=== PATIENT | female | born 1945 | race Caucasian/White ===

== ENCOUNTER 2018-10-05 15:00 | Inpatient (IN) | payer OTHER ==
--- OUTSIDE RECORDS SUMMARY | 2018-10-05 15:12 | XMS REPORT ---
:1945 Author Organization eClinicalWorks Care Team Providers Name Role Phone Tiffanie Avila Provider Role Unavailable Allergies, Adverse Reactions, Alerts Substance Reaction Event Type penicillin throat swells Drug Allergy Problems Problem Type Condition Code Onset Dates Condition Status Assessment Right hip pain M25.551 Active Problem Elevated BP without diagnosis of R03.0 Active hypertension Assessment Elevated BP without diagnosis of R03.0 Active hypertension Assessment Osteoporosis screening Z13.820 Active Assessment Abnormal x-ray R93.89 Active Assessment Low back pain M54.5 Active Problem Low back pain M54.5 Active Problem Right hip pain M25.551 Active Problem Abnormal x-ray R93.89 Active Problem History of right hip replacement Z96.641 Active Problem Status post fall Z91.81 Active Problem Seasonal allergies J30.2 Active Problem Other chronic pain G89.29 Active Medications Medication Code System Code Instructions Start End Date Status Dosage Date Aleve NDC [id number] 220 MG Orally as Active 1 tablet needed with food or milk as needed aspirin NDC 0 Active not defined Results No Known Results Summary Purpose eClinicalWorks Submission
--- OUTSIDE RECORDS SUMMARY | 2018-10-05 15:12 | XMS REPORT ---
:1945 Author Organization e[employer]Works Care Team Providers Name Role Phone Tiffanie Avila Provider Role Unavailable Allergies No Known Allergies Problems Problem Type Condition Code Onset Dates Condition Status Problem Elevated BP without diagnosis of R03.0 Active hypertension Problem Low back pain M54.5 Active Problem Right hip pain M25.551 Active Problem Abnormal x-ray R93.89 Active Problem History of right hip replacement Z96.641 Active Problem Status post fall Z91.81 Active Problem Seasonal allergies J30.2 Active Problem Other chronic pain G89.29 Active Medications No Known Medications Results No Known Results Summary Purpose eClinicalWorks Submission
[2018-10-05 15:47] LABS: Absolute Lymphocytes (CBC) 1.5 K/uL (0.7-4.9); Basophils % 1.2 % (0-1.3); Eosinophils % 1.6 % (0-4.4); Hematocrit 38.8 % (36.0-45.0); Lymphocytes % 20.4 % (15.3-44.8); MPV 10.2 fL (7.6-11.3); Monocytes % 8.3 % (3.3-12.3); RBC Red Blood Cell Count 4.09 M/uL (3.86-4.86)
[2018-10-05 15:48] LABS: Protime INR 0.99
--- NOTE | 2018-10-05 15:48 | RAD REPORT ---
EXAM DESCRIPTION: CT - Ct Stroke Brain Wo Cont - 10/05/2018 3:41 pm CLINICAL HISTORY: DIZZINESS Headache, drowsiness, CVA symptomology COMPARISON: <Comparisons> TECHNIQUE: All CT scans are performed using dose optimization technique as appropriate and may inclu de automated exposure control or mA/KV adjustment according to patient size. FINDINGS: No intracranial hemorrhage, hydrocephalus or extra-axial fluid collection.No areas of brai n edema or evidence of midline shift. The paranasal sinuses and mastoids are clear. The calvarium is intact. IMPRESSION: No acute intracranial abnormality. The findings were discussed with LORENZO Loya on 10/05/2018 at 3:45 p.m. by telephone.
[2018-10-05] MEDS ORDERED: MECLIZINE HCL 12.5 MG TAB PO ONE (16:00)
[2018-10-05 16:04] LABS: Albumin 3.9 g/dL (3.4-5.0); Bilirubin Direct 0.2 mg/dL (0-0.2); Bilirubin Total 0.6 mg/dL (0.2-1.0); Magnesium 2.3 mg/dL (1.8-2.4); Potassium 4.6 mmol/L (3.5-5.1); Protein, Total 7.2 g/dL (6.4-8.2); Troponin (Emerg Dept Use Only) 0.23 ng/mL (0.0-0.045)
[2018-10-05] MEDS ORDERED: ASPIRIN EC 81 MG TAB PO ONE (16:18)
[2018-10-05] MEDS ORDERED: NA CHLORIDE 0.9% 100 ML IV ONE (16:18)
[2018-10-05] MEDS ORDERED: FOLIC ACID 5 MG/ML VIAL ONE (16:19)
--- NOTE | 2018-10-05 16:38 | RAD REPORT ---
EXAM DESCRIPTION: RAD - Chest Single View - 10/05/2018 4:20 pm CLINICAL HISTORY: DIZZY Chest pain. COMPARISON: CHEST SINGLE VIEW dated 11/15/2014; CHEST SINGLE VIEW dated 11/15/2012; CHEST SINGLE VIEW dated 03/04/2002 FINDINGS: Portable technique limits examination quality. The lungs are grossly clear. Mild cardiomegaly noted. No displaced fractures. IMPRESSION: Mild cardiomegaly.
--- NOTE | 2018-10-05 16:45 | EDPHYS ---
Physician Documentation [facility] Name: Esteal Hawley Age: 73 yrs Sex: Female : 1945 Arrival Date: 10/05/2018 Time: 15:02 Bed 19 Private MD: Tiffanie Avila ED Physician Angelo Conner HPI: 10/05 15:36 This 73 yrs old Female presents to ER via Wheelchair with complaints of snw Dizziness. 15:36 The patient presents with a sense of confusion. Onset: The symptoms/episode snw began/occurred suddenly, at 11:00. Context: occurred while the patient was speaking with Sisters. Modifying factors: The symptoms are alleviated by nothing. Associated signs and symptoms: Pertinent positives: pt verbal and making sense but is frustrated as she does not feel she is able to get what she is thinking relayed. Patient's baseline: Neuro: alert and fully oriented, Motor: no deficits, Ambulation: walks without assistance, The patient has a previous history of vertigo. The patient has not experienced similar symptoms in the past. The patient has not recently seen a physician, the patient's primary care provider is Dr. Whittaker. occasionally takes full strength ASA x 2 for aches/pains. Historical: - Allergies: 15:10 penicillamine; ch 15:10 PENICILLINS; ch - Home Meds: 15:10 aspirin 81 mg Oral chew 1 tab once daily [Active]; ch - PMHx: 15:10 vertigo; ch - PSHx: 15:10 R hip replacement; staph removed from left hand; ch - Immunization history:: Adult Immunizations up to date. - Social history:: Smoking status: Patient uses tobacco products, smokes one-half pack cigarettes per day, Patient/guardian denies using alcohol, street drugs. - Ebola Screening: : Patient negative for fever greater than or equal to 101.5 degrees Fahrenheit, and additional compatible Ebola Virus Disease symptoms Patient denies exposure to infectious person Patient denies travel to an Ebola-affected area in the 21 days before illness onset No symptoms or risks identified at this time. ROS: 15:31 Constitutional: Negative for fever, chills, and weight loss, Eyes: Negative for injury, snw pain, redness, and discharge, ENT: Negative for injury, pain, and discharge, Neck: Negative for injury, pain, and swelling, Cardiovascular: Negative for chest pain, palpitations, and edema, Respiratory: Negative for shortness of breath, cough, wheezing, and pleuritic chest pain, Abdomen/GI: Negative for abdominal pain, nausea, vomiting, diarrhea, and constipation, Back: Negative for injury and pain, : Negative for injury, bleeding, discharge, and swelling, MS/Extremity: Negative for injury and deformity, Skin: Negative for injury, rash, and discoloration, Psych: Negative for depression, anxiety, suicide ideation, homicidal ideation, and hallucinations, Son does relate that pt is very stressed about finances and family dynamics Allergy/Immunology: Negative for hives, rash, and allergies. 15:31 Neuro: Positive for difficulty translating thoughts to words. Exam: 15:31 Constitutional: This is a well developed, well nourished patient who is awake, alert, snw and in no acute distress. Head/Face: Normocephalic, atraumatic. Eyes: Pupils equal round and reactive to light, extra-ocular motions intact. Lids and lashes normal. Conjunctiva and sclera are non-icteric and not injected. Cornea within normal limits. Periorbital areas with no swelling, redness, or edema. ENT: Nares patent. No nasal discharge, no septal abnormalities noted. Tympanic membranes are normal and external auditory canals are clear. Oropharynx with no redness, swelling, or masses, exudates, or evidence of obstruction, uvula midline. Mucous membranes moist. Neck: Trachea midline, no thyromegaly or masses palpated, and no cervical lymphadenopathy. Supple, full range of motion without nuchal rigidity, or vertebral point tenderness. No Meningismus. Chest/axilla: Normal chest wall appearance and motion. Nontender with no deformity. No lesions are appreciated. Cardiovascular: Regular rate and rhythm with a normal S1 and S2. No gallops, murmurs, or rubs. Normal PMI, no JVD. No pulse deficits. Respiratory: Lungs have equal breath sounds bilaterally, clear to auscultation and percussion. No rales, rhonchi or wheezes noted. No increased work of breathing, no retractions or nasal flaring. Abdomen/GI: Soft, non-tender, with normal bowel sounds. No distension or tympany. No guarding or rebound. No evidence of tenderness throughout. Back: No spinal tenderness. No costovertebral tenderness. Full range of motion. Skin: Warm, dry with normal turgor. Normal color with no rashes, no lesions, and no evidence of cellulitis. MS/ Extremity: Pulses equal, no cyanosis. Neurovascular intact. Full, normal range of motion. Psych: Awake, alert, with orientation to person, place and time. Behavior, mood, and affect are within normal limits. 15:31 Neuro: Orientation: is normal, Mentation: able to follow commands, pt having trouble connecting what she is thinking to what she is able to say, Memory: is normal, Cranial nerves: grossly normal, Sensation: is normal, Babinski testing is normal, seizure activity, is not displayed by the patient. Vital Signs: 15:10 BP 158 / 82; Pulse 66; Resp 16; Temp 98.4; Pulse Ox 99% on R/A; Weight 72.57 kg; Height ch 5 ft. 0 in. (152.40 cm); Pain 0/10; 15:33 BP 156 / 66; Pulse 60; Resp 14; Pulse Ox 100% ; bp 16:17 BP 134 / 66; Pulse 55; Resp 16; Pulse Ox 100% ; bp 17:05 BP 161 / 66; Pulse 51; Resp 16; Pulse Ox 100% on R/A; bp 19:50 BP 143 / 57; Pulse 56; Resp 18; Temp 98.5; Pulse Ox 99% ; Pain 0/10; rr5 15:10 Body Mass Index 31.25 (72.57 kg, 152.40 cm) ch MDM: 15:25 Patient medically screened. snw 16:42 Data reviewed: vital signs, nurses notes. Data interpreted: Pulse oximetry: on room air snw is 100 %. Interpretation: normal. Counseling: I had a detailed discussion with the patient and/or guardian regarding: the historical points, exam findings, and any diagnostic results supporting the discharge/admit diagnosis, the presence of at least one elevated blood pressure reading (>120/80) during this emergency department visit, lab results, radiology results, the need for further work-up and treatment in the hospital. Physician consultation: Andrea Joseph DO was called at 16:30, was contacted at 16:30, regarding admission, and will see patient in ED, shortly. 10/05 15:24 Order name: Basic Metabolic Panel; Complete Time: 16:08 snw 10/05 15:24 Order name: CBC with Diff; Complete Time: 16:08 snw 10/05 15:24 Order name: LFT's; Complete Time: 16:08 snw 10/05 15:24 Order name: Magnesium; Complete Time: 16:08 snw 10/05 15:24 Order name: NT PRO-BNP; Complete Time: 16:08 snw 10/05 15:24 Order name: PT-INR; Complete Time: 16:08 snw 10/05 15:24 Order name: CT Stroke Brain w/o Contrast; Complete Time: 15:50 snw 10/05 15:24 Order name: Troponin (emerg Dept Use Only); Complete Time: 16:08 w 10/05 15:49 Order name: Chest Single View; Complete Time: 16:41 EDRI 10/05 16:15 Order name: MRI Stroke Protocol [facility] 10/05 20:11 Order name: MRI; Complete Time: 20:12 EDMS 10/05 20:14 Order name: MRI; Complete Time: 20:15 EDRI 10/05 20:17 Order name: MRI; Complete Time: 22:35 EDRI 10/05 15:24 Order name: EKG; Complete Time: 15:25 snw 10/05 15:24 Order name: Cardiac monitoring; Complete Time: 15:31 w 10/05 15:24 Order name: EKG - Nurse/Tech; Complete Time: 15:31 w 10/05 15:24 Order name: IV Saline Lock; Complete Time: 16:17 w 10/05 15:24 Order name: Labs collected and sent; Complete Time: 16:17 snw 10/05 15:24 Order name: O2 Per Protocol; Complete Time: 15:31 snw 10/05 15:24 Order name: O2 Sat Monitoring; Complete Time: 15:31 snw Administered Medications: 16:12 Drug: Meclizine 50 mg {Note: RECD REPORT FROM PHARMACY AT 1615.} Route: PO; bp 16:12 Drug: Aspirin 81 mg Route: PO; bp 16:12 Drug: foLIC Acid 1 mg Route: IVPB; Site: right antecubital; bp Disposition: 10/05/18 16:44 Hospitalization ordered by Andrea Joseph for Inpatient Admission. Preliminary diagnosis are Dysarthria, Abnormal electrocardiogram [ECG] [EKG], Cardiomegaly, Elevated troponin. - Bed requested for Telemetry/MedSurg (Inpatient). - Status is Inpatient Admission. rr5 - Condition is Stable. - Problem is new. - Symptoms are unchanged. UTI on Admission? No Addendum: 10/09/2018 09:53 Co-signature as Attending Physician, Angelo Conner MD I agree with the assessment and c patterson plan of care. Signatures: Dispatcher [employer] EDRI Joslyn Hand, RN Angelo Schwartz ch, MD MD cha Therrien, Shelly, RECREATIONAL DIRECTOR-C RECREATIONAL DIRECTOR-Csnw Tamara Fernandez, RN RN cg Lamonte Rachel, Chino Reyes RN RN RN rr5 Corrections: (The following items were deleted from the chart) 10/05 15:46 15:25 Chest Single View+RAD.RAD.BRZ ordered. [facility] 19:37 16:44 Hospitalization Ordered by Andrea Joseph DO for Inpatient Admission. Preliminary cg diagnosis is Dysarthria; Abnormal electrocardiogram [ECG] [EKG]; Cardiomegaly; Elevated troponin. Bed requested for Telemetry/MedSurg (Inpatient). Status is Inpatient Admission. Condition is Stable. Problem is new. Symptoms are unchanged. UTI on Admission? No. snw 20:17 19:37 10/05/2018 16:44 Hospitalization Ordered by Andrea Joseph DO for Inpatient rr5 Admission. Preliminary diagnosis is Dysarthria; Abnormal electrocardiogram [ECG] [EKG]; Cardiomegaly; Elevated troponin. Bed requested for Telemetry/MedSurg (Inpatient). Status is Inpatient Admission. Condition is Stable. Problem is new. Symptoms are unchanged. UTI on Admission? No. cg 20:21 20:17 10/05/2018 16:44 Hospitalization Ordered by Andrea Joseph DO for Inpatient rr5 Admission. Preliminary diagnosis is Dysarthria; Abnormal electrocardiogram [ECG] [EKG]; Cardiomegaly; Elevated troponin. Bed requested for Telemetry/MedSurg (Inpatient). Status is Inpatient Admission. Condition is Stable. Problem is new. Symptoms are unchanged. UTI on Admission? No. rr5
--- NOTE | 2018-10-05 16:45 | ER ---
Nurse's Notes [facility] Name: Estela Hawley Age: 73 yrs Sex: Female : 1945 Arrival Date: 10/05/2018 Time: 15:02 Bed 19 Private MD: Tiffanie Avila Diagnosis: Dysarthria;Abnormal electrocardiogram [ECG] [EKG];Cardiomegaly;Elevated troponin Presentation: 10/05 15:06 Presenting complaint: Patient states: dizzy and cant make right words, started at 1000 ch today. I cant walk right. 15:09 Transition of care: patient was not received from another setting of care. Onset of symptoms was October 05, 2018 at 10:00. Risk Assessment: Do you want to hurt yourself or someone else? Patient reports no desire to harm self or others. Initial Sepsis Screen: Does the patient meet any 2 criteria? No. Patient's initial sepsis screen is negative. Does the patient have a suspected source of infection? No. Patient's initial sepsis screen is negative. Care prior to arrival: None. 15:09 Method Of Arrival: Wheelchair 15:09 Acuity: KERRIE 3 ch Triage Assessment: 15:10 General: Appears in no apparent distress. uncomfortable. Historical: - Allergies: 15:10 penicillamine; 15:10 PENICILLINS; - Home Meds: 15:10 aspirin 81 mg Oral chew 1 tab once daily [Active]; - PMHx: 15:10 vertigo; - PSHx: 15:10 R hip replacement; staph removed from left hand; - Immunization history:: Adult Immunizations up to date. - Social history:: Smoking status: Patient uses tobacco products, smokes one-half pack cigarettes per day, Patient/guardian denies using alcohol, street drugs. - Ebola Screening: : Patient negative for fever greater than or equal to 101.5 degrees Fahrenheit, and additional compatible Ebola Virus Disease symptoms Patient denies exposure to infectious person Patient denies travel to an Ebola-affected area in the 21 days before illness onset No symptoms or risks identified at this time. Screenin:10 Abuse screen: Denies threats or abuse. Denies injuries from another. Nutritional bp screening: No deficits noted. Tuberculosis screening: No symptoms or risk factors identified. Fall Risk None identified. Assessment: 15:10 General: Appears in no apparent distress. comfortable, Behavior is cooperative, bp appropriate for age, anxious. Pain: Denies pain. Neuro: Reports dizziness. Cardiovascular: No deficits noted. Respiratory: Airway is patent Respiratory effort is even, unlabored, Respiratory pattern is regular, symmetrical. GI: No signs and/or symptoms were reported involving the gastrointestinal system. : No signs and/or symptoms were reported regarding the genitourinary system. EENT: No deficits noted. Derm: No deficits noted. Musculoskeletal: Circulation, motion, and sensation intact. Range of motion: intact in all extremities. 16:19 Reassessment: ALL CURRENT ORDERS COMPLETED, RESULTS PENDING. bp 17:04 Reassessment: PT SEEN BY ADMIT MD, ADMIT IN PROCESS. bp 19:30 General: Appears in no apparent distress. comfortable, Behavior is calm, cooperative, rr5 appropriate for age. Pain: Denies pain. Neuro: Level of Consciousness is awake, alert, obeys commands, Oriented to person, place, time, situation, Appropriate for age Scrap Breaker are equal bilaterally Speech is normal, Facial symmetry appears normal. Cardiovascular: Capillary refill < 3 seconds Patient's skin is warm and dry. Respiratory: Airway is patent Respiratory effort is even, unlabored, Respiratory pattern is regular, symmetrical. GI: No signs and/or symptoms were reported involving the gastrointestinal system. : No signs and/or symptoms were reported regarding the genitourinary system. EENT: No deficits noted. Derm: Skin is intact, Skin temperature is warm. Musculoskeletal: Capillary refill < 3 seconds, Range of motion: intact in all extremities. 19:30 Reassessment: came back from [facility]. for transfer to room 422. rr5 Vital Signs: 15:10 BP 158 / 82; Pulse 66; Resp 16; Temp 98.4; Pulse Ox 99% on R/A; Weight 72.57 kg; Height ch 5 ft. 0 in. (152.40 cm); Pain 0/10; 15:33 BP 156 / 66; Pulse 60; Resp 14; Pulse Ox 100% ; bp 16:17 BP 134 / 66; Pulse 55; Resp 16; Pulse Ox 100% ; bp 17:05 BP 161 / 66; Pulse 51; Resp 16; Pulse Ox 100% on R/A; bp 19:50 BP 143 / 57; Pulse 56; Resp 18; Temp 98.5; Pulse Ox 99% ; Pain 0/10; rr5 15:10 Body Mass Index 31.25 (72.57 kg, 152.40 cm) ED Course: 15:02 Patient arrived in ED. mr 15:02 Tiffanie Avila MD is Private Physician. mr 15:09 Triage completed. ch 15:10 Arm band placed on left wrist. Patient placed in an exam room, on a stretcher. 15:10 Patient has correct armband on for positive identification. Bed in low position. Call bp light in reach. Side rails up X2. Adult w/ patient. 15:10 Inserted saline lock: 22 gauge in right antecubital area, using aseptic technique. bp Blood collected. 15:19 Lamonte Rachel, LAZARUS is Primary Nurse. bp 15:22 Thais Anderson FNP-C is PHCP. snw 15:23 Angelo Conner MD is Attending Physician. snw 15:44 CT Stroke Brain w/o Contrast In Process Unspecified. EDMS 16:03 EKG done, by cardiac catheterization technician. reviewed by Thais JOYA. at1 16:20 Chest Single View In Process Unspecified. EDMS 16:21 X-ray completed. Portable x-ray completed in exam room. Patient tolerated procedure sw well. 16:43 Andrea Joseph DO is Hospitalizing Provider. snw 18:31 Patient moved to MRI via wheelchair. vm2 19:59 No provider procedures requiring assistance completed. Patient admitted, IV remains in rr5 place. intact. Administered Medications: 16:12 Drug: Meclizine 50 mg {Note: RECD REPORT FROM PHARMACY AT 1615.} Route: PO; bp 16:12 Drug: Aspirin 81 mg Route: PO; bp 16:12 Drug: foLIC Acid 1 mg Route: IVPB; Site: right antecubital; bp Outcome: 16:44 Decision to Hospitalize by Provider. snw 19:59 Admitted to Tele accompanied by tech, via wheelchair, room 422, with chart, Report rr5 called to jessica 19:59 Condition: stable 19:59 Instructed on the need for admit. 20:21 Patient left the ED. rr5 Signatures: Dispatcher [employer] EDMS Joslyn Hand RN RN Thais Anderson FNP-C FNP-Csnw Светлана Edwards mr Tono, Brittany, lithographic press feeder EKG Tat1 Suma Gibson [place] 2 Lamonte Rachel, RN RN bp Chino Juan RN RN rr5
--- NOTE | 2018-10-05 17:19 | P.HP ---
Certification for Inpatient Patient admitted to: Inpatient With expected LOS: >2 Midnights Patient will require the following post-hospital care: None Practitioner: I am a practitioner with admitting privileges, knowledge of patient current condition, hospital course, and medical plan of care. Services: Services provided to patient in accordance with Admission requirements found in Title 42 Section 412.3 of the Code of Federal Regulations Patient History Date of Service: 10/05/18 Primary Care Provider: Dr. Whittaker Reason for admission: Expressive aphasia History of Present Illness: 73-year-old female presented to the emergency room after an episode of expressive aphasia. Patient reports only history of arthritis and tobacco use. Patient around 10: 00 a.m. noted some difficulty expressing words. This lasted for several out worse. She was not able to express the words that she was thinking. She denied any chest pain, shortness of breath, palpitation. She also denied any significant weakness, slurred speech, blurry vision, or headache. Mild reports of dizziness noted. Patient had been reporting some indigestion with increase belching lately. Some constipation noted. Decided to come to the ER for further evaluation. Patient came to the ER around 3:00 p.m.. Symptoms had resolved. On evaluation patient was slightly bradycardic with rate in the 50s. Blood pressure stable. CT head unremarkable. Chest showed mild cardiomegaly. Troponin was elevated at 0.23 with an elevated BNP of 7759. White count 7.3, hemoglobin 13. Sodium 140, potassium 4.6 with a BUN of 23, creatinine 1.3 with a GFR 43. Glucose 105. Patient was admitted for further evaluation and treatment. When I saw the patient ER, she appeared comfortable. Son at bedside. Patient reports only history of arthritis and tobacco use. She has used aspirin on occasion. She admits smoking a half a pack per day. Otherwise patient reports no history of heart disease, lung disease, stroke. Allergies acetaminophen [From Vicodin] Allergy (Verified 11/16/14 14:41) Hives/Rash hydrocodone bitartrate [From Vicodin] Allergy (Verified 11/16/14 14:41) Hives/Rash Penicillins Allergy (Verified 11/15/14 19:38) Hives/Rash Home medications list reviewed: Yes Home Medications: Codeine/APAP [Tylenol W/Codeine #3 tab] 1 tab PO Q6HP PRN #30 tab 11/18/14 Doxycycline Monohydrate 100 mg PO BID #20 capsule 11/18/14 levoFLOXacin [Levaquin] 500 mg PO DAILY #10 tab 11/18/14 - Past Medical/Surgical History Diabetic: No -: Arthritis -: Tobacco abuse -: Right hip replacement Psychosocial/ Personal History: Patient is a . She lives near her children - Family History Family History: Reviewed- Non-Contributory - Family History Father Notes: GOUT Mother Notes: TB - Social History Smoking Status: Light Tobacco smoker (1-9 cigarettes/day) Counseled patient to stop smoking for: less than 10 minutes Smoking therapy provided: Yes Patient receptive to therapy: Yes Alcohol use: No CD- Drugs: No Caffeine use: Yes Place of Residence: Home Review of Systems General: As per HPI Eyes: Unremarkable ENT: Unremarkable Respiratory: Unremarkable Cardiovascular: Light Headedness, As per HPI Gastrointestinal: Constipation, As per HPI Genitourinary: Unremarkable Musculoskeletal: Unremarkable Integumentary: Unremarkable Neurological: As per HPI Lymphatics: Unremarkable Physical Examination - Physical Exam General: Alert, In no apparent distress, Oriented x3, Cooperative HEENT: Atraumatic, Normocephalic, PERRLA, Mucous membr. moist/pink, EOMI Neck: Supple, No Thyromegaly Respiratory: Clear to auscultation bilaterally, Normal air movement Cardiovascular: Abnormal pulses (Mild sinus bradycardia) Gastrointestinal: Normal bowel sounds, Soft and benign, Non-distended, No ascites, No tenderness, No masses, No rebound, No guarding Musculoskeletal: No contractures, No erythema, No tenderness, No warmth Integumentary: No tenderness/swelling, No erythema, No warmth, No cyanosis Neurological: Normal speech, Normal strength at 5/5 x4 extr, Normal tone, Sensation intact, Cranial nerves 3-12 intact, Normal affect - Studies Laboratory Data (last 24 hrs) 10/05/18 15:37: PT 11.7, INR 0.99 10/05/18 15:37: WBC 7.3, Hgb 13.1, Hct 38.8, Plt Count 221 10/05/18 15:37: Sodium 140, Potassium 4.6, BUN 23 H, Creatinine 1.23, Glucose 105, Magnesium 2.3, Total Bilirubin 0.6, AST 19, ALT 23, Alkaline Phosphatase 64 Assessment and Plan - Plan Impression: Expressive aphasia resolved likely TIA complicated with elevated troponin related to non ST wave NE with noted cardiomegaly Mild renal insufficiency likely dehydration Tobacco abuse Mild bradycardia Plan: Expressive aphasia, resolved upon arrival likely TIA complicated with elevated troponin related to non ST wave NE with noted cardiomegaly: Patient will be admitted for further evaluation and treatment. Stroke protocol in place. Will monitor neuro checks. Physical therapy and occupational therapy to assess. Will evaluate swallowing. Will start aspirin, Lipitor, folic acid. Due to elevated troponin/non ST wave NE, will start Lovenox at 1 milligram/kilogram subcu twice daily. Blood pressure stable at this time. Patient with mild bradycardia. No medication to be given at this time. Will maintain blood pressures above 140-160. Will monitor and adjust appropriately. Neurology and Cardiology has been consulted. Will obtain echocardiogram, carotid Doppler, and stroke protocol MRI. Will start low-dose IV fluids. Will continue to reassess and monitor closely. Will keep the patient NPO in anticipation for cardiac evaluation tomorrow. Anticipate discharge within the next 24-48 hr. Pending clinical stability. Mild renal insufficiency likely dehydration: Will start IV fluids. Will reassess tomorrow. Will monitor and replace electrolytes appropriately. Tobacco abuse: Will provide nicotine patch. Cessation education provided Mild bradycardia: Patient with mild bradycardia. Will monitor closely. Discharge Plan: Home Plan to discharge in: 48 Hours (to 72 hr) - Advance Directives Does patient have a Living Will: No Does patient have a Durable POA for Healthcare: No - Code Status/Comfort Care Code Status Assessed: Yes (Patient full code.) Time Spent Managing Pts Care (In Minutes): 55
--- NOTE | 2018-10-05 20:09 | RAD REPORT ---
EXAM DESCRIPTION: MRI - Brain W/Wo Cont - 10/05/2018 7:32 pm CLINICAL HISTORY: aphasia CVA symptomology COMPARISON: MRA Head Wo Cont dated 10/05/2018; Ct Stroke Brain Wo Cont dated 10/05/2018 TECHNIQUE: Multi-sequence, multiplanar MR imaging of the brain was performed with contrast. FINDINGS: No intracranial hemorrhage, hydrocephalus, or extra-axial fluid collection. No shift of mi dline structures. No intracranial mass. 7 mm area of restricted diffusion is seen along the left post erior insular cortex adjacent to the external capsule. This is an acute CVA based on DWI/ADC signal.. Mild generalized brain atrophy with mild periventricular and deep white matter chronic microvascular ischemic changes present. The midline structures are normally formed. Mastoid air cells and paranasal sinuses are clear. Post-contrast images show no abnormal enhancement to suggest tumor or infection. IMPRESSION: 7 mm nonhemorrhagic acute CVA left posterior insular cortex/ external capsule region. Findings were discussed Dr. Joseph at 8:06 p.m. 10/05/2018 by telephone.
--- NOTE | 2018-10-05 20:11 | RAD REPORT ---
EXAM DESCRIPTION: MRI - MRA Head Wo Cont - 10/05/2018 7:32 pm CLINICAL HISTORY: APHASIA CVA COMPARISON: Ct Stroke Brain Wo Cont dated 10/05/2018 FINDINGS: 3D noncontrast [id number] MR angiography of the [place] of [place] was performed. No aneurysm, flow-limiting stenosis or vascular malformation is seen. origin of both posterior communicating artery is noted, normal variant. Right vertebral artery is dominant. Left vertebral art gina is diminutive and may terminate in the left PICA. The visualized dural venous sinuses appear patent. IMPRESSION: No significant flow abnormality of the [place] of [place] is identified.
--- NOTE | 2018-10-05 20:14 | RAD REPORT ---
EXAM DESCRIPTION: MRI - MRA Neck W/Wo Cont - 10/05/2018 7:32 pm CLINICAL HISTORY: aphasia CVA symptomology, headache COMPARISON: No comparisons FINDINGS: Contrast enhance 2D [id number] MR angiography of the neck vessels was performed. A left aortic arch is present. Bovine configuration of the great vessel origins noted. No significant common carotid or subclavian artery stenosis. No significant internal carotid artery stenosis identified. Right-sided dominant vertebral artery see n. The left vertebral artery probably terminates in PICA, normal variant. IMPRESSION: No significant flow abnormality of the neck vessels.
[2018-10-05] MEDS ORDERED: ONDANSETRON 4 MG/2 ML VIAL IV PRN (20:26)
[2018-10-05 21:26] LABS: CKMB Creatine Kinase MB 4.4 ng/mL (0.3-3.6); Troponin I 0.32 ng/mL (0.0-0.045)
[2018-10-05] MEDS: ATORVASTATIN 80 MG TAB PO SCH (22:08)
[2018-10-05] MEDS: NA CHLORIDE 0.9% 1,000 ML IV SCH (22:08)
[2018-10-05] MEDS: ENOXAPARIN 80 MG/0.8 ML SQ SCH (23:30)
[2018-10-06 00:03] LABS: Urine Appearance CLOUDY; Urine Bilirubin NEGATIVE (NEG); Urine Blood NEGATIVE (NEG); Urine Color YELLOW; Urine Glucose NEGATIVE (NEG); Urine Protein NEGATIVE (NEG); Urine Urobilinogen 0.2 mg/dL (0.2-1.0); Urine pH 5.5 (5.0-7.0)
[2018-10-06 00:41] LABS: Urine Microscopic Reflex ORDER UMIC
[2018-10-06 00:55] LABS: Urine Bacteria <20 /HPF (<20); Urine Culture Reflex Order NOT NEEDED; Urine RBC <5 /HPF (NONE SEEN)
[2018-10-06 05:20] LABS: Absolute Lymphocytes (CBC) 2.6 K/uL (0.7-4.9); Basophils % 1.2 % (0-1.3); Eosinophils % 4.4 % (0-4.4); Hematocrit 36.3 % (36.0-45.0); Lymphocytes % 41.6 % (15.3-44.8); MPV 10.7 fL (7.6-11.3); Monocytes % 10.7 % (3.3-12.3)
[2018-10-06 05:46] LABS: CKMB Creatine Kinase MB 3.8 ng/mL (0.3-3.6); Troponin I 0.28 ng/mL (0.0-0.045)
[2018-10-06 05:51] LABS: Magnesium 2.3 mg/dL (1.8-2.4); Potassium 4.6 mmol/L (3.5-5.1); Thyroid Stimulating Hormone 2.21 uIU/mL (0.360-3.740)
--- NOTE | 2018-10-06 08:04 | EKG ---
Test Date: 2018-10-05 Test Time: 15:58:17 Mystery Shopper: DARIO MEASUREMENT RESULTS: Intervals: Rate: 57 OK: 146 QRSD: 84 QT: 488 QTc: 474 [place]: P: 48 OK: 146 QRS: -17 T: 202 INTERPRETIVE STATEMENTS: Sinus bradycardia Septal infarct, age undetermined ST & T wave abnormality, consider inferior ischemia ST & T wave abnormality, consider anterolateral ischemia Abnormal ECG Compared to ECG 11/15/2014 19:40:16 Myocardial infarct finding now present ST (T wave) deviation now present Possible ischemia now present Sinus rhythm no longer present Electronically Signed On 10-06-18 08:03:27 CDT by Sudheer Cleary
--- NOTE | 2018-10-06 08:56 | P.PN ---
Subjective Date of Service: 10/06/18 Primary Care Provider: Dr. Whittaker Chief Complaint: Expressive aphasia Subjective: Doing well, Other (No expressive aphasia noted. No chest pain or shortness of breath noted.) Physical Examination - Vital Signs Temperature: 97.7 F Blood Pressure: 146/63 Pulse: 60 Respirations: 18 Pulse Ox (%): 97 - Physical Exam General: Alert, In no apparent distress, Oriented x3, Cooperative HEENT: Atraumatic Neck: Supple Respiratory: Clear to auscultation bilaterally, Normal air movement Cardiovascular: Normal pulses, Regular rate/rhythm Gastrointestinal: Normal bowel sounds, Soft and benign, Non-distended, No tenderness, No masses, No rebound, No guarding Musculoskeletal: No erythema, No tenderness, No warmth Integumentary: No tenderness/swelling, No erythema, No warmth, No cyanosis Neurological: Normal speech, Normal strength at 5/5 x4 extr, Normal tone, Normal affect - Studies Laboratory Data (last 24 hrs) 10/05/18 15:37: PT 11.7, INR 0.99 10/05/18 15:37: WBC 7.3, Hgb 13.1, Hct 38.8, Plt Count 221 10/05/18 15:37: Sodium 140, Potassium 4.6, BUN 23 H, Creatinine 1.23, Glucose 105, Magnesium 2.3, Total Bilirubin 0.6, AST 19, ALT 23, Alkaline Phosphatase 64 Medications List Reviewed: Yes Assessment & Plan Discharge Plan: Home Plan to discharge in: Greater than 2 days Physician Review Additional Text: Impression: Expressive aphasia, resolved upon arrival secondary to 7 mm nonhemorrhagic acute CVA to the left posterior insular cortex/external capsule region complicated with elevated troponin related to non ST wave PA with noted cardiomegaly likely underlying CAD Mild renal insufficiency likely dehydration Hyperlipidemia Tobacco abuse Mild bradycardia Plan: Expressive aphasia, resolved upon arrival secondary to 7 mm nonhemorrhagic acute CVA to the left posterior insular cortex/external capsule region complicated with elevated troponin related to non ST wave PA with noted cardiomegaly likely underlying CAD: Patient doing well at this time. Patient without expressive aphasia. No chest pain or shortness of breath. MRA neck and brain unremarkable. MRI of reviewed with patient. Echocardiogram and carotid Doppler pending. Case discussed with cardiology. Patient will have heart catheterization on Tuesday to further evaluate her PA. Patient likely with underlying CAD. Will continue with aspirin, Lovenox, Lipitor, and folic acid. Will discuss case further with Neurology for further recommendation. Will need to determine if to change to Plavix or add Plavix to her regimen. Blood pressures remain stable at this time. Will maintain blood pressure systolic around 140/60. No need for blood pressure medication at this time. Physical therapy and occupational therapy to evaluate. Likely no need for rehabilitation as patient has no expressive aphasia. Anticipate heart catheterization on Tuesday with likely intervention. Likely discharge on Tuesday or Tuesday pending findings. I will turn the service over to Dr. Nava tomorrow. I will go over the plan of care with her. Mild renal insufficiency likely dehydration: Will continue with IV fluids. Hyperlipidemia: LDL elevated. Continue with statin medication. Tobacco abuse: Will provide nicotine patch as needed. Cessation education addressed. Mild bradycardia: Patient with mild bradycardia. Overall stable this time. If blood pressure medication is required full recommend not using beta-felisha therapy. Will monitor closely. Time Spent Managing Pts Care (In Minutes): 55
[2018-10-06] MEDS: NICOTINE 21 MG/PAT TD SCH (09:00)
[2018-10-06] MEDS: ENOXAPARIN 80 MG/0.8 ML SQ SCH ×2 (10:00→21:16)
[2018-10-06] MEDS: FOLIC ACID 1 MG TABLET PO SCH (10:00)
[2018-10-06] MEDS: ASPIRIN EC 81 MG TAB PO SCH (10:00)
--- NOTE | 2018-10-06 12:16 | RAD REPORT ---
EXAM DESCRIPTION: - CP - 10/06/2018 12:07 pm CLINICAL HISTORY: Express aphasia, TIA COMPARISON: None. TECHNIQUE: Real-time sonographic evaluation of both carotid systems was performed. John scale and Do ppler interrogation were performed with waveform tracing bilaterally. FINDINGS: Normal high resistance waveforms are noted in both external carotid arteries. The common c arotid arteries and internal carotid arteries show normal low resistance waveforms. Bilateral common carotid artery intimal thickening present. Small calcified plaquing changes are pres ent in the right common carotid artery and right carotid bulb. Visually this does not cause significa nt luminal narrowing. Peak systolic and end diastolic velocity values and the ICA/CCA ratios are in t he non-hemodynamically significant range. Antegrade flow seen in both vertebral arteries. Velocity values and ratios were recorded and are retained in the patient's imaging records. IMPRESSION: Mild atherosclerotic changes are present without evidence for a significant stenosis. No dissection or other flow restricting lesion. No evidence of a hemodynamically significant stenosis.
--- NOTE | 2018-10-06 13:31 | CON ---
Chief Complaint: Aphasia. History Of Present Illness: Mrs. Hawley notes sometimes she gets indigestion and was having some of that yesterday, then she developed inability to speak. There is apparently no focal weakness in arm or face or legs, but she could not capture words. She came to the ER and I do not think she receive d tPA, but her symptoms resolved since then. An MRI and MRA of the head and neck reveals no stroke, no vascular stenosis of the cervical, carotids or intracranial blood vessels. The patient has no pre vious history of myocardial infarction or stroke. She is a regular tobacco user and seems reluctant to give up tobacco. She takes no home medicines. No previous history of stroke, myocardial infarcti on, diabetes, hypertension, dyslipidemia. Physical Examination: General: She is 5 feet tall, 154 pounds. She is obese, alert, oriented, pleasant, not in distress. Lungs: Clear. No carotid bruit. Heart: Exam within normal limits. Extremities: Palpable but diminished distal pulses. Her electrocardiogram does not reveal infarction, injury or ischemia. Actually does reveal an old se ptal infarct, age undetermined, but it is new compared to an EKG from October of 2014. Laboratory Data: Reveals a troponin of 0.3-0.28. Impression: I think the patient should be treated with dual anti-platelet therapy, high doses of sta tin drugs, either Crestor 40 or Lipitor 80 and undergo a cardiac catheterization, at this point, that would be planned on October 09. The patient seems to have no understanding right now what a cardiac cath is, so we are going to teach her about the procedure and I will talk to her again tomorrow about it and see if we can arrange it for the future. Right now, she would not be able to give informed consent because she just does not seem to grasp what we are saying . NATALEE/TANIKA Voice ID: [id number] Report ID: [id number]
--- NOTE | 2018-10-06 13:40 | ECHO ---
HEIGHT: 5 ft 0 in WEIGHT: 154 lb 0 oz DATE OF STUDY: 10/06/[address]: Andrea Joseph DO 2-DIMENSIONAL: YES M.MODE: YES DOPPLER: YES COLOR FLOW: YES TDS: NO PORTABLE: NO DEFINITY: NO BUBBLE STUDY: NO DIAGNOSIS: NON ST ELEVATION MYOCARDIAL INFARCTION CARDIAC HISTORY: CATHERIZATION: NO SURGERY: NO PROSTHETIC VALVE: NO PACEMAKER: NO MEASUREMENTS (cm) DIASTOLIC (NORMALS) SYSTOLIC (NORMALS) IVSd 1.1 (0.6-1.2) LA Diam 3.8 (1.9-4.0) LVEF 59% LVIDd 5.3 (3.5-5.7) LVIDs 3.6 (2.0-3.5) %FS 32% LVPWd 1.2 (0.6-1.2) Ao Diam 2.7 (2.0-3.7) 2 DIMENSIONAL ASSESSMENT: RIGHT ATRIUM: NORMAL LEFT ATRIUM: NORMAL RIGHT VENTRICLE: NORMAL LEFT VENTRICLE: NORMAL TRICUSPID VALVE: NORMAL MITRAL VALVE: NORMAL PULMONIC VALVE: NORMAL AORTIC VALVE: 3 LEAFLETS, SCLEROSIS PERICARDIAL EFFUSION: NONE AORTIC ROOT: NORMAL LEFT VENTRICULAR WALL MOTION: APICAL HYPOKINESIS. NO THROMBUS SEEN. DOPPLER/COLOR FLOW: MILD AORTIC REGURGITATION, MITRAL REGURGITATION, AND TRICUSPID REGURGITATION. NORMAL RIGHT VENTRICULAR SYSTOLIC PRESSURE. COMMENTS: NORMAL LEFT VENTRICULAR EJECTION FRACTION WITH APICAL HYPOKINESIS. AORTIC VALVE SCLEROSIS WITH NO AORTIC STENOSIS. MILD AORTIC REGURGITATION, MITRAL REGURGITATION, AND TRICUSPID REGURGITATION. TECHNOLOGIST: [facility]
[2018-10-06] MEDS: NA CHLORIDE 0.9% 1,000 ML IV SCH (16:26)
--- NOTE | 2018-10-06 20:22 | CON ---
Reason For Consultation: Consultation called because of stroke. History Of Present Illness: Ms. Hawley is a 73-year-old patient who has a 26-pack year history of c igarette smoking and arthritis and comes in with stroke causing expressive aphasia. Yesterday, she w as on the phone with her sister around 10 a.m. when she suddenly could not get her thoughts and words , was confused about what she wanted to say and the words seemed to come out wrong. She also tried t o dial some other numbers and could not remember those numbers and had to try hard to focus to recall the phone numbers and how to actually punched numbers to call on the phone. The symptoms lasted a f ew hours. She did not have chest pain, shortness of breath, pounding, palpitations. No weakness in the arm or leg, and she denied any weakness in her face. No loss of balance or coordination. No abd ominal pain. No genitourinary complaints. At [facility] her head CT scan was unremarkable for any acute ischemic or hemorrhagic change. However, her brain MRI identified a 7 mm left posterio r insular cortex stroke. Today, she had a carotid Doppler study which showed no hemodynamically sign ificant stenosis and magnetic resonance angiogram of her brain showed no flow abnormalities in the ci rcle of [place]. Her echocardiogram showed ejection fraction of 69% with apical hypokinesis, aortic v alve sclerosis but no stenosis and mild aortic regurgitation, mitral regurgitation and tricuspid regu rgitation. Her electrocardiogram showed sinus bradycardia. She said that she was taking up to 2 asp irin daily. Past Medical History: As indicated with arthritis, tobacco dependency. Surgical History: Right hip replacement. Allergies: ACETAMINOPHEN, HYDROCODONE, PENICILLIN. Medications: At home Tylenol No. 3 every 6 hours, doxycycline 100 mg twice daily, Levaquin 500 mg da jessica. It is unclear how long she has been on antibiotics. Family History: Father with gout. Mother with tuberculosis. No stroke. Social History: As indicated, she has smoked half pack cigarettes per day for 55 years. Denies alco hol use. Denies using illegal drugs. Does use caffeinated beverages. Review of Systems: Aside from mentioned above, she denies any recent fevers, chills, nausea, vomiting, myalgias, arthral gias, headache, weight change, rash, psychiatric complaints, gastrointestinal complaints, genitourina ry issues. Physical Examination: Vital Signs: Blood pressure 138/63, pulse 61, respiratory rate 16, temperature 97.7, oxygen saturati on 99% room air. Weight 134 pounds. Height 5 feet, BMI 30.1. General: Ms. Hawley is resting comfortably in a chair sitting actually in chair with family in the room. She is in no acute distress. HEENT: She is normocephalic, atraumatic. Sclerae anicteric. Oropharynx is pink and moist. Neck: Supple. Chest: Clear. Heart: Regular. Extremities: Show no edema, cyanosis, or clubbing. Neurological: She is alert and oriented to person, place, time, and situation. She has at this poin t, no expressive or receptive aphasias. Cranial nerves reveal no focal deficits on 2 through 12. Mo tor examination intact in upper and lower extremity 5/5 proximally and distally. Sensory examination intact in upper and lower extremities proximally and distally. Coordination intact in upper and low er extremities. Reflexes 1+ in the upper and lower extremities and symmetric. Gait, she has good st ance, stride, and arm swing. Assessment: Ms. Hawley is a 73-year-old patient with a stroke in the left posterior insular cortex measuring 7 mm in the setting of a long history of tobacco use. She does not report a history of mamadou betes mellitus and actually her complete blood count with differential is completely normal. Coagula tion panel was normal. Her blood sugars ranged from 99-105 and liver function studies were normal. LDL cholesterol was 129, HDL cholesterol 33. Her cholesterol HDL ratio, however, was 5.7, given the l ow HDL cholesterol. Thyroid function study was normal and urinalysis was unremarkable. Plan: 1.The patient was strongly encouraged to stop smoking cigarettes. 2.Aspirin 160 mg daily. 3.Lipitor 80 mg at bedtime. 4.Folate 1 mg daily. 5.May use Nicoderm patch and use vaping as appropriate. 6.The patient should engage in physical exercise for at least 30 minutes daily. 7.She may follow up in Dr. Hall's office in 1 month after discharge. STACY/TANIKA Voice ID: [id number] Report ID: [id number]
[2018-10-06] MEDS: ATORVASTATIN 80 MG TAB PO SCH (21:15)
[2018-10-07 05:18] LABS: Absolute Lymphocytes (CBC) 2.4 K/uL (0.7-4.9); Basophils % 0.9 % (0-1.3); Eosinophils % 4.5 % (0-4.4); Hematocrit 37.3 % (36.0-45.0); Lymphocytes % 41.5 % (15.3-44.8); MPV 10.4 fL (7.6-11.3); Monocytes % 9.8 % (3.3-12.3); RBC Red Blood Cell Count 3.88 M/uL (3.86-4.86)
[2018-10-07 05:24] LABS: Magnesium 2.2 mg/dL (1.8-2.4); Potassium 4.2 mmol/L (3.5-5.1)
[2018-10-07] MEDS: ASPIRIN EC 81 MG TAB PO SCH (08:07)
[2018-10-07] MEDS: ENOXAPARIN 80 MG/0.8 ML SQ SCH ×2 (08:07→21:56)
[2018-10-07] MEDS: FOLIC ACID 1 MG TABLET PO SCH (08:07)
[2018-10-07] MEDS: NICOTINE 21 MG/PAT TD SCH (08:08)
[2018-10-07] MEDS ORDERED: DOCUSATE NA 100 MG CAP PO PRN (10:32)
--- NOTE | 2018-10-07 12:59 | PN ---
Ms. Hawley has no chest pain. No indigestion feelings like she was having the month before she came in. Her aphasia has completely resolved. Her MRI shows a 7 mm stroke. Her echo shows apical hypok inesis, no definite thrombus, but the likelihood is that there is a small amount of thrombus around t he injured myocardium at the apex and 1 possibility is that she had a cardioembolic stroke. I will r ecommend that we keep her on her full dose of Lovenox. I would recommend we do a cardiac cath Tuesday . The patient seems reluctant at this point to take on any risks, but I think it would be to her josé miguel efit to do a cardiac cath and revascularization if it is appropriate. The patient seems to understan d the procedure, potential benefits, indications, risks. If she agrees to proceed, we will do it Tue morning. CHETNA Voice ID: [id number] Report ID: [id number]
--- NOTE | 2018-10-07 15:09 | P.PN ---
Subjective Date of Service: 10/07/18 Primary Care Provider: Dr. Whittaker Chief Complaint: Expressive aphasia Subjective: No new changes pt seen and examined deniedany CP .SOb or any other complains colace added for constipation plan for cath on Tuesday Review of Systems 10-point ROS is otherwise unremarkable Physical Examination - Vital Signs Temperature: 97.7 F Blood Pressure: 172/77 Pulse: 73 Respirations: 19 Pulse Ox (%): 95 - Physical Exam General: Alert, In no apparent distress, Oriented x3 HEENT: Atraumatic, Normocephalic, PERRLA Neck: Supple, JVD not distended Respiratory: Clear to auscultation bilaterally, Normal air movement Cardiovascular: No edema, Normal pulses, Regular rate/rhythm, Normal S1 S2 Gastrointestinal: Normal bowel sounds, Soft and benign, Non-distended Musculoskeletal: No clubbing, No swelling, No erythema Integumentary: No rashes Neurological: Normal speech, Normal strength at 5/5 x4 extr - Studies Medications List Reviewed: Yes Assessment And Plan - Current Problems (Diagnosis) (1) Acute CVA (cerebrovascular accident) Current Visit: Yes Status: Acute (2) Hyperlipemia Current Visit: Yes Status: Acute - Plan aphasia due to acute CVA NSTEMI HLD tobacco abuse plan: ASA ,statin frequent neurochecks pt/ot cardiology consulted and plan for cath on Tuesday echo aoical hypokinesia ,normal LVEF Continue with statin. nicotine patch as needed. Cessation education addressed.
[2018-10-07] MEDS: ATORVASTATIN 80 MG TAB PO SCH (21:56)
[2018-10-08 05:34] LABS: Absolute Lymphocytes (CBC) 1.9 K/uL (0.7-4.9); Basophils % 1.1 % (0-1.3); Eosinophils % 4.7 % (0-4.4); Hematocrit 35.9 % (36.0-45.0); MPV 10.5 fL (7.6-11.3); Monocytes % 11.8 % (3.3-12.3); RBC Red Blood Cell Count 3.76 M/uL (3.86-4.86)
[2018-10-08 05:52] LABS: Magnesium 2.2 mg/dL (1.8-2.4); Potassium 4.3 mmol/L (3.5-5.1)
[2018-10-08] MEDS: ENOXAPARIN 80 MG/0.8 ML SQ SCH ×2 (08:13→20:24)
[2018-10-08] MEDS: FOLIC ACID 1 MG TABLET PO SCH (08:13)
[2018-10-08] MEDS: ASPIRIN EC 81 MG TAB PO SCH (08:13)
[2018-10-08] MEDS: NICOTINE 21 MG/PAT TD SCH (08:55)
--- NOTE | 2018-10-08 12:15 | PN ---
I have recommended to Ms. Hawley since I first saw her, doing a cardiac cath, trying to schedule it for tomorrow, but at this point, she is still having a hard time believing she has even had a heart a ttack or stroke and she has had opportunities to look at the video regarding cardiac cath and refused it, but although she agreed to look at this afternoon. We will see if she will consent for a cardia c cath. If not, we will give her dual anti-platelet therapy. I encouraged her to have followup visi ts and if she changes her mind get in touch and we will do a cardiac cath. NATALEE/TANIKA Voice ID: [id number] Report ID: [id number]
--- NOTE | 2018-10-08 12:50 | P.PN ---
Subjective Date of Service: 10/08/18 Primary Care Provider: Dr. Whittaker Chief Complaint: Expressive aphasia pt seen and examined deniedany CP .SOb or any other complains plan for cath on Tuesday Review of Systems 10-point ROS is otherwise unremarkable Physical Examination - Vital Signs Temperature: 97.5 F Blood Pressure: 146/63 Pulse: 62 Respirations: 17 Pulse Ox (%): 95 - Physical Exam General: Alert, In no apparent distress, Oriented x3 HEENT: Atraumatic, Normocephalic, PERRLA Neck: Supple, JVD not distended Respiratory: Clear to auscultation bilaterally, Normal air movement Cardiovascular: No edema, Normal pulses, Regular rate/rhythm, Normal S1 S2 Gastrointestinal: Normal bowel sounds, Hypoactive, Soft and benign, Non- distended Musculoskeletal: No clubbing, No swelling Integumentary: No rashes Neurological: Normal speech, Normal strength at 5/5 x4 extr - Studies Medications List Reviewed: Yes Assessment And Plan - Current Problems (Diagnosis) (1) Acute CVA (cerebrovascular accident) Current Visit: Yes Status: Acute (2) Hyperlipemia Current Visit: Yes Status: Acute - Plan aphasia due to acute CVA NSTEMI HLD tobacco abuse plan: ASA ,statin frequent neurochecks pt/ot cardiology consulted and plan for cath on Tuesday echo aoical hypokinesia ,normal LVEF Continue with statin. nicotine patch as needed. Cessation education addressed. Discharge Plan: Home Plan to discharge in: 24 Hours
[2018-10-08] MEDS: ATORVASTATIN 80 MG TAB PO SCH (20:23)
[2018-10-09] MEDS ORDERED: NA CHLORIDE 0.9% 500 ML ONE ×2 (04:09→10:06)
[2018-10-09 05:59] LABS: Magnesium 2.3 mg/dL (1.8-2.4); Potassium 4.4 mmol/L (3.5-5.1)
[2018-10-09] MEDS: ASPIRIN EC 81 MG TAB PO SCH (06:11)
[2018-10-09] MEDS: NICOTINE 21 MG/PAT TD SCH (09:00)
[2018-10-09] MEDS: ENOXAPARIN 80 MG/0.8 ML SQ SCH (09:00)
[2018-10-09] MEDS ORDERED: HEPA 1000U/500MLS 2,000 UNIT/1,000 ML BAG IV ONE (09:39)
[2018-10-09] MEDS ORDERED: HEPARIN 5000 UNIT/ML 1 ML VIAL ONE (10:04)
[2018-10-09] MEDS ORDERED: NA CHLORIDE 0.9% 50 ML ONE (10:05)
[2018-10-09] MEDS ORDERED: NITROGLYCERIN 100 MCG/ML SYR (for cath lab use only) IV ONE (10:05)
[2018-10-09] MEDS ORDERED: NITROGLYCERIN/D5W 25 MG/250 ML BTL IV ONE (10:05)
[2018-10-09] MEDS ORDERED: ATROPINE SULF 1 MG/10 ML SYR IV ONE (10:05)
[2018-10-09] MEDS ORDERED: NICARDIPINE HCL 25 MG/10 ML IV ONE (10:05)
[2018-10-09] MEDS ORDERED: MIDAZOLAM HCL 2 MG/2 ML INJ ONE ×2 (10:05→10:22)
[2018-10-09] MEDS ORDERED: FENTANYL CITR 100 MCG/2 ML ONE (10:05)
[2018-10-09] MEDS ORDERED: NITROGLYCERIN 0.4 MG/TAB SL ONE (10:52)
[2018-10-09] MEDS ORDERED: PRASUGREL (EFFIENT) 10 MG TAB ONE (10:55)
--- NOTE | 2018-10-09 12:44 | OP ---
Surgeon: Sudheer Cleary MD Procedure: Left heart catheterization, coronary left ventricular angiography, percutaneous coronary intervention of a proximal LAD lesion, 90% predilation, 0% stenosis post-dilation with a 3.0 x 16 Syn ergy stent. Procedure Findings: The patient's right coronary had mild disease. The left main was free of diseas e. The circumflex was free of disease. The proximal LAD had an eccentric irregular 90% stenosis. T here is LORAINE grade flow through it and normal perfusion. The left ventricular ejection fraction was within the normal range at 55%, but there was apical hypokinesis. After the stent there was no resid ual stenosis in the proximal LAD lesion. Procedure In Detail: The patient had evidence of a non-ST elevation ND and a stroke. It is the lobito ef that the stroke probably arose from a thrombus within the left ventricular apex. The thrombus erick t we do not visualize now as she has been on anticoagulants for 4 days. She was brought to the [facility] lab instructor in a fasting state, sedated with Versed and fentanyl. Prepared and draped in usual steri le fashion. Right radial approach was used. Right radial artery was identified through palpation. She had a normal Barbeau an Georgi's test. Tissues the around artery were anesthetized with 1% lidoca ine. The artery was entered using a 21-gauge needle, cannulated with a 0.021 inch diameter guidewire and then we guided a 6-Hungarian Terumo sheath into the artery, flushed the sheath and gave the radial cocktail consisting of nicardipine, heparin, nitroglycerin. Following this, we guided a TIG catheter by Terumo into the ascending aorta using a Terumo Glidewire and fluoroscopy. We were able to angiog rae left ventricle, right coronary, left coronary all with the same TIG catheter. After the decision was made to do a stent, we used an exchange length guidewire to remove the TIG catheter. We placed an XBLAD 3.5 with side holes, which engage the left main ostium nicely and gave good support. We gav e Angiomax, demonstrated activated clotting time in the therapeutic range. We guided a [place] wire i nto the distal LAD across the lesion with an Emerge 3.0 x 15 balloon, pre-dilated, removed the balloo n and placed monorail type Synergy 3.0 x 16 stent catheter. It crossed the lesion nicely covered it adequately without any major side branches. We inflated it to 14 atmospheres, had an excellent angio graphic result. After this the wire and balloons were removed. Orthogonal pictures were taken demon strating a good angiographic result. We then removed the guide catheter because there was some pain in the arm with catheter manipulation. We gave another dose of nicardipine 100 mcg right into the br achial artery. We were then able to remove the sheath with a minimum of discomfort. We flushed the sheath, removed it and closed the arteriotomy using a TR band. Estimated Blood Loss: 20 cc. Complications: None. Public Health Outreach Worker: Leah Stevenson. NATALEE/TANIKA Voice ID: [id number] Report ID: [id number]
[2018-10-09] MEDS: FOLIC ACID 1 MG TABLET PO SCH (14:00)
--- NOTE | 2018-10-09 15:16 | P.PN ---
Subjective Date of Service: 10/09/18 Primary Care Provider: Dr. Whittaker Chief Complaint: Expressive aphasia Subjective: No C/O voiced, Tolerating diet, Ambulating, Improving, NPO Review of Systems 10-point ROS is otherwise unremarkable Physical Examination - Vital Signs Temperature: 97.4 F Blood Pressure: 155/55 Pulse: 64 Respirations: 15 Pulse Ox (%): 98 - Physical Exam General: Alert, In no apparent distress HEENT: Atraumatic, PERRLA, EOMI Neck: Supple, JVD not distended Respiratory: Clear to auscultation bilaterally, Normal air movement Cardiovascular: Regular rate/rhythm, Normal S1 S2 Gastrointestinal: Normal bowel sounds, No tenderness Musculoskeletal: No tenderness Integumentary: No rashes Neurological: Normal speech, Normal tone, Normal affect Lymphatics: No axilla or inguinal lymphadenopathy - Studies Medications List Reviewed: Yes Assessment And Plan - Current Problems (Diagnosis) (1) Acute CVA (cerebrovascular accident) Current Visit: Yes Status: Acute Plan: Patient seen on MRI -neurological symptoms resolved at this time -MRA neck and brain unremarkable. MRI of reviewed with patient. -Echocardiogram and carotid Doppler negative for any acute abnormality. -neurology consulted. Appreciated recommendations at this time -aspirin, Plavix, statin on board at this time (2) NSTEMI (non-ST elevated myocardial infarction) Current Visit: Yes Status: Acute Plan: Patient with chest pain on presentation. Elevated troponins -chest pain resolved at this time. -Heart Cath Scheduled at this time. -Will F.u with pt post procedure Discharge Plan: Home Plan to discharge in: Greater than 2 days - Code Status/Comfort Care Code Status Assessed: Yes Critical Care: No
[2018-10-09] MEDS: ATORVASTATIN 80 MG TAB PO SCH (21:59)
[2018-10-10 05:55] LABS: Hematocrit 37.6 % (36.0-45.0); MPV 10.3 fL (7.6-11.3); RBC Red Blood Cell Count 3.92 M/uL (3.86-4.86)
[2018-10-10 06:18] LABS: Magnesium 2.3 mg/dL (1.8-2.4); Potassium 4.4 mmol/L (3.5-5.1)
[2018-10-10 08:53] VITALS: BP 141/65; TEMP 98.7
[2018-10-10] MEDS: NICOTINE 21 MG/PAT TD SCH (09:00)
[2018-10-10] MEDS ORDERED: CLOPIDOGREL 75 MG TABLET PO SCH (09:00)
[2018-10-10] MEDS ORDERED: LOSARTAN POTASSIUM 50 MG TABLET PO SCH (09:00)
[2018-10-10] MEDS: FOLIC ACID 1 MG TABLET PO SCH (10:19)
[2018-10-10] MEDS: ASPIRIN EC 81 MG TAB PO SCH (10:19)
--- NOTE | 2018-10-10 10:53 | P.DS ---
Admission Date: 10/05/18 Discharge Date: 10/10/18 Primary Care Provider: Dr. Whittaker Disposition: ROUTINE DISCHARGE Discharge Condition: GOOD Reason for Admission: Expressive aphasia Consultations: Neurology Cardiology - Problems (1) Acute CVA (cerebrovascular accident) Current Visit: Yes Status: Acute (2) NSTEMI (non-ST elevated myocardial infarction) Current Visit: Yes Status: Acute (3) Has been smoking tobacco for 10 years Current Visit: Yes Status: Chronic (4) Hypertension Current Visit: Yes Status: Chronic Qualifiers: Hypertension type: essential hypertension Qualified Code(s): I10 - Essential (primary) hypertension Brief History of Present Illness: 73-year-old female presented to the emergency room after an episode of expressive aphasia. Patient reports only history of arthritis and tobacco use. Patient around 10: 00 a.m. noted some difficulty expressing words. This lasted for several out worse. She was not able to express the words that she was thinking. She denied any chest pain, shortness of breath, palpitation. She also denied any significant weakness, slurred speech, blurry vision, or headache. Mild reports of dizziness noted. Patient had been reporting some indigestion with increase belching lately. Some constipation noted. Decided to come to the ER for further evaluation. Patient came to the ER around 3:00 p.m.. Symptoms had resolved. On evaluation patient was slightly bradycardic with rate in the 50s. Blood pressure stable. CT head unremarkable. Chest showed mild cardiomegaly. Troponin was elevated at 0.23 with an elevated BNP of 7759. White count 7.3, hemoglobin 13. Sodium 140, potassium 4.6 with a BUN of 23, creatinine 1.3 with a GFR 43. Glucose 105. Patient was admitted for further evaluation and treatment. When I saw the patient ER, she appeared comfortable. Son at bedside. Patient reports only history of arthritis and tobacco use. She has used aspirin on occasion. She admits smoking a half a pack per day. Otherwise patient reports no history of heart disease, lung disease, stroke. Hospital Course: Overall during the hospital stay patient remained stable Patient was initially admitted to the hospital for expressive aphasia to rule out stroke. Patient had a head CT done which was negative for any acute abnormality. Patient's brain MRI however was consistent with acute CVA. Neurology was consulted at that time. Patient was also initially started on aspirin, Lovenox due to elevated troponins along with statin. Due to the findings of brain MRI occupational speech therapy along with physical therapy were consulted on the case. Patient also had carotid artery Dopplers along with the MRA of the neck which were all negative for any acute abnormality. Neurology recommended the patient be continued on aspirin, Plavix, statin. Plavix was not initially started due to the fact that patient had elevated troponins and made required surgical procedure. Cardiology was also consulted for elevated troponins. Patient was taken for a heart catheterization. Heart catheterization was negative at that time patient was switched over to Plavix of or stroke prevention. Patient was able to ambulate okay was able to tolerate her diet okay and had complete resolution of his symptoms on admission. Patient at that time was discharged home under stable condition was asked to follow up with urology in about 1-2 days post discharge. Patient was continued on aspirin, Plavix, high-intensity statin along with folate acid Vital Signs/Physical Exam: Temp Pulse Resp BP Pulse Ox 98.7 F 86 18 141/65 H 96 10/10/18 08:00 10/10/18 08:00 10/10/18 08:00 10/10/18 08:00 10/10/18 08:00 General: Alert, In no apparent distress HEENT: Atraumatic, PERRLA, EOMI Neck: Supple, JVD not distended Respiratory: Clear to auscultation bilaterally, Normal air movement Cardiovascular: Regular rate/rhythm, Normal S1 S2 Gastrointestinal: Normal bowel sounds, No tenderness Musculoskeletal: No tenderness Integumentary: No rashes Neurological: Normal speech, Normal tone, Normal affect Lymphatics: No axilla or inguinal lymphadenopathy Laboratory Data at Discharge: WBC 9.1 K/uL (4.3-10.9) D 10/10/18 05:36 Hgb 12.6 g/dL (12.0-15.0) 10/10/18 05:36 Hct 37.6 % (36.0-45.0) 10/10/18 05:36 Plt Count 195 K/uL (152-406) 10/10/18 05:36 PT 11.7 SECONDS (9.5-12.5) 10/05/18 15:37 INR 0.99 10/05/18 15:37 Sodium 142 mmol/L (136-145) 10/10/18 05:36 Potassium 4.4 mmol/L (3.5-5.1) 10/10/18 05:36 BUN 21 mg/dL (7-18) H 10/10/18 05:36 Creatinine 1.01 mg/dL (0.55-1.3) 10/10/18 05:36 Glucose 104 mg/dL (74-106) 10/10/18 05:36 Magnesium 2.3 mg/dL (1.8-2.4) 10/10/18 05:36 Total Bilirubin 0.6 mg/dL (0.2-1.0) 10/05/18 15:37 AST 19 U/L (15-37) 10/05/18 15:37 ALT 23 U/L (12-78) 10/05/18 15:37 Alkaline Phosphatase 64 U/L (45-117) 10/05/18 15:37 Troponin I 0.28 ng/mL (0.0-0.045) H 10/06/18 04:32 Triglycerides 132 mg/dL (<150) 10/06/18 04:41 Cholesterol 188 mg/dL (<200) 10/06/18 04:41 HDL Cholesterol 33 mg/dL (40-60) L 10/06/18 04:41 Cholesterol/HDL Ratio 5.70 10/06/18 04:41 Home Medications: Atorvastatin Calcium [Lipitor] 80 mg PO BEDTIME #30 tab 10/10/18 Clopidogrel Bisulfate [Plavix*] 75 mg PO DAILY #30 tablet 10/10/18 Losartan Potassium [Cozaar*] 50 mg PO DAILY #30 tablet 10/10/18 New Medications: Atorvastatin Calcium [Lipitor] 80 mg PO BEDTIME #30 tab Clopidogrel Bisulfate [Plavix*] 75 mg PO DAILY #30 tablet Losartan Potassium [Cozaar*] 50 mg PO DAILY #30 tablet Diet: Regular Activity: Ad nadege Followup: Josh Hall MD [ASSOCIATE-ACTIVE - CAN ADMIT] - Sudheer Cleary MD [ACTIVE - CAN ADMIT] -
[2018-10-10 11:02] VITALS: O2SAT 96
--- NOTE | 2018-10-10 12:00 | PN ---
Mrs. Hawley had a stent placed in her proximal LAD. She is doing very well. Radial approach to the radial site looks good. Her laboratory exam this morning does not reveal any acute problems. Hemog lobin, hematocrit, white blood count, platelet count steady. Creatinine 1.01, so I believe she is re monika to be discharged home. She will take aspirin, Plavix, Lipitor 80, losartan 50. She will call my office and make a followup appointment in about 2 weeks. She will avoid all tobacco use and begin a n exercise program after she is seen in 2 weeks. NATALEE/TANIKA Voice ID: [id number] Report ID: [id number]
== END 2018-10-10 11:21 | disposition home or self-care (01) | DRG 246 ==
LOC: ER 15:00 → ERHOLD 16:58 → 4TH 20:01 → 2ND 10-06 17:29
PROVIDERS: ADMIT Family Medicine; ATTEND Family Medicine
PROC: 027034Z Dilation of Coronary Artery, One Artery with Drug-eluting Intraluminal Device, Percutaneous Approach (ICD-10-PCS; principal; 2018-10-09)
PROC: 4A023N7 Measurement of Cardiac Sampling and Pressure, Left Heart, Percutaneous Approach (ICD-10-PCS; 2018-10-09)
PROC: B2111ZZ Fluoroscopy of Multiple Coronary Arteries using Low Osmolar Contrast (ICD-10-PCS; 2018-10-09)
PROC: B2151ZZ Fluoroscopy of Left Heart using Low Osmolar Contrast (ICD-10-PCS; 2018-10-09)
DX: I21.4 Non-ST elevation (NSTEMI) myocardial infarction (principal); I63.9 Cerebral infarction, unspecified; R47.01 Aphasia; F17.210 Nicotine dependence, cigarettes, uncomplicated; I25.10 Atherosclerotic heart disease of native coronary artery without angina pectoris; E86.0 Dehydration; R00.1 Bradycardia, unspecified; E78.5 Hyperlipidemia, unspecified; E66.9 Obesity, unspecified; Z68.30 Body mass index [BMI] 30.0-30.9, adult; Z88.5 Allergy status to narcotic agent; Z88.0 Allergy status to penicillin
CPT/HCPCS: 36415; 70450; 70544; 70549; 70553; 71045; 80048; 80061; 80076; 81003; 81015; 82550; 82553; 83735; 83880; 84439; 84443; 84484; 85025; 85027; 85347; 85610; 93005; 93306; 93458; 93880; 96374; 97161; 99285; A9577; C1725; C1877; C1893; C9600; J0583; J1644; J1650; J2250; J3010; J7030

== ENCOUNTER 2018-11-19 19:33 | Observation (INO) | payer OTHER ==
--- OUTSIDE RECORDS SUMMARY | 2018-11-19 19:36 | XMS REPORT ---
[...] End Date Status Dosage Date Aleve NDC 98675286820 220 MG Orally as Active 1 tablet needed with food or milk as needed aspirin NDC 0 Active not defined Results No Known Results Summary Purpose [employer] Submission
--- OUTSIDE RECORDS SUMMARY | 2018-11-19 19:36 | XMS REPORT ---
:1945 Author Organization [employer] Care Team Providers Name Role Phone Tiffanie Avila Provider Role Unavailable Allergies, Adverse Reactions, Alerts Substance Reaction Event Type penicillin throat swells Drug Allergy PCN anaphylaxis Drug Allergy Problems Problem Type Condition Code Onset Dates Condition Status Problem Seasonal allergies J30.2 Active Problem History of right hip replacement Z96.641 Active Problem Right hip pain M25.551 Active Problem Acute CVA (cerebrovascular I63.9 Active accident) Problem NSTEMI (non-ST elevated myocardial I21.4 Active infarction) Problem Chronic pain syndrome G89.4 Active Problem Status post fall Z91.81 Active Problem Elevated BP without diagnosis of R03.0 Active hypertension Problem Abnormal x-ray R93.89 Active Problem Low back pain M54.5 Active Assessment Polyarthralgia M25.50 Active Assessment Follow-up exam Z09 Active Assessment Chronic pain syndrome G89.4 Active Problem Osteoarthritis of hip, unspecified M16.9 Active laterality, unspecified osteoarthritis type Assessment Acute CVA (cerebrovascular I63.9 Active accident) Problem Seasonal allergic rhinitis due to J30.1 Active pollen Assessment NSTEMI (non-ST elevated myocardial I21.4 Active infarction) Problem Other chronic pain G89.29 Active Medications Medication Code Code Instructions Start End Status Dosage System Date Date Tramadol HCl ND 54255618831 50 MG Orally October 24Nov 23, Active 1 tablet Twice a day 2018 2018 as needed for pain Cyclobenzaprine NDC 57906581933 10 MG Orally October 24Nov 23, Active 1 tablet HCl Two times a day 2018 2018 as needed for musle cramps/pa in aspirin NDC 0 Active not defined Aleve NDC 91061465889 220 MG Orally Active 1 tablet as needed with food or milk as needed Results No Known Results Summary Purpose eClinicalWorks Submission
[2018-11-19 20:11] LABS: Absolute Lymphocytes (CBC) 1.3 K/uL (0.7-4.9); Basophils % 0.7 % (0-1.3); Hematocrit 32.9 % (36.0-45.0); Lymphocytes % 19.6 % (15.3-44.8); MPV 9.5 fL (7.6-11.3); RBC Red Blood Cell Count 3.45 M/uL (3.86-4.86)
[2018-11-19 20:12] LABS: Protime INR 0.94
[2018-11-19 20:26] LABS: Albumin 3.5 g/dL (3.4-5.0); Bilirubin Direct 0.2 mg/dL (0-0.2); Bilirubin Total 0.6 mg/dL (0.2-1.0); Magnesium 2.3 mg/dL (1.8-2.4); Potassium 4.2 mmol/L (3.5-5.1); Protein, Total 7.1 g/dL (6.4-8.2); Troponin (Emerg Dept Use Only) 0.12 ng/mL (0.0-0.045)
--- NOTE | 2018-11-19 21:02 | EDPHYS ---
Physician Documentation [facility] Name: Estela Hawley Age: 73 yrs Sex: Female : 1945 Arrival Date: 11/19/2018 Time: 19:36 Bed 19 Private MD: Tiffanie Avila ED Physician Cholo Stratton HPI: 11/20 01:13 This 73 yrs old Female presents to ER via Wheelchair with complaints of tw4 Numbness Of Arm. 01:13 The patient or guardian complains of pain. The complaints affect the left hand. tw4 Context: The problem was sustained at home. Onset: The symptoms/episode began/occurred today. Treatment prior to arrival includes: no previous treatment. Modifying factors: The symptoms are alleviated by nothing. the symptoms are aggravated by nothing. Severity of symptoms: At their worst the symptoms were moderate, in the emergency department the symptoms are unchanged. The patient has not experienced similar symptoms in the past. Historical: - Allergies: 11/19 19:49 PENICILLINS; ak1 - Home Meds: 19:49 Plavix 75 mg Oral tab 1 tab once daily [Active]; Potassium Chloride Oral [Active]; ak1 unknown hypertension med [Active]; - PMHx: 19:49 Vertigo; Hypertension; ak1 - PSHx: 19:49 Heart stents; hip replacement; ak1 - Immunization history:: Adult Immunizations unknown. - Social history:: Smoking status: Patient/guardian denies using tobacco. - Ebola Screening: : No symptoms or risks identified at this time. ROS: 11/20 01:13 Constitutional: Negative for fever, chills, and weight loss, Cardiovascular: Negative tw4 for chest pain, palpitations, and edema, Respiratory: Negative for shortness of breath, cough, wheezing, and pleuritic chest pain, Abdomen/GI: Negative for abdominal pain, nausea, vomiting, diarrhea, and constipation, Back: Negative for injury and pain, MS/Extremity: Negative for injury and deformity. Neuro: Positive for numbness, Negative for altered mental status, dizziness, gait disturbance, headache, hearing loss, loss of consciousness, tinnitus, tremor, visual changes. Exam: 01:13 Constitutional: This is a well developed, well nourished patient who is awake, alert, tw4 and in no acute distress. Head/Face: Normocephalic, atraumatic. Chest/axilla: Normal chest wall appearance and motion. Nontender with no deformity. No lesions are appreciated. Cardiovascular: Regular rate and rhythm with a normal S1 and S2. No gallops, murmurs, or rubs. Normal PMI, no JVD. No pulse deficits. Respiratory: Lungs have equal breath sounds bilaterally, clear to auscultation and percussion. No rales, rhonchi or wheezes noted. No increased work of breathing, no retractions or nasal flaring. Abdomen/GI: Soft, non-tender, with normal bowel sounds. No distension or tympany. No guarding or rebound. No evidence of tenderness throughout. Back: No spinal tenderness. No costovertebral tenderness. Full range of motion. MS/ Extremity: Pulses equal, no cyanosis. Neurovascular intact. Full, normal range of motion. Neuro: Awake and alert, GCS 15, oriented to person, place, time, and situation. Cranial nerves II-XII grossly intact. Motor strength 5/5 in all extremities. Sensory grossly intact. Cerebellar exam normal. Normal gait. Vital Signs: 11/19 19:49 BP 158 / 67; Pulse 62; Resp 16; Temp 98.7(O); Pulse Ox 100% on R/A; Weight 72.57 kg ak1 (R); Height 4 ft. 10 in. (147.32 cm); Pain 0/10; 21:10 BP 155 / 74; Pulse 67; Resp 16; Pulse Ox 98% on R/A; la1 11/20 00:47 BP 130 / 54; Pulse 58; Resp 18; Temp 97.8(TE); Pulse Ox 98% on R/A; lc1 01:30 BP 144 / 53; Pulse 54; Resp 16; Pulse Ox 98% on R/A; lc1 02:30 BP 153 / 58; Pulse 53; Resp 18; Pulse Ox 98% on R/A; lc1 11/19 19:49 Body Mass Index 33.44 (72.57 kg, 147.32 cm) ak1 MDM: 11/19 19:44 Patient medically screened. tw4 11/20 01:13 Differential diagnosis: dislocation, closed fracture, contusion. Data reviewed: vital tw4 signs, nurses notes. Counseling: I had a detailed discussion with the patient and/or guardian regarding: the historical points, exam findings, and any diagnostic results supporting the discharge/admit diagnosis. Special discussion:. 11/19 19:50 Order name: Basic Metabolic Panel; Complete Time: 00:27 11/20 00:27 Interpretation: CL 109; GLUC 124; CRE 1.40; BUN 23; GFR 37. 11/19 19:50 Order name: CBC with Diff; Complete Time: 00:27 11/20 00:27 Interpretation: Normal except: RBC 3.45; HGB 11.2; HCT 32.9. 11/19 19:50 Order name: LFT's; Complete Time: 00:27 11/20 00:27 Interpretation: Normal except: AST 63; ALT 82; ALK 149; GLOB 3.6; A/G 1.0. 11/19 19:50 Order name: Magnesium; Complete Time: 00:27 11/20 00:28 Interpretation: Normal except: MG 2.3. 11/19 19:50 Order name: NT PRO-BNP; Complete Time: 00:27 11/20 00:28 Interpretation: Normal except: NT PRO-BNP 1134. 11/19 19:50 Order name: PT-INR; Complete Time: 00:27 11/20 00:28 Interpretation: Within normal limits: PT 11.1. 11/19 19:50 Order name: Troponin (emerg Dept Use Only); Complete Time: 00:27 11/20 00:28 Interpretation: Normal except: TROPED 0.12. 11/19 19:50 Order name: EKG; Complete Time: 19:54 11/19 19:50 Order name: Cardiac monitoring; Complete Time: 20:02 11/19 19:50 Order name: EKG - Nurse/Tech; Complete Time: 20:02 11/19 19:50 Order name: IV Saline Lock; Complete Time: 20:02 11/19 19:50 Order name: Labs collected and sent; Complete Time: 20:02 11/20 00:28 Order name: Troponin (emerg Dept Use Only); Complete Time: 01:25 11/20 00:28 Order name: EKG; Complete Time: 00:32 11/19 19:50 Order name: O2 Per Protocol; Complete Time: 20: tw4 11/19 19:50 Order name: O2 Sat Monitoring; Complete Time: 20: EC:13 Rate is 6 beats/min. Rhythm is regular. QRS [place] is Normal. DE interval is normal. QRS tw4 interval is normal. QT interval is normal. No Q waves. T waves are Inverted in leads II, III, V4, V5, V6. No ST changes noted. Clinical impression: Abnormal EKG without significant change and Cardiac ischemia. Interpreted by me. Reviewed by me. Administered Medications: No medications were administered Disposition: 11/20/18 01:31 Hospitalization ordered by Andrea Joseph for Observation. Preliminary diagnosis is acute coronary syndrome. - Bed requested for Telemetry/MedSurg (observation). - Status is Observation. lc1 - Condition is Stable. - Problem is new. - Symptoms have improved. UTI on Admission? No Signatures: Dispatcher [employer] EDMS Dianelys Jalloh 1 Jim Guerrero RN RN laNohemy Ortega RN RN ak1 Garcia, Cindy, RN RN cg Wadley, Terrence, MD MD tw4 Corrections: (The following items were deleted from the chart) 11/19 21:11 21:00 11/19/2018 21:00 Discharged to Home. Impression: Other idiopathic peripheral la1 autonomic neuropathy. Condition is Stable. Forms are Medication Reconciliation Form, Thank You Letter, Antibiotic Education, Prescription Opioid Use. Follow up: Private Physician; When: Upon discharge from the Emergency Department; Reason: If symptoms return, Recheck today's complaints, Continuance of care. Problem is new. Symptoms have improved. tw4 11/20 00:26 11/19 21:11 11/19/2018 21:00 Discharged to Home. Impression: Other idiopathic tw4 peripheral autonomic neuropathy. Condition is Stable. Discharge Instructions: Peripheral Neuropathy. Forms are Medication Reconciliation Form, Thank You Letter, Antibiotic Education, Prescription Opioid Use. Follow up: Private Physician; When: Upon discharge from the Emergency Department; Reason: If symptoms return, Recheck today's complaints, Continuance of care. Problem is new. Symptoms have improved. la1 11/20 02:16 01:31 Hospitalization Ordered by Andrea Joseph DO for Observation. Preliminary cg diagnosis is acute coronary syndrome. Bed requested for Telemetry/MedSurg (observation). Status is Observation. Condition is Stable. Problem is new. Symptoms have improved. UTI on Admission? No. tw4 03:38 02:16 11/20/2018 01:31 Hospitalization Ordered by Andrea Joseph DO for Observation. lc1 Preliminary diagnosis is acute coronary syndrome. Bed requested for Telemetry/MedSurg (observation). Status is Observation. Condition is Stable. Problem is new. Symptoms have improved. UTI on Admission? No. cg
--- NOTE | 2018-11-19 21:02 | ER ---
[facility] Name: Estela Hawley Age: 73 yrs Sex: Female : 1945 Arrival Date: 11/19/2018 Time: 19:36 Bed 19 Private MD: Tiffanie Avila Diagnosis: acute coronary syndrome Presentation: 11/19 19:47 Presenting complaint: Patient states: numbness to left pinky up to left elbow since ak1 noon today. pt with full ROM to left hand, left fingers and left elbow. Transition of care: patient was not received from another setting of care. Onset of symptoms was November 19, 2018. Risk Assessment: Do you want to hurt yourself or someone else? Patient reports no desire to harm self or others. Initial Sepsis Screen: Does the patient meet any 2 criteria? No. Patient's initial sepsis screen is negative. Does the patient have a suspected source of infection? No. Patient's initial sepsis screen is negative. Care prior to arrival: None. 19:47 Method Of Arrival: Wheelchair ak1 19:47 Acuity: KERRIE 3 ak1 Triage Assessment: 19:49 General: Appears in no apparent distress. Behavior is calm, cooperative. Pain: Denies ak1 pain. Historical: - Allergies: 19:49 PENICILLINS; ak1 - Home Meds: 19:49 Plavix 75 mg Oral tab 1 tab once daily [Active]; Potassium Chloride Oral [Active]; ak1 unknown hypertension med [Active]; - PMHx: 19:49 Vertigo; Hypertension; ak1 - PSHx: 19:49 Heart stents; hip replacement; ak1 - Immunization history:: Adult Immunizations unknown. - Social history:: Smoking status: Patient/guardian denies using tobacco. - Ebola Screening: : No symptoms or risks identified at this time. Screenin:01 Abuse screen: Denies threats or abuse. Nutritional screening: No deficits noted. la1 Tuberculosis screening: No symptoms or risk factors identified. Fall Risk None identified. Assessment: 20:00 General: Appears in no apparent distress. Behavior is calm, cooperative. Pain: Denies la1 pain. Neuro: Level of Consciousness is awake, alert, obeys commands, Oriented to person, place, time, situation. Cardiovascular: Heart tones S1 S2 present Capillary refill < 3 seconds Patient's skin is warm and dry. Respiratory: Airway is patent Respiratory effort is even, unlabored, Respiratory pattern is regular, symmetrical, Breath sounds are clear bilaterally. GI: No signs and/or symptoms were reported involving the gastrointestinal system. : No signs and/or symptoms were reported regarding the genitourinary system. Musculoskeletal: Reports numbness in left elbow to left pinky. 20:50 Reassessment: Patient appears in no apparent distress at this time. No changes from la1 previously documented assessment. Patient and/or family updated on plan of care and expected duration. Pain level reassessed. Patient is alert, oriented x 3, equal unlabored respirations, skin warm/dry/pink. 11/20 00:47 Reassessment: Patient is alert, oriented x 3, equal unlabored respirations, skin lc1 warm/dry/pink. denies any chest pain, numbness or tingling . 01:30 Reassessment: No changes from previously documented assessment. Patient and/or family lc1 updated on plan of care and expected duration. Pain level reassessed. rr even and unlabored, son at bedside. 02:30 Reassessment: No changes from previously documented assessment. Patient and/or family lc1 updated on plan of care and expected duration. Pain level reassessed. Patient is alert, oriented x 3, equal unlabored respirations, skin warm/dry/pink. Vital Signs: 11/19 19:49 BP 158 / 67; Pulse 62; Resp 16; Temp 98.7(O); Pulse Ox 100% on R/A; Weight 72.57 kg ak1 (R); Height 4 ft. 10 in. (147.32 cm); Pain 0/10; 21:10 BP 155 / 74; Pulse 67; Resp 16; Pulse Ox 98% on R/A; la1 11/20 00:47 BP 130 / 54; Pulse 58; Resp 18; Temp 97.8(TE); Pulse Ox 98% on R/A; lc1 01:30 BP 144 / 53; Pulse 54; Resp 16; Pulse Ox 98% on R/A; lc1 02:30 BP 153 / 58; Pulse 53; Resp 18; Pulse Ox 98% on R/A; lc1 11/19 19:49 Body Mass Index 33.44 (72.57 kg, 147.32 cm) [facility] ED Course: 11/19 19:36 Patient arrived in ED. es 19:37 Tiffanie Avila MD is Private Physician. es 19:43 Cholo Stratton MD is Attending Physician. tw4 19:47 Jim Guerrero RN is Primary Nurse. la1 19:47 Triage completed. ak1 19:49 Arm band placed on Patient placed in an exam room, on a stretcher, Patient notified of ak1 wait time. 20:01 Call light in reach. la1 20:01 Bed in low position. Side rails up X 1. Warm blanket given. Verbal reassurance given. jp3 Pulse ox on. NIBP on. 20:01 EKG done, by ED staff, reviewed by Cholo Stratton MD. Patient maintains SpO2 jp3 saturation greater than 95% on room air. 20:01 Inserted saline lock: 22 gauge in right forearm, using aseptic technique. Blood la1 collected. 21:10 No provider procedures requiring assistance completed. IV discontinued, intact, la1 bleeding controlled, No redness/swelling at site. Pressure dressing applied. 11/20 00:25 Primary Nurse role handed off by Jim Guerrero, LAZARUS la1 00:45 Inserted saline lock: 20 gauge in right forearm, using aseptic technique. Blood mt collected. 00:47 Dianelys Jalloh is Primary Nurse. lc1 00:47 Bed in low position. Call light in reach. alarm security or surveillance monitor on. Pulse ox on. NIBP on. lc1 Warm blanket given. Pillow given. 01:29 Andrea Joseph DO is Hospitalizing Provider. tw4 02:30 Awaiting bed assignment. lc1 02:30 Warm blanket given. Verbal reassurance given. lc1 02:50 No apparent distress. lc1 Administered Medications: No medications were administered Outcome: 11/19 21:00 Discharge ordered by . tw4 21:11 Discharged to home ambulatory. la1 21:11 Condition: stable 21:11 Discharge instructions given to patient, Instructed on discharge instructions, follow up and referral plans. Demonstrated understanding of instructions, follow-up care. 21:11 Patient left the ED. la1 11/20 01:31 Decision to Hospitalize by Provider. tw4 02:50 Admitted to Tele accompanied by nurse, room 406, Report called to [facility] 02:50 Admitted to Tele via wheelchair. 02:50 Condition: stable 03:38 Patient left the ED. lc1 Signatures: Adilene Arce Lisa lc1 Jim Guerrero RN RN la1 Nohemy Sevilla RN RN rao1 Roma Calle mt, Terrence, MD MD tw4 Brandan Hyman jp3 Corrections: (The following items were deleted from the chart) 02:28 00:47 Reassessment: No changes from previously documented assessment. Patient is alert, lc1 oriented x 3, equal unlabored respirations, skin warm/dry/pink. lc1
--- NOTE | 2018-11-20 02:04 | P.HP ---
Certification for Inpatient Patient admitted to: Observation With expected LOS: <2 Midnights Patient will require the following post-hospital care: None Practitioner: I am a practitioner with admitting privileges, knowledge of patient current condition, hospital course, and medical plan of care. Services: Services provided to patient in accordance with Admission requirements found in Title 42 Section 412.3 of the Code of Federal Regulations Patient History Date of Service: 11/20/18 Primary Care Provider: Dr. Whittaker; Cardiology-Dr. Cleary Reason for admission: Left arm/hand numbness History of Present Illness: 73-year-old female presented to the emergency room with left arm/hand numbness. Patient with history of hypertension, tobacco abuse, hyperlipidemia and recent hospitalization in September for acute CVA and non ST wave [place]. At that time patient found to have 90% stenosis to the proximal LAD. She had a stent placed at that time. Today she start to have left arm/hand numbness. She denied any fever, chills, slurred speech. She denied any chest pain. Numbness lasted throughout the day. She decided to come to the ER for further evaluation. In the ER patient evaluated. EKG showed ST inversions to leads 2, 3, V4, V5 and V6. This was different from the past EKG. On lab hemoglobin 11.2, sodium 142, potassium 4.2. BUN of 23, creatinine 1.4 with a GFR 39. Glucose 124. AST 63. ALT 82. Troponin was at 0.12. Repeat 0.14. BNP 1134. Patient was admitted for observation and further evaluation. When I saw the patient ER, she appeared stable. She denied any chest pain. No further left arm/hand numbness noted. Allergies Penicillins Allergy (Intermediate, Verified 10/05/18 21:36) Hives/Rash acetaminophen [From Vicodin] Allergy (Verified 11/16/14 14:41) Hives/Rash hydrocodone bitartrate [From Vicodin] Allergy (Verified 11/16/14 14:41) Hives/Rash Home medications list reviewed: Yes Home Medications: Atorvastatin Calcium [Lipitor] 80 mg PO BEDTIME #30 tab 10/10/18 Clopidogrel Bisulfate [Plavix*] 75 mg PO DAILY #30 tablet 10/10/18 Losartan Potassium [Cozaar*] 50 mg PO DAILY #30 tablet 10/10/18 - Past Medical/Surgical History Diabetic: No -: Arthritis -: Tobacco abuse -: Hypertension -: CAD with prior LAD stent -: History CVA -: Hyperlipidemia -: Right hip replacement -: Left Hand Surgery -: Heart catheterization with stent to the LAD Psychosocial/ Personal History: Patient is a . She lives near her children - Family History Father Notes: GOUT. Mother Notes: TB - Social History Smoking Status: Former smoker Alcohol use: No CD- Drugs: No Caffeine use: No Place of Residence: Home Review of Systems General: As per HPI Eyes: Unremarkable ENT: Unremarkable Respiratory: Unremarkable Cardiovascular: As per HPI Gastrointestinal: Unremarkable Genitourinary: Unremarkable Musculoskeletal: Unremarkable Integumentary: Unremarkable Neurological: Numbness, As per HPI Lymphatics: Unremarkable Physical Examination - Vital Signs Temperature: 98.7 F Blood Pressure: 155/74 Pulse: 67 Respirations: 16 - Physical Exam General: Alert, In no apparent distress, Oriented x3, Cooperative HEENT: Atraumatic, Normocephalic, PERRLA, Mucous membr. moist/pink Neck: Supple, No Thyromegaly Respiratory: Clear to auscultation bilaterally, Normal air movement Cardiovascular: Normal pulses, Regular rate/rhythm Gastrointestinal: Normal bowel sounds, Soft and benign, Non-distended, No tenderness, No masses, No rebound, No guarding Musculoskeletal: No erythema, No tenderness, No warmth Integumentary: No tenderness/swelling, No erythema, No warmth, No cyanosis Neurological: Normal speech, Normal strength at 5/5 x4 extr, Normal tone, Normal affect - Studies Laboratory Data (last 24 hrs) 11/19/18 19:50: PT 11.1, INR 0.94 11/19/18 19:50: WBC 6.7, Hgb 11.2 L, Hct 32.9 L, Plt Count 233 11/19/18 19:50: Sodium 142, Potassium 4.2, BUN 23 H, Creatinine 1.40 H, Glucose 124 H, Magnesium 2.3, Total Bilirubin 0.6, AST 63 H, ALT 82 H, Alkaline Phosphatase 149 H Assessment and Plan - Plan Impression: Left arm/hand numbness with noted elevated troponin and abnormal EKG with recent history of heart catheterization showing proximal LAD stenosis status post stent Acute renal injury likely mild dehydration Hypertension Hyperlipidemia Elevated liver function likely related to medication History of CVA Former tobacco use Plan: Left arm/hand numbness with noted elevated troponin and abnormal EKG with recent history of heart catheterization showing proximal LAD stenosis status post stent: Patient will be admitted for further evaluation and treatment. Will monitor the patient closely. Will keep the patient NPO until evaluated by Cardiology. Will monitor cardiac enzymes. Will consult cardiology to further evaluate. Patient with recent heart catheterization with stent to the LAD in September. Continue Plavix, Lipitor and losartan. Will provide DVT prophylaxis- Lovenox. Await further recommendations from cardiology. Anticipate discharge within the next 24 hr if cleared by cardiology. Acute renal injury likely mild dehydration: Patient with mild renal insufficiency. Patient on losartan. Will provide IV fluids at this time. Will monitor and adjust appropriately. Electrolyte protocol in place. Hypertension: Continue with losartan 50 mg daily. Will monitor and adjust appropriately. Hyperlipidemia: Continue with Lipitor 80 mg daily. Will check fasting lipid panel. Will consider decreasing dose of Lipitor due to slight elevation in liver function at discharge. Elevated liver function likely related to medication: This may be related to medication-Lipitor. Will recheck fasting lipid panel. Will consider decreasing dose of Lipitor at discharge. History of CVA: Will continue with Plavix. Will provide DVT prophylaxis- Lovenox. Will monitor closely. Former tobacco use: Patient no longer smoking. Discharge Plan: Home Plan to discharge in: 24 Hours - Advance Directives Does patient have a Living Will: No Does patient have a Durable POA for Healthcare: No - Code Status/Comfort Care Code Status Assessed: Yes (Patient full code) Time Spent Managing Pts Care (In Minutes): 55
[2018-11-20 03:29] VITALS: BMI 32.1
[2018-11-20] MEDS ORDERED: NA CHLORIDE 0.9% 1,000 ML IV SCH (03:32)
[2018-11-20] MEDS ORDERED: NITROGLYCERIN 0.4 MG/TAB SL PRN (03:32)
[2018-11-20] MEDS ORDERED: ONDANSETRON 4 MG/2 ML VIAL IV PRN (03:32)
[2018-11-20 06:02] LABS: CKMB Creatine Kinase MB 3.7 ng/mL (0.3-3.6); Troponin I 0.14 ng/mL (0.0-0.045)
--- NOTE | 2018-11-20 07:38 | EKG ---
Test Date: 2018-11-20 Test Time: 00:40:35 Asset Protection Lead: JEANA MEASUREMENT RESULTS: Intervals: Rate: 61 MD: 152 QRSD: 76 QT: 460 QTc: 463 [place]: P: 48 MD: 152 QRS: -3 T: 235 INTERPRETIVE STATEMENTS: Normal sinus rhythm ST & T wave abnormality, consider inferior ischemia ST & T wave abnormality, consider anterolateral ischemia Abnormal ECG Compared to ECG 10/05/2018 15:58:17 Sinus bradycardia no longer present Myocardial infarct finding no longer present ST (T wave) deviation still present Possible ischemia still present Electronically Signed On 11-20-18 07:37:29 CDT by Sudheer Cleary
--- NOTE | 2018-11-20 07:39 | EKG ---
Test Date: 2018-11-19 Test Time: 19:59:52 Healthcare Risk Control Consultant: CLARE MEASUREMENT RESULTS: Intervals: Rate: 60 RI: 154 QRSD: 80 QT: 476 QTc: 476 [place]: P: 31 RI: 154 QRS: -15 T: 195 INTERPRETIVE STATEMENTS: Normal sinus rhythm ST & Marked T wave abnormality, consider anterolateral ischemia Prolonged QT Abnormal ECG Compared to ECG 10/05/2018 15:58:17 T-wave abnormality now more pronounced Prolonged QT interval now present Sinus bradycardia no longer present Myocardial infarct finding no longer present Electronically Signed On 11-20-18 07:39:14 CDT by Sudheer Cleary
[2018-11-20] MEDS ORDERED: PNEUMOCOCCAL VACCINE 0.5 ML IMVAC ONE (08:00)
[2018-11-20 08:34] VITALS: O2SAT 97
[2018-11-20] MEDS ORDERED: CLOPIDOGREL 75 MG TABLET PO SCH (09:00)
[2018-11-20] MEDS ORDERED: LOSARTAN POTASSIUM 50 MG TABLET PO SCH (09:00)
[2018-11-20] MEDS ORDERED: ASPIRIN EC 81 MG TAB PO SCH (09:00)
[2018-11-20] MEDS ORDERED: ENOXAPARIN 30 MG/0.3 ML SQ SCH (09:00)
[2018-11-20 09:13] VITALS: TEMP 97.8
--- NOTE | 2018-11-20 12:37 | CON ---
History Of Present Illness: Ms. Hawley came to the hospital because there was numbness in the 4th and 5th digits on her left hand. she was eating supper. She said she sits in a chair a lot, leans on her left elbow a lot, uses a laptop and a tablet for hours often leaning on her left arm. She has had this symptom before, but it was more pronounced, and now she is about 1 month after having a myocardial infarction with a stent. So, she was much more nervous about it being possibly a heart symptom. Her children were very nervous about it being a heart symptom. Since being in the hospital, her EKG shows evidence of the old infarction. Her troponins are mildly elevated, but they are all exactly the same 0.12, 0.14, and 0.14, not a rise and fall pattern over some 18 to 20 hours. She has a very low cholesterol because of her medications. Medications: Her outpatient medications are atorvastatin 80, Plavix 75, losartan 50, and aspirin 81. Physical Examination: General: She is alert, oriented, pleasant, not had any pain or discomfort at all. Vital Signs: 4 feet 10 inches, 153 pounds. Blood pressure 169/72, heart rate 54. Lungs: Clear. Cardiac: Normal. Carotids, no bruit. Abdomen: Soft. Extremities: Normal. IV Site: The cardiac cath site looks normal. Impression: This is not an acute coronary syndrome. The troponins are enough to make anyone concern, but troponins are not 100% accurate, and I think in this case, the mild tropoonin elevation is not significant. We will make sure she stays on aspirin, and and other meds , and I believe, she could be discharged home. CHETNA Voice ID: [id number] Report ID: [id number] JESUS
[2018-11-20 12:56] VITALS: BP 131/63
[2018-11-20] MEDS ORDERED: ATORVASTATIN 80 MG TAB PO SCH (21:00)
== END 2018-11-20 12:04 | disposition home or self-care (01) ==
LOC: ER 19:33 → ERHOLD 11-20 01:46 → 4TH 11-20 02:51
PROVIDERS: ADMIT Family Medicine; ATTEND Family Medicine
DX: R77.8 Other specified abnormalities of plasma proteins (principal); R20.0 Anesthesia of skin; R94.31 Abnormal electrocardiogram [ECG] [EKG]; I25.10 Atherosclerotic heart disease of native coronary artery without angina pectoris; N17.9 Acute kidney failure, unspecified; I10 Essential (primary) hypertension; E78.5 Hyperlipidemia, unspecified; R79.89 Other specified abnormal findings of blood chemistry; I45.81 Long QT syndrome; I25.2 Old myocardial infarction; M19.90 Unspecified osteoarthritis, unspecified site; Z79.02 Long term (current) use of antithrombotics/antiplatelets; Z79.82 Long term (current) use of aspirin; Z79.899 Other long term (current) drug therapy; Z95.5 Presence of coronary angioplasty implant and graft; Z86.73 Personal history of transient ischemic attack (TIA), and cerebral infarction without residual deficits; Z87.891 Personal history of nicotine dependence
CPT/HCPCS: 93005 ×2; 85025; 80048; 36415; 83735; 82550; 85610; 80061; 80076; 84484 ×3; 82553; 83880; 99285; J7030; G0378 ×2

== ENCOUNTER 2019-01-07 11:20 | Emergency (ER) | payer OTHER ==
--- OUTSIDE RECORDS SUMMARY | 2019-01-07 11:22 | XMS REPORT ---
[...] End Date Status Dosage Date Aleve NDC 51289140814 220 MG Orally as Active 1 tablet needed with food or milk as needed aspirin NDC 0 Active not defined Results No Known Results Summary Purpose eClinicalWorks Submission
--- OUTSIDE RECORDS SUMMARY | 2019-01-07 11:22 | XMS REPORT ---
[...] Dosage System Date Date Tramadol HCl ND [id number] 50 MG Orally October 24Nov 23, Active 1 tablet Twice a day 2018 2018 as needed for pain Cyclobenzaprine NDC [id number] 10 MG Orally October 24Nov 23, Active 1 tablet HCl Two times a day 2018 2018 as needed for musle cramps/pa in aspirin NDC 0 Active not defined Aleve NDC [id number] 220 MG Orally Active 1 tablet as needed with food or milk as needed Results No Known Results Summary Purpose eClinicalWorks Submission
[2019-01-07] MEDS ORDERED: ONDANSETRON 4 MG/2 ML VIAL ONE (11:29)
[2019-01-07] MEDS ORDERED: MORPHINE 4 MG/ML SYR ONE ×2 (11:29→15:40)
[2019-01-07 12:03] LABS: Absolute Lymphocytes (CBC) 0.9 K/uL (0.7-4.9); Basophils % 0.3 % (0-1.3); Lymphocytes % 9.2 % (15.3-44.8); MPV 9.1 fL (7.6-11.3); Protime INR 1.06; RBC Red Blood Cell Count 3.34 M/uL (3.86-4.86)
[2019-01-07 12:12] LABS: Albumin 3.8 g/dL (3.4-5.0); Bilirubin Direct 0.3 mg/dL (0-0.2); Bilirubin Total 1.3 mg/dL (0.2-1.0); Magnesium 2.1 mg/dL (1.8-2.4); Potassium 4.4 mmol/L (3.5-5.1); Troponin (Emerg Dept Use Only) 0.07 ng/mL (0.0-0.045)
--- NOTE | 2019-01-07 13:09 | RAD REPORT ---
EXAM DESCRIPTION: RAD - Hip Left 2 View - 01/07/2019 12:57 pm CLINICAL HISTORY: fall Fall from standing, pain COMPARISON: None FINDINGS: Left hip, left femur and left knee- multiple projections are submitted Intratrochanteric fracture proximal left femur is seen. No dislocation evident.
--- NOTE | 2019-01-07 13:10 | RAD REPORT ---
EXAM DESCRIPTION: RAD - Chest Single View - 01/07/2019 12:57 pm CLINICAL HISTORY: fall Chest pain. COMPARISON: Chest Single View dated 10/05/2018; CHEST SINGLE VIEW dated 11/15/2014; CHEST SINGLE VIEW dated 11/15/2012; CHEST SINGLE VIEW dated 03/04/2002 FINDINGS: Portable technique limits examination quality. The lungs are grossly clear. The heart is upper limit of normal in size. No displaced fractures. IMPRESSION: No acute intrathoracic process suspected.
--- NOTE | 2019-01-07 15:30 | RAD REPORT ---
EXAM DESCRIPTION: CT - Hip Left Wo Con - 01/07/2019 3:21 pm CLINICAL HISTORY: fall Fall, left hip pain COMPARISON: No comparisons FINDINGS: Severe osteoarthritis is present left hip. Lucency is seen traversing the base of the femo ral neck/IT region of the proximal left femur compatible with nondisplaced fracture. No dislocation. Right total hip arthroplasty is noted. No intrapelvic mass, hematoma collection. Prominent lumbar deg enerative changes. IMPRESSION: Lucency is present along the base of the left femoral neck/IT region compatible with a n ondisplaced fracture. No dislocation. All CT scans are performed using dose optimization technique as appropriate and may include automated exposure control or mA/KV adjustment according to patient size.
[2019-01-07] MEDS ORDERED: ASPIRIN 81 MG CHEWABLE TABLET ONE (16:00)
[2019-01-07] MEDS ORDERED: NA CHLORIDE 0.9% 1,000 ML ONE (17:08)
--- NOTE | 2019-01-07 17:08 | ER ---
Nurse's Notes [facility] Name: Estela Hawley Age: 73 yrs Sex: Female : 1945 Arrival Date: 01/07/2019 Time: 11:23 Bed 30 Private MD: Diagnosis: Left Intertrochanteric Hip Fracture;Elevated troponin Presentation: 01/07 11:23 Presenting complaint: EMS states: Left hip pain after mechanical fall from standing hb yesterday. External rotation and shortening of left leg noted. Care prior to arrival: None. Mechanism of Injury: Fall from standing position. Trauma event details: Injury occurred in the [facility], Injury occurred: at home. Injury occurred: January 07, 2019. 11:23 Acuity: KERRIE 3 11:23 Method Of Arrival: EMS: [facility] 12:06 Transition of care: patient was not received from another setting of care. Onset of ca1 symptoms was January 06, 2019. Risk Assessment: Do you want to hurt yourself or someone else? Patient reports no desire to harm self or others. Initial Sepsis Screen: Does the patient meet any 2 criteria? No. Patient's initial sepsis screen is negative. Does the patient have a suspected source of infection? No. Patient's initial sepsis screen is negative. Trauma Activation: Not Applicable Physician: ED Physician; Name: ; Notified At: ; Arrived At: Physician: General Surgeon; Name: ; Notified At: ; Arrived At: Physician: Radiology; Name: ; Notified At: ; Arrived At: Physician: Respiratory; Name: ; Notified At: ; Arrived At: Physician: Lab; Name: ; Notified At: ; Arrived At: Historical: - Allergies: 11:26 PENICILLINS; hb - Home Meds: 12:12 Plavix 75 mg Oral tab 1 tab once daily [Active]; Losartan Potassium 50mg 1 tab daily ca1 [Active]; atorvastatin 80 mg oral tab 1 tab once daily [Active]; tramadol 50 mg Oral tab 1 tab twice a day [Active]; cyclobenzaprine 10 mg Oral tab 1 tab 2 times per day [Active]; ibuprofen 200 mg Oral tab [Active]; - PMHx: 12:12 Hypertension; Vertigo; Hyperlipidemia; CVA; Myocardial infarction; ca1 - PSHx: 12:12 Heart stents; hip replacement R; ca1 - Immunization history:: Adult Immunizations up to date. - Immunization history: Last tetanus immunization: unknown. - Social history:: Smoking status: Patient/guardian denies using tobacco. - Ebola Screening: : Patient negative for fever greater than or equal to 101.5 degrees Fahrenheit, and additional compatible Ebola Virus Disease symptoms Patient denies exposure to infectious person Patient denies travel to an Ebola-affected area in the 21 days before illness onset No symptoms or risks identified at this time. Screenin:53 Abuse screen: Denies threats or abuse. Denies injuries from another. Tuberculosis hb screening: No symptoms or risk factors identified. 11:59 Nutritional screening: No deficits noted. Fall Risk Fall in past 12 months (25 points). ca1 IV access (20 points). Ambulatory Aid- Crutches/Cane/Walker (15 pts). Gait- Impaired (20 pts.). Total Littlejohn Fall Scale indicates High Risk Score (45 or more points). Fall prevention measures have been instituted. Side Rails Up X 2 Frequent Obs/Assessments Occuring Family Present and informed to notify staff if the need to leave the bedside As available patient and family educated on Fall Prevention Program and Strategies. Primary Survey: 11:30 NO uncontrolled hemorrhage observed. A: The patient is alert. Airway: patent, hb Breathing/Chest: Respiratory pattern: regular, Respiratory effort: spontaneous, unlabored, Breath sounds: clear, bilaterally. Chest inspection: symmetrical rise and fall of the chest. Circulation: Pulses: palpable left dorsalis pedis artery. Skin color: pink, Skin temperature: warm, dry. Disability Alert. Exposure/Environment: There is no evidence of uncontrolled external bleeding. A warming method has been applied:. 12:05 Reassessment Airway Airway Patent Breathing/Chest Respiratory pattern Regular ca1 Respiratory effort Spontaneous Unlabored Breath sounds Clear Chest inspection Symmetrical Circulation Heart tones Present Pulses Palpable Color [place] Temperature Warm Disability Alert. Assessment: 11:59 General: Appears in no apparent distress. comfortable, Behavior is calm, cooperative, ca1 appropriate for age. Pain: Complains of pain in left hip, left knee Pain currently is 10 out of 10 on a pain scale. Neuro: Level of Consciousness is awake, alert, obeys commands, Oriented to person, place, time, situation, Appropriate for age. Cardiovascular: Heart tones S1 S2 present Capillary refill < 3 seconds Patient's skin is warm and dry. Respiratory: Airway is patent Respiratory effort is even, unlabored, Respiratory pattern is regular, symmetrical, Breath sounds are clear bilaterally. GI: Abdomen is flat, non-distended, Bowel sounds present X 4 quads. Abd is soft and non tender X 4 quads. : Dorsey in place to gravity drainage Urine is clear. EENT: No deficits noted. No signs and/or symptoms were reported regarding the EENT system. Derm: Skin is intact, is healthy with good turgor, Skin is pink, warm \T\ dry. Musculoskeletal: Circulation, motion, and sensation intact. Capillary refill < 3 seconds, Range of motion: limited in left hip and left knee L leg is shortened but pt reports it has always been that way after a a R hip replacement. 13:35 Reassessment: Patient appears in no apparent distress at this time. Patient and/or ca1 family updated on plan of care and expected duration. Pain level reassessed. Patient is alert, oriented x 3, equal unlabored respirations, skin warm/dry/pink. Pt back from Xray. Requested food and water. Instructed NPO at this time per provider's order. Pt and son also asked if she can take her morning meds (losartan and Plavix). Provider notified, said to hold meds until he calls PCP. 14:35 Reassessment: Patient is alert, oriented x 3, equal unlabored respirations, skin aa5 warm/dry/pink. General: Appears comfortable. Pain: Complains of pain in left hip Pain currently is 4 out of 10 on a pain scale. Musculoskeletal: Circulation, motion, and sensation intact. Capillary refill < 3 seconds, is brisk, in bilateral toes. Left leg is shortened and externally rotated. 14:55 Reassessment: Dr. Dumont (Orthopedic) at bedside . aa5 15:30 Reassessment: Patient is alert, oriented x 3, equal unlabored respirations, skin aa5 warm/dry/pink. Pt back from CT via stretcher, pt c/o increased pain to left hip, pt rates pain 8/10 on a pain scale. PA was notified of increased pain. . 16:00 Reassessment: Patient is alert, oriented x 3, equal unlabored respirations, skin aa5 warm/dry/pink. 16:00 Pain: Pain currently is 5 out of 10 on a pain scale. aa5 17:09 Reassessment: Patient is alert, oriented x 3, equal unlabored respirations, skin aa5 warm/dry/pink. Patient states feeling better. Pain: Pain currently is 2 out of 10 on a pain scale. 17:46 Reassessment: Patient appears in no apparent distress at this time. Patient and/or ca1 family updated on plan of care and expected duration. Pain level reassessed. Patient is alert, oriented x 3, equal unlabored respirations, skin warm/dry/pink. 18:26 Reassessment: Patient appears in no apparent distress at this time. Patient and/or ca1 family updated on plan of care and expected duration. Pain level reassessed. Patient is alert, oriented x 3, equal unlabored respirations, skin warm/dry/pink. 18:44 Reassessment: Called report to Sosa Castillo RN. ca1 19:25 Reassessment: Patient appears in no apparent distress at this time. Patient is alert, ca1 oriented x 3, equal unlabored respirations, skin warm/dry/pink. Vital Signs: 11:25 BP 119 / 74; Pulse 88; Resp 16; Temp 99.4; Pulse Ox 100% on R/A; Weight 58.51 kg; hb Height 5 ft. 1 in. (154.94 cm); Pain 10/10; 13:35 BP 149 / 52; Pulse 55; Resp 17 S; Pulse Ox 98% on R/A; ca1 14:30 BP 142 / 50; Pulse 58; Resp 16 S; Pulse Ox 96% on R/A; aa5 15:30 BP 122 / 46; Pulse 57; Resp 16 S; Pulse Ox 97% on R/A; aa5 16:39 BP 122 / 46; Pulse 60; Resp 17 S; Pulse Ox 97% on R/A; ca1 17:46 BP 108 / 54; Pulse 54; Resp 18 S; Pulse Ox 95% on R/A; ca1 18:26 BP 104 / 78; Pulse 58; Resp 17 S; Pulse Ox 94% on R/A; ca1 11:25 Body Mass Index 24.37 (58.51 kg, 154.94 cm) hb Brandamore Coma Score: 11:25 Eye Response: spontaneous(4). Verbal Response: oriented(5). Motor Response: obeys hb commands(6). Total: 15. 13:35 Eye Response: spontaneous(4). Verbal Response: oriented(5). Motor Response: obeys ca1 commands(6). Total: 15. Trauma Score (Adult): 11:25 Eye Response: spontaneous(1); Verbal Response: oriented(1); Motor Response: obeys hb commands(2); Systolic BP: > 89 mm Hg(4); Respiratory Rate: 10 to 29 per min(4); Slim Score: 15; Trauma Score: 12 14:30 Eye Response: spontaneous(1); Verbal Response: oriented(1); Motor Response: obeys aa5 commands(2); Systolic BP: > 89 mm Hg(4); Respiratory Rate: 10 to 29 per min(4); Brandamore Score: 15; Trauma Score: 12 15:30 Eye Response: spontaneous(1); Verbal Response: oriented(1); Motor Response: obeys aa5 commands(2); Systolic BP: > 89 mm Hg(4); Respiratory Rate: 10 to 29 per min(4); Slim Score: 15; Trauma Score: 12 ED Course: 11:23 Patient arrived in ED. hb 11:23 Brendon Nassar PA is PHCP. [facility] 11:23 Joshua Brand MD is Attending Physician. [facility] 11:25 Triage completed. hb 11:38 Diana Sheikh RN is Primary Nurse. hb 11:42 Inserted saline lock: 20 gauge in right antecubital area, using aseptic technique. hb Blood collected. 11:54 Patient has correct armband on for positive identification. Bed in low position. Call hb light in reach. Side rails up X 1. 11:59 Side rails up X2. Pulse ox on. NIBP on. Warm blanket given. ca1 11:59 No provider procedures requiring assistance completed. ca1 12:05 Patient maintains SpO2 saturation greater than 95% on room air. ca1 12:07 Arm band placed on. EKG completed in triage. Results shown to MD. ca1 12:08 Thermoregulation: warm blanket given to patient. ca1 14:30 Report received from LAZARUS River. aa5 15:08 Repeat lab(s) drawn. by ma, sent to lab. jp3 15:08 Troponin (emerg Dept Use Only) Sent. jp3 15:19 CT completed. Patient tolerated procedure well. Patient moved back from CT. bq 16:16 initiated a transfer with Vannesa from the [facility] transfer center. eb 16:30 connected the orthopedic assistant professor of economics for [facility] with Brendon VENTURA for patient transfer eb consultation. 16:58 connected the hospitalist assistant professor of economics for [facility] Dr. Scott with Brendon VENTURA for patient eb transfer consultation. 17:12 Zora Chavez, RN is Primary Nurse. aa5 17:30 Report given to LAZARUS River. aa5 17:59 called to check on status of the transfer/ they are still working on a bed and will eb call us back shortly. 18:13 administrative approval given by Vannesa Dwyer/ patient has been accepted to [facility] Bed 2443/ Dr. Proctor has accepted the patient in transfer/ Report to be called to [phone]. 19:27 Patient transferred, IV remains in place. ca1 23:35 Femur Left XRAY In Process Unspecified. EDMS Administered Medications: 11:51 Drug: morphine 4 mg {Note: RASS 0.} Route: IVP; Site: right antecubital; hb 11:51 Drug: Zofran 4 mg Route: IVP; Site: right antecubital; hb 15:42 Drug: morphine 4 mg Route: IVP; Site: right antecubital; aa5 16:00 Follow up: Response: No adverse reaction; Pain is decreased aa5 17:00 Follow up: Response: No adverse reaction; Pain is decreased; RASS: Alert and Calm (0) ca1 16:00 Drug: Aspirin Chewable Tablet 324 mg Route: PO; aa5 16:38 Follow up: Response: No adverse reaction aa5 17:00 Follow up: Response: No adverse reaction ca1 17:09 Drug: NS 0.9% 1000 ml Route: IV; Rate: 1 bolus; Site: right antecubital; aa5 18:30 Follow up: Response: No adverse reaction; IV Status: Completed infusion; IV Intake: ca1 1000ml Intake: 18:30 IV: 1000ml; Total: 1000ml. ca1 Output: 12:05 Urine: 200ml (Dorsey); Total: 200ml. ca1 15:30 Urine: 1000ml (Dorsey); Total: 1200ml. aa5 Outcome: 17:05 ER care complete, transfer ordered by MD. neumann 19:25 Transferred by ground EMS to [facility], Transfer form completed. ca1 X-rays sent w/ patient. 19:25 Condition: stable 19:25 Patient's length of stay in the Emergency Department was greater than 2 hours. Seen by Orthopedic Surgeon and transferred to another facillityPatient's length of stay extended due to 19:28 Patient left the ED. ca1 Signatures: Dispatcher [employer] EDMS Brendon Nassar PA PA jmm Quilty, Betty bq Calderon, Audri, RN RN aa5 Diana Sheikh, LAZARUS RN Jenniffer Newell Jacob jp3 Aleta Goodman, RN RN ca1
--- NOTE | 2019-01-07 17:09 | EDPHYS ---
Physician Documentation [facility] Name: Estela Hawley Age: 73 yrs Sex: Female : 1945 Arrival Date: 01/07/2019 Time: 11:23 Bed 30 Private MD: ED Physician Joshua Brand HPI: 01/07 11:24 This 73 yrs old Female presents to ER via EMS with complaints of Fall Injury. [facility] 11:24 Details of fall: The patient fell from an upright position, while walking. Onset: The jmm symptoms/episode began/occurred acutely, last night. Associated injuries: The patient sustained left leg. This is a 73 year old female with a history of CAD, HTN, HLP that presents to the ED with complaints of left hip pain, left knee pain after a fall which occurred last night at approx 10 pm. Patient states she slipped in her sandals and twisted her leg. Denies other injury. . Historical: - Allergies: 11:26 PENICILLINS; hb - Home Meds: 12:12 Plavix 75 mg Oral tab 1 tab once daily [Active]; Losartan Potassium 50mg 1 tab daily ca1 [Active]; atorvastatin 80 mg oral tab 1 tab once daily [Active]; tramadol 50 mg Oral tab 1 tab twice a day [Active]; cyclobenzaprine 10 mg Oral tab 1 tab 2 times per day [Active]; ibuprofen 200 mg Oral tab [Active]; - PMHx: 12:12 Hypertension; Vertigo; Hyperlipidemia; CVA; Myocardial infarction; ca1 - PSHx: 12:12 Heart stents; hip replacement R; ca1 - Immunization history:: Adult Immunizations up to date. - Immunization history: Last tetanus immunization: unknown. - Social history:: Smoking status: Patient/guardian denies using tobacco. - Ebola Screening: : Patient negative for fever greater than or equal to 101.5 degrees Fahrenheit, and additional compatible Ebola Virus Disease symptoms Patient denies exposure to infectious person Patient denies travel to an Ebola-affected area in the 21 days before illness onset No symptoms or risks identified at this time. ROS: 11:26 Constitutional: Negative for fever, chills, and weight loss, Cardiovascular: Negative [facility] for chest pain, palpitations, and edema, Respiratory: Negative for shortness of breath, cough, wheezing, and pleuritic chest pain. 11:26 MS/extremity: Positive for injury or acute deformity. 11:26 All other systems are negative. Exam: 11:26 Constitutional: This is a well developed, well nourished patient who is awake, alert, jmm and in no acute distress. Head/Face: atraumatic. Eyes: EOMI, no conjunctival erythema appreciated ENT: Moist Mucus Membranes Neck: Trachea midline, Supple Chest/axilla: Normal chest wall appearance and motion. Cardiovascular: Regular rate and rhythm. No edema appreciated Respiratory: Normal respirations, no respiratory distress appreciated Abdomen/GI: Non distended, soft Back: Normal ROM 11:26 Musculoskeletal/extremity: ROM: painful rom noted to the left hip, left leg is shortened, compartments are soft, full dorsalis pulse, NVI. 11:26 Skin: Appearance: Color: normal in color. 11:26 Neuro: Orientation: is normal, Mentation: is normal, Memory: is normal. 11:26 Psych: Behavior/mood is pleasant, cooperative. Vital Signs: 11:25 BP 119 / 74; Pulse 88; Resp 16; Temp 99.4; Pulse Ox 100% on R/A; Weight 58.51 kg; hb Height 5 ft. 1 in. (154.94 cm); Pain 10/10; 13:35 BP 149 / 52; Pulse 55; Resp 17 S; Pulse Ox 98% on R/A; ca1 14:30 BP 142 / 50; Pulse 58; Resp 16 S; Pulse Ox 96% on R/A; aa5 15:30 BP 122 / 46; Pulse 57; Resp 16 S; Pulse Ox 97% on R/A; aa5 16:39 BP 122 / 46; Pulse 60; Resp 17 S; Pulse Ox 97% on R/A; ca1 17:46 BP 108 / 54; Pulse 54; Resp 18 S; Pulse Ox 95% on R/A; ca1 18:26 BP 104 / 78; Pulse 58; Resp 17 S; Pulse Ox 94% on R/A; ca1 11:25 Body Mass Index 24.37 (58.51 kg, 154.94 cm) hb Slim Coma Score: 11:25 Eye Response: spontaneous(4). Verbal Response: oriented(5). Motor Response: obeys hb commands(6). Total: 15. 13:35 Eye Response: spontaneous(4). Verbal Response: oriented(5). Motor Response: obeys ca1 commands(6). Total: 15. Trauma Score (Adult): 11:25 Eye Response: spontaneous(1); Verbal Response: oriented(1); Motor Response: obeys hb commands(2); Systolic BP: > 89 mm Hg(4); Respiratory Rate: 10 to 29 per min(4); [place] Score: 15; Trauma Score: 12 14:30 Eye Response: spontaneous(1); Verbal Response: oriented(1); Motor Response: obeys aa5 commands(2); Systolic BP: > 89 mm Hg(4); Respiratory Rate: 10 to 29 per min(4); [place] Score: 15; Trauma Score: 12 15:30 Eye Response: spontaneous(1); Verbal Response: oriented(1); Motor Response: obeys aa5 commands(2); Systolic BP: > 89 mm Hg(4); Respiratory Rate: 10 to 29 per min(4); [place]lim Score: 15; Trauma Score: 12 MDM: 11:30 Patient medically screened. [facility] 13:38 Data reviewed: vital signs, nurses notes. Counseling: I had a detailed discussion with nel the patient and/or guardian regarding: the historical points, exam findings, and any diagnostic results supporting the discharge/admit diagnosis, radiology results, the need for further work-up and treatment in the hospital. ED course: I discussed the patient with Thais VERDUZCO, whom accepted admission for Dr. Joseph service. . 13:47 Data reviewed: lab test result(s), EKG, radiologic studies, plain films. ED course: I [facility] discussed the patient with Dr. Dumotn whom will consult on the admission. . 16:41 ED course: I discussed the patient with Dr. Guzmán whom will evaluate the patient on [facility] transfer. . 01/07 11:23 Order name: Basic Metabolic Panel [facility] 01/07 11:23 Order name: CBC with Diff [facility] 01/07 11:23 Order name: LFT's [facility] 01/07 11:23 Order name: Magnesium [facility] 01/07 11:23 Order name: NT PRO-BNP [facility] 01/07 11:23 Order name: PT-INR [facility] 01/07 11:23 Order name: Troponin (emerg Dept Use Only) [facility] 01/07 12:05 Order name: CBC with Automated Diff; Complete Time: 12:53 [facility] 01/07 12:05 Order name: Protime (+INR); Complete Time: 12:53 [facility] 01/07 12:13 Order name: Basic Metabolic Panel; Complete Time: 12:53 [facility] 01/07 12:13 Order name: Liver (Hepatic) Function; Complete Time: 12:53 [facility] 01/07 12:13 Order name: Troponin (Emerg Dept Use Only); Complete Time: 12:53 [facility] 01/07 12:13 Order name: NT PRO-BNP; Complete Time: 12:53 [facility] 01/07 12:13 Order name: Magnesium; Complete Time: 12:53 [facility] 01/07 11:23 Order name: XRAY Chest (1 view) [facility] 01/07 11:23 Order name: EKG; Complete Time: 11:25 [facility] 01/07 11:23 Order name: Cardiac monitoring; Complete Time: 11:38 [facility] 01/07 11:24 Order name: Hip Left 2 View XRAY [facility] 01/07 11:24 Order name: Femur Left XRAY [facility] 01/07 11:24 Order name: Knee Left 3 View XRAY [facility] 01/07 13:10 Order name: RAD; Complete Time: 13:33 [facility] 01/07 13:14 Order name: RAD; Complete Time: 13:33 [facility] 01/07 14:49 Order name: Troponin (emerg Dept Use Only) [facility] 01/07 15:33 Order name: CT; Complete Time: 15:33 [facility] 01/07 15:38 Order name: Troponin (Emerg Dept Use Only); Complete Time: 15:43 [facility] 01/07 11:23 Order name: EKG - Nurse/Tech; Complete Time: 11:50 [facility] 01/07 11:23 Order name: IV Saline Lock; Complete Time: 11:39 [facility] 01/07 11:23 Order name: Labs collected and sent; Complete Time: 11:50 [facility] 01/07 11:23 Order name: O2 Per Protocol; Complete Time: 11:39 [facility] 01/07 11:24 Order name: O2 Sat Monitoring; Complete Time: 11:39 [facility] 01/07 11:24 Order name: Dorsey; Complete Time: 11:37 jm Administered Medications: 11:51 Drug: morphine 4 mg {Note: RASS 0.} Route: IVP; Site: right antecubital; hb 11:51 Drug: Zofran 4 mg Route: IVP; Site: right antecubital; hb 15:42 Drug: morphine 4 mg Route: IVP; Site: right antecubital; aa5 16:00 Follow up: Response: No adverse reaction; Pain is decreased aa5 17:00 Follow up: Response: No adverse reaction; Pain is decreased; RASS: Alert and Calm (0) ca1 16:00 Drug: Aspirin Chewable Tablet 324 mg Route: PO; aa5 16:38 Follow up: Response: No adverse reaction aa5 17:00 Follow up: Response: No adverse reaction ca1 17:09 Drug: NS 0.9% 1000 ml Route: IV; Rate: 1 bolus; Site: right antecubital; aa5 18:30 Follow up: Response: No adverse reaction; IV Status: Completed infusion; IV Intake: ca1 1000ml Disposition: 01/08 08:47 Co-signature as Attending Physician, Joshua Brand MD I agree with the assessment and kdr plan of care. Disposition: 01/07/19 17:[address] [facility]. Diagnosis are Left Intertrochanteric Hip Fracture, Elevated troponin. - Reason for transfer: Higher level of care. - Accepting physician is Sonia. - Condition is Stable. - Problem is new. - Symptoms are unchanged. Signatures: Dispatcher [employer] EDMS Joshua Brand MD MD [facility] Brendon Nassar PA PA jmm Calderon, Audri, RN RN aa5 Diana Sheikh RN RN Aleta Goodman RN RN ca1 Corrections: (The following items were deleted from the chart) 01/07 19:28 17:05 01/07/2019 17:[address] [facility]. Diagnosis is ca1 Left Intertrochanteric Hip Fracture; Elevated troponin. Reason for transfer: Higher level of care. Accepting physician is Sonia. Condition is Stable. Problem is new. Symptoms are unchanged. nel
[2019-01-07 20:22] VITALS: TEMP 99.4
[2019-01-07 20:33] VITALS: BP 104/78; O2SAT 94
--- NOTE | 2019-01-07 22:18 | CON ---
Date of Consultation: 01/07/2019 History Of Present Illness: This is my first time I am seeing this patient to my knowledge. She is a 73-year-old female who reportedly fell injuring her left lower extremity. She is complaining of pa in in both of her knees as well as pain in the left hip. She says she has had pain in her left hip f or quite sometime. Physical Examination: All of long bones and joints are palpated without pain or crepitation with the exception of her left hip which is painful with any movement or manipulation. X-rays are reviewed, which revealed a severely degenerated hip with some degree of dysplasia. Also, she has what appears to be a relatively nondisplaced intertrochanteric fracture on the left. Assessment: A 73-year-old female with quite significant arthritis of the left hip involving both the femoral head as well as acetabular component as well as apparently an intertrochanteric fracture. Plan: At this time I think it would be reasonable to get a CT scan to assess for bone stock as well as fracture pattern as it is a little difficult to interpret her x-rays. I do believe, however, that she does have such severe arthritis that fixation of the intertrochanteric fracture by normal means, probably may not be possible or at least should have a backup if attempted. The backup would probab ly include a calcar replacing total hip arthroplasty. This also appears that the acetabular componen t probably would not be able to be reconstructed via normal means, therefore recommendation is for he r to be transferred to higher level of care where arthroplasty subspecialist would be able to pursue this or any other management would be indicated. This has been explained to the patient as well as the emergency room staff. HECTOR Voice ID: [id number] Report ID: [id number]
--- NOTE | 2019-01-08 10:01 | RAD REPORT ---
EXAM DESCRIPTION: RAD - Knee Left 2 View - 01/07/2019 12:59 pm CLINICAL HISTORY: Fall Fall from standing, pain COMPARISON: None FINDINGS: Left hip, left femur and left knee- multiple projections are submitted Intratrochanteric fracture proximal left femur is seen. No dislocation evident.
--- NOTE | 2019-01-08 10:01 | RAD REPORT ---
EXAM DESCRIPTION: RAD - Femur Left - 01/07/2019 1:04 pm CLINICAL HISTORY: Fall Fall from standing, pain COMPARISON: None FINDINGS: Left hip, left femur and left knee- multiple projections are submitted Intratrochanteric fracture proximal left femur is seen. No dislocation evident.
--- NOTE | 2019-01-08 11:36 | EKG ---
Test Date: 2019-01-07 Test Time: 11:47:32 [employer]: HB MEASUREMENT RESULTS: Intervals: Rate: 58 OR: 154 QRSD: 78 QT: 462 QTc: 453 [facility]: P: 45 OR: 154 QRS: -8 T: -66 INTERPRETIVE STATEMENTS: Sinus bradycardia ST & Marked T wave abnormality, consider anterolateral ischemia Abnormal ECG Compared to ECG 11/20/2018 00:40:35 T-wave abnormality now present Sinus rhythm no longer present ST (T wave) deviation no longer present Possible ischemia still present Electronically Signed On 01-08-19 11:31:28 CDT by Marcio Barksdale
== END 2019-01-07 19:28 | disposition short-term general hospital (02) ==
LOC: ER 11:20
DX: S72.142A Displaced intertrochanteric fracture of left femur, initial encounter for closed fracture (principal); R79.89 Other specified abnormal findings of blood chemistry; W18.30XA Fall on same level, unspecified, initial encounter; Y93.9 Activity, unspecified; Y92.9 Unspecified place or not applicable
CPT/HCPCS: 96361; 93005; 85025; 80048; 36415; 83735; 85610; 80076; 84484 ×2; 83880; 73700; 71045; 73502; 73560; 73552; 96375; 96374; 99285; J7030; J2405

== ENCOUNTER 2019-11-11 19:08 | Emergency (ER) | payer OTHER ==
--- OUTSIDE RECORDS SUMMARY | 2019-11-11 19:11 | XMS REPORT | Clinical Summary ---
:1945 Author Organization [facility] Address [address] [place] [address] Care Team Providers Name Role Phone Tricia Avila MD Primary Care Provider Allergies Active Allergy Reactions Severity Noted Date Comments Penicillins Other (See Comments) High 01/07/2019 "Throat closes, I felt like choking" Medications Medication Sig Dispensed Refills Start Date End Date Status losartan (COZAAR) 50 Take 50 mg by 6 12/05/2018 Active MG tablet mouth daily. clopidogrel (PLAVIX) Take 75 mg by 12/05/2018 Active 75 mg tablet mouth daily. atorvastatin (LIPITOR) Take 40 mg by 12/05/2018 Active 80 MG tablet mouth . aspirin 81 MG EC Take 81 mg by 0 Active tablet mouth daily. ferrous sulfate 325 Take 1 tablet 60 tablet 0 01/12/201902/11 (65 FE) MG tablet (325 mg total) by mouth 2 (two) times daily for 30 days. Active Problems Problem Noted Date Closed fracture of left hip 01/07/2019 Coronary artery disease involving hopland coronary danilo ry of hopland heart 01/07/2019 without angina pectoris Essential hypertension 01/07/2019 History of stroke 01/07/2019 Encounters Date Type Specialty Care Team Description 01/10/2019 Surgery General Surgery Salcedo, ARTHROPLASTY ,HIP Izaiah Ha Jr., MD 01/10/2019 Anesthesia Event General Surgery Wilder Plummer MD 01/08/2019 Orders Only General Internal Medicine 01/07/2019 - Hospital Encounter General Internal Nesha Roberto fracture of left hip, initial encounter ([facility]) (Primary Dx); 01/13/2019 Medicine Mariam Morales MD Coronary artery disease involving hopland coronary artery of hopland heart without angina pectoris; Dimitri Alvarez h ypertension; MD Kymberly History of stroke; Tiburcio Salcedo cardiovas cular exam Izaiah Ha Jr., MD 01/07/2019 Travel 01/07/2019 Documentation Internal Medicine Esthela Croft, Mariam Morales MD after 11/10/2018 Social History Tobacco Use Types Packs/Day Years Used Date Former Smoker Smokeless Tobacco: Never Used Alcohol Use Drinks/Week oz/Week Comments No Alcohol Habits Answer Date Recorded How often do you have a drink containing alcohol? Never 01/07/2019 How many drinks containing alcohol do you have on a typical Not asked day when you are drinking? How often do you have six or more drinks on one occasion? No t asked Sex Assigned at Date Recorded Not on file Job Start Date Occupation Industry Not on file Not on file Not on file Travel History Travel Start Travel End No recent travel history available. Last Filed Vital Signs Vital Sign Reading Time Taken Blood Pressure 153/61 01/13/2019 1:43 PM CDT Pulse 67 01/13/2019 1:43 PM CDT Temperature 36.8 C (98.2 F) 01/13/2019 1:43 PM CDT Respiratory Rate 16 01/13/2019 1:43 PM CDT Oxygen Saturation 100% 01/13/2019 1:43 PM CDT Inhaled Oxygen Concentration - - Weight 74.5 kg (164 lb 4.8 oz) 01/07/2019 9:13 PM CDT Height 152.4 cm (5') 01/07/2019 9:13 PM CDT Body Mass Index 32.09 01/07/2019 9:13 PM CDT Plan of Treatment Not on file Implants Implanted Type Area Physical Education Professor Device Shelf Model / Identifier Expiration Serial / Date Lot Shell Acet Osseoti Sz G 58 Mm [id number] - [id number] TOTAL JOINT Left : BIOMET 06/12/2028 [id number] / Implanted: Qty: 1 on 01/10/2019 by Izaiah Salcedo Jr., MD CONSTRUCT Hip / [id number] Scr Acet St Tril 6.5x25mm [id number] - [id number] TOTAL JOINT Left: SHONA:SHONA 10/22/[id number] / Implanted: Qty: 1 on 01/10/2019 by Izaiah Salcedo Jr., MD CONSTRUCT Hip US / [id number] Scr Acet St Tril 6.5x30mm [id number] - [id number] TOTAL JOINT Left: SHONA:SHONA 08/22/[id number] / Implanted: Qty: 1 on 01/10/2019 by Izaiah Salcedo Jr., MD CONSTRUCT Hip US / [id number] Head Articulation Active [id number] - [id number] TOTAL JOINT L eft: BIOMET:ARTHROTE 09/14/2023 [id number] / Implanted: Qty: 1 on 01/10/2019 by Izaiah Salcedo Jr., MD CONSTRUCT Hip K / [id number] Liner G7 Dual Mobility 46mm G [id number] - [id number] TOTAL JOINT Left: BIOMET ORTHO 10/30/2028 [id number] / Implanted: Qty: 1 on 01/10/2019 by Izaiah Salcedo Jr., MD CONSTRUCT Hip / [id number] Hd Fem Ceramic 04/07 28mmx3.5 [id number] - [id number] TOTAL JOINT Left: SHONA:SHONA 12/24/[id number] / Implanted: Qty: 1 on 01/10/2019 by Izaiah Salcedo Jr., MD CONSTRUCT Hip US / [id number] Tuttle Revision Hip Stem, Uncemented 17/190, Taper 12/14 Left: Shona 04/24/2023 [id number] / Implanted: Qty: 1 on 01/10/2019 by Izaiah Salcedo Jr., MD Hip / [id number] Procedures Procedure Name Priority Date/Time Associated Comments Diagnosis RHYTHM STRIP - SCAN 01/17/2019 3:10 PM CDT RHYTHM STRIP - SCAN 01/16/2019 2:53 PM CDT CBC W/PLT COUNT & Routine 01/13/2019 4:54 Result s for this AUTO DIFFERENTIAL AM CDT procedure are in the results section. PHOSPHORUS Routine 01/13/2019 4:54 Results for this AM CDT procedure are i n the results section. MAGNESIUM Routine 01/13/2019 4:54 Results for this AM CDT procedure are i n the results section. BASIC METABOLIC PANEL Routine 01/13/2019 4:54 Re sults for this (7) AM CDT procedure are i n the results section. CBC W/PLT COUNT & Routine 01/13/2019 4:54 Result s for this AUTO DIFFERENTIAL AM CDT procedure are in the results section. HEMOGLOBIN AND Routine 01/12/2019 2:41 Results f or this HEMATOCRIT PM CDT procedure are i n the results section. CBC W/PLT COUNT & Routine 01/12/2019 5:36 Result s for this AUTO DIFFERENTIAL AM CDT procedure are in the results section. PHOSPHORUS Routine 01/12/2019 5:36 Results for this AM CDT procedure are i n the results section. MAGNESIUM Routine 01/12/2019 5:36 Results for this AM CDT procedure are i n the results section. BASIC METABOLIC PANEL Routine 01/12/2019 5:36 Re sults for this (7) AM CDT procedure are i n the results section. CBC W/PLT COUNT & Routine 01/12/2019 5:36 Result s for this AUTO DIFFERENTIAL AM CDT procedure are in the results section. CBC W/PLT COUNT & Routine 01/11/2019 4:20 Result s for this AUTO DIFFERENTIAL AM CDT procedure are in the results section. PHOSPHORUS Routine 01/11/2019 4:20 Results for this AM CDT procedure are i n the results section. MAGNESIUM Routine 01/11/2019 4:20 Results for this AM CDT procedure are i n the results section. BASIC METABOLIC PANEL Routine 01/11/2019 4:20 Re sults for this (7) AM CDT procedure are i n the results section. CBC W/PLT COUNT & Routine 01/11/2019 4:20 Result s for this AUTO DIFFERENTIAL AM CDT procedure are in the results section. TRANSFUSION SERVICE 01/10/2019 6:03 REPORT - SCAN PM CDT XR PELVIS 1 OR 2 Routine 01/10/2019 4:33 Results for this VIEWS PM CDT procedure are i n the results section. XR PELVIS 1 OR 2 Routine 01/10/2019 3:34 Results for this VIEWS PM CDT procedure are i n the results section. ARTHROPLASTY,HIP 01/10/2019 3:00 Closed fracture of PM CDT left hip, initial encounter ([facility]) Case Notes 2 HRS Special Needs (TIVA LONG ACTING SPINAL, ZI MMER) TISSUE EXAM AP Routine 01/10/2019 2:28 PM CDT Resu lts for this procedure are i n the results section . CBC W/PLT COUNT & AUTO Routine 01/10/2019 4:55 AM CDT Results for this DIFFERENTIAL procedure are i n the results section . PHOSPHORUS Routine 01/10/2019 4:55 AM CDT Resu lts for this procedure are i n the results section . MAGNESIUM Routine 01/10/2019 4:55 AM CDT Resu lts for this procedure are i n the results section . BASIC METABOLIC PANEL (7) Routine 01/10/2019 4:55 AM CDT Results for this procedure are i n the results section . CBC W/PLT COUNT & AUTO Routine 01/10/2019 4:55 AM CDT Results for this DIFFERENTIAL procedure are i n the results section . ECHOCARDIOGRAM REPORT - 01/09/2019 9:20 PM CDT SCAN TYPE AND SCREEN, AUTOMATED Routine 01/09/2019 7:31 PM CDT Results for this procedure are i n the results section . TRANSFUSION SERVICE REPORT 01/09/2019 6:01 PM CDT - SCAN CBC W/PLT COUNT & AUTO Routine 01/09/2019 6:00 AM CDT Results for this DIFFERENTIAL procedure are i n the results section . PHOSPHORUS Routine 01/09/2019 6:00 AM CDT Resu lts for this procedure are i n the results section . MAGNESIUM Routine 01/09/2019 6:00 AM CDT Resu lts for this procedure are i n the results section . BASIC METABOLIC PANEL (7) Routine 01/09/2019 6:00 AM CDT Results for this procedure are i n the results section . CBC W/PLT COUNT & AUTO Routine 01/09/2019 6:00 AM CDT Results for this DIFFERENTIAL procedure are i n the results section . TRANSFUSION SERVICE REPORT 01/08/2019 6:00 PM CDT - SCAN 2D ECHO W/ DOPPLER Routine 01/08/2019 4:17 PM CDT Results for this (CW/PW/COLOR) procedure are in the results section . CT PELVIS WITHOUT IV Routine 01/08/2019 1:33 PM CDT Results for this CONTRAST procedure are i n the results section . ECG 12-LEAD Routine 01/08/2019 10:26 AM CDT Procedure Note - Interface, External Ris In - 01/08/2019 10:33 AM CDT Ventricular Rate 61 BPM Atrial Rate 61 BPM P-R Interval 146 ms QRS Duration 84 ms Q-T Interval 436 ms QTC Calculation(Bazett) 438 ms P [place] 36 degrees R [place] -5 degrees T [place] -89 degrees Normal sinus rhythm ST & Marked T wave abnormali ty, consider anterolateral ischemia Abnormal ECG When compared with ECG of 05:33, No significant change was fo und ECG 12-LEAD Routine 01/08/2019 10:26 AM CDT Resu lts for this procedure are in the results section . TROPONIN I Routine 01/08/2019 9:13 AM CDT Resu lts for this procedure are in the results section . ECG 12-LEAD Routine 01/08/2019 5:34 AM CDT Procedure Note - Interface, External Ris In - 01/08/2019 5:39 AM CDT Ventricular Rate 60 BPM Atrial Rate 60 BPM P-R Interval 144 ms QRS Duration 74 ms Q-T Interval 438 ms QTC Calculation(Bazett) 438 ms P [place] 62 degrees R [place] -5 degrees T [place] 97 degrees Normal sinus rhythm ST & T wave abnormality, con public safety dispatcher inferior ischemia ST & T wave abnormality, con public safety dispatcher anterolateral ischemia Abnormal ECG When compared with ECG of 05:33, No significant change was fo und ECG 12-LEAD Routine 01/08/2019 5:33 AM CDT Procedure Note - Interface, External Ris In - 01/08/2019 5:39 AM CDT Ventricular Rate 66 BPM Atrial Rate 66 BPM P-R Interval 138 ms QRS Duration 72 ms Q-T Interval 434 ms QTC Calculation(Bazett) 454 ms P [place] 41 degrees R [place] -6 degrees T [place] 209 degrees Normal sinus rhythm ST & Marked T wave abnormali ty, consider anterolateral ischemia Abnormal ECG When compared with ECG of 23:24, No significant change was fo und ECG 12-LEAD Routine 01/08/2019 5:33 AM CDT Resu lts for this procedure are i n the results section . TROPONIN I Routine 01/08/2019 5:00 AM CDT Resu lts for this procedure are i n the results section . ABORH, MANUAL STAT 01/08/2019 12:00 AM CDT Res ults for this procedure are i n the results section . XR CHEST 1 VIEW Routine 01/07/2019 11:55 PM CDT R esults for this PORTABLE/BEDSIDE procedure a re in the results section . XR HIP 2 VIEWS LEFT Routine 01/07/2019 11:55 PM CDT Results for this procedure are i n the results section . XR PELVIS 1 OR 2 VIEWS Routine 01/07/2019 11:55 PM CDT Results for this procedure are i n the results section . ECG 12-LEAD Routine 01/07/2019 11:24 PM CDT Resu lts for this procedure are i n the results section . CBC W/PLT COUNT & AUTO Routine 01/07/2019 10:42 PM CDT Results for this DIFFERENTIAL procedure are i n the results section . TYPE AND SCREEN, AUTOMATED Routine 01/07/2019 10:42 PM CDT Results for this procedure are i n the results section . CBC W/PLT COUNT & AUTO Routine 01/07/2019 10:42 PM CDT Results for this DIFFERENTIAL procedure are i n the results section . BASIC METABOLIC PANEL (7) Routine 01/07/2019 10:42 PM CDT Results for this procedure are i n the results section . TROPONIN I Routine 01/07/2019 10:42 PM CDT Resu lts for this procedure are i n the results section . after 11/10/2018 Results RHYTHM STRIP - SCAN (01/17/2019 3:10 PM CDT)Only the most recent of2 results within the time period is included. Narrative Performed At This result has an attachment that is no t available. CBC with platelet count + automated diff (01/13/2019 4:54 AM CDT)Only the most recent of6 resultswithin the time period is included. WBC 11.1 (H) 3.5 - 10.5 K/L [facility] [place] RBC 2.41 (L) 3.93 - 5.22 M/L [facility] [place] Hemoglobin 7.6 (L) 11.2 - 15.7 GM/DL [facility] [place] Hematocrit 23.0 (L) 34.1 - 44.9 % [facility] [place] MCV 95.4 (H) 79.4 - 94.8 fL [facility] [place] MCH 31.5 25.6 - 32.2 pg [facility] [place] MCHC 33.0 32.2 - 35.5 GM/DL [facility] [place] RDW 12.2 11.7 - 14.4 % [facility] [place] Platelets 260 150 - 450 K/CU MM [facility] [place] MPV 10.8 9.0 - 12.3 fL [facility] [place] % Neutros 70 % [facility] [place] % Lymphs 14 % [facility] [place] % Monos 9 % [facility] [place] % Eos 6 % [facility] [place] % Baso 0 % [facility] [place] # Neutros 7.76 (H) 1.56 - 6.13 K/L [facility] [place] # Lymphs 1.51 1.18 - 3.74 K/L [facility] [place] # Monos 1.02 (H) 0.24 - 0.36 K/L [facility] [place] # Eos 0.70 (H) 0.04 - 0.36 K/L [facility] [place] # Baso 0.02 0.01 - 0.08 K/L [facility] [place] Immature Granulocytes-Relative 1 0 - 1 % C [facility] Specimen Blood Performing Organization Address City/[facility]/Zipcode Phone Number [facility] [address] [place] [address] Phosphorus (01/13/2019 4:54 AM CDT)Only the most recent of5 resultswithin the time period is included. Phosphorus 3.3 2.3 - 4.7 mg/dL [facility] Specimen Blood Performing Organization Address City/[facility]/Zipcode Phone Number [facility] [address] [place] [address] Magnesium (01/13/2019 4:54 AM CDT)Only the most recent of5 resultswithin the time period is included. Magnesium 1.9 1.6 - 2.6 mg/dL [facility] Specimen Blood Performing Organization Address City/[facility] Phone Number [facility] [address] [place] [address] Basic Metabolic Panel (01/13/2019 4:54 AM CDT)Only the most recent of6 results within the time period is included. Sodium 139 136 - 145 meq/L [facility] Potassium 4.0 3.5 - 5.1 meq/L [facility] Chloride 110 (H) 98 - 107 meq/L [facility] CO2 24 22 - 29 meq/L [facility] BUN 15 7 - 21 mg/dL [facility] Creatinine 0.97 0.57 - 1.25 mg/dL [facility] Glucose 102 70 - 105 mg/dL [facility] Calcium 8.0 (L) 8.4 - 10.2 mg/dL [facility] EGFR 56Comment: ESTIMATED GFR IS mL/min/1.73 sq m [facility] - NOT ACCURATE CREATININE MC OLSON CLEARANCE IN PREDICTING GLOMERULAR FILTRATION RATE. ESTIMATED GFR IS NOT APPLICABLE FOR DIALYSIS PATIENTS. Specimen Blood Performing Organization Address [facility] Phone Number [facility] [address] [place] [address] Hemoglobin and hematocrit (01/12/2019 2:41 PM CDT) Hemoglobin 7.7 (L) 11.2 - 15.7 GM/DL [facility] Hematocrit 22.8 (L) 34.1 - 44.9 % [facility] Specimen Blood Performing Organization Address City/[facility] Phone Number [facility] [address] [place] [address] TRANSFUSION SERVICE REPORT - SCAN (01/10/2019 6:03 PM CDT)Only the most recent of3 resultswithin the time period is included. Narrative Performed At This result has an attachment that is no t available. XR pelvis 1 or 2 views (01/10/2019 4:33 PM CDT)Only the most recent of3 results within the time period is included. Specimen Narrative Performed At FINAL REPORT [facility] PELVIS X-RAY - ONE VIEW POSTOPERATIVE HISTORY: postop COMPARISON: Pelvis x-ray 01/10/2019 1520 4:00 PM intraoperative FINDINGS: Bones: No acute displaced fracture.Interval completion of the left hip replacement. There appears to be mild in ternal rotation of the prosthesis which may be related to techn ique. Unchanged right hip replacement. Joints: Degenerative changes of the lower lumbar spine and bilateral sacroiliac joints. Soft tissues: Soft tissue swelling and few foci of pos toperative air along the proximal left thigh. IMPRESSION: Completion of the left hip replacement w ith mild internal rotation of the prosthesis. This may be due to techn ique. Consider repeat. Signed: Nadine Villafuerte MD Report Verified Date/Time:01/11/2019 08:49:25 Reading Location: [employer] - B01.625 Procedure Note Interface, External Ris In - 01/11/2019 8:51 AM CDT FINAL REPORT PELVIS X-RAY - ONE VIEW POSTOPERATIVE HISTORY: postop COMPARISON: Pelvis x-ray 01/10/2019 1520 4:00 PM intraoperative FINDINGS: Bones: No acute displaced fracture. Interval c ompletion of the left hip replacement. There appears to be mild in ternal rotation of the prosthesis which may be related to techn ique. Unchanged right hip replacement. Joints: Degenerative changes of the lower lumbar spine and bilateral sacroiliac joints. Soft tissues: Soft tissue swelling and few foci of pos toperative air along the proximal left thigh. IMPRESSION: Completion of the left hip replacement w ith mild internal rotation of the prosthesis. This may be due to techn ique. Consider repeat. Signed: Nadine Villafuerte MD Report Verified Date/Time: 01/11/2019 0 8:49:25 Reading Location: [facility] - B01.625 Performing Organization Address City/State/Zipcode Phone Number GE RIS Tissue Exam (01/10/2019 2:28 PM CDT) Case Report Surgical Pathology Report Case: [id number] [facility] Authorizing Provider:Izaiah Li Collected: 01/10/2019 1428 [facility] Leland Corbett MD [facility]ing [facility] ORReceived:01/11/2019 0810 Perioperative Services Pathologist: Kris Guaman MD Specimen:Femoral Hea d,Left Hip DIAGNOSIS BONE, LEFT FEMORAL HEAD FOR PRIOR FRACTURE, ARTH ROPLASTY: [facility] OSTEOARTHRITIC CHANGES IN BONE AND CARTILAGE. [facility] REGENERATIVE FEATURES COMPATIBLE WITH REPORTED H ISTORY OF FRACTURE. REACTIVE SYNOVIAL TISSUE. Signing Pathologist Direct Phone Line: CPT Code(s) 34991, [address]23 [facility] ER CLINICAL HISTORY Procedure: Arthroplasty, hip, left total hip ar throplasty [facility] Pre and postop diagnosis: closed fractur e of left hip, initial encounter ([facility]) [facility] SPECIMEN SOURCE Femoral head, left hip [facility] GROSS DESCRIPTION Received in formalin labeled with the patient's name, accession number and "femoral head, left hip" is a 7.1 x 6.9 x 6.0 cm piece of loo-white to cho-pink, round bone consistent with a femoral head, wi [facility] th a jagged, hemorrhagic mookie gical margin. Attached to the specimen is a 3.1 x 2.2 x 0.4 cm piece of soft tissue. [facility] There is an 1.9 x 1.8 cm are a of smooth, glistening eburnation. Osteophytes and osteocartilaginous slippage are both identified. The articular surface cartilage is up to 5.0 x 2.2 cm, and up to 0.2 cm t hick. Varnish Melter Helper section s are submitted: A1, margin, following decalcification; A2, eburnation, following decalcification; A3, osteophyte and osteocartilaginous slippage, following decalcification; A4, soft tissue. SS/pl MICROSCOPIC DESCRIPTION Performed. [facility] ER Gross assessment was [facility] C [facility] performed at [place], Department of [facility] Pathology, [address] [place] [id number], Technical component was Formerly named [facility] performed at [place], Department of [facility] Pathology, [address] [place] [id number], Professional component Formerly named [facility] was performed at [place], Department of [facility] Pathology, [address] [place] [id number], Specimen Tissue - Femoral Head,Left Hip Performing Organization Address City/[facility]/Zipcode Phone Number [address] [phone] [place] ECHOCARDIOGRAM REPORT - SCAN (01/09/2019 9:20 PM CDT) Narrative Performed At This result has an attachment that is no t available. Type and screen, automated (01/09/2019 7:31 PM CDT)Only the most recent of2 resultswithin the time period is included. ABO/RH AUTOMATED (BEAKER) A POSITIVE [facility] Ab Scrn NEGATIVE [facility] Specimen Blood Performing Organization Address City/State/Zipcode Phone Number [address] [phone] Echo W/Doppler(CW/PW/Color) (01/08/2019 4:17 PM CDT) Ejection Fraction [facility] ECHO [facility]AR [facility] Specimen Narrative Performed At Transthoracic Echocardiography Report (T TE) [facility] ECHO HEARTLAB MKCKESSON CPA Demographics Patient NameBURKE, JANESSADate of Study 01/08/2019 BRISEYDA Female Visit [id number] Unknown Room Number 2443 Number Date of 1945Referring Dimitri Alvarez Physician Age 73 year(s)[place] Floor Desk Clerk Serg Hewitt, WINNIE, RDCS,RVT,RDMS Interior Design Faculty Member Alisa Song, InterpretingBareji Sabillon MD RDCSPhysician Procedure Type of Study TTE procedure:2DECHO W DOPPLER(CW/PW/COLOR) (Routine) Indications:Acute Chest Pain/ Suspected CAD. Clinical History HTN, Stroke, CAD HGB 9.8 HCT 29.3 % Height: 60 inches Weight: 74.39 kg (164 lbs) BSA: 1.72 m^2 BMI: 32.03 kg/m^2 HR: 64 bpm BP: 178/72 mmHg Summary 1. The left ventricle is chamber size (by vol index) is normal (female - LVED vol - 29-61ml/m2). No evidence of LV hypertrophy. All of the LV segments are hyperkinetic . Global LV systolic function hyperdynamic . LVEF by Alfonso's method of disk assessment is increased (>70%) . 2. The right ventricular chamber size and systolic function are within normal limits. S' 11 cm/sec. 3. LA size is mildly enlarged (35-41 ml/m2) . RA size is normal. 4. A trace of tricuspid regurgitation. Unable to estimate peak systolic PA pressure; inadequate TR velocity signal. The estimated RA pressure by IVC dynamics 0-5mmHg . 5. No pericardial effusion is visualize d. Previous Study No prior studies available for comparis on. Signature Findings Technical Quality: Technically adequate exam. Left Ventricle The left ventricle is chamber size (by vol index) is normal (female - LVED vol - 29-61ml/m2). No ev idence of LV hypertrophy. All of the LV segments ar e hyperkinetic . Global LV systolic func tion hy perdynamic . LVEF by Alfonso's method of disk as sessment is increased (>70%) . LV diastolic function is indeterminate. Left AtriumLA size is mildly enlarged (35-41 ml/m2) . Right VentricleThe right ventricular chamber size and systolic fu nction are within normal limits. S' 11 c m/sec. Right Atrium RA size is normal. Aortic Valve Mild AoV cusp thickening. Mi ld aortic regurgitation. No rmal tri-leaflet Aortic Valve. No evidence of aortic stenosis. No evidence of aortic regurgitation. Mitral Valve Mild MV leaflet thickening. Tr mayra mitral regurgitation. Tricuspid ValveTV structure is normal. A trace of tricuspid regurgitation. Un able to estimate peak systolic PA pressu re; in adequate TR velocity signal. Pulmonic Valve Normal PV structure and function by limited views an d Doppler. AortaAortic root size (SInus of Valsalva diameter) i s no rmal . PericardiumNo pericardial effusion is visualized. IVC/SVC/PA/PV/PleuralThe estimated RA pressure by IVC dynamics 0-5mmHg . Chambers/Structures Left Atrium LA Volume: 67 ml LA Area: 15.73 cm^2 LA Vol. Index: 39 ml/m^2 Left Ventricle LVIDd: 4.86 cm LV Septum Diastolic: 1.06 cm LV PW Diastolic: 0.7 cm LVEDV Alfonso's:99.44 ml LVESV Alfonso's:25.91 ml LVEF Alfonso's: 73.9 %LVEDV I: 58 ml/m^2 LVESVI: 15 ml/m^2 LVOT Diameter: 2 cm Right Atrium RA Area: 14 cm^2 RA Vol. (Sngl Plane): 3 5 ml Right Ventricle RV Diast Dim.: 3.2 cm TAPSE: 1.5 cm Aorta Ao Root S of Marla.: 3.06 cm Doppler/Quantitative Measurements Mitral Valve MV Peak E-Wave: 0.8 m/s MV Peak A-Wave: 1 m/s E/A Ratio: 0. 8 Peak Gradient: 2.59 mmHg Deceleration Time: 228.6 msec MV Khai. Peak: Tissue Doppler E' Septal Velocity: 0.07 m/sE/E': 11 E' Lateral Velocity: 0.07 m/s Aortic Valve Peak Velocity: 1.48 m/s Mean Velocity: 1.03 m/s Peak Gradient: 8.75 mmHgMean Gradient: 4.67 mmHg AV Area (continuity): 2.76 cm^2 AV VTI: 29.99 cm AR P1/2t: 686.7 msecDecelerati on Time: 1868.9 msec AV DVI: 0.88 LVOT Peak Velocity: 1.27 m/s Peak Gradient: 6.49 mmHg Mean Velocity: 0.73 m/s Mean Gradient: 2.61 mmHg LVOT Diameter: 2 cm LVOT VTI: 26.33 cm LVOT Area: 3.14 cm^2LVOT SV:82.68 ml LVOT CO: 5.29 l/min LVOT CI: 3.08 l/min/m^2 Procedure Note Interface, External Ris In - 01/09/2019 11:09 AM CDT Transthoracic Echocardiography Report (TTE) Demographics Patient Name JANESSA TURK Date of S tudy 01/08/2019 BRISEYDA Gender Female Visit Number [id number] Race Unknown Room Numb er 2443 Number Date of 1945 Referring Dimitri Peñajorgeloc Physician Age 73 year(s) Sonograph er WINNIE Berger, RDCS,RVT,RDMS Interior Design Faculty Member Alisa Song, Interpret tye Sabillon MD RDCS Physician Procedure Type of Study TTE procedure:2DECHO W DOPPLE R(CW/PW/COLOR) (Routine) Indications:Acute Chest Pain/ Suspected CAD. Clinical History HTN, Stroke, CAD HGB 9.8 HCT 29.3 % Height: 60 inches Weight: 74.39 kg (164 lbs) BSA: 1.72 m^2 BMI: 32.03 kg/m^2 HR: 64 bpm BP: 178/72 mmHg Summary 1. The left ventricle is chamber size ( by vol index) is normal (female - LVED vol - 29-61ml/m2). No evidence of LV hypertrophy. All of the LV segments are hyperkinetic . Global LV s ystolic function hyperdynamic . LVEF by Alfonso's method of disk assess ment is increased (>70%) . 2. The right ventricular chamber size a nd systolic function are within normal limits. S' 11 cm/sec. 3. LA size is mildly enlarged (35-41 ml /m2) . RA size is normal. 4. A trace of tricuspid regurgitation. Unable to estimate peak systolic PA pressure; inadequate TR velocity signal . The estimated RA pressure by IVC dynamics 0-5mmHg . 5. No pericardial effusion is visualize d. Previous Study No prior studies available for comparis on. Signature Findings Technical Quality: Technically adequate exam. Left Ventricle The left ventric le is chamber size (by vol index) is normal (femal e - LVED vol - 29-61ml/m2). No evidence of LV h ypertrophy. All of the LV segments are hyperkinetic . Global LV systolic function hyperdynamic . L VEF by Alfonso's method of disk assessment is in creased (>70%) . LV diastolic fun ction is indeterminate. Left Atrium LA size is mildl y enlarged (35-41 ml/m2) . Right Ventricle The right ventri cular chamber size and systolic function are wit hin normal limits. S' 11 cm/sec. Right Atrium RA size is natalie l. Aortic Valve Mild AoV cusp th ickening. Mild aortic regu rgitation. Normal tri-leafl et Aortic Valve. No evidence of a ortic stenosis. No evidence of a ortic regurgitation. Mitral Valve Mild MV leaflet thickening. Trace mitral reg urgitation. Tricuspid Valve TV structure is normal. A trace of tricu spid regurgitation. Unable to estima te peak systolic PA pressure; inadequate TR ve locity signal. Pulmonic Valve Normal PV struct ure and function by limited views and Doppler. Aorta Aortic root size (SInus of Valsalva diameter) is normal . Pericardium No pericardial e ffusion is visualized. IVC/SVC/PA/PV/Pleural The estimated RA pressure by IVC dynamics 0-5mmHg . Chambers/Structures Left Atrium LA Volume: 67 ml LA Area: 15.73 cm^2 LA Vol. Index: 39 ml/m^2 Left Ventricle LVIDd: 4.86 cm LV Septum Diastolic: 1.06 cm LV PW Diastolic: 0.7 cm LVEDV Alfonso's:99.44 ml LVESV Alfonso's:25.91 ml LVEF Alfonso's: 73.9 % LVEDVI: 58 ml/m^2 LVESVI: 15 ml/m^2 LVOT Diameter: 2 cm Right Atrium RA Area: 14 cm^2 RA Vol. (Sngl Plane): 35 ml Right Ventricle RV Diast Dim.: 3.2 cm TAPSE: 1.5 cm Aorta Ao Root S of Marla.: 3.06 cm Doppler/Quantitative Measurements Mitral Valve MV Peak E-Wave: 0.8 m/s M V Peak A-Wave: 1 m/s E /A Ratio: 0.8 P eak Gradient: 2.59 mmHg D eceleration Time: 228.6 msec MV Khai. Peak: Tissue Doppler E' Septal Velocity: 0.07 m/s E /E': 11 E' Lateral Velocity: 0.07 m/s Aortic Valve Peak Velocity: 1.48 m/s M rebeca Velocity: 1.03 m/s Peak Gradient: 8.75 mmHg M rebeca Gradient: 4.67 mmHg AV Area (continuity): 2.76 cm^2 AV VTI: 29.99 cm AR P1/2t: 686.7 msec D eceleration Time: 1868.9 msec AV DVI: 0.88 LVOT Peak Velocity: 1.27 m/s Pea k Gradient: 6.49 mmHg Mean Velocity: 0.73 m/s Jacey n Gradient: 2.61 mmHg LVOT Diameter: 2 cm LVO T VTI: 26.33 cm LVOT Area: 3.14 cm^2 LVO T SV:82.68 ml LVOT CO: 5.29 l/min LVO T CI: 3.08 l/min/m^2 Performing Organization Address City/State/Zipcode Phone Number [facility] QUINTANILLA MKCKESSALEJANDRA [facility] CT pelvis without IV contrast (01/08/2019 1:33 PM CDT) Specimen Narrative Performed At FINAL REPORT [facility] RIS CT OF THE PELVIS HISTORY: Pelvic fracture, left hip fract ure COMPARISONS: Radiographs of the pelvis a nd left hip from 01/07/2019 TECHNIQUE: CT of the pelvis was performe d without contrast. Axial images were generated as were multiplana r reformatted images in the coronal and sagittal planes. The examina tion was performed to conform to our departmental dose optimization pr ogram which includes automated exposure control, adjustment o f the mA and/or kV according to patient size and/or use of iterative reconstruction techniques. FINDINGS: There is a mildly comminuted fracture in the proximal left femur. This extends from the intertrochanteric region posteriorly to the basicervical region anteriorly. There is mild fracture displacement. No significant fracture angulation. There are severe changes of osteoarthrit is in the left hip with degenerative remodeling of the acetabulu m and femoral head. No pelvic fracture is identified. 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 A right hip arthroplasty is present. No periprosthetic fracture is visualized in the right hip arthroplasty . There are partially imaged degenerative changes in the lumbar spine. No intrapelvic fluid collection is visua lized. IMPRESSION: 1. Proximal left femur fracture involvin g the intertrochanteric/basicervical region. 2. No pelvic fracture is visualized. Signed: Daniel Ambrocio MD Report Verified Date/Time:01/08/2019 14:06:17 Reading Location: [facility] Radiology Reading Room Procedure Note Interface, External Ris In - 01/08/2019 2:08 PM CDT FINAL REPORT CT OF THE PELVIS HISTORY: Pelvic fracture, left hip fract ure COMPARISONS: Radiographs of the pelvis a nd left hip from 01/07/2019 TECHNIQUE: CT of the pelvis was performe d without contrast. Axial images were generated as were multiplana r reformatted images in the coronal and sagittal planes. The examina tion was performed to conform to our departmental dose optimization pr ogram which includes automated exposure control, adjustment o f the mA and/or kV according to patient size and/or use of iterative reconstruction techniques. FINDINGS: There is a mildly comminuted fracture in the proximal left femur. This extends from the intertrochanteric region posteriorly to the basicervical region anteriorly. There is mild fracture displacement. No significant fracture angulation. There are severe changes of osteoarthrit is in the left hip with degenerative remodeling of the acetabulu m and femoral head. No pelvic fracture is identified. 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 A right hip arthroplasty is present. No periprosthetic fracture is visualized in the right hip arthroplasty . There are partially imaged degenerative changes in the lumbar spine. No intrapelvic fluid collection is visua lized. IMPRESSION: 1. Proximal left femur fracture involvin g the intertrochanteric/basicervical region. 2. No pelvic fracture is visualized. Signed: Daniel Ambrocio MD Report Verified Date/Time: 01/08/2019 1 4:06:17 Reading Location: [facility] Radiology Reading Room Performing Organization Address City/State/Zipcode Phone Number [employer] ECG 12 lead (01/08/2019 10:26 AM CDT)Only the most recent of3 resultswithin the time period is included. Specimen Narrative Performed At Ventricular Rate 61 BPM GE MUSE Atrial Rate 61 BPM P-R Interval 146 ms QRS Duration 84 ms Q-T Interval 436 ms QTC Calculation(Bazett) 438 ms P [place] 36 degrees R [place] -5 degrees T [place] -89 degrees Normal sinus rhythm ST & Marked T wave abnormality, consider anterolateral ischemiaor cardiomyopathy Abnormal ECG When compared with ECG of 08-JAN-2019 05 :33, No significant change was found Confirmed by MD SEBASTIEN, ABDIRIZAK ([id number]) on 01/08/2019 3:37:31 PM Procedure Note Interface, External Ris In - 01/08/2019 3:37 PM CDT Ventricular Rate 61 BPM Atrial Rate 61 BPM P-R Interval 146 ms QRS Duration 84 ms Q-T Interval 436 ms QTC Calculation(Bazett) 438 ms P [place] 36 degrees R [place] -5 degrees T [place] -89 degrees Normal sinus rhythm ST & Marked T wave abnormality, consider anterolateral ischemia or cardiomyopathy Abnormal ECG When compared with ECG of 08-JAN-2019 05 :33, No significant change was found Confirmed by MD SEBASTIEN, [facility] ([id number]) on 01/08/2019 3:37:31 PM Performing Organization Address City/State/Zipcode Phone Number [facility] Troponin I (01/08/2019 9:13 AM CDT)Only the most recent of3 resultswithin the time period is included. Troponin I 0.09 (H) 0.00 - 0.03 ng/mL [facility] Specimen Blood Narrative Performed At Troponin I (TnI) levels must be interpreted [facility] in the context of the presenting symptoms and the clinical findings. Elevated TnI levels indicate myocardial damage, but are not specific for ischemic heart disease. Elevated TnI levels are seen in patients with other cardiac conditions (including myocarditis and congestive heart failure), and slight TnI elevations occur in patients with other conditions, including sepsis, renal failure, acidosis, acute neurological disease, and persistent tachyarrhythmia. Performing Organization Address City/[facility]/Zipcode Phone Number [facility] [address] [place] [address] [phone] [facility], manual (01/08/2019 12:00 AM CDT) ABO Grouping A [facility] Rh Factor POS [facility] Specimen Blood Performing Organization Address City/[facility]/Zipcode Phone Number [address] [address] XR chest 1 view portable / bedside (01/07/2019 11:55 PM CDT) Specimen Narrative Performed At FINAL REPORT GE RIS Chest, 1 view. History: Preoperative evaluation. Left h ip fixation. Comparison: None available. IMPRESSION: Low lung volumes. Prominent pulmonary vasculature likely related to hypoventilatory technique. No pleural effusion or pneumothorax. No lobar consolidation. Ca rdiac mediastinal silhouette is exaggerated by technique. Osseous str uctures are grossly unremarkable. Signed: Griselda Solis MD Report Verified Date/Time:01/08/2019 00:37:57 Procedure Note Interface, External Ris In - 01/08/2019 12:40 AM CDT FINAL REPORT Chest, 1 view. History: Preoperative evaluation. Left h ip fixation. Comparison: None available. IMPRESSION: Low lung volumes. Prominent pulmonary vasculature likely related to hypoventilatory technique. No pleural effusion or pneumothorax. No lobar consolidation. Ca rdiac mediastinal silhouette is exaggerated by technique. Osseous str uctures are grossly unremarkable. Signed: Griselda Solis MD Report Verified Date/Time: 01/08/2019 0 0:37:57 Performing Organization Address City/State/Zipcode Phone Number [facility]R hip 2 views left (01/07/2019 11:55 PM CDT) Specimen Narrative Performed At FINAL REPORT [facility] CLINICAL HISTORY: L hip intertrochanteri c fracture, want AP and lateral views TECHNIQUE: 2 views of the left hip, sing le AP view of the pelvis. COMPARISON: None IMPRESSION: Severe degenerative changes of the left hip joint. There is a minimally displaced left intertrochanter ic fracture. The left femoral head is well seated in the acetabulum. P ostsurgical changes of a right hip arthroplasty. Vascular calcifi cations. Degenerative changes of the bilateral SI joints and lumbar sp ine. Osteopenia. Signed: Griselda Solis MD Report Verified Date/Time:01/08/2019 00:30:32 Procedure Note Interface, External Ris In - 01/08/2019 12:36 AM CDT FINAL REPORT CLINICAL HISTORY: L hip intertrochanteri c fracture, want AP and lateral views TECHNIQUE: 2 views of the left hip, sing le AP view of the pelvis. COMPARISON: None IMPRESSION: Severe degenerative changes of the left hip joint. There is a minimally displaced left intertrochanter ic fracture. The left femoral head is well seated in the acetabulum. P ostsurgical changes of a right hip arthroplasty. Vascular calcifi cations. Degenerative changes of the bilateral SI joints and lumbar sp ine. Osteopenia. Signed: Griselda Solis MD Report Verified Date/Time: 01/08/2019 0 0:30:32 Performing Organization Address City/State/Zipcode Phone Number GE RIS after 11/10/2018 Insurance Payer Benefit Plan / Subscriber ID Type Phone Address Group MEDICARE MEDICARE A B xxxxxxxxxxx Medicare MEDICAID - MEDICAID [facility] [employer] xxxxxxxxx Medicaid Contracted [facility]GD CARE PLAN Advance Directives For more information, please contact:[address] [phone] Code Status Date Activated Date Inactivated Comments Full Code 01/09/2019 7:21 PM 01/13/2019 5:45 PM This code status was determined by: Patient Full Code 01/07/2019 9:13 PM 01/09/2019 7:21 PM This code status was determined by: Patient
--- OUTSIDE RECORDS SUMMARY | 2019-11-11 19:13 | XMS REPORT | Continuity of Care Document ---
:1945 Author Organization [facility] t Address [address] [place] [address] Care Team Providers Name Role Phone Tricia Avila MD Primary Care Physician Denisse MIJARES Attending Clinician CARMEN ROBERTO Attending Clinician Unavailable Carmen Roberto MD Attending Clinician [phone] Kymberly Alvarez MD Attending Clinician Leland Salcedo MD Attending Clinician Elian Plummer MD Attending Clinician CARMEN ROBERTO Admitting Clinician Unavailable Payers Payer Name Policy Policy Number Effective Expiration Source Type Date Date MEDICAREMEDICARE A xxxxxxxxxxx [facility] - [facility] MGD x[facility] - PLANxxxxxxxxxMedicaid Med ical Contracted Center Problems Condition Condition Condition Status Onset Resolution Last Treating Co mments Source Name Details Category Date Date Treatment Clinician Date Closed Closed Disease Active [facility] fracture fracture [facility]15 [facility] - of left of left 00:00: Medical hip hip 00 Center Coronary Coronary Disease Active [facility] - disease disease 00:00: Medical involving involving 00 Cent [place] coronary coronary artery of artery of [place] heart heart without without angina angina pectoris pectoris Essential Essential Disease Active [facility] hypertensi hypertensi 01-07 Danay kes - on on 00:00: Medical 00 Center History of History of Disease Active [facility] stroke stroke 01-07 [facility] - 00:[facility]: Medical 00 Center Elevated Elevated Problem Active [facility] BP without BP without Danay kes - diagnosis diagnosis Law eduar of of l hypertensi hypertensi Ou tpati on on ent Clinics Low back Low back Problem Active [facility] Right hip Right hip Problem Active [facility] pain pain [facility] - [facility] l [facility] Abnormal Abnormal Problem Active [facility] x-ray x-ray [facility] - [facility] History of History of Problem Active [facility] right hip right hip Luke s - replacemen replacemen Me moria t t l [facility] ent Clinics Status Status Problem Active [facility] post fall post fall Luke s - Memoria l [facility]ics Seasonal Seasonal Problem Active [facility] allergies allergies [facility] - Memoria l [facility] Other Other Problem Active [facility] chronic chronic [facility] - pain pain Memoria l [facility] Acute CVA Acute CVA Problem Active [facility] (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) l [facility] ent Clinics NSTEMI NSTEMI Problem Active [facility] (non-ST (non-ST [facility] - elevated elevated Memori a myocardial myocardial l infarction infarction Ou tpati ) ) ent Clinics Chronic Chronic Problem Active [facility] pain pain [facility] - syndrome syndrome Memori a l [facility]ics Osteoarthr Osteoarthr Problem Active [facility] itis of itis of [facility] - hip, hip, Memoria unspecifie unspecifie l d d [facility] laterality laterality en t , , Clinics unspecifie unspecifie d d osteoarthr osteoarthr itis type itis type Seasonal Seasonal Problem Active [facility] allergic allergic [facility] - rhinitis rhinitis Memori a due to due to l pollen pollen [facility]ics Status Status Problem Active [facility] post left post left Luke s - hip hip Memoria replacemen replacemen l t t [facility] Clinics History of History of Problem Active [facility] MD MD [facility] - (myocardia (myocardia Me moria l l l infarction infarction Ou tpati ) ) ent Clinics Left hip Left hip Problem Active [facility] pain pain [facility] - [facility]ics Allergies, Adverse Reactions, Alerts Allergy Allergy Status Severity Reaction(s) Onset Inactive Treating Comm ents Source Name Type Date Date Clinician Winifred Galicia Active Other (See "Throat [facility] ins ty to Comments) 01-07 closes, I Luke s - adverse 00:00: felt like Medica l reaction 00 choking" Center s penicill Adverse Active throat [facility] in Reaction swells [facility] PCN Adverse Active anaphylaxis [facility] Reaction [facility] - Memoria [facility] ent [facility] Social History Social Habit Start Date Stop Date Quantity Comments Source History SDHI Alcohol [facility] Std Drinks [facility] History CTOH Alcohol [facility] Binge [facility] Sex Assigned At [facility] History SDOH Alcohol 2019-01-07 2019-01-[address] [facility] - Frequency 00:00:00 00:00:00 [facility] Smoking Status Start Date Stop Date Source Former smoker 2019-01-11 00:00:00 2019-01-11 00:00:00 [facility] Medications Ordered Filled Start Stop Current Ordering Indication Dosage Frequency Signature Comments Components Source Medication Medication Date Date Medication? Clinician (SIG) Name Name Gabapentin Gabapentin Yes Tiffanie [address] 1-08 Millender as needed [facility] - 00:00: for pain Memoria 00 [facility] ent [facility] ferrous 2019- No 325mg Q.5D Take [address] sulfate 325 9-20 10-20 tablet [facility] - (65 FE) MG 00:00: 23:59 (325 mg Med ical tablet 00 :00 total) by Center mouth 2 (two) times daily for 30 days. aspirin 81 Yes 81mg QD Take [address] MG EC 9-15 by mouth [facility] - tablet 22:23: daily. Medical [address] [place] [address] losartan Yes 50mg QD Take [address] (COZAAR) 50 8-13 by mouth Luke s - MG tablet 00:00: daily. Medica l [address] clopidogrel Yes 75mg QD Take [address] (PLAVIX) 75 8-13 by mouth Luke s - mg tablet 00:00: daily. Medica l [address] atorvastati 2019 Yes 40mg Take [address] n (LIPITOR) 8-13 by mouth . Danay kes - 80 MG 00:00: Medical tablet [address] Sebastien Crowe Yes Tiffanie [address] Millender with food [facility]ukes - or milk as Memoria needed l [facility] aspirin aspirin Yes Tiffanie not [facility] Millender defined [facility] - Memoria l [facility] Losartan Losartan Yes Tiffanie TAKE [address] [facility] Potassium Potassium Millender TABLET BY [facility]ukes - MOUTH Memoria EVERY DAY l [facility]ics Clopidogrel Clopidogrel Yes Tiffanie TAKE [address] [facility] Bisulfate Bisulfate Millender TABLET BY [facility]ukes - MOUTH Memoria EVERY DAY l [facility]ics Atorvastati Atorvastati Yes Tiffanie TAKE [address] [facility] [facility] n Calcium n Calcium Millender TABLET BY [facility] - MOUTH AT Memoria BEDTIME l [facility]ics Vital Signs Vital Name Observation Time Observation Value Comments Source Systolic blood 2019-01-13 13:43:00 153 mm[Hg] [facility] Diastolic blood 2019-01-13 13:43:00 61 mm[Hg] [facility] S t [facility] Heart rate 2019-01-13 13:43:00 67 /min [facility] Body temperature 2019-01-13 13:43:00 36.78 Isabel [facility] Respiratory rate 2019-01-13 13:43:00 16 /min [facility] Oxygen saturation in 2019-01-13 13:43:00 100 /min [facility] Arterial blood by Medical Ce nter Pulse oximetry Body height 2019-01-07 21:13:00 152.4 cm [facility] Body weight Measured 2019-01-07 21:13:00 74.526 kg [facility] BMI 2019-01-07 21:13:00 32.09 kg/m2 [facility] Procedures Procedure Date / Time Performing Clinician Source Performed RHYTHM STRIP - SCAN 2019-01-17 15:10:57 Provider, Default [facility] [place] [place] RHYTHM STRIP - SCAN 2019-01-16 14:53:44 Provider, Default [facility] [place] [place] BASIC METABOLIC PANEL (7) 2019-01-13 04:54:[address] [facility] MAGNESIUM 2019-01-13 04:54:00 Fady [facility] PHOSPHORUS 2019-01-13 04:54:00 [facility] W/PLT COUNT & AUTO 2019-01-13 04:54:00 [facility] HEMOGLOBIN AND HEMATOCRIT 2019-01-12 14:41:00 Lilly Rodriguez Ma [facility] BASIC METABOLIC PANEL (7) 2019-01-12 05:36:[address] [facility] MAGNESIUM 2019-01-12 05:36:00 [facility] 2019-01-12 05:36:00 [facility] CBC W/PLT COUNT & AUTO 2019-01-12 05:36:00 [facility] BASIC METABOLIC PANEL (7) 2019-01-11 04:20:[address] [facility] MAGNESIUM 2019-01-11 04:20:00 [facility] 2019-01-11 04:20:00 [facility] W/PLT COUNT & AUTO 2019-01-11 04:20:00 [facility] TRANSFUSION SERVICE 2019-01-10 18:03:45 Provider, Default [facility] REPORT - SCAN Scanning [facility] XR PELVIS 1 OR 2 VIEWS 2019-01-10 16:33:00 Keanu Scherer [facility] XR PELVIS 1 OR 2 VIEWS 2019-01-10 15:34:00 Izaiah Salcedo [facility] ARTHROPLASTY,HIP 2019-01-10 15:00:00 Izaiah Salcedo [facility] TISSUE EXAM 2019-01-10 14:28:00 SalcedoIzaiah [facility] BASIC METABOLIC PANEL (7) 2019-01-10 04:55:[address] [facility] MAGNESIUM 2019-01-10 04:55:00 [facility]OS[facility]US 2019-01-10 04:55:00 [facility] W/PLT COUNT & AUTO 2019-01-10 04:55:00 [facility] DIFFERENTIAL [facility] ECHOCARDIOGRAM REPORT - 2019-01-09 21:20:26 Provider, Default [facility] TYPE AND SCREEN, 2019-01-09 19:31:00 Keanu Scherer [facility] - AUTOMATED [facility] TRANSFUSION SERVICE 2019-01-09 18:01:11 Provider, Default [facility] BASIC METABOLIC PANEL (7) 2019-01-09 06:00:[address] [facility] MAGNESIUM 2019-01-09 06:00:00 [facility] 2019-01-09 06:00:00 [facility] CBC W/PLT COUNT & AUTO 2019-01-09 06:00:00 [facility] DIFFERENTIAL [facility] TRANSFUSION SERVICE 2019-01-08 18:00:44 Provider, Default [facility] 2D ECHO W/ DOPPLER 2019-01-08 16:17:10 Dimitri Alvarez [facility] (CW/PW/COLOR) [facility] CT PELVIS WITHOUT IV 2019-01-08 13:33:00 Keanu Scherer [facility] - CONTRAST [facility] ECG 12-LEAD 2019-01-08 10:26:42 Unknown, Hl7 Doctor [facility] TROPONIN I 2019-01-08 09:13:00 Sherine [facility] ECG 12-LEAD 2019-01-08 05:34:18 Unknown, Hl7 Doctor [facility] ECG 12-LEAD 2019-01-08 05:33:45 Unknown, Hl7 Doctor [facility] TROPONIN I 2019-01-08 05:00:00 [facility] ABORH, MANUAL 2019-01-08 00:00:00 Susana Sales [facility] XR PELVIS 1 OR 2 VIEWS 2019-01-07 23:55:00 [facility] XR HIP 2 VIEWS LEFT 2019-01-07 23:55:00 [facility] XR CHEST 1 VIEW 2019-01-07 23:55:00 Keanu Scherer [facility] PORTABLE/BEDSIDE [facility] ECG 12-LEAD 2019-01-07 23:24:49 Keanu Scherer [facility] TROPONIN I 2019-01-07 22:42:00 Sherine [facility] BASIC METABOLIC PANEL (7) 2019-01-07 22:42:00 CYNDI Basurto I [facility] TYPE AND SCREEN, 2019-01-07 22:42:00 Sherine [facility] CBC W/PLT COUNT & AUTO 2019-01-07 22:42:00 Sherine [facility] Encounters Start End Encounter Admission Attending Care Care Encounter Source Date/Time Date/Time Type Type Clinicians Facility Department ID 2019-05-03 2019-05-03 [facility] [id number] 00:27:00 00:27:00 [facility] Medicine [facility] 2019-05-02 2019-05-02 [facility] [id number] 11:15:00 11:15:00 [facility] Medicine Medicine [facility] 2019-02-26 2019-02-26 Office NISAH Salcedo [id number] 14:01:39 14:45:11 Visit Izaiah AMBULATOR [id number] Y [id number] 2019-01-25 2019-01-25 [facility] [id number] 11:40:00 11:40:00 [facility] 2019-01-22 2019-01-22 Office NISHA Salcedo [id number] 12:53:51 13:42:28 Visit Izaiah AMBULATOR [id number] Y [id number] 2018-10-24 2018-10-24 [facility] [id number] 13:20:00 13:20:00 [facility] 2018-05-18 2018-05-18 [facility] [id number] 13:40:00 13:40:00 [facility] 2018-05-18 2018-05-18 [facility] [id number] 11:45:00 11:45:00 t [facility] Results Test Description Test Time Test Comments Results Result Comments Source Tissue Exam 2019-01-20 11:29:00 Test Item Value Reference Range Interpretation Comme nts Case Report (test code = 104) Surgical Pathology Report Case: [id number] Authorizing Provider: Izaiah Salcedo Collected: 01/10/2019 1428 Leland Corbett MD Ordering Location: [facility] OR Received: 01/11/2019 08 Perioperative Services Pathologist: Kris Guaman MD Specimen: Femoral Head,Left Hip DIAGNOSIS (test code = 3220) y3bpgQYoHREft1pnVNMraOAaUdCeNfIiTsZdMy pc sUCkTMkdlvUbCXihe5VxB4NoXmShCQivsiZuHLMa CuedfgeyZKOfUAT7wrIjJRQxEXaoSCJdDMuhJl9v iHTxdHrbFeFrGKDhl3mliaGWoawsmGx3s9gjCJTa CxA1aWRoXIraI0ynocKorKBuYEOpAYj2bO90XBWh zC7qsZMfZGsmtgFnBuZ8FZfaCEMdRdU3MMTxwLMx JOEfE4viTBDgMUztIJIzTNusfYNqBTP5fPjtb8L5 wKDpvOTcpMusDaNqJpWgXZHCo4BbOVl8fVmtC0Kj WHHhXjR2oVOtSUUcSQkhBFJaAYAcuhB7rT43AQwq xzT8lPCjy3Sid68fn929vE4dtJDnEWY7HEGaSNDd zLNhIEGoWBJ1FHCmqPNwQ6t6MtAoeSQzN7Q3ApHr lMHyG3O0JwEahFYpQ5I2SaXbqKGeRMEeeEBqFo9x eMQtnSBzfz6qmz92OBQ3s5GryLtlNOL9YFU9OoIq Zo6kwLGjYFJwVE8kAbKvxZJnGHKrnl40zLuoFFds ipCvaB8gRfPvAJAcoPIdDFFuXG9xyHMzSXJghK5u fcekTNIbLrCkfwcfFZQbtZvihkKsEb7yaDbvGYX1 PJbiT0wyjK1zBxB0IHriM7mzcY4uVLm6LZuhpNU6 KGWnsV1pYW9zxqxke8mdQmFuLE5qfttiz2xdDiNo CB6rwno1q2zoKyEhKE5pwrmjy0eiDnVbWSsuRJPi mbkiSCBzs1IextbzGRPnw5LtC1IgaEzyR20euOfq C02cMQBpqQtlnE5aaEwwnB4oBfRrHeAkRCpctOqp eSIgaofuMLkoulUnLFtdwgfkHXAgKGxaP7aaMmNt PHZueTflTEtel4KmNWEzQTSsXxPyJl5RSJjcDFOJ ZOVQTA7VHoTVNKgBHRBaHq6KXDENSS9YTUXTTEBL GELXDCRLXwGABd1TQOWMMHj7SEJdbgSTY3YWP5RP TKfWNIBSXhKTOFKNX9RHRXnBNFENRpEiQF3UQLOX NtTFNSYFRP6phURnGXSML3HGLUNUZKmCAUIIYPEZ SGIRYmVKY86IOAASOneHUEyOUCquKyMSU0QUMQLj MHvJLO6NXSHARbZKXuMYEGNJDL8deOSiQYJWKCWL FAWYYVWEHp0PEQUWEQIVW2MMKS3teHLkkWpikyAq OFoqo9EgCKawONHvAS6wuItlBOHrBC5aPJUcB2pi rI9wfpi8XlDgCHPsZoX4VNDcerU6Jwf8OCKgMLgj f3rez4FmPOLjHKh2tRngAgIjJCJga8bshpSnFeOm RNRaFOSwIRQaaNNrA029w8bxy3kbvaXmfYG6LXAm FBR2TMoepoHlxiW0IDjmeVRaRgZ5SXfadbJeUKvs dyZgvqRaBwx2RJVfY878OAT4xEkrj9jcZGP0GEXk HTSaIpMgMb4sdLQuX021ZUDaHADQAPUumGr9ZJQo zdLveuLbpBQZu780U198a3zsRRNsjxGfzPjYhprq n2imP380WWJjjNGlgbMaLuBpPZXgiIDuzYE1YAWk NK6kamjfKUlfLYjsKQMounY2TVWxhFLiG6MbIBAe KR0ngnswMIJ0CPmsMLTzESU1DsGuWSYuh6Gwhlo2 GzZxok7iuf04GBR8w5MnjXbyTZG6MBT1ZfRjKc6s iBLbLAMxJS3uWgSxxPHwAAVxah51zNjoHBjrCRE0 GLIknwAau1Sxx3erKqIktzJpW1zgJ4OqINRnHKKx KLCoGqOnpuXmg3Rom9XgvYEkrHi1j7etFAXhANDz dChnq4jdJKU7WTXjqJYrQ3twaW9lZRMdIO7yhyii h1siLIpoTGdiZLRgjRQ4meO6FQJmxKYqO1OmmL3v JZXzYZtvSBLihim0NaGxRk8osPOtxJmpFFgcZpom YWdlXHBnbmNvbnRccGduZGVjXHBsYWluXHBsYWlu XGYwXGZzMjRccWxcbGFuZzEwMzNcaGljaFxmMVxk XtKyNEDqOFvcM0osJqWgLnTaRee5OJSjcUVzCNZs Sgn3GICxxQFnXEEAbGzwzG5lCHAkxIqoaX2wvFN3 RDYfhsBvbRQMpH2cLZBFnP2lAhO2SiFsXwW1EKVp NDlccGFyfX0= CPT Code(s) (test code = 3357) j8eheVMaZWGyfSCyErVxGFShULKjg3kpVUKf bGFu EtAgCdAbMuWdMkcnoCPeZATzIyQjd3ltl512mHIl d4ajDTWiItF7eUPaGPZctDYbL608SHSdBPkdo5pq w5TdKVUdpXMvm7W1DTORdzfwlMg9fEydF60uz0Q6 EzryR2nvYVOeXEAbL4OaSA5tPRAtBjl8YKK5BAH1 HCUuZKHlN4EwBX9fFRVuoCMjFOt8k8vsgYpcXOBv DUP3k6fxRKtfulNaRX4vek6reYx5u7dfpqMeITNt KWQiaVNZEVBsR9YkeEjjMt1hfVv5fLduCnziUZD6 Tqr4YB6nuy15gok0eJavGDOnhdnzLvD9QCwxMBKo wgieSKd1AVicTSJmjNulYGbvPOLukuesIKnvQQLr xWqlFYdoLNZvNokjZHwyXWYmTGZ8SImmk936RFV7 WWshc9yqq4ryeCVoVfq4BDZmNrAxHaqnIKjtb1Dz f3asBYUjlv8gYMA6mLGtwUdvp7Y0dHObIDNckYPf csOrDWYkHwS3PPzjPY7qaz69CPOaRBA1nf1loKNr eUbzxoCulRRfEMagU1GaHPXia410LFCnV1FmVAWg z0Z4hgCdCaDhXJVjsGM0xyH7GKQeOJn6dJGgmmQ4 wqVdeGLdZ4vpaI46SnDyvUVhR9YnaC10HoWdwZUq T4XqzT53QyZnhJCeF7OmjT67PvImgKXmCXRwqMOn Ux5lfCVnhDXce7UjzKDjSGrbZ51at717RUBjvsYg C8qdzLViamvphOIgzuchAOnojmU5RDVnBEUqDGxm XGYxXGZzMjBcbGFuZzEwMzNcaGljaFxmMVxkYmNo VXAiRGfzM6ceIhBaFmZoTPI9GWBbVPdfESyuIVWu cGFyfQ== CLINICAL HISTORY (test code = 3356) f7vagUHtCHTmvWOlBjItUVKrZVFvt7x cZGVmbGFu IlMdChVzZsXlPjepoMAtGTRxFpTpy0zki680wTPo a1icNGArJtK5fCGkXWSgrPTyO483JSFwKLqpg8rj v0WsBMZsrCUsd0Q2RCPUgajncGk5oGoeT87ub4F0 NsixM5vmRJUsQTjnUBQpRUttgRSwYWD9KTOgFKF2 DYtktaQgroK4UYkeeRYtChV0NDo7r6gmcHyoHUBh ZCU2v9vfYFyjzhXcXM4cqk4duKa8u9rbzhAnUZSr DSAosBTBHAHlL3BtbQirOs6irYg0rVuhCyvrRJB9 Tnb9RM4vuk93ikh7yRssNMSupgboQpO9GQalRHVu jlpwFOj5WBawDKZaaMtjECdfNXUwkdzhYMegQKSh tNcgNBgvTWAxPduoQXsmABYxFIP0ZYljg943HBM6 CCdai4glm5dhbLTsDkf2GGZbPqWdIoatXBezw7Ug q6deDECnqt3eAVL3pFWcgKtqk9M4uKVmXJRlbHNf ffPgPTExNkB4YIotRJ0oks59XYQrRCS1kf5oaQLm tAmlzjWiuNMtBMghI1KmOYVjx753BOJdS1NqEBIo l6Q0dpMzCaBjNSGdrEC1dlJ0RLNeSKj0mDSfsbR3 drSrdANvF5gltA21BaCdkCBbX4RjgP85CqBfeZJf Z0IazJ00OaPtfSEuF9EdaH11HfOneXPqCZDgpCVo Yi6hiYSynYKly4RxtJTwEHmpK50wd597FSXufrLb H6pfeVForugltNDwestuJZmttuZbHCMrCOSnGCch ASHwANEsZfMibKqbdN4pKgSnNwItOJCWkb0hLXR0 fqL0YJWzhIgnl7DnVDH7hZccsWjfMDPjNNX4RZUx xHArZYuivDDegcXcgj1hwRJglLookBYhAGWeJTDp axLzdQ9fbC6rMVMpJGlso8IehvggJ1kjo1NwKEWh ERR5tCXdOH3mOXdwQfQicOzzXRAqrlz0wVNcCTSa K442tnGwsfUrEHXVMPiuXWS6 SPECIMEN SOURCE (test code = 3377) m8fsaYCtLKZgnDFxYuNnKXMrOMKwq7ad ZGVmbGFu QhDxLkGeEqQcVaqefOIzMJIwPvQmu7afe754zOFr j8lyLHZxMoO4qZRjTJEumNRbB139u8are1fhvzVd aDS5QSZoFWL2QDtkddVxtmF6SYlylQAtArZ2SUba ptCzBBnxyxOxaxIiMje9JEGgE115VDE3vFkpm2zy RVJ5IIDzQHBsRaSuTn4ppTMiU054PKIkXILOQYJu tCo8NMPwvxOrwtJwfVTJt156P831u4ryHIKnktEq hXwSwyiww5pbP696KGDtbLYjzmXdFdCmZNEhsQHy nTT7TMXiPC1mieuvWeKkRT2sslfvFtNgEB9hosm8 CuEzOL6sjqxzQiPsZEduJUQwioefPJGvi4Bpyygw OC9pQ0Jre8W3tO2laOUoBDTcfSHaLiCaEJDiqf8w iHRnGKlju0UhCFY3lsC5dENuvUWeRFVoDT30Xvrp x3HnXnnrHPD8NVUxwuWse4Mne5sjYlJycsGfU1su G6AlKZCsUAYoAOYgEsLzxtNwn4Hyx0MoaWGbjIy1 y8tvNFQhWPFcsDefk7qhWOT9MUVmB7P1hKLei7il YNnpCMJyfAX3juncZFboNCBgyyI3cnvmXXqdGDLo zOC8pvdbUKntELBuMbG1njwlJRbcGHTcLYL9WLls x827YUL9NKjeIwkqSDyvBDWakkSvnfDzuRouJKCg MACwNWvvCULoCLmhUSOhEEXpEkVquYqbvCqzdE3q YjBrHoZiPEllLF6tUZXaN5swdOVzJFPeYQYqV0bd KtDetL9ipTjaEOblrxNeFBIsiE0nLCvtuFDcNBdo bGVmdCBoaXBccGFyfQ== GROSS DESCRIPTION (test code = 3366) i7syaFLkOEBzcSGoMkCrVBTaMZTxq5 lcZGVmbGFu WiZjOvDoHgKmFdohrHQyQLPcMkAgd1aru556tEAp v8ndCFZpWiK4qJJaJVObkKHiX873ADHyOZgbd7cd c3MrMAKxcBYsy4H9NFYHrpsgzSs3uAruV30fo3L0 AyhsC1nzYPEfFBJjT1DmOY2nNJIqTes7UDL1NFJ7 NNSvAGEhP5SuII3pDJDzhYZrUWd5z3ykbMwsXWPj GTD4z3amVGjmymQaIL7qqn1gnUo5w4cfteUvRCZm ARIfyWLPGRPyL2McqAsxQl0uwGd8iResFydoVWE6 Jna0TV7esw57sbp0gRwpUKDlibwiGsD4WSgjMPAg pezsNNf6IYocQYAgdOdpWZyzBYVpuvnoGCwuOFTw bBwvRHwdBMZtErngAVuiLEQkXCZ8MZifc078QBY4 PHghf6dzt2glkBYxPjd0POZaVfPnLjtfHYdfx0Zp b3xiOQHcfm6zKHN5bGObyXtry8D7zBKoBYDxoAYr zkQzUVGqJmS7WVptFV4bsu20AINcOQN9fl9dwBTj jIvyntDsjWKeEKodE3DgBYKuh907CRDgW7VxZHCl h9Y4zpSxYqYiDCItiZI2vpO9UFZdNTo8cTQjkhH8 qaUzzHWqX6nnzL06StNrvFKcO4ShgD05BhVfnAOo G2XkxD36PpJyfZWvR4KtnE56FyLdcJBfNTBrvYLj Nn1jqDGplITqp3BnkAIxJWgkE41zp676JLZfjtYe U0qksUAyohapqADsgunwNTuzsqR6BZUaQMQxIYym XGYxXGZzMjBcbGFuZzEwMzNcaGljaFxmMVxkYmNo SJRiWCgkD7sqRhEbDnHkSOBFSEIruSGzNBNemdCj a2AdRGldxiXwRFXmiYUeFIzveWgnjRdcJYCcvMnl qsYcvqUrPA0kEAYuQ2Upt3Tbp48wsyNzHfAyRUPt LRNpLeJnd0DvsDHqSOUnFBEcBLW0OXvkbRCssWQs ZQF7ZmQyjFI9UymveYH6NxVuU38cjZsnO2Eum0Oi Z6UflY51jBo3WPB0paM7EM7ggKepdlsjvj55jsUb Ix9uVNQap24laIC4QJ99KTeczBxlPPHzXV8dyfNr MVlqYXJcRPzzaCvwCZRlUTocXLCdWKrkvE8pqbef T9wzHCH9zuqjF8DzUX8vdiejaj9fGAC5MOEyCVXc gI9teYvmDCGcROOcjNAqCHleTWPvYv0aDVouBx3z JVxzFH89BKOlDDRhEQFwDO6wPEXeXrUssTujm5Gk LiBccGFyXHBhciBUaGVyZSBpcyBhbiAxLjkgeCAx JmxkC42pOHOgXXQdUiTpwO2etGvzSAqrfJZ9IE6n kauwEPK6mo2hwOdpob6jC8J5AP0lrZs0XIAcBM1c YQ5vzCEfQ4ZrjXurXKxhzl85puMgaEituBAeWYUj qxWfWd53nEGtXTJsaKkosZEoBnHQfUIeVPI1aAE8 kYGbWJC9ioLmH9CtX7ArhQnbWVxiVPclFSAwWHOw XSTnUYJ3IYUgBaNojOrtBF0zTXMiNKFxRHYfAkEn jEW9xAkald0kKlYcdgTsBH10JUStdsNxi2GtwPjk xxBrSPFfDGV5Gt5viZNaKBgzOJRaEW8wsmvvswqf Bp6pcU41wX5pPMFaC9TwT3ckpOAylNeazploKLQf MTJvcYJdWVKss61jJNCpnUmfn1nsZwJsUDVxrCVg BgsjWWUdm795YXAsCWIov8Ghu6ZxqQJcXZEmINJd e5Jay6YjytZvyPOinE3mxTRhf4xcaHDzC7NlFRZv cTgiu4nwTpKtFVPjhCItBscaJEDps557IIX3HVBx b1K6HMDtg9V1AL2nZZOYO4ZzLJSoza3= MICROSCOPIC DESCRIPTION (test code = e8mpnVXeUNQupDKaAsIxIJFxLKDoj7 [place] [id number]) HxBnUnHnHvRyUqduuWKxJOXjAsUgu6ghx275bLCu g9iwZFKvOnA4aGKiLGJaaFBuV438v4eff8rbmeBx yME3BENgASG3YFkgdePnhzE1YUingHHoNcI4YOan vqMhWEhlgrXhndWgRwu9LWPcT666KIL3pWbmt6fz HMU0BYRwSQMpVhOeZo0nwUDuL605PDOjJRWBWEAs pKr6KMQqlaIeaaKhaXKQw350U846p6vgMXGnrpMa wBzGrbcui5xzG138JIQpxILdqrQwNfSpURDpoCWc qVC8JDKcPD0wmuyqGiLdFX8rksdnOmAtLM0oqrl0 OdWpUB4xlhelSfWkYLazRSNwjkoyLSRse3Lydhlz KF1fI1Wih4N5iH2opGEdLURflJDzSqQaJTVlyz7f cDJvYAydo3WxCIJ2cbP8fAGseKCcBVSnCC19Mijv q6BhYyxjLXA1RCQabzPit9Eke4mvRoOhabJtZ0se X1SqWSQxJUJpHPRiSnOiflVra3Mvi4BmdTPpiSd7 x2ryRLHbRQJoyDzch8iwRAO2TXIqI0W9cEXvd9hf SWhbMQSdlHK1pspsACujZEVnxiI1tkxdPMicWYKe nNK8lqafSCivUGUrHlX4uitcBIdzPWAfADD9GGsq y667ARX8XKcoTerfEEjxSMMnmtFmzwYrsOkjOVEu GAAdIGhcKLZzYIftIJZhQBVrFzEvaUrpwDdqvD1d TcZmIwMaCUmuAR5tTZKuL9vuhWKyJJMgFSXkP4aw KqAmyF2nnYkgIYawxdFsFANuwhVeuf8bMA8eqDLb fQ== Gross assessment was performed at ([facility], code = 2777) Department of Pathology, [address] [place] [address], [place] [address], Technical component was performed at [facility] er, (test code = 2778) Department of Pathology, [address] [place] [id number], Professional component was performed at [facility] C enter, (test code = 2779) Department of Pathology, [address] [place] [id number], [facility] [id number] 11:29:00Surgical Pathology Report Case: [id number] Authorizing Provider: Izaiah Salcedo Collected: 01/10/2019 1428 Leland Corbett MD OrderingLocation: [facility] OR Received: 01/11/2019 0810 Perioperative Services Pathologist: Kris Guaman MD Specimen: Femoral Head,Left Hip BONE, LEFT FEMORAL HEAD FOR PRIOR FRACTURE, ARTHROPLASTY:OSTEOARTHRITIC CHANGES IN BONE AND CARTILAGE.REGENERATIVE FEATURES COMPATIBLE WITH REPORTED HISTORY OF FRACTURE.REACTIVE SYNOVIAL TISSUE. Signing Pathologist Direct Phone Line: [phone] signed by Kris Guaman MD on 01/20/2019 at 11:29 [id number], [id number]: Arthroplasty, hip, left total hip arthroplastyPre and postop diagnosis: closed fracture of left hip, initial encounter (HCC)Femoral head, left hipReceived in formalin labeled with the patient's name, accession number and "femoral head, left hip" is a 7.1 x 6.9 x 6.0 cm piece of loo-white to cho-pink, round bone consistent with a femoral head, with a jagged, hemorrhagic surgical margin. Attached to the specimen is a 3.1 x 2.2 x 0.4 cm piece of soft tissue. There is an 1.9 x1.8 cm area of smooth, glistening eburnation. Osteophytes and osteocartilaginous slippage are both identified. The articular surface cartilage is up to 5.0 x 2.2 cm, and up to 0.2 cm thick. Overnight Cashier sections are submitted: A1, margin, following decalcification; A2, eburnation, following decalcification; A3, osteophyte and osteocartilaginous slippage, following decalcification; A4, soft tissue.SS/plPerformed.[facility], Department of Pathology, [address] [place] [address], [facility], [facility] of [facility], [address] [place] [address], [facility]oaoPal[facility], Department of Pathology, [address] [place] [address], Hauov Metabolic [id number] 06:20:00 Test Item Value Reference Range Interpretation Comments Sodium (test code = 139 meq/L 626-015 4134-2) Potassium (test code = 4.0 meq/L 3.5-5.1 2823-3) Chloride (test code = 110 meq/L 98-107 H 2075-0) CO2 (test code = 24 meq/L 22-29 2028-9) BUN (test code = 15 mg/dL 7- 3094-0) Creatinine (test code = 0.97 mg/dL 0.57-1.25 2160-0) Glucose (test code = 102 mg/dL 70-105 2345-7) Calcium (test code = 8.0 mg/dL 8.4-10.2 L 68728-2) EGFR (test code = 56 mL/min/1.73 [place] [address]-3) NOT ACCURATE CREATININE CLEARANCE IN PREDICTING GLOMERULAR FILTRATION RATE . ESTIMATED GFR I S NOT APPLICABLE FOR DIALYSIS PATIEN TS. Lab Interpretation Abnormal (test code = 65457-2) [facility] Test Item Value Reference Range Interpretation Comments Magnesium (test code = 09769-2) 1.9 mg/dL 1.6-2.6 Lab Interpretation (test code = Normal 73553-1) [facility] 06:20:00 Test Item Value Reference Range Interpretation Comments Phosphorus (test code = 2777-1) 3.3 mg/dL 2.3-4.7 Lab Interpretation (test code = Normal 88413-3) [facility] 06:20:00 Test Item Value Reference Range Interpretation Comments PHOSPHORUS (BEAKER) (test code = 3.3 mg/dL 2.3-4.7 604) [id number] 06:20:00 Test Item Value Reference Range Interpretation Comments MAGNESIUM (BEAKER) (test code = 1.9 mg/dL 1.6-2.6 627) BASIC METABOLIC [id number] 06:20:00 Test Item Value Reference Range Interpretation Comments SODIUM (BEAKER) 139 meq/L 136-145 (test code = 381) POTASSIUM (BEAKER) 4.0 meq/L 3.5-5.1 (test code = 379) CHLORIDE (BEAKER) 110 meq/L 98-107 H (test code = 382) CO2 (BEAKER) (test 24 meq/L 22-29 code = 355) BLOOD UREA NITROGEN 15 mg/dL 7-21 (BEAKER) (test code = 354) CREATININE (BEAKER) 0.97 mg/dL 0.57-1.25 (test code = 358) GLUCOSE RANDOM 102 mg/dL 70-105 (BEAKER) (test code = 652) CALCIUM (BEAKER) 8.0 mg/dL 8.4-10.2 L (test code = 697) EGFR (BEAKER) (test 56 mL/min/1.73 ESTIMA GUERO GFR IS code = 1092) sq m NOT ACCURATE CREATININE CLEARANCE IN PREDICTING GLOMERULAR FILTRATION RATE . ESTIMATED GFR I S NOT APPLICABLE FOR DIALYSIS PATIEN TS. CBC with platelet count + automated [id number] 05:39:00 Test Item Value Reference Range Interpretation Comments WBC (test code = 6690-2) 11.1 3.5- 10.5 K/L H RBC (test code = 789-8) 2.41 3.93- 5.22 M/L L MCHC (test code = 786-4) 33.0 32.2- 35.5 GM/DL L Hematocrit (test code = 4544-3) 23.0 % 34.1-44.9 L MCV (test code = 787-2) 95.4 fL 79.4-94.8 H MCH (test code = 785-6) 31.5 pg 25.6-32.2 RDW (test code = 788-0) 12.2 % 11.7-14.4 Platelets (test code = 777-3) 260 150- 450 K/CU MM MPV (test code = 76594-5) 10.8 fL 9-12.3 % Neutros (test code = 429) 70 % % Lymphs (test code = 430) 14 % % Monos (test code = 431) 9 % % Eos (test code = 432) 6 % % Baso (test code = 437) 0 % # Neutros (test code = 670) 7.76 1.56- 6.13 K/L H # Lymphs (test code = 414) 1.51 1.18- 3.74 K/L # Monos (test code = 415) 1.02 0.24- 0.36 K/L H # Eos (test code = 416) 0.70 0.04- 0.36 K/L H # Baso (test code = 417) 0.02 0.01- 0.08 K/L Immature Granulocytes-Relative 1 % 0-1 (test code = 2801) Lab Interpretation (test code = Abnormal 70974-2) [facility] W/PLT COUNT & AUTO [id number] 05:39:00 Test Item Value Reference Range Interpretation Comments WHITE BLOOD CELL COUNT (BEAKER) 11.1 K/ L 3.5-10.5 H (test code = 775) RED BLOOD CELL COUNT (BEAKER) 2.41 M/ L 3.93-5.22 L (test code = 761) HEMOGLOBIN (BEAKER) (test code = 7.6 GM/DL 11.2-15.7 L 410) HEMATOCRIT (BEAKER) (test code = 23.0 % 34.1-44.9 L 411) MEAN CORPUSCULAR VOLUME (BEAKER) 95.4 fL 79.4-94.8 H (test code = 753) MEAN CORPUSCULAR HEMOGLOBIN 31.5 pg 25.6-32.2 (BEAKER) (test code = 751) MEAN CORPUSCULAR HEMOGLOBIN CONC 33.0 GM/DL 32.2-35.5 (BEAKER) (test code = 752) RED CELL DISTRIBUTION WIDTH 12.2 % 11.7-14.4 (BEAKER) (test code = 412) PLATELET COUNT (BEAKER) (test 260 K/CU MM 150-450 code = 756) MEAN PLATELET VOLUME (BEAKER) 10.8 fL 9.0-12.3 (test code = 754) NEUTROPHILS RELATIVE PERCENT 70 % (BEAKER) (test code = 429) LYMPHOCYTES RELATIVE PERCENT 14 % (BEAKER) (test code = 430) MONOCYTES RELATIVE PERCENT 9 % (BEAKER) (test code = 431) EOSINOPHILS RELATIVE PERCENT 6 % (BEAKER) (test code = 432) BASOPHILS RELATIVE PERCENT 0 % (BEAKER) (test code = 437) NEUTROPHILS ABSOLUTE COUNT 7.76 K/ L 1.56-6.13 H (BEAKER) (test code = 670) LYMPHOCYTES ABSOLUTE COUNT 1.51 K/ L 1.18-3.74 (BEAKER) (test code = 414) MONOCYTES ABSOLUTE COUNT (BEAKER) 1.02 K/ L 0.24-0.36 H (test code = 415) EOSINOPHILS ABSOLUTE COUNT 0.70 K/ L 0.04-0.36 H (BEAKER) (test code = 416) BASOPHILS ABSOLUTE COUNT (BEAKER) 0.02 K/ L 0.01-0.08 (test code = 417) IMMATURE GRANULOCYTES-RELATIVE 1 % 0-1 PERCENT (BEAKER) (test code = 2801) Hemoglobin and [id number] 14:51:00 Test Item Value Reference Range Interpretation Comments Hemoglobin (test code = 786-4) 7.7 11.2- 15.7 GM/DL L Hematocrit (test code = 4544-3) 22.8 % 34.1-44.9 L Lab Interpretation (test code = Abnormal 00636-9) [facility]MOGLOBIN AND [id number] 14:51:00 Test Item Value Reference Range Interpretation Comments HEMOGLOBIN (BEAKER) (test code = 7.7 GM/DL 11.2-15.7 L 410) HEMATOCRIT (BEAKER) (test code = 22.8 % 34.1-44.9 L 411) [id number] 06:16:00 Test Item Value Reference Range Interpretation Comments PHOSPHORUS (BEAKER) (test code = 2.7 mg/dL 2.3-4.7 604) BASIC METABOLIC [id number] 06:16:00 Test Item Value Reference Range Interpretation Comments SODIUM (BEAKER) 136 meq/L 136-145 (test code = 381) POTASSIUM (BEAKER) 3.8 meq/L 3.5-5.1 (test code = 379) CHLORIDE (BEAKER) 108 meq/L 98-107 H (test code = 382) CO2 (BEAKER) (test 20 meq/L 22-29 L code = 355) BLOOD UREA NITROGEN 12 mg/dL 7-21 (BEAKER) (test code = 354) CREATININE (BEAKER) 1.05 mg/dL 0.57-1.25 (test code = 358) GLUCOSE RANDOM 108 mg/dL 70-105 H (BEAKER) (test code = 652) CALCIUM (BEAKER) 7.3 mg/dL 8.4-10.2 L (test code = 697) EGFR (BEAKER) (test 51 mL/min/1.73 ESTIMA GUERO GFR IS code = 1092) sq m NOT ACCURATE CREATININE CLEARANCE IN PREDICTING GLOMERULAR FILTRATION RATE . ESTIMATED GFR I S NOT APPLICABLE FOR DIALYSIS PATIMANAV TS. [id number] 06:16:00 Test Item Value Reference Range Interpretation Comments MAGNESIUM (BEAKER) (test code = 1.7 mg/dL 1.6-2.6 627) CBC W/PLT COUNT & AUTO [id number] 06:07:00 Test Item Value Reference Range Interpretation Comments WHITE BLOOD CELL COUNT (BEAKER) 11.2 K/ L 3.5-10.5 H (test code = 775) RED BLOOD CELL COUNT (BEAKER) 2.21 M/ L 3.93-5.22 L (test code = 761) HEMOGLOBIN (BEAKER) (test code = 7.1 GM/DL 11.2-15.7 L 410) HEMATOCRIT (BEAKER) (test code = 21.3 % 34.1-44.9 L 411) MEAN CORPUSCULAR VOLUME (BEAKER) 96.4 fL 79.4-94.8 H (test code = 753) MEAN CORPUSCULAR HEMOGLOBIN 32.1 pg 25.6-32.2 (BEAKER) (test code = 751) MEAN CORPUSCULAR HEMOGLOBIN CONC 33.3 GM/DL 32.2-35.5 (BEAKER) (test code = 752) RED CELL DISTRIBUTION WIDTH 12.1 % 11.7-14.4 (BEAKER) (test code = 412) PLATELET COUNT (BEAKER) (test 188 K/CU MM 150-450 code = 756) MEAN PLATELET VOLUME (BEAKER) 10.6 fL 9.4-12.3 (test code = 754) NEUTROPHILS RELATIVE PERCENT 72 % (BEAKER) (test code = 429) LYMPHOCYTES RELATIVE PERCENT 12 % (BEAKER) (test code = 430) MONOCYTES RELATIVE PERCENT 9 % (BEAKER) (test code = 431) EOSINOPHILS RELATIVE PERCENT 6 % (BEAKER) (test code = 432) BASOPHILS RELATIVE PERCENT 0 % (BEAKER) (test code = 437) NEUTROPHILS ABSOLUTE COUNT 8.08 K/ L 1.56-6.13 H (BEAKER) (test code = 670) LYMPHOCYTES ABSOLUTE COUNT 1.36 K/ L 1.18-3.74 (BEAKER) (test code = 414) MONOCYTES ABSOLUTE COUNT (BEAKER) 1.05 K/ L 0.24-0.36 H (test code = 415) EOSINOPHILS ABSOLUTE COUNT 0.66 K/ L 0.04-0.36 H (BEAKER) (test code = 416) BASOPHILS ABSOLUTE COUNT (BEAKER) 0.03 K/ L 0.01-0.08 (test code = 417) IMMATURE GRANULOCYTES-RELATIVE 0 % 0-1 PERCENT (BEAKER) (test code = 2801) RAD, PELVIS, 1 OR 2 [id number] 08:49:00Reason for exam:->postopShould this be performed at the bedside?->YesFINAL REPORT PELVIS X-RAY - ONE VIEW POSTOPERATIVE HISTORY: postop COMPARISON: Pelvis x-ray 01/10/2019 1520 4:00 PM intraoperative FINDINGS:Bones:No acute displaced fracture. Interval completion of the left hip replacement. There appears to be mild internal rotationof the prosthesis which may be related to technique. Unchanged right hip replacement. Joints:Degenerative changes of the lower lumbar spine and bilateral sacroiliac joints. Soft tissues:Soft tissue swelling and few foci of postoperative air along the proximal left thigh. IMPRESSION: Completion of the left hip replacement with mild internal rotation of the prosthesis. This may be due to technique.Consider repeat. Signed: Nadine Villafuerteeport Verified Date/Time: 01/11/2019 08:49:25 Reading Location: [facility] Reading Room [address] [address] XR pelvis 1 or 2 [id number] 08:49:00Interface, External Ris In - 01/11/2019 8:51 AM CDTFINAL REPORT PELVIS X-RAY- ONE VIEW POSTOPERATIVE HISTORY: postop COMPARISON: Pelvis x-ray 01/10/2019 1520 4:00 PM intraoperative FINDINGS:Bones:No acute displaced fracture. Interval completion of the left hip replacement. There appears to be mild internal rotation of the prosthesis which may be related to technique. Unchanged right hip replacement. Joints:Degenerative changes of the lower lumbar spine and bilateral sacroiliac joints. Soft tissues:Soft tissue swelling and few foci of postoperative air along the proximal left thigh. IMPRESSION: Completion of the left hip replacement with mild internal rotation of the prosthesis. This may be due to technique. Consider repeat. Signed: Nadine Villafuerte Verified Date/Time: 01/11/2019 08:49:25 Reading Location: [facility] Reading Room [address] [place], [place] [id number] [facility] 2 [id number] 08:45:00Reason for exam:->LEFT TOTAL HIP ARTHROPLASTYFINAL REPORT PELVIS X-RAY- ONE VIEW INTRAOPERATIVE FILM HISTORY: LEFT TOTAL HIP ARTHROPLASTY COMPARISON: Pelvis x-ray 01/07/2019 FINDINGS:Bones:Intraoperative film ofthe left hip replacement. The hardware is in good alignment. Metallic plates overlying the pelvis. Unchanged right hip replacement.Osseous alignment is within normal limits. Joints:The joint spaces arewell-maintained. Soft tissues:The soft tissues appear unremarkable. IMPRESSION: Intraoperative filmof a left hip replacement. The hardware is in good alignment. Signed: Nadine Villafuerte MDRalmaz Verified Date/Time: 01/11/2019 08:45:39 Reading Location: [facility] Reading Room [address] [place], [place] [id number] tronically signed by: NADINE CHAMPAGNE M.D. on 01/11/2019 08:45 AM BASIC METABOLIC [id number] 06:26:00 Test Item Value Reference Range Interpretation Comments SODIUM (BEAKER) 136 meq/L 136-145 (test code = 381) POTASSIUM (BEAKER) 4.2 meq/L 3.5-5.1 Specimen slightly (test code = 379) hemolyzed CHLORIDE (BEAKER) 107 meq/L 98-107 (test code = 382) CO2 (BEAKER) (test 19 meq/L 22-29 L code = 355) BLOOD UREA NITROGEN 15 mg/dL 7-21 (BEAKER) (test code = 354) CREATININE (BEAKER) 1.08 mg/dL 0.57-1.25 Specimen slightly (test code = 358) hemolyzed GLUCOSE RANDOM 149 mg/dL 70-105 H (BEAKER) (test code = 652) CALCIUM (BEAKER) 7.4 mg/dL 8.4-10.2 L (test code = 697) EGFR (BEAKER) (test 49 mL/min/1.73 ESTIMA GUERO GFR IS code = 1092) sq m NOT ACCURATE CREATININE CLEARANCE IN PREDICTING GLOMERULAR FILTRATION RATE . ESTIMATED GFR I S NOT APPLICABLE FOR DIALYSIS PATIEN TS. [id number] 06:25:00 Test Item Value Reference Range Interpretation Comments PHOSPHORUS (BEAKER) (test code = 3.3 mg/dL 2.3-4.7 604) [id number] 06:25:00 Test Item Value Reference Range Interpretation Comments MAGNESIUM (BEAKER) 1.6 mg/dL 1.6-2.6 Specimen slightly (test code = 627) hemolyzed CBC W/PLT COUNT & AUTO [id number] 06:16:00 Test Item Value Reference Range Interpretation Comments WHITE BLOOD CELL COUNT (BEAKER) 12.6 K/ L 3.5-10.5 H (test code = 775) RED BLOOD CELL COUNT (BEAKER) 2.42 M/ L 3.93-5.22 L (test code = 761) HEMOGLOBIN (BEAKER) (test code = 7.9 GM/DL 11.2-15.7 L 410) HEMATOCRIT (BEAKER) (test code = 23.0 % 34.1-44.9 L 411) MEAN CORPUSCULAR VOLUME (BEAKER) 95.0 fL 79.4-94.8 H (test code = 753) MEAN CORPUSCULAR HEMOGLOBIN 32.6 pg 25.6-32.2 H (BEAKER) (test code = 751) MEAN CORPUSCULAR HEMOGLOBIN CONC 34.3 GM/DL 32.2-35.5 (BEAKER) (test code = 752) RED CELL DISTRIBUTION WIDTH 11.7 % 11.7-14.4 (BEAKER) (test code = 412) PLATELET COUNT (BEAKER) (test 208 K/CU MM 150-450 code = 756) MEAN PLATELET VOLUME (BEAKER) 11.1 fL 9.4-12.3 (test code = 754) NEUTROPHILS RELATIVE PERCENT 88 % (BEAKER) (test code = 429) LYMPHOCYTES RELATIVE PERCENT 4 % (BEAKER) (test code = 430) MONOCYTES RELATIVE PERCENT 8 % (BEAKER) (test code = 431) EOSINOPHILS RELATIVE PERCENT 0 % (BEAKER) (test code = 432) BASOPHILS RELATIVE PERCENT 0 % (BEAKER) (test code = 437) NEUTROPHILS ABSOLUTE COUNT 11.14 K/ L 1.56-6.13 H (BEAKER) (test code = 670) LYMPHOCYTES ABSOLUTE COUNT 0.51 K/ L 1.18-3.74 L (BEAKER) (test code = 414) MONOCYTES ABSOLUTE COUNT (BEAKER) 0.95 K/ L 0.24-0.36 H (test code = 415) EOSINOPHILS ABSOLUTE COUNT 0.01 K/ L 0.04-0.36 L (BEAKER) (test code = 416) BASOPHILS ABSOLUTE COUNT (BEAKER) 0.01 K/ L 0.01-0.08 (test code = 417) IMMATURE GRANULOCYTES-RELATIVE 0 % 0-1 PERCENT (BEAKER) (test code = 2801) BASIC METABOLIC [id number] 05:45:00 Test Item Value Reference Range Interpretation Comments SODIUM (BEAKER) 141 meq/L 136-145 (test code = 381) POTASSIUM (BEAKER) 3.9 meq/L 3.5-5.1 (test code = 379) CHLORIDE (BEAKER) 111 meq/L 98-107 H (test code = 382) CO2 (BEAKER) (test 25 meq/L 22-29 code = 355) BLOOD UREA NITROGEN 13 mg/dL 7-21 (BEAKER) (test code = 354) CREATININE (BEAKER) 0.88 mg/dL 0.57-1.25 (test code = 358) GLUCOSE RANDOM 112 mg/dL 70-105 H (BEAKER) (test code = 652) CALCIUM (BEAKER) 7.8 mg/dL 8.4-10.2 L (test code = 697) EGFR (BEAKER) (test 63 mL/min/1.73 ESTIMA GUERO GFR IS code = 1092) sq m NOT ACCURATE CREATININE CLEARANCE IN PREDICTING GLOMERULAR FILTRATION RATE . ESTIMATED GFR I S NOT APPLICABLE FOR DIALYSIS PATIEN TS. [id number] 05:45:00 Test Item Value Reference Range Interpretation Comments MAGNESIUM (BEAKER) (test code = 1.7 mg/dL 1.6-2.6 627) [id number] 05:45:00 Test Item Value Reference Range Interpretation Comments PHOSPHORUS (BEAKER) (test code = 3.4 mg/dL 2.3-4.7 604) CBC W/PLT COUNT & AUTO [id number] 05:29:00 Test Item Value Reference Range Interpretation Comments WHITE BLOOD CELL COUNT (BEAKER) 7.6 K/ L 3.5-10.5 (test code = 775) RED BLOOD CELL COUNT (BEAKER) 2.89 M/ L 3.93-5.22 L (test code = 761) HEMOGLOBIN (BEAKER) (test code = 9.2 GM/DL 11.2-15.7 L 410) HEMATOCRIT (BEAKER) (test code = 27.2 % 34.1-44.9 L 411) MEAN CORPUSCULAR VOLUME (BEAKER) 94.1 fL 79.4-94.8 (test code = 753) MEAN CORPUSCULAR HEMOGLOBIN 31.8 pg 25.6-32.2 (BEAKER) (test code = 751) MEAN CORPUSCULAR HEMOGLOBIN CONC 33.8 GM/DL 32.2-35.5 (BEAKER) (test code = 752) RED CELL DISTRIBUTION WIDTH 11.7 % 11.7-14.4 (BEAKER) (test code = 412) PLATELET COUNT (BEAKER) (test 193 K/CU MM 150-450 code = 756) MEAN PLATELET VOLUME (BEAKER) 10.5 fL 9.0-12.3 (test code = 754) NEUTROPHILS RELATIVE PERCENT 68 % (BEAKER) (test code = 429) LYMPHOCYTES RELATIVE PERCENT 15 % (BEAKER) (test code = 430) MONOCYTES RELATIVE PERCENT 11 % (BEAKER) (test code = 431) EOSINOPHILS RELATIVE PERCENT 5 % (BEAKER) (test code = 432) BASOPHILS RELATIVE PERCENT 1 % (BEAKER) (test code = 437) NEUTROPHILS ABSOLUTE COUNT 5.13 K/ L 1.56-6.13 (BEAKER) (test code = 670) LYMPHOCYTES ABSOLUTE COUNT 1.16 K/ L 1.18-3.74 L (BEAKER) (test code = 414) MONOCYTES ABSOLUTE COUNT (BEAKER) 0.82 K/ L 0.24-0.36 H (test code = 415) EOSINOPHILS ABSOLUTE COUNT 0.39 K/ L 0.04-0.36 H (BEAKER) (test code = 416) BASOPHILS ABSOLUTE COUNT (BEAKER) 0.04 K/ L 0.01-0.08 (test code = 417) IMMATURE GRANULOCYTES-RELATIVE 0 % 0-1 PERCENT (BEAKER) (test code = 2801) Type and screen, [id number] 22:51:00 Test Item Value Reference Range Interpretation Comments ABO/RH AUTOMATED (BEAKER) (test A POSITIVE code = 2260) Ab Scrn (test code = 890-4) NEGATIVE [facility]CW/PW/Color)2019-01-09 11:08:48 Ejection FractionSLEH ECHO HEARTLAB MKCKESSON CPACSInterface, External Ris In - 01/09/2019 11:09 AM CDTTransthoracic Echocardiography Report (TTE) Demographics Patient Name JANESSA TURK Date of Study 01/08/2019 BRISEYDA Gender Female Visit Number [id number] Race Unknown Room Number 2443 Number Date of 1945 Referring Dimitri Alvarez Physician Age 73 year(s) 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 The left ventricle is chamber size (by vol index) is normal (female - LVED vol - 29- 61ml/m2). No evidence of LV hypertrophy. All of the LV segments are hyperkinetic . Global LV systolic function hyperdynamic . LVEF by Alfonso's method of disk assessment is increased (>70%) . 2. The right ventricular chamber size and systolic function are within normal limits. S' 11cm/sec. 3. LA size is mildly enlarged (35-41 ml/m2) . RA size is normal. 4. A trace of tricuspid re gurgitation. Unable to estimate peak systolic PA pressure; inadequate TR velocity signal. The estimated RA pressure by IVC dynamics 0-5mmHg . 5. No pericardial effusion is visualized. Previous Study No prior studies available for comparison. Signature Findings Technical Quality: Technically adequate exam. Left Ventricle The left ventricle is chamber size (by vol index) is normal (female - LVED vol - 29-61ml/m2). No evidence of LV hypertrophy. All of the LV segments are hyperkinetic . Global LV systolicfunction hyperdynamic . LVEF by Alfonso's method of disk assessment is increased (>70%) . LV diastolic function is indeterminate. Left Atrium LA size is mildly enlarged (35-41 ml/m2) . Right Ventricle The rightventricular chamber size and systolic function are within normal limits. S' 11 cm/sec. Right Atrium RA size is normal. Aortic Valve Mild AoV cusp thickening. Mild aortic regurgitation. Normal tri-leaflet Aortic Valve. No evidence of aortic stenosis. No evidence of aortic regurgitation. Mitral Valve Mild MV leaflet thickening. Trace mitral regurgitation. Tricuspid Valve TV structure is normal. A traceof tricuspid regurgitation. Unable to estimate peak systolic PA pressure; inadequate TR velocity signal. Pulmonic Valve Normal PV structure and function by limited views and Doppler. Aorta Aortic root size (SInus of Valsalva diameter) is normal . Pericardium No pericardial effusion is visualized. IVC/SVC/PA/PV/Pleural The estimated RA pressure by IVC dynamics 0-5mmHg . Chambers/Structures Left Atrium LA Volume: 67 ml LA Area: 15.73 cm^2 LA Vol.Index: 39 ml/m^2 Left Ventricle LVIDd: 4.86 cm LV Septum Diastolic: 1.06 cm LV PW Diastolic: 0.7 cm LVEDV Alfonso's:99.44 ml LVESV Alfonso's:25.91 ml LVEF Alfonso's: 73.9 % LVEDVI: 58 ml/m^2 LVESVI: 15 ml/m^2 LVOT Diameter: 2 cm RightAtrium RA Area: 14 cm^2 RA Vol. (Sngl Plane): 35 ml Right Ventricle RV Diast Dim.: 3.2 cm TAPSE: 1.5 cm Aorta Ao Root S of Marla.: 3.06cm Doppler/Quantitative Measurements Mitral Valve MV Peak E-Wave: 0.8 m/s MV Peak A-Wave: 1 m/s E/A Ratio: 0.8 Peak Gradient: 2.59 mmHg Deceleration Time: 228.6 msec MV Khai. Peak: Tissue Doppler E' Septal Velocity: 0.07 m/s E/E': 11 E' Lateral Velocity: 0.07 m/s Aortic Valve Peak Velocity: 1.48 m/s Mean Velocity: 1.03 m/s Peak Gradient: 8.75 mmHg Mean Gradient: 4.67 mmHg AV Area (continuity): 2.76 cm^2 AV VTI: 29.99 cm AR P1/2t: 686.7 msec Deceleration Time: 1868.9 msec AV DVI: 0.88 LVOT Peak Velocity: 1.27 m/s Peak Gradient: 6.49 mmHg Mean Velocity: 0.73 m/s Mean Gradient: 2.61 mmHg LVOT Diameter: 2 cm LVOT VTI: 26.33 cm LVOT Area: 3.14 cm^2 LVOT SV:82.68 ml LVOT CO: 5.29 l/min LVOT CI: 3.08 l/min/m^2[facility] [id number] 07:03:00 Test Item Value Reference Range Interpretation Comments PHOSPHORUS (BEAKER) (test code = 3.7 mg/dL 2.3-4.7 604) [id number] 07:03:00 Test Item Value Reference Range Interpretation Comments MAGNESIUM (BEAKER) (test code = 1.8 mg/dL 1.6-2.6 627) BASIC METABOLIC [id number] 07:03:00 Test Item Value Reference Range Interpretation Comments SODIUM (BEAKER) 139 meq/L 136-145 (test code = 381) POTASSIUM (BEAKER) 4.1 meq/L 3.5-5.1 (test code = 379) CHLORIDE (BEAKER) 110 meq/L 98-107 H (test code = 382) CO2 (BEAKER) (test 24 meq/L 22-29 code = 355) BLOOD UREA NITROGEN 18 mg/dL 7-21 (BEAKER) (test code = 354) CREATININE (BEAKER) 0.89 mg/dL 0.57-1.25 (test code = 358) GLUCOSE RANDOM 103 mg/dL 70-105 (BEAKER) (test code = 652) CALCIUM (BEAKER) 8.2 mg/dL 8.4-10.2 L (test code = 697) EGFR (BEAKER) (test 62 mL/min/1.73 ESTIMA GUERO GFR IS code = 1092) sq m NOT ACCURATE CREATININE CLEARANCE IN PREDICTING GLOMERULAR FILTRATION RATE . ESTIMATED GFR I S NOT APPLICABLE FOR DIALYSIS PATIEN TS. CBC W/PLT COUNT & AUTO [id number] 06:51:00 Test Item Value Reference Range Interpretation Comments WHITE BLOOD CELL COUNT (BEAKER) 7.5 K/ L 3.5-10.5 (test code = 775) RED BLOOD CELL COUNT (BEAKER) 2.94 M/ L 3.93-5.22 L (test code = 761) HEMOGLOBIN (BEAKER) (test code = 9.1 GM/DL 11.2-15.7 L 410) HEMATOCRIT (BEAKER) (test code = 28.1 % 34.1-44.9 L 411) MEAN CORPUSCULAR VOLUME (BEAKER) 95.6 fL 79.4-94.8 H (test code = 753) MEAN CORPUSCULAR HEMOGLOBIN 31.0 pg 25.6-32.2 (BEAKER) (test code = 751) MEAN CORPUSCULAR HEMOGLOBIN CONC 32.4 GM/DL 32.2-35.5 (BEAKER) (test code = 752) RED CELL DISTRIBUTION WIDTH 11.9 % 11.7-14.4 (BEAKER) (test code = 412) PLATELET COUNT (BEAKER) (test 181 K/CU MM 150-450 code = 756) MEAN PLATELET VOLUME (BEAKER) 10.8 fL 9.4-12.3 (test code = 754) NUCLEATED RED BLOOD CELLS 0 /100 WBC 0-0 (BEAKER) (test code = 413) NEUTROPHILS RELATIVE PERCENT 67 % (BEAKER) (test code = 429) LYMPHOCYTES RELATIVE PERCENT 17 % (BEAKER) (test code = 430) MONOCYTES RELATIVE PERCENT 13 % (BEAKER) (test code = 431) EOSINOPHILS RELATIVE PERCENT 2 % (BEAKER) (test code = 432) BASOPHILS RELATIVE PERCENT 0 % (BEAKER) (test code = 437) NEUTROPHILS ABSOLUTE COUNT 4.98 K/ L 1.56-6.13 (BEAKER) (test code = 670) LYMPHOCYTES ABSOLUTE COUNT 1.26 K/ L 1.18-3.74 (BEAKER) (test code = 414) MONOCYTES ABSOLUTE COUNT (BEAKER) 0.98 K/ L 0.24-0.36 H (test code = 415) EOSINOPHILS ABSOLUTE COUNT 0.18 K/ L 0.04-0.36 (BEAKER) (test code = 416) BASOPHILS ABSOLUTE COUNT (BEAKER) 0.03 K/ L 0.01-0.08 (test code = 417) IMMATURE GRANULOCYTES-RELATIVE 0 % 0-1 PERCENT (BEAKER) (test code = 2801) ECG 12 [id number] 15:37:33Interface, External Ris In - 01/08/2019 3:37 PM CDTVentricular Rate 61 BPMAtrial Rate 61 BPMP-R Interval 146 msQRS Duration 84 msQ-T Interval 436 msQTC Calculation(Bazett) 438 msP [place] 36 degreesR [place] -5 degreesT [place] -89 degreesNormal sinus rhythmST & Marked T wave abnormality, consider anterolateral ischemia or cardiomyopathyAbnormal ECGWhen compared with ECG of 08-JAN-2019 05:33,No significant change was foundConfirmed by MD SEBASTIEN, ABDIRIZAKKary ([id number]) on 01/08/2019 3:37:31 [facility] [id number] 14:06:00FINAL REPORT CT OF THE PELVIS HISTORY: Pelvic fracture, left hip fracture COMPARISONS: Radiographs of the pelvis and left hip from 01/07/2019 TECHNIQUE: CT of the pelvis was performed without contrast. Axial images were generated as were multiplanar reformatted images in the coronal and sagittal planes. The examination was performed to conform to our departmental dose optimization program which includes automated exposure control, adjustment of the mA and/or kV according to patient size and/or use of iterative reconstruction techniques. FINDINGS: There is a mildly comminuted fracture in the proximal left femur. This extends from the intertrochanteric region posteriorly to the basicervical region anteriorly. There is mild fracture displacement. No significant fracture angulation. 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 No pelvic fracture is identified. Mild/moderate symmetric arthrosis ofthe sacroiliac joints. A right hip arthroplasty is present. No periprosthetic fracture is visualizedin the right hip arthroplasty. There are partially imaged degenerative changes in the lumbar spine. No intrapelvic fluid collection is visualized. IMPRESSION: 1. Proximal left femur fracture involvingthe intertrochanteric/basicervical region. 2. No pelvic fracture is visualized. Signed: Daniel Ambrocio MDReport Verified Date/Time: 01/08/2019 14:06:17 Reading Location: [facility] Radiology Reading Room pelvis without IV [id number] 14:06:00Interface, External Ris In - 01/08/2019 2:[address] OF THE PELVIS HISTORY: Pelvic fracture, left hip fracture COMPARISONS: Radiographs of the pelvis and left hip from 01/07/2019 TECHNIQUE: CT of the pelvis was performed without contrast. Axial images were generated as were multiplanar reformatted images in the coronal and sagittal planes. The examination was performed to conform to our departmental dose optimization program which includes automated exposure control, adjustment of the mA and/or kV according to patient size and/or use of iterative reconstruction techniques. FINDINGS: There is a mildly comminuted fracture in the proximal left femur. This extends from the intertrochanteric region posteriorly to the basicervical region anteriorly. There is mildfracture displacement. No significant fracture angulation. 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 No pelvic fractureis identified. 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 A right hip arthroplasty is present. No periprosthetic fracture is visualized in the right hip arthroplasty. There are partially imaged degenerative changes in the lumbar spine. No intrapelvic fluid collection is visualized. IMPRESSION: 1. Proximal left femur fracture involving the intertrochanteric/basicervical region. 2. No pelvic fracture is visualized. Signed: Daniel [facility] Verified Date/Time: 01/08/2019 14:06:17 Reading Location: [facility] Radiology Reading Room Electronically signed by: DANIEL AMBROCIO MD on01/08/2019 02:06 [facility] [id number] 09:52:00 Test Item Value Reference Range Interpretation Comments Troponin I (test code = 0.09 ng/mL 0-0.03 H 88725-4) ELIOT (test code = ELIOT) Troponin I (TnI) levels must be interpreted in the context of the presenting symptoms and the clinical findings. Elevated TnI levels indicate myocardial damage, but are not specific for ischemic heart disease. Elevated TnI levels are seen in patients with other cardiac conditions (including myocarditis and congestive heart failure), and slight TnI elevations occur in patients with other conditions, including sepsis, renal failure, acidosis, acute neurological disease, and persistent tachyarrhythmia. Lab Interpretation (test Abnormal code = 29601-3) [facility] [id number] 09:52:00 Test Item Value Reference Range Interpretation Comments TROPONIN I (BEAKER) (test code = 0.09 ng/mL 0.00-0.03 H 397) Troponin I (TnI) levels must be interpreted in the context of the presenting symptoms and the clinical findings. Elevated TnI levels indicate myocardial damage, but are not specific for ischemic heart disease. Elevated TnI levels are seen in patients with other cardiac conditions (including myocarditis and congestive heart failure), and slight TnI elevations occur in patients with other conditions, including sepsis, renal failure, acidosis, acute neurological disease, and persistent tachyarrhythmia.TROPONIN [id number] 05:40:00 Test Item Value Reference Range Interpretation Comments TROPONIN I (BEAKER) (test code = 0.10 ng/mL 0.00-0.03 H 397) Troponin I (TnI) levels must be interpreted in the context of the presenting symptoms and the clinical findings. Elevated TnI levels indicate myocardial damage, but are not specific for ischemic heart disease. Elevated TnI levels are seen in patients with other cardiac conditions (including myocarditis and congestive heart failure), and slight TnI elevations occur in patients with other conditions, including sepsis, renal failure, acidosis, acute neurological disease, and persistent tachyarrhythmia.ABORYuliya, [id number] 02:04:00 Test Item Value Reference Range Interpretation Comments ABO Grouping (test code = 2588) A Rh Factor (test code = 2589) [facility], NON [id number] 00:37:00 Reason for exam:->preopShould this be performed at the bedside?->YesFINAL REPORT Chest, 1 view. History: Preoperative evaluation. Left hip fixation. Comparison: None available. IMPRESSION: Low lung volumes. Prominent pulmonary vasculature likelyrelated to hypoventilatory technique. No pleural effusion or pneumothorax. No lobar consolidation. Cardiac mediastinal silhouette is exaggerated by technique. Osseous structures are grossly unremarkable. Signed: Griselda Solis [facility] Verified Date/Time: 01/08/2019 00:37:57 XR chest 1 view portable / [id number] 00:37:00 Interface, External Ris In - 01/08/2019 12:40 AM CDTFINAL REPORT Chest, 1 view. History: Preoperative evaluation. Left hip fixation. Comparison: None available. IMPRESSION: Low lung volumes. Prominent pulmonary vasculature likely related to hypoventilatory technique. No pleuraleffusion or pneumothorax. No lobar consolidation. Cardiac mediastinal silhouette is exaggerated by technique. Osseous structures are grossly unremarkable. Signed: Griselda Solis Verified Date/Time: 01/08/2019 00:37:57 12:37 [facility] 2 [id number] 00:30:00Reason for exam:->Pre-op per orthoFINAL REPORT CLINICAL HISTORY: L hip intertrochanteric fracture, want AP and lateral views TECHNIQUE: 2 views of the left hip, single AP view of the pelvis. COMPARISON: None IMPRESSION: Severe degenerative changes of the left hip joint. There is a minimally displaced left intertrochanteric fracture. The left femoral head is well seated in the acetabulum. Postsurgical changes ofa right hip arthroplasty. Vascular calcifications. Degenerative changes of the bilateral SI joints and lumbar spine. Osteopenia. Signed: Griselda Solis Verified Date/Time: 01/08/2019 00:30:32 RAD, HIP, 2 VIEWS, [id number] 00:30:00Reason for exam:- >L hip intertrochanteric fracture, want AP and lateral viewsFINAL REPORT CLINICAL HISTORY: L hip intertrochanteric fracture, want AP and lateral views TECHNIQUE: 2 views of the left hip, single AP view of the pelvis. COMPARISON: None IMPRESSION: Severe degenerative changes of the left hip joint. There is a minimally displaced left intertrochanteric fracture. The left femoral head is well seated in the acetabulum. Postsurgical changes ofa right hip arthroplasty. Vascular calcifications. Degenerative changes of the bilateral SI joints and lumbar spine. Osteopenia. Signed: Griselda Solis Verified Date/Time: 01/08/2019 00:30:32 XR hip 2 views [id number] 00:30:00 Interface, External Ris In - 01/08/2019 12:36 AM CDTFINAL REPORT CLINICAL HISTORY: L hip intertrochanteric fracture, want AP and lateral views TECHNIQUE: 2 views of the left hip,single AP view of the pelvis. COMPARISON: None IMPRESSION: Severe degenerative changes of the left hip joint. There is a minimally displaced left intertrochanteric fracture. The left femoral head is well seated in the acetabulum. Postsurgical changes of a right hip arthroplasty. Vascular calcifications. Degenerative changes of the bilateral SI joints and lumbar spine. Osteopenia. Signed: Griselda Solis [facility] Verified Date/Time: 01/08/2019 00:30:32 [facility] 2019-01-08 00:09:00 Test Item Value Reference Range Interpretation Comments TROPONIN I (BEAKER) (test code = 0.10 ng/mL 0.00-0.03 H 397) Troponin I (TnI) levels must be interpreted in the context of the presenting symptoms and the clinical findings. Elevated TnI levels indicate myocardial damage, but are not specific for ischemic heart disease. Elevated TnI levels are seen in patients with other cardiac conditions (including myocarditis and congestive heart failure), and slight TnI elevations occur in patients with other conditions, including sepsis, renal failure, acidosis, acute neurological disease, and persistent tachyarrhythmia.BASIC METABOLIC [id number] 00:02:00 Test Item Value Reference Range Interpretation Comments SODIUM (BEAKER) 138 meq/L 136-145 (test code = 381) POTASSIUM (BEAKER) 4.1 meq/L 3.5-5.1 (test code = 379) CHLORIDE (BEAKER) 108 meq/L 98-107 H (test code = 382) CO2 (BEAKER) (test 19 meq/L 22-29 L code = 355) BLOOD UREA NITROGEN 19 mg/dL 7-21 (BEAKER) (test code = 354) CREATININE (BEAKER) 0.97 mg/dL 0.57-1.25 (test code = 358) GLUCOSE RANDOM 110 mg/dL 70-105 H (BEAKER) (test code = 652) CALCIUM (BEAKER) 8.8 mg/dL 8.4-10.2 (test code = 697) EGFR (BEAKER) (test 56 mL/min/1.73 ESTIMA GUERO GFR IS code = 1092) sq m NOT ACCURATE CREATININE CLEARANCE IN PREDICTING GLOMERULAR FILTRATION RATE . ESTIMATED GFR I S NOT APPLICABLE FOR DIALYSIS PATIEN TS. CBC W/PLT COUNT & AUTO [id number] 23:08:00 Test Item Value Reference Range Interpretation Comments WHITE BLOOD CELL COUNT (BEAKER) 7.3 K/ L 3.5-10.5 (test code = 775) RED BLOOD CELL COUNT (BEAKER) 3.06 M/ L 3.93-5.22 L (test code = 761) HEMOGLOBIN (BEAKER) (test code = 9.8 GM/DL 11.2-15.7 L 410) HEMATOCRIT (BEAKER) (test code = 29.3 % 34.1-44.9 L 411) MEAN CORPUSCULAR VOLUME (BEAKER) 95.8 fL 79.4-94.8 H (test code = 753) MEAN CORPUSCULAR HEMOGLOBIN 32.0 pg 25.6-32.2 (BEAKER) (test code = 751) MEAN CORPUSCULAR HEMOGLOBIN CONC 33.4 GM/DL 32.2-35.5 (BEAKER) (test code = 752) RED CELL DISTRIBUTION WIDTH 12.2 % 11.7-14.4 (BEAKER) (test code = 412) PLATELET COUNT (BEAKER) (test 203 K/CU MM 150-450 code = 756) MEAN PLATELET VOLUME (BEAKER) 10.7 fL 9.4-12.3 (test code = 754) NUCLEATED RED BLOOD CELLS 0 /100 WBC 0-0 (BEAKER) (test code = 413) NEUTROPHILS RELATIVE PERCENT 66 % (BEAKER) (test code = 429) LYMPHOCYTES RELATIVE PERCENT 20 % (BEAKER) (test code = 430) MONOCYTES RELATIVE PERCENT 13 % (BEAKER) (test code = 431) EOSINOPHILS RELATIVE PERCENT 1 % (BEAKER) (test code = 432) BASOPHILS RELATIVE PERCENT 1 % (BEAKER) (test code = 437) NEUTROPHILS ABSOLUTE COUNT 4.80 K/ L 1.56-6.13 (BEAKER) (test code = 670) LYMPHOCYTES ABSOLUTE COUNT 1.44 K/ L 1.18-3.74 (BEAKER) (test code = 414) MONOCYTES ABSOLUTE COUNT (BEAKER) 0.95 K/ L 0.24-0.36 H (test code = 415) EOSINOPHILS ABSOLUTE COUNT 0.07 K/ L 0.04-0.36 (BEAKER) (test code = 416) BASOPHILS ABSOLUTE COUNT (BEAKER) 0.04 K/ L 0.01-0.08 (test code = 417) IMMATURE GRANULOCYTES-RELATIVE 0 % 0-1 PERCENT (BEAKER) (test code = 2801)
[2019-11-11 20:07] LABS: Absolute Lymphocytes (CBC) 1.4 K/uL (0.7-4.9); Hematocrit 31.9 % (36.0-45.0); Lymphocytes % 16.4 % (15.3-44.8); MPV 8.9 fL (7.6-11.3); RBC Red Blood Cell Count 3.46 M/uL (3.86-4.86)
[2019-11-11 20:13] LABS: Protime INR 1.02
--- NOTE | 2019-11-11 20:21 | RAD REPORT ---
EXAM DESCRIPTION: RAD - Chest Single View - 11/11/2019 8:10 pm CLINICAL HISTORY: Hypertension Chest pain. COMPARISON: Chest Single View dated 01/07/2019; Chest Single View dated 10/05/2018; CHEST SINGLE VIEW dated 11/15/2014; CHEST SINGLE VIEW dated 11/15/2012 FINDINGS: Portable technique limits examination quality. The lungs are grossly clear. The heart is moderately enlarged. No displaced fractures. IMPRESSION: No acute intrathoracic process suspected.
--- NOTE | 2019-11-11 20:34 | RAD REPORT ---
EXAM DESCRIPTION: CT - Head Brain Wo Cont - 11/11/2019 8:25 pm CLINICAL HISTORY: HEADACHE Headache, hypertension, drowsiness COMPARISON: Ct Stroke Brain Wo Cont dated 10/05/2018 TECHNIQUE: All CT scans are performed using dose optimization technique as appropriate and may inclu de automated exposure control or mA/KV adjustment according to patient size. FINDINGS: No intracranial hemorrhage, hydrocephalus or extra-axial fluid collection.No areas of brai n edema or evidence of midline shift. The paranasal sinuses and mastoids are clear. The calvarium is intact. IMPRESSION: No acute intracranial abnormality.
[2019-11-11 20:35] LABS: Bilirubin Direct 0.2 mg/dL (0-0.2); Bilirubin Total 0.8 mg/dL (0.2-1.0); Magnesium 2.6 mg/dL (1.8-2.4); Potassium 4.2 mmol/L (3.5-5.1); Protein, Total 7.6 g/dL (6.4-8.2); Troponin (Emerg Dept Use Only) 0.02 ng/mL (0.0-0.045)
[2019-11-11] MEDS ORDERED: ACETAMINOPHEN 500 MG TAB ONE (21:15)
--- NOTE | 2019-11-11 21:49 | ER ---
Nurse's Notes [facility] Name: Estela Hawley Age: 74 yrs Sex: Female : 1945 Arrival Date: 11/11/2019 Time: 19:13 Bed 5 Private MD: Diagnosis: Hypertension;Headache Presentation: 11/10 19:22 Chief complaint: Patient states: Headache and high BP today. Taking meds as prescirbed. ll1 Coronavirus screen: Patient denies a cough. Patient denies shortness of breath or difficulty breathing. Patient denies measured and/or subjective temperature greater than 100.4F prior to today's visit. Patient denies travel on a cruise ship or to a country the [facility] currently lists as an affected area. Patient denies contact with known and/or suspected case of COVID-19. Proceed with normal triage. Ebola Screen: Patient denies travel to an Ebola-affected area in the 21 days before illness onset. Initial Sepsis Screen: Does the patient meet any 2 criteria? No. Patient's initial sepsis screen is negative. Risk Assessment: Do you want to hurt yourself or someone else? Patient reports no desire to harm self or others. Onset of symptoms was November 11, 2019. 19:22 Method Of Arrival: Ambulatory 1 19:22 Acuity: KERRIE 3 ll1 21:11 Initial Sepsis Screen: Does the patient have a suspected source of infection? No. rv Patient's initial sepsis screen is negative. Historical: - Allergies: 19:22 PENICILLINS; ll1 - PMHx: 19:22 Hypertension; Vertigo; Myocardial infarction; Hyperlipidemia; CVA; ll1 - PSHx: 19:22 hip replacement R; Heart stents; ll1 - Immunization history:: Adult Immunizations up to date. - Social history:: Smoking status: Patient/guardian denies using tobacco, the patient reports quitting approximately 1 years ago, Patient/guardian denies using alcohol, street drugs. Screenin:00 Fall Risk None identified. rv 21:10 Abuse screen: Denies threats or abuse. Denies injuries from another. Nutritional rv screening: No deficits noted. Tuberculosis screening: No symptoms or risk factors identified. Assessment: 20:00 General: Appears comfortable, Behavior is calm, cooperative. rv 20:00 Pain: Complains of pain in HEAD. Neuro: Level of Consciousness is awake, alert, obeys rv commands, Oriented to person, place, time, situation. Neuro: Reports headache. Cardiovascular: Patient's skin is warm and dry. Cardiovascular: Rhythm is sinus bradycardia. Respiratory: Airway is patent. Respiratory: Breath sounds are clear bilaterally. GI: No signs and/or symptoms were reported involving the gastrointestinal system. Derm: Skin is intact. 21:11 Reassessment: Patient and/or family updated on plan of care and expected duration. Pain rv level reassessed. Patient is alert, oriented x 3, equal unlabored respirations, skin warm/dry/pink. Patient states feeling better. Vital Signs: 19:22 BP 189 / 64; Pulse 61; Resp 17; Temp 98.5; Pulse Ox 98% ; Pain 5/10; ll1 21:09 BP 165 / 63; Pulse 57; Resp 15; Temp 98; Pulse Ox 97% on R/A; rv 21:53 BP 158 / 66; Pulse 55; Resp 15; Temp 98; Pulse Ox 99% on R/A; Pain 0/10; rv ED Course: 19:13 Patient arrived in ED. ag3 19:22 Arm band placed on. ll1 19:24 Triage completed. ll1 19:25 Brian Douglas, LAZARUS is Primary Nurse. rv 19:25 Emerson Martino MD is Attending Physician. 7 20:00 Patient has correct armband on for positive identification. Pulse ox on. NIBP on. rv 20:00 patient monitor on. rv 20:09 Initial lab(s) drawn, by nc, sent to lab. EKG done, by ED staff, reviewed by Emerson Martino MD. Inserted saline lock: 18 gauge in right forearm, using aseptic technique. Blood collected. 20:10 XRAY Chest (1 view) In Process Unspecified. EDMS 20:25 CT Head Brain wo Cont In Process Unspecified. EDMS 21:11 No provider procedures requiring assistance completed. rv 21:54 IV discontinued, intact, bleeding controlled, No redness/swelling at site. Pressure rv dressing applied. Administered Medications: 21:09 Drug: Tylenol 1000 mg Route: PO; rv 21:53 Follow up: Response: No adverse reaction; Pain is decreased rv Outcome: 21:48 Discharge ordered by . [facility] 21:53 Discharged to home ambulatory. rv 21:53 Condition: good 21:53 Discharge instructions given to patient, Instructed on discharge instructions, follow up and referral plans. Demonstrated understanding of instructions, follow-up care. 21:54 Patient left the ED. rv Signatures: Dispatcher [employer] EDBrian Espinoza RN RN Nuvia Bashir3 Faisal Flores RN RN ll1 Emerson Martino MD MD [id number]
--- NOTE | 2019-11-11 21:49 | EDPHYS ---
Physician Documentation [facility] Name: Estela Hawley Age: 74 yrs Sex: Female : 1945 Arrival Date: 11/11/2019 Time: 19:13 Bed 5 Private MD: ED Physician Emerson Martino HPI: 11/10 19:51 This 74 yrs old Female presents to ER via Ambulatory with complaints of High mh7 Blood Pressure. 19:51 The patient has elevated blood pressure and discovered this at home, with a home mh7 device. Onset: The symptoms/episode began/occurred this morning. Modifying factors: The symptoms are aggravated by nothing, The symptoms are alleviated by nothing. Associated signs and symptoms: Pertinent positives: headache, Pertinent negatives: chest pain, dizziness, dyspnea, lightheadedness, nausea, visual changes, vomiting, weakness. 19:52 Severity of symptoms: At its worst the blood pressure was moderate, earlier today, 190 mh7 mm Hg, in the emergency department the blood pressure is improved, mildly. Historical: - Allergies: 19:22 PENICILLINS; ll1 - PMHx: 19:22 Hypertension; Vertigo; Myocardial infarction; Hyperlipidemia; CVA; ll1 - PSHx: 19:22 hip replacement R; Heart stents; ll1 - Immunization history:: Adult Immunizations up to date. - Social history:: Smoking status: Patient/guardian denies using tobacco, the patient reports quitting approximately 1 years ago, Patient/guardian denies using alcohol, street drugs. ROS: 19:52 Constitutional: Negative for fever, chills, and weight loss, Eyes: Negative for injury, mh7 pain, redness, and discharge, ENT: Negative for injury, pain, and discharge, Neck: Negative for injury, pain, and swelling, Cardiovascular: Negative for chest pain, palpitations, and edema, Respiratory: Negative for shortness of breath, cough, wheezing, and pleuritic chest pain, Abdomen/GI: Negative for abdominal pain, nausea, vomiting, diarrhea, and constipation, Back: Negative for injury and pain, : Negative for injury, bleeding, discharge, and swelling, MS/Extremity: Negative for injury and deformity, Skin: Negative for injury, rash, and discoloration, Psych: Negative for depression, anxiety, suicide ideation, homicidal ideation, and hallucinations, Allergy/Immunology: Negative for hives, rash, and allergies, Endocrine: Negative for neck swelling, polydipsia, polyuria, polyphagia, and marked weight changes, Hematologic/Lymphatic: Negative for swollen nodes, abnormal bleeding, and unusual bruising. Exam: 19:52 Constitutional: This is a well developed, well nourished patient who is awake, alert, mh7 and in no acute distress. Head/Face: Normocephalic, atraumatic. Eyes: Pupils equal round and reactive to light, extra-ocular motions intact. Lids and lashes normal. Conjunctiva and sclera are non-icteric and not injected. Cornea within normal limits. Periorbital areas with no swelling, redness, or edema. ENT: Nares patent. No nasal discharge, no septal abnormalities noted. Tympanic membranes are normal and external auditory canals are clear. Oropharynx with no redness, swelling, or masses, exudates, or evidence of obstruction, uvula midline. Mucous membranes moist. Neck: Trachea midline, no thyromegaly or masses palpated, and no cervical lymphadenopathy. Supple, full range of motion without nuchal rigidity, or vertebral point tenderness. No Meningismus. Chest/axilla: Normal chest wall appearance and motion. Nontender with no deformity. No lesions are appreciated. Cardiovascular: Regular rate and rhythm with a normal S1 and S2. No gallops, murmurs, or rubs. Normal PMI, no JVD. No pulse deficits. Respiratory: Lungs have equal breath sounds bilaterally, clear to auscultation and percussion. No rales, rhonchi or wheezes noted. No increased work of breathing, no retractions or nasal flaring. Abdomen/GI: Soft, non-tender, with normal bowel sounds. No distension or tympany. No guarding or rebound. No evidence of tenderness throughout. Back: No spinal tenderness. No costovertebral tenderness. Full range of motion. Skin: Warm, dry with normal turgor. Normal color with no rashes, no lesions, and no evidence of cellulitis. MS/ Extremity: Pulses equal, no cyanosis. Neurovascular intact. Full, normal range of motion. Neuro: Awake and alert, GCS 15, oriented to person, place, time, and situation. Cranial nerves II-XII grossly intact. Motor strength 5/5 in all extremities. Sensory grossly intact. Cerebellar exam normal. Normal gait. Psych: Awake, alert, with orientation to person, place and time. Behavior, mood, and affect are within normal limits. 21:51 ECG was reviewed by the Attending Physician. [facility] Vital Signs: 19:22 BP 189 / 64; Pulse 61; Resp 17; Temp 98.5; Pulse Ox 98% ; Pain 5/10; ll1 21:09 BP 165 / 63; Pulse 57; Resp 15; Temp 98; Pulse Ox 97% on R/A; rv 21:53 BP 158 / 66; Pulse 55; Resp 15; Temp 98; Pulse Ox 99% on R/A; Pain 0/10; rv MDM: 19:36 Patient medically screened. [facility] 21:46 Differential diagnosis: hypertensive crisis, Malignant HTN, intracerebral hemorrhage, [facility] Headache, Hypertensive Urgency, Hypertension. Data reviewed: vital signs, nurses notes, lab test result(s), cardiac enzymes, CBC, electrolytes, urinalysis, EKG, radiologic studies, CT scan, plain films. Data interpreted: Pulse oximetry: on room air is 97 %. Interpretation: normal. Counseling: I had a detailed discussion with the patient and/or guardian regarding: the historical points, exam findings, and any diagnostic results supporting the discharge/admit diagnosis, the presence of at least one elevated blood pressure reading (>120/80) during this emergency department visit, lab results, radiology results, the need for outpatient follow up, to return to the emergency department if symptoms worsen or persist or if there are any questions or concerns that arise at home. Response to treatment: the patient's symptoms have resolved after treatment, the patient's blood pressure is in an acceptable range, mental status has returned to baseline, the patient no longer shows bradycardia, the patient is not short of breath, the patient is not tachycardic, the patient's pain is gone, the patient's temperature has normalized. 11/10 19:40 Order name: Basic Metabolic Panel [facility] 11/10 19:40 Order name: CBC with Diff; Complete Time: 20:38 [facility] 11/10 19:40 Order name: LFT's; Complete Time: 20:38 [facility] 11/10 19:40 Order name: Magnesium; Complete Time: 20:38 [facility] 11/10 19:40 Order name: NT PRO-BNP; Complete Time: 20:38 [facility] 11/10 19:40 Order name: PT-INR; Complete Time: 20:38 [facility] 11/10 19:40 Order name: Troponin (emerg Dept Use Only); Complete Time: 20:38 [facility] 11/10 19:40 Order name: XRAY Chest (1 view); Complete Time: 20:38 [facility] 11/10 19:40 Order name: Cardiac monitoring; Complete Time: 20:09 [facility] 11/10 19:40 Order name: CT Head Brain wo Cont; Complete Time: 20:38 [facility] 11/10 19:41 Order name: Basic Metabolic Panel; Complete Time: 20:38 EDMS 11/10 21:46 Order name: Urine Dipstick--Ancillary (enter results) 2 11/10 19:40 Order name: EKG - Nurse/Tech; Complete Time: 20:09 [facility] 11/10 19:40 Order name: IV Saline Lock; Complete Time: 20:09 [facility] 11/10 19:40 Order name: Labs collected and sent; Complete Time: 20:09 [facility] 11/10 19:40 Order name: O2 Per Protocol; Complete Time: 20: [facility] 11/10 19:40 Order name: O2 Sat Monitoring; Complete Time: 20:09 [facility] 11/10 19:40 Order name: Urine Dipstick-Ancillary (obtain specimen); Complete Time: 21:53 mh7 EC:51 Rate is 55 beats/min. Rhythm is regular, Sinus bradycardia. QRS [place] is Normal. [place] mh7 interval is normal. QRS interval is normal. QT interval is normal. No Q waves. T waves are Inverted in leads V3, V4, V5, V6. No ST changes noted. Clinical impression: Abnormal EKG without significant change. Administered Medications: 21:09 Drug: Tylenol 1000 mg Route: PO; rv 21:53 Follow up: Response: No adverse reaction; Pain is decreased rv Disposition: 11/11/19 21:48 Discharged to Home. Impression: Hypertension, Headache. - Condition is Stable. - Discharge Instructions: Hypertension, Spsf-ff-Aibg, General Headache Without Cause, Jjhw-je-Gusm. - Medication Reconciliation Form, Thank You Letter, Antibiotic Education, Prescription Opioid Use form. - Follow up: Private Physician; When: 1 - 2 days; Reason: Worsening of condition, Recheck today's complaints, Continuance of care, Re-evaluation by your physician. - Problem is an acute exacerbation. - Symptoms have improved. Signatures: Dispatcher [employer] EDBrian Espinoza RN RN rv Faisal Flores RN RN ll1 Emerson Martino MD MD mh7 Corrections: (The following items were deleted from the chart) 21:54 21:48 11/11/2019 21:48 Discharged to Home. Impression: Hypertension; Headache. rv Condition is Stable. Forms are Medication Reconciliation Form, Thank You Letter, Antibiotic Education, Prescription Opioid Use. Follow up: Private Physician; When: 1 - 2 days; Reason: Worsening of condition, Recheck today's complaints, Continuance of care, Re-evaluation by your physician. Problem is an acute exacerbation. Symptoms have improved. mh7
[2019-11-11 22:09] VITALS: TEMP 98
[2019-11-11 22:10] VITALS: BP 158/66; O2SAT 99
[2019-11-11 22:17] LABS: Urine Blood NEGATIVE (NEG); Urine Glucose NEGATIVE (NEG); Urine Protein NEGATIVE (NEG); Urine Specific Gravity 1.015 (1.005-1.030)
== END 2019-11-11 21:54 | disposition home or self-care (01) ==
LOC: ER 19:08
DX: I10 Essential (primary) hypertension (principal); I25.2 Old myocardial infarction; Z95.818 Presence of other cardiac implants and grafts; Z88.0 Allergy status to penicillin
CPT/HCPCS: 36415; 70450; 71045; 80048; 80076; 81003; 83735; 83880; 84484; 85025; 85610; 99284

== ENCOUNTER 2020-07-15 00:59 | Emergency (ER) | payer OTHER ==
--- OUTSIDE RECORDS SUMMARY | 2020-07-15 01:03 | XMS REPORT | Continuity of Care Document ---
:1945 Author Organization [facility] t Address [address] [place] [address] Care Team Providers Name Role Phone Tricia Avila MD Primary Care Physician Denisse MIJARES Attending Clinician QASIM CHIRINOS Attending Clinician Unavailable QASIM CHIRINOS Admitting Clinician Unavailable Problems Condition Condition Condition Status Onset Resolution Last Treating Co mments Source Name Details Category Date Date Treatment Clinician Date Closed Closed Disease Active [facility] of left of left 00:00: Medical hip hip 00 Center Coronary Coronary Disease [facility] artery 01-07 - disease disease 00:00: Medical involving involving 00 Cent [facility] [place] coronary coronary artery of artery of [place] heart heart without without angina angina pectoris pectoris Essential Essential Disease Active [facility] hypertensi hypertensi 01-07 Danay kes - on on 00:00: Medical 00 Center History of History of Disease Active [facility] stroke stroke 01-07 [facility] - 00:00: Medical 00 Center Allergies, Adverse Reactions, Alerts Allergy Allergy Status Severity Reaction(s) Onset Inactive Treating Comm ents Source Name Type Date Date Clinician Penicill Propensi Active Other (See "Throat [facility] ins ty to Comments) 01-07 closes, I [facility] - adverse 00:00: felt like Medica l reaction 00 choking" [place] s penicill Adverse Active throat [facility] in Reaction swells [facility] [employer] [facility] PCN Adverse Active anaphylaxis [facility] Reaction [facility] Social History Social Habit Start Date Stop Date Quantity Comments Source Sex Assigned At [facility] Danay banerjee [facility] History [facility] Alcohol Std Drinks Medica [facility] History [facility] - Alcohol Binge Medical Hanna ter Tobacco use and 2019-01-11 2019-01-[address] Jon kes - exposure 00:00:00 00:00:00 [facility] Alcohol intake 2019-01-11 2019-01-11 [facility] - 00:[facility]:00 00:00:00 non-drinker of Medical nter alcohol (finding) History [facility] 2019-01-07 2019-01-[address] [facility] - Alcohol Frequency 00:00:00 00:00:00 [facility] Smoking Status Start Date Stop Date Source Former smoker 2019-01-11 00:00:00 2019-01-11 00:00:00 [facility] Medications Ordered Filled Start Stop Current Ordering Indication Dosage Frequency Signature Comments Components Source Medication Medication Date Date Medication? Clinician (SIG) Name Name Gabapentin Gabapentin Yes Tiffanie [address] [facility] 1-08 [place] as needed [facility] - 00:00: for pain [facility] 00 [employer] [facility] aspirin 81 Yes 81mg QD Take [address] MG EC 9-21 by mouth [facility] - tablet 15:45: daily. Medical 30 [place] losartan Yes 50mg QD Take [address] (COZAAR) 50 8-13 by mouth Luke s - MG tablet 00:00: daily. Medica l 00 [place] clopidogrel Yes 75mg QD Take [address] (PLAVIX) 75 8-13 by mouth Luke s - mg tablet 00:00: daily. Medica l 00 [place] atorvastati Yes 40mg Take [address] n (LIPITOR) 8-13 by mouth . Danay kes - 80 MG 00:00: Medical tablet 00 [place] Alesumanth Alesumanth Yes Tiffanie [address] [facility] [facility] Millender with food [facility] - or milk as Memoria needed l [facility] ent Clinics aspirin aspirin Yes Tiffanie not [facility] Millender defined [facility] Losartan Losartan Yes Tiffanie TAKE [address] [facility] [facility] Potassium Potassium [place] TABLET BY [facility] - MOUTH [facility]oria EVERY DAY l [facility] Clopidogrel Clopidogrel Yes Tiffanie TAKE [address] [facility] Bisulfate Bisulfate [place] TABLET BY [facility]TH [facility] EVERY DAY l [facility] Atorvastati Atorvastati Yes Tiffanie TAKE [address] [facility] [facility] n Calcium n Calcium [place] TABLET BY [facility] M[facility]TH AT [facility] BEDTIME l [facility] Procedures This patient has no known procedures. Plan of Care Planned Activity Planned Date Details Comments Source Future Scheduled 2019-12-25 INFLUENZA VACCINE (#1) [facility] - Test 00:00:00 [code = INFLUENZA Medical Ce nter VACCINE (#1)] Future Scheduled 2008-02-06 PNEUMOCOCCAL 65+ YRS [facility] - Test 00:00:00 (1 of 1 - Medical Center [id number] PCV13) [code = PNEUMOCOCCAL 65+ YRS (1 of 1 - [id number] PCV13)] Future Scheduled 2003-01-[address] [facility] - Test 00:00:00 WELLNESS (YEAR 2 or Medical Center FIRST YEAR if no IPPE) [code = MEDICARE ANNUAL WELLNESS (YEAR 2 or FIRST YEAR if no IPPE)] Encounters Start End Encounter Admission Attending Care Care Encounter Source Date/Time Date/Time Type Type Clinicians Facility Department ID 2020-07-11 2020-07-11 Outpatient [facility]LMLC [facility] [id number] [facility]00 [facility] Outpati ent Clinics 2019-11-12 2019-11-12 Outpatient Cheyenne Kwok [id number] 14:52:00 14:52:00 [facility] l Medicine Outpati ent Clinics 2019-05-03 2019-05-03 Outpatient Cheyenne Kwok [id number] 00:27:00 00:27:00 [facility] Medicine l Medicine Outpati ent Clinics 2019-05-02 2019-05-02 Outpatient Cheyenne Kwok [id number] 11:15:00 11:15:[address] Luke s [facility] ent [facility] 2019-02-26 2019-02-26 Office NISHA Salcedo [id number] 14:01:39 14:45:11 Visit Izaiah AMBULATOR [id number] Y [id number] 2019-01-25 2019-01-25 [facility] [id number] 11:40:00 11:40:00 [facility] 2019-01-22 2019-01-22 Office NISHA Salcedo [id number] 12:53:51 13:42:28 Visit Izaiah AMBULATOR [id number] Y [id number] 2018-10-24 2018-10-24 [facility] [id number] 13:20:00 13:20:00 [facility] 2018-05-18 2018-05-18 [facility] [id number] 13:40:00 13:40:00 [facility] 2018-05-18 2018-05-18 [facility] [id number] 11:45:00 11:45:00 [facility] Results Test Description Test Time Test Comments Results Result [facility] e Comments TISSUE EXAM 2019-01-20 Surgical Pathology 11:29:00 Report Case: [id number] Authorizing Provider: Izaiah Salcedo Collected: 01/10/2019 Westley8 Leland Corbett MD Ordering Location: [facility] OR Received: 01/11/2019 08 Perioperative Services Pathologist: Kris Guaman MD Specimen: Femoral Head,Left Hip BONE, LEFT FEMORAL HEAD FOR PRIOR FRACTURE, ARTHROPLASTY:OSTEOARTHRI TIC CHANGES IN BONE AND CARTILAGE.REGENERATIVE FEATURES COMPATIBLE WITH REPORTED HISTORY OF FRACTURE.REACTIVE SYNOVIAL TISSUE. Signing Pathologist Direct Phone Line: [phone] ly signed by Kris Guaman MD on 01/20/2019 at 11:29 [id number], [id number]: Arthroplasty, hip, left total hip arthroplastyPre and postop diagnosis: closed fracture of left hip, initial encounter (HCC)Femoral head, left hipReceived in formalin labeled with the patient's name, accession number and "femoral head, left hip" is a 7.1 x 6.9 x 6.0 cm piece of loo-white to hco-pink, round bone consistent with a femoral head, with a jagged, hemorrhagic surgical margin. Attached to the specimen is a 3.1 x 2.2 x 0.4 cm piece of soft tissue. There is an 1.9 x 1.8 cm area of smooth, glistening eburnation. Osteophytes and osteocartilaginous slippage are both identified. The articular surface cartilage is up to 5.0 x 2.2 cm, and up to 0.2 cm thick. Saturator Operator sections are submitted: A1, margin, following decalcification; A2, eburnation, following decalcification; A3, osteophyte and osteocartilaginous slippage, following decalcification; A4, soft tissue. SS/plPerformed.[facility], Department of Pathology, [address] [place] [id number], NvnjnfKaiser [facility], Department of Pathology, [address] [place] [id number], OpfktxKaiser Foundation Hospital, Department of Pathology, [address] [place] [id number], PHOSPHORUS 2019-01-13 06:20:00 Test Item Value Reference Range Interpretation Comme nts PHOSPHORUS (BEAKER) (test code = 604) 3.3 mg/dL 2.3-4.7 [id number] 06:20:00 Test Item Value Reference Range Interpretation Comments MAGNESIUM (BEAKER) (test code = 1.9 mg/dL 1.6-2.6 627) BASIC METABOLIC [id number] 06:20:00 Test Item Value Reference Range Interpretation [...] PATIEN TS. CBC W/PLT COUNT & AUTO [id number] 05:39:00 Test Item Value Reference Range Interpretation [...] 0-1 PERCENT (BEAKER) (test code = 2801) HEMOGLOBIN AND [id number] 14:51:00 Test Item Value Reference Range Interpretation Comments HEMOGLOBIN (BEAKER) (test code = 7.7 GM/DL 11.2-15.7 L 410) HEMATOCRIT (BEAKER) (test code = 22.8 % 34.1-44.9 L 411) [id number] 06:16:00 Test Item Value Reference Range Interpretation Comments PHOSPHORUS (BEAKER) (test code = 2.7 mg/dL 2.3-4.7 604) BASIC METABOLIC [id number] 06:16:00 Test Item Value Reference Range Interpretation [...] S NOT APPLICABLE FOR DIALYSIS PATIEN TS. [id number] 06:16:00 Test Item Value Reference Range Interpretation Comments MAGNESIUM (BEAKER) (test code = 1.7 mg/dL 1.6-2.6 627) CBC W/PLT COUNT & AUTO [id number] 06:07:00 Test Item Value Reference Range Interpretation [...] = 2801) RAD, PELVIS, 1 OR 2 [id number] 08:49:00Reason for exam:->postopShould this be performed at [...] be due to technique.Consider repeat. Signed: Nadine Villafuerte MDReport Verified Date/Time: 01/11/2019 08:49:25 Reading Location: [facility] Reading Room [address] [place] [address] RAD, PELVIS, 1 OR 2 [id number] 08:45:00Reason for exam:->LEFT TOTAL HIP ARTHROPLASTYFINAL REPORT [...] is in good alignment. Signed: Nadine Villafuerte Verified Date/Time: 01/11/2019 08:45:39 Reading Location: [facility] Reading Room [address] [place] [address] tronically signed by: NADINE CHAMPAGNE M.D. on 01/11/2019 08:45 AM BASIC METABOLIC [id number] 06:26:00 Test Item Value Reference Range Interpretation [...] S NOT APPLICABLE FOR DIALYSIS PATIEN TS. [id number] 06:25:00 Test Item Value Reference Range Interpretation Comments PHOSPHORUS (BEAKER) (test code = 3.3 mg/dL 2.3-4.7 604) [id number] 06:25:00 Test Item Value Reference Range Interpretation Comments MAGNESIUM (BEAKER) 1.6 mg/dL 1.6-2.6 Specimen slightly (test code = 627) hemolyzed CBC W/PLT COUNT & AUTO [id number] 06:16:00 Test Item Value Reference Range Interpretation [...] (BEAKER) (test code = 2801) BASIC METABOLIC [id number] 05:45:00 Test Item Value Reference Range Interpretation [...] S NOT APPLICABLE FOR DIALYSIS PATIEN TS. [id number] 05:45:00 Test Item Value Reference Range Interpretation Comments MAGNESIUM (BEAKER) (test code = 1.7 mg/dL 1.6-2.6 627) [id number] 05:45:00 Test Item Value Reference Range Interpretation Comments PHOSPHORUS (BEAKER) (test code = 3.4 mg/dL 2.3-4.7 604) CBC W/PLT COUNT & AUTO [id number] 05:29:00 Test Item Value Reference Range Interpretation [...] 0-1 PERCENT (BEAKER) (test code = 2801) [id number] 07:03:00 Test Item Value Reference Range Interpretation Comments PHOSPHORUS (BEAKER) (test code = 3.7 mg/dL 2.3-4.7 604) [id number] 07:03:00 Test Item Value Reference Range Interpretation Comments MAGNESIUM (BEAKER) (test code = 1.8 mg/dL 1.6-2.6 627) BASIC METABOLIC [id number] 07:03:00 Test Item Value Reference Range Interpretation [...] PATIEN TS. CBC W/PLT COUNT & AUTO [id number] 06:51:00 Test Item Value Reference Range Interpretation [...] 0-1 PERCENT (BEAKER) (test code = 2801) CT, PELVIS, WO [id number] 14:06:00FINAL REPORT CT OF THE PELVIS HISTORY: [...] is mild fracture displacement. No significant fracture angul ation. There are severe changes of osteoarthritis in [...] No pelvic fracture is visualized. Signed: Daniel Ambrocioort Verified Date/Time: 01/08/2019 14:06:17 Reading Location: [facility] Radiology Reading Room TROPONIN I 2019-01-08 09:52:00 Test Item Value Reference Range Interpretation [...] acidosis, acute neurological disease, and persistent tachyarrhythmia.TROPONIN [id number] 05:40:00 Test Item Value Reference Range Interpretation [...] failure, acidosis, acute neurological disease, and persistent tachyarrhythmia.RAD, CHEST, 1 VIEW, NON [id number] 00:37:00Reason for exam:->preopShould this be performed at the bedside?->YesFINAL REPORT Chest, 1 view. History: Preoperative evaluation. Left hip fixation. Comparison: None available. IMPRESSION: Low lung volumes. Prominent pulmonary vasculature likelyrelated to hypoventilatory technique. No pleural effusion or pneumothorax. No lobar consolidation. Cardiac mediastinal silhouette is exaggerated by technique. Osseous structures are grossly unremarkable. Signed: Griselda Solis MDReport Verified Date/Time: 01/08/2019 00:37:57 RAD, PELVIS, 1 OR 2 VIEWS 2019-01-08 00:30:00Reason for exam:->Pre-op per orthoFINAL REPORT CLINICAL HISTORY: L hip intertrochanteric fracture, want AP and l ateral views TECHNIQUE: 2 views of the left [...] Date/Time: 01/08/2019 00:30:32 RAD, HIP, 2 VIEWS, [id number] 00:30:00Reason for exam:->L hip intertrochanteric fracture, want AP and lateral [...] Signed: Griselda Solis Verified Date/Time: 01/08/2019 00:30:32 TROPONIN [id number] 00:09:00 Test Item Value Reference Range Interpretation [...] acute neurological disease, and persistent tachyarrhythmia.BASIC METABOLIC [id number] 00:02:00 Test Item Value Reference Range Interpretation [...] PATIEN TS. CBC W/PLT COUNT & AUTO [id number] 23:08:00 Test Item Value Reference Range Interpretation [...] % 0-1 PERCENT (BEAKER) (test code = 0593)
[2020-07-15] MEDS ORDERED: KETOROLAC 30 MG/ML INJ ONE (02:36)
[2020-07-15] MEDS ORDERED: HYDROCODONE/APAP 5/325 MG TAB ONE (02:36)
[2020-07-15] MEDS ORDERED: predniSONE 20 MG TAB ONE (02:36)
--- NOTE | 2020-07-15 03:10 | EDPHYS ---
Physician Documentation [facility] Name: Estela Hawley Age: 75 yrs Sex: Female : 1945 Arrival Date: 07/15/2020 Time: 01:00 Bed 17 Private MD: ED Physician Nickie Roman HPI: 07/15 02:37 This 75 yrs old Female presents to ER via Wheelchair with complaints of Elbow ma2 pain. 02:37 Onset: The symptoms/episode began/occurred gradually, 1 day(s) ago. Associated signs ma2 and symptoms: Pertinent negatives: deformity, erythema, fever, nausea, numbness, swelling, tingling, vomiting, warmth. Severity of symptoms: At their worst the symptoms were moderate, in the emergency department the symptoms are unchanged. The patient has experienced similar episodes in the past. Historical: - Allergies: 02:06 PENICILLINS; em - Home Meds: 02:14 Losartan Potassium 50mg 1 tab daily [Active]; Plavix 75 mg Oral tab 1 tab once daily sf [Active]; atorvastatin 40 mg oral tab 1 tab once daily [Active]; aspirin 81 mg Oral TbEC 1 tab once daily [Active]; multivitamin oral tab daily [Active]; - PMHx: 02:06 CVA; Hyperlipidemia; Hypertension; Myocardial infarction; Vertigo; em - PSHx: 02:06 river. hip; em - Immunization history:: Adult Immunizations up to date. - Social history:: Smoking status: Patient denies any tobacco usage or history of. Patient/guardian denies using alcohol, street drugs, The patient lives with family. - Family history:: not pertinent. ROS: 02:37 Constitutional: Negative for fever, chills, and weight loss. ma2 02:37 All other systems are negative. Exam: 02:37 Constitutional: This is a well developed, well nourished patient who is awake, alert, ma2 and in no acute distress. Chest/axilla: Normal chest wall appearance and motion. Nontender with no deformity. No lesions are appreciated. Cardiovascular: Regular rate and rhythm with a normal S1 and S2. No gallops, murmurs, or rubs. Normal PMI, no JVD. No pulse deficits. Respiratory: Lungs have equal breath sounds bilaterally, clear to auscultation and percussion. No rales, rhonchi or wheezes noted. No increased work of breathing, no retractions or nasal flaring. Abdomen/GI: Soft, non-tender, with normal bowel sounds. No distension or tympany. No guarding or rebound. No evidence of tenderness throughout. Skin: Warm, dry with normal turgor. Normal color with no rashes, no lesions, and no evidence of cellulitis. MS/ Extremity: right elbow is tender, no effusion, has limited rom d/t pain, no eryhtema or warmth Pulses equal, no cyanosis. Neurovascular intact. Full, normal range of motion. Neuro: Awake and alert, GCS 15, oriented to person, place, time, and situation. Cranial nerves II-XII grossly intact. Motor strength 5/5 in all extremities. Sensory grossly intact. Cerebellar exam normal. Normal gait. Vital Signs: 01:40 BP 198 / 95; Pulse 74; Resp 18; Temp 98.9(O); Pulse Ox 99% on R/A; Weight 79.83 kg; em Height 5 ft. 0 in. (152.40 cm); Pain 10/10; 02:00 BP 198 / 61; Pulse 73; Resp 18; Pulse Ox 99% ; sf 03:00 BP 148 / 62; Pulse 63; Resp 16; Pulse Ox 99% ; sf 01:40 Body Mass Index 34.37 (79.83 kg, 152.40 cm) em MDM: 01:31 Patient medically screened. ma2 02:37 Differential diagnosis: dislocation, closed fracture, contusion, abrasion, tendonitis, ma2 she has arthritis and had similar pain in both elbows and wrists, no effusion on exam. Data reviewed: vital signs, nurses notes. Counseling: I had a detailed discussion with the patient and/or guardian regarding: the historical points, exam findings, and any diagnostic results supporting the discharge/admit diagnosis, the presence of at least one elevated blood pressure reading (>120/80) during this emergency department visit, the need for outpatient follow up. Response to treatment: the patient's symptoms have markedly improved after treatment. 07/15 02:06 Order name: Elbow Right 3 View XRAY ma2 07/15 02:36 Order name: Sling; Complete Time: 03:21 ma2 Administered Medications: 02:23 Drug: Pritchett 5 mg-325 mg 1 tabs Route: PO; sf 03:21 Follow up: Response: No adverse reaction; Pain is decreased sf 02:24 Drug: predniSONE 60 mg Route: PO; sf 03:21 Follow up: Response: No adverse reaction; Pain is decreased sf 02:26 Drug: TORadol 60 mg Route: IM; Site: left ventrogluteal; sf 03:22 Follow up: Response: No adverse reaction; Pain is decreased sf Disposition: 07/15/20 03:10 Discharged to Home. Impression: Monoarthritis, not elsewhere classified, right elbow, Pain in right elbow. - Condition is Stable. - Discharge Instructions: Arthritis, [id number]. - Prescriptions for Diclofenac Sodium 75 mg Oral Tablet Sustained Release - take 1 tablet by ORAL route 2 times per day; 30 tablet. Medrol (Hussein) 4 mg Oral Tablets, Dose Pack - take 1 tablet by ORAL route as directed - follow package instructions; 1 packet. - Medication Reconciliation Form, Thank You Letter, Antibiotic Education, Prescription Opioid Use form. - Follow up: Private Physician; When: Tomorrow; Reason: If symptoms return, Continuance of care. Signatures: Dispatcher [employer] Jese Perla RN RN Nickie Wilkerson MD MD ma2 Sonido Angulo RN RN sf Corrections: (The following items were deleted from the chart) 03:42 03:10 07/15/2020 03:10 Discharged to Home. Impression: Monoarthritis, not elsewhere sf classified, right elbow; Pain in right elbow. Condition is Stable. Prescriptions for Diclofenac Sodium 75 mg Oral Tablet Sustained Release - take 1 tablet by ORAL route 2 times per day; 30 tablet, Medrol (Hussein) 4 mg Oral Tablets, Dose Pack - take 1 tablet by ORAL route as directed - follow package instructions; 1 packet. and Forms are Medication Reconciliation Form, Thank You Letter, Antibiotic Education, Prescription Opioid Use. Follow up: Private Physician; When: Tomorrow; Reason: If symptoms return, Continuance of care. ma2
--- NOTE | 2020-07-15 03:10 | ER ---
Nurse's Notes [facility] Name: Estela Hawley Age: 75 yrs Sex: Female : 1945 Arrival Date: 07/15/2020 Time: 01:00 Bed 17 Private MD: Diagnosis: Monoarthritis, not elsewhere classified, right elbow;Pain in right elbow Presentation: 07/15 01:40 Chief complaint: Patient states: reports right elbow pain for one month, was seen at a em clinic in [place] and given ABX, pain is worse that started 1 hour ago, swelling noted to the right elbow. Coronavirus screen: Client denies travel out of the [place] in the last 14 days. Ebola Screen: Patient negative for fever greater than or equal to 101.5 degrees Fahrenheit, and additional compatible Ebola Virus Disease symptoms Patient denies exposure to infectious person. Patient denies travel to an Ebola-affected area in the 21 days before illness onset. No symptoms or risks identified at this time. Initial Sepsis Screen: Does the patient meet any 2 criteria? No. Patient's initial sepsis screen is negative. Does the patient have a suspected source of infection? No. Patient's initial sepsis screen is negative. Risk Assessment: Do you want to hurt yourself or someone else? Patient reports no desire to harm self or others. Onset of symptoms was July 15, 2020. 01:40 Method Of Arrival: Wheelchair em 01:40 Method Of Arrival: Wheelchair em 01:40 Acuity: KERRIE 4 em Historical: - Allergies: 02:06 PENICILLINS; em - Home Meds: 02:14 Losartan Potassium 50mg 1 tab daily [Active]; Plavix 75 mg Oral tab 1 tab once daily [Active]; atorvastatin 40 mg oral tab 1 tab once daily [Active]; aspirin 81 mg Oral TbEC 1 tab once daily [Active]; multivitamin oral tab daily [Active]; - PMHx: 02:06 CVA; Hyperlipidemia; Hypertension; Myocardial infarction; Vertigo; em - PSHx: 02:06 river. hip; em - Immunization history:: Adult Immunizations up to date. - Social history:: Smoking status: Patient denies any tobacco usage or history of. Patient/guardian denies using alcohol, street drugs, The patient lives with family. - Family history:: not pertinent. Screenin:14 Abuse screen: Denies threats or abuse. Denies injuries from another. Nutritional sf screening: No deficits noted. Tuberculosis screening: No symptoms or risk factors identified. Never had TB. Possible symptoms: recent fever, Risk factors: None. Fall Risk None identified. No fall in past 12 months (0 pts). No secondary diagnosis (0 pts). No IV (0 pts). Ambulatory Aid- None/Bed Rest/Nurse Assist (0 pts). Gait- Normal/Bed Rest/Wheelchair (0 pts) Mental Status- Oriented to own ability (0 pts). Total Littlejohn Fall Scale indicates No Risk (0-24 pts). Assessment: 02:10 General: Appears uncomfortable, Behavior is calm, cooperative, appropriate for age. sf Pain: Complains of pain in right arm Pain currently is 10 out of 10 on a pain scale. Neuro: No deficits noted. Level of Consciousness is awake, alert, obeys commands, Oriented to person, place, time, situation, Appropriate for age. Cardiovascular: No deficits noted. Patient's skin is warm and dry. Respiratory: No deficits noted. Airway is patent Respiratory effort is even, unlabored, Respiratory pattern is regular, symmetrical. GI: No signs and/or symptoms were reported involving the gastrointestinal system. : No signs and/or symptoms were reported regarding the genitourinary system. EENT: No signs and/or symptoms were reported regarding the EENT system. Derm: No signs and/or symptoms reported regarding the dermatologic system. Musculoskeletal: Capillary refill < 3 seconds, Range of motion: limited in right elbow Tenderness present in right elbow Reports pain in right arm Denies weakness in right arm numbness in, right arm. Vital Signs: 01:40 BP 198 / 95; Pulse 74; Resp 18; Temp 98.9(O); Pulse Ox 99% on R/A; Weight 79.83 kg; em Height 5 ft. 0 in. (152.40 cm); Pain 02/01; 02:00 BP 198 / 61; Pulse 73; Resp 18; Pulse Ox 99% ; sf 03:00 BP 148 / 62; Pulse 63; Resp 16; Pulse Ox 99% ; sf 01:40 Body Mass Index 34.37 (79.83 kg, 152.40 cm) em ED Course: 01:00 Patient arrived in ED. cl3 01:31 Sonido Angulo, RN is Primary Nurse. sf 01:31 Nickie Roman MD is Attending Physician. maLuis E 02:06 Triage completed. em 02:06 Arm band placed on. em 02:14 Patient has correct armband on for positive identification. Call light in reach. sf Patient sitting in chair per request for comfrot. Door closed. Noise minimized. Visitors limited. Lights dimmed. Verbal reassurance given. 02:16 Elbow Right 3 View XRAY Sent. sf 02:16 X-ray(s) taken. sf 02:32 Elbow Right 3 View XRAY In Process Unspecified. EDMS 03:22 No provider procedures requiring assistance completed. Patient did not have IV access sf during this emergency room visit. Sling applied to right arm. Administered Medications: 02:23 Drug: [place] 5 mg-325 mg 1 tabs Route: PO; sf 03:21 Follow up: Response: No adverse reaction; Pain is decreased sf 02:24 Drug: predniSONE 60 mg Route: PO; sf 03:21 Follow up: Response: No adverse reaction; Pain is decreased sf 02:26 Drug: TORadol 60 mg Route: IM; Site: left ventrogluteal; sf 03:22 Follow up: Response: No adverse reaction; Pain is decreased sf Outcome: 03:10 Discharge ordered by . maLuis E 03:41 Discharged to home ambulatory. sf 03:41 Condition: stable 03:41 Discharge instructions given to patient, Instructed on discharge instructions, follow up and referral plans. medication usage, Demonstrated understanding of instructions, follow-up care, medications, Prescriptions given X 2. 03:42 Patient left the ED. sf Signatures: Dispatcher [employer] Jese Perla, RN RN Nickie Roman MD MD ma2 Lewis, Charde cl3 Sonido Angulo, RN RN sf
[2020-07-15 03:46] VITALS: TEMP 98.9; O2SAT 99
[2020-07-15 03:49] VITALS: BP 148/62
--- NOTE | 2020-07-15 07:57 | RAD REPORT ---
EXAM DESCRIPTION: RAD - Elbow Right 3 View - 07/15/2020 2:32 am CLINICAL HISTORY: PAIN, patient on antibiotics for elbow abnormality. COMPARISON: No comparisons FINDINGS: No fractures identified. There is no dislocation or periosteal reaction. The lateral view is inadequate for assessment of joint effusion. There is suspicion for small joint effusion. No erosi ve or destructive bone process seen. Degenerative bony spurring changes are present involving the art icular margins of the radius and ulna. There is no dislocation or periosteal reaction noted. No forei gn body or other soft tissue abnormality. No other significant finding. IMPRESSION: Elbow joint degenerative changes are present without fracture or bone destructive proces s. Positioning was not optimal. Small joint effusion is suspected.
== END 2020-07-15 03:42 | disposition home or self-care (01) ==
LOC: ER 00:59
DX: M13.121 Monoarthritis, not elsewhere classified, right elbow (principal); I10 Essential (primary) hypertension; E78.5 Hyperlipidemia, unspecified; I25.2 Old myocardial infarction; Z79.01 Long term (current) use of anticoagulants; Z79.82 Long term (current) use of aspirin; Z88.0 Allergy status to penicillin; Z86.73 Personal history of transient ischemic attack (TIA), and cerebral infarction without residual deficits
CPT/HCPCS: 96372; 99284; J7512

== ENCOUNTER 2020-08-30 19:19 | Inpatient (IN) | payer OTHER ==
--- OUTSIDE RECORDS SUMMARY | 2020-08-30 19:24 | XMS REPORT | Continuity of Care Document ---
:1945 Author Organization [facility] t Address [address]. [address] [place] [address] Care Team Providers Name Role Phone Tricia [...] 00:00: Medical involving involving 00 [facility] [place] coronary artery of artery of [place] heart heart without without angina angina pectoris [...] felt like Medica l reaction 00 choking" [place] s penicill Adverse Active throat [facility] sw[facility] PCN Adverse Active anaphylaxis [facility] Reaction [facility] Social History Social Habit Start Date Stop Date Quantity Comments Source Sex Assigned At [facility] Danay banerjee [facility] History [facility] Std Dr[facility] History [facility] - Alcohol Binge Medical Hanna ter Tobacco use and 2019-01-11 2019-01-[address] Jon kes - exposure 00:00:00 00:00:00 [facility] Alcohol intake 2019-01-11 2019-01-11 [facility]:00 non-drinker of Medical nter alcohol (finding) History [facility] 2019-01-07 2019-01-[address] [facility] - Alcohol Frequency 00:00:00 00:00:00 [facility] Smoking Status Start Date Stop Date Source Former smoker 2019-01-11 00:00:00 2019-01-11 00:00:00 [facility] Medications Ordered Filled Start Stop Current Ordering Indication Dosage Frequency Signature Comments Components Source Medication Medication Date Date Medication? Clinician (SIG) Name Name Gabapentin Gabapentin Yes Tiffanie [address] 1-08 [place] as needed [facility] - 00:00: for pain Memoria 00 [facility] ent [facility] aspirin 81 Yes 81mg QD Take [address] MG EC 9-21 by mouth [facility] - tablet 15:45: daily. Medical 30 [place] losartan Yes 50mg QD Take [address] (COZAAR) 50 8-13 by mouth Luke s - MG tablet 00:00: daily. Medica l 00 [place] clopidogrel Yes 75mg QD Take [address] (PLAVIX) 75 8-13 by mouth Luke s - mg tablet 00:00: daily. Medica l 00 [place] atorvastati Yes 40mg Take [address] n (LIPITOR) 8-13 by mouth . Danay kes - 80 MG 00:00: Medical tablet 00 [place] Alesumanth Alesumanth Yes Tiffanie [address] [facility] Millender with food [facility]ukes - or milk as Memoria needed l [facility] ent Clinics aspirin aspirin Yes Tiffanie not [facility] Millender defined [facility] Losartan Losartan Yes Tiffanie TAKE [address] [facility] Potassium Potassium [place] TABLET BY [facility]TH [facility] EVERY DAY l [facility] Clopidogrel Clopidogrel Yes Tiffanie TAKE [address] [facility] Bisulfate Bisulfate [place] TABLET BY [facility] EVERY DAY l [facility] Atorvastati Atorvastati Yes Tiffanie TAKE [address] [facility] n Calcium n Calcium [place] TABLET BY [facility] AT [facility]oria BEDTIME l [facility] Procedures This patient has no known procedures. Plan of Care Planned Activity Planned Date Details Comments Source Future Scheduled 2020-04-[address] [facility] - Test 00:00:00 (12+) [code = Medical Center DEPRESSION SCREENING (12+)] Future Scheduled 2019-12-25 INFLUENZA VACCINE (#1) [facility] 00:00:00 [code = INFLUENZA Medical Ce nter VACCINE (#1)] Future Scheduled 2008-02-06 PNEUMOCOCCAL 65+ YRS [facility] - Test 00:00:00 (1 of 1 - Medical Center [id number] PCV13) [code = PNEUMOCOCCAL 65+ YRS (1 of 1 - [id number] PCV13)] Future Scheduled 2003-01-[address] [facility] - Test 00:00:00 WELLNESS (YEAR 2 or Medical Center FIRST YEAR if no IPPE) [code = MEDICARE ANNUAL WELLNESS (YEAR 2 or FIRST YEAR if no IPPE)] Future Scheduled 1993 SHINGLES VACCINES ([address] [facility] - Test 00:00:00 of 2) [code = SHINGLES Medic al Center VACCINES (1 of 2)] Future Scheduled 1962 DTAP/TDAP/TD VACCINES [facility] - Test 00:00:00 (1 - Tdap) [code = Medical C enter DTAP/TDAP/TD VACCINES (1 - Tdap)] Future Scheduled 1961 HEPATITIS C SCREENING [facility] Test 00:00:00 [code = HEPATITIS C Medical Center SCREENING] Encounters Start End Encounter Admission Attending Care Care Encounter Source Date/Time Date/Time Type Type Clinicians Facility Department ID 2020-08-14 2020-08-14 Out[id number] 2020-08-14 2020-08-14 Outpatient [facility] [id number] [facility] 2020-07-11 2020-07-11 [facility] [id number] [facility] 2019-11-12 2019-11-12 [facility] [id number] 14:52:00 14:52:00 [facility] Medicine Outpati ent Clinics 2019-05-03 2019-05-03 [facility] [id number] 00:27:00 00:27:00 [facility] Medicine Outpati ent Clinics 2019-05-02 2019-05-02 [facility] [id number] 11:15:00 11:15:00 [facility] Medicine Outpati ent Clinics 2019-02-26 2019-02-26 Office Salcedo, [facility] [id number] 14:01:39 14:45:11 Visit Izaiah AMBULATOR [id number] Y [id number] 2019-01-25 2019-01-25 [facility] [id number] 11:40:00 11:40:00 [facility] Medicine Outpati ent Clinics 2019-01-22 2019-01-22 Office [facility] [id number] 12:53:51 13:42:28 Visit Izaiah AMBULATOR [id number] Y [id number] 2018-10-24 2018-10-24 [facility] [id number] 13:20:00 13:20:00 [facility] Outpati ent Clinics 2018-05-18 2018-05-18 Outpatient [place] [id number] 13:40:00 13:40:00 [facility] 2018-05-18 2018-05-18 Outpatient [place] Kwok [id number] 11:45:00 11:45:00 [facility] Results Test Description Test Time Test Comments Results Result [facility] e Comments TISSUE EXAM 2019-01-20 Surgical Pathology 11:29:00 Report Case: [id number] Authorizing Provider: Izaiah Salcedo Collected: 01/10/2019 1428 Leland Corbett MD Ordering Location: [facility] OR Received: 01/11/2019 08 Perioperative Services Pathologist: Kris Guaman MD Specimen: Femoral Head,Left Hip BONE, LEFT FEMORAL HEAD FOR PRIOR FRACTURE, ARTHROPLASTY:OSTEOARTHRI TIC CHANGES IN BONE AND CARTILAGE.REGENERATIVE FEATURES COMPATIBLE WITH REPORTED HISTORY OF FRACTURE.REACTIVE SYNOVIAL TISSUE. Signing Pathologist Direct Phone Line: [phone] ly signed by Kris Guaman MD on 01/20/2019 at 11:29 [id number], [id number]: Arthroplasty, hip, left total hip arthroplastyPre and [...] cm, and up to 0.2 cm thick. Record Tester sections are submitted: A1, margin, following decalcification; A2, eburnation, following decalcification; A3, osteophyte and osteocartilaginous slippage, following decalcification; A4, soft tissue. SS/plPerformed.[facility], Department of Pathology, [address] [place] [address], [facility], [address] [place] [address], [facility], [facility] of [facility], [address] [place] [address], PHOSPHORUS 2019-01-13 06:20:00 Test Item Value Reference Range Interpretation Comme nts PHOSPHORUS (BEAKER) (test code = 604) 3.3 mg/dL 2.3-4.7 [id number] 06:20:00 Test Item Value Reference Range Interpretation Comments MAGNESIUM (BEAKER) (test code = 1.9 mg/dL 1.6-2.6 627) BASIC METABOLIC [id number] 06:20:00 Test Item Value Reference Range Interpretation [...] PATIEN TS. CBC W/PLT COUNT & AUTO [id number] 05:39:00 Test Item Value Reference Range Interpretation [...] (BEAKER) (test code = 2801) HEMOGLOBIN AND [id number] 14:51:00 Test Item Value Reference Range Interpretation Comments HEMOGLOBIN (BEAKER) (test code = 7.7 GM/DL 11.2-15.7 L 410) HEMATOCRIT (BEAKER) (test code = 22.8 % 34.1-44.9 L 411) [id number] 06:16:00 Test Item Value Reference Range Interpretation Comments PHOSPHORUS (BEAKER) (test code = 2.7 mg/dL 2.3-4.7 604) BASIC METABOLIC [id number] 06:16:00 Test Item Value Reference Range Interpretation [...] S NOT APPLICABLE FOR DIALYSIS PATIEN TS. [id number] 06:16:00 Test Item Value Reference Range Interpretation Comments MAGNESIUM (BEAKER) (test code = 1.7 mg/dL 1.6-2.6 627) CBC W/PLT COUNT & AUTO [id number] 06:07:00 Test Item Value Reference Range Interpretation [...] = 2801) RAD, PELVIS, 1 OR 2 [id number] 08:49:00Reason for exam:->postopShould this be performed at [...] due to technique.Consider repeat. Signed: Nadine Villafuerte Verified Date/Time: 01/11/2019 08:49:25 Reading Location: [facility] Reading Room [address] [place] [address] RAD, PELVIS, 1 OR 2 [id number] 08:45:00Reason for exam:->LEFT TOTAL HIP ARTHROPLASTYFINAL REPORT [...] Villafuerte Verified Date/Time: 01/11/2019 08:45:39 Reading Location: [facility] Reading Room [address] [place], [place] [address]Elec tronically signed by: NADINE CHAMPAGNE M.D. on 01/11/2019 08:45 AM BASIC METABOLIC [id number] 06:26:00 Test Item Value Reference Range Interpretation [...] S NOT APPLICABLE FOR DIALYSIS PATIEN TS. [id number] 06:25:00 Test Item Value Reference Range Interpretation Comments PHOSPHORUS (BEAKER) (test code = 3.3 mg/dL 2.3-4.7 604) [id number] 06:25:00 Test Item Value Reference Range Interpretation Comments MAGNESIUM (BEAKER) 1.6 mg/dL 1.6-2.6 Specimen slightly (test code = 627) hemolyzed CBC W/PLT COUNT & AUTO [id number] 06:16:00 Test Item Value Reference Range Interpretation [...] (BEAKER) (test code = 2801) BASIC METABOLIC [id number] 05:45:00 Test Item Value Reference Range Interpretation [...] S NOT APPLICABLE FOR DIALYSIS PATIEN TS. [id number] 05:45:00 Test Item Value Reference Range Interpretation Comments MAGNESIUM (BEAKER) (test code = 1.7 mg/dL 1.6-2.6 627) [id number] 05:45:00 Test Item Value Reference Range Interpretation Comments PHOSPHORUS (BEAKER) (test code = 3.4 mg/dL 2.3-4.7 604) CBC W/PLT COUNT & AUTO [id number] 05:29:00 Test Item Value Reference Range Interpretation [...] 0-1 PERCENT (BEAKER) (test code = 2801) [id number] 07:03:00 Test Item Value Reference Range Interpretation Comments PHOSPHORUS (BEAKER) (test code = 3.7 mg/dL 2.3-4.7 604) [id number] 07:03:00 Test Item Value Reference Range Interpretation Comments MAGNESIUM (BEAKER) (test code = 1.8 mg/dL 1.6-2.6 627) BASIC METABOLIC [id number] 07:03:00 Test Item Value Reference Range Interpretation [...] PATIEN TS. CBC W/PLT COUNT & AUTO [id number] 06:51:00 Test Item Value Reference Range Interpretation [...] (test code = 2801) CT, PELVIS, WO [id number] 14:06:00FINAL REPORT CT OF THE PELVIS HISTORY: [...] MDReport Verified Date/Time: 01/08/2019 14:06:17 Reading Location: [facility] Radiology Reading Room TROPONIN I 2019-01-08 [...] acidosis, acute neurological disease, and persistent tachyarrhythmia.TROPONIN [id number] 05:40:00 Test Item Value Reference Range Interpretation [...] and persistent tachyarrhythmia.RAD, CHEST, 1 VIEW, NON [id number] 00:37:00Reason for exam:->preopShould this be performed at the bedside?->YesFINAL REPORT Chest, 1 view. History: Preoperative evaluation. Left hip fixation. Comparison: None available. IMPRESSION: Low lung volumes. Prominent pulmonary vasculature likelyrelated to hypoventilatory technique. No pleural effusion or pneumothorax. No lobar consolidation. Cardiac mediastinal silhouette is exaggerated by technique. Osseous structures are grossly unremarkable. Signed: Griselda Solis MDRadiaort Verified Date/Time: 01/08/2019 00:37:57 RAD, PELVIS, 1 [...] and lumbar spine. Osteopenia. Signed: Griselda Solis MDReport Verified Date/Time: 01/08/2019 00:30:32 RAD, HIP, 2 VIEWS, [id number] 00:30:00Reason for exam:->L hip intertrochanteric fracture, want [...] and lumbar spine. Osteopenia. Signed: Griselda Solis MDReport Verified Date/Time: 01/08/2019 00:30:32 TROPONIN [id number] 00:09:00 Test Item Value Reference Range Interpretation [...] acute neurological disease, and persistent tachyarrhythmia.BASIC METABOLIC [id number] 00:02:00 Test Item Value Reference Range Interpretation [...] PATIEN TS. CBC W/PLT COUNT & AUTO [id number] 23:08:00 Test Item Value Reference Range Interpretation [...]
--- NOTE | 2020-08-30 20:00 | RAD REPORT ---
EXAM DESCRIPTION: CT - Ct Stroke Brain Wo Cont - 08/30/2020 7:50 pm CLINICAL HISTORY: WEAKNESS Headache, drowsiness, CVA symptomology COMPARISON: Head Brain Wo Cont dated 11/11/2019; Ct Stroke Brain Wo Cont dated 10/05/2018 TECHNIQUE: All CT scans are performed using dose optimization technique as appropriate and may inclu de automated exposure control or mA/KV adjustment according to patient size. FINDINGS: No intracranial hemorrhage, hydrocephalus or extra-axial fluid collection.No areas of brai n edema or evidence of midline shift. The paranasal sinuses and mastoids are clear. The calvarium is intact. IMPRESSION: No acute intracranial abnormality. The findings were discussed with Dr Stratton in the ER on 08/30/2020 at 7:55 p.m. by telephone.
--- NOTE | 2020-08-30 20:24 | RAD REPORT ---
EXAM DESCRIPTION: RAD - Chest Single View - 08/30/2020 8:18 pm CLINICAL HISTORY: weakness Chest pain. COMPARISON: Chest Single View dated 11/11/2019; Chest Single View dated 01/07/2019; Chest Single View dated 10/05/2018; CHEST SINGLE VIEW dated 11/15/2014 FINDINGS: Portable technique limits examination quality. The lungs are grossly clear. The heart is upper limit normal in size No displaced fractures. IMPRESSION: No acute intrathoracic process suspected.
[2020-08-30] MEDS ORDERED: ASPIRIN 81 MG CHEWABLE TABLET ONE (20:43)
[2020-08-30 20:48] LABS: Absolute Lymphocytes (CBC) 1.3 K/uL (0.7-4.9); Basophils % 1.2 % (0-1.3); Hematocrit 32.8 % (36.0-45.0); Lymphocytes % 19.6 % (15.3-44.8); MPV 9.3 fL (7.6-11.3); RBC Red Blood Cell Count 3.53 M/uL (3.86-4.86)
[2020-08-30 21:04] LABS: Protime INR 0.92
[2020-08-30 21:13] LABS: Potassium 4.3 mmol/L (3.5-5.1)
--- NOTE | 2020-08-30 21:51 | EDPHYS ---
Physician Documentation [facility] Name: Estela Hawley Age: 75 yrs Sex: Female : 1945 Arrival Date: 08/30/2020 Time: 19:22 Bed 15 Private MD: ED Physician Cholo Stratton HPI: 08/30 20:46 This 75 yrs old Female presents to ER via Wheelchair with complaints of S/S tw4 of Possible Stroke. 20:46 The patient's problem is reported as dysphasia, expressive aphasia, weakness, in the tw4 right upper extremity, in the right lower extremity, in the right side of face. Onset: The symptoms/episode began/occurred just prior to arrival, 1 hour(s) ago. Duration: This was a single incident. Context: symptoms became apparent on August 30, 2020, at 18:30. occurred at home, occurred while the patient was standing. The symptoms are alleviated by nothing. The symptoms are aggravated by nothing. Associated signs and symptoms: The patient has no apparent associated signs or symptoms. Severity of symptoms: At their worst the symptoms were moderate in the emergency department the symptoms have resolved. Patient's baseline: Neuro: alert and fully oriented, Motor: no deficits, Ambulation: walks without assistance, Speech: normal. The patient has not experienced similar symptoms in the past. Historical: - Allergies: 20:04 PENICILLINS; lp1 - Home Meds: 20:04 aspirin 81 mg Oral TbEC 1 tab once daily [Active]; atorvastatin 40 mg Oral tab 1 tab lp1 once daily [Active]; Plavix 75 mg Oral tab 1 tab once daily [Active]; Losartan Potassium 50mg 1 tab daily [Active]; - PMHx: 20:04 CVA; Hyperlipidemia; Hypertension; Myocardial infarction; Vertigo; lp1 - PSHx: 20:04 SARITHA Hip Replacement; Heart stents; lp1 - Immunization history:: Adult Immunizations up to date. - Social history:: Smoking status: Patient/guardian denies using tobacco, the patient reports quitting approximately 2 years ago. ROS: 20:46 Constitutional: Negative for fever, chills, and weight loss, Eyes: Negative for injury, tw4 pain, redness, and discharge, Cardiovascular: Negative for chest pain, palpitations, and edema, Respiratory: Negative for shortness of breath, cough, wheezing, and pleuritic chest pain, Abdomen/GI: Negative for abdominal pain, nausea, vomiting, diarrhea, and constipation, Back: Negative for injury and pain, MS/Extremity: Negative for injury and deformity, Skin: Negative for injury, rash, and discoloration. 20:46 Neuro: Positive for speech changes, weakness, Negative for altered mental status, dizziness, gait disturbance, headache, numbness, syncope, near syncope, tingling. Exam: 20:46 Radiologist reports: NO ACUTE FINDINGS tw4 20:46 Constitutional: This is a well developed, well nourished patient who is awake, alert, and in no acute distress. Head/Face: Normocephalic, atraumatic. Neck: Trachea midline, no thyromegaly or masses palpated, and no cervical lymphadenopathy. Supple, full range of motion without nuchal rigidity, or vertebral point tenderness. No Meningismus. Chest/axilla: Normal chest wall appearance and motion. Nontender with no deformity. No lesions are appreciated. Cardiovascular: Regular rate and rhythm with a normal S1 and S2. No gallops, murmurs, or rubs. Normal PMI, no JVD. No pulse deficits. Respiratory: Lungs have equal breath sounds bilaterally, clear to auscultation and percussion. No rales, rhonchi or wheezes noted. No increased work of breathing, no retractions or nasal flaring. Abdomen/GI: Soft, non-tender, with normal bowel sounds. No distension or tympany. No guarding or rebound. No evidence of tenderness throughout. Back: No spinal tenderness. No costovertebral tenderness. Full range of motion. Skin: Warm, dry with normal turgor. Normal color with no rashes, no lesions, and no evidence of cellulitis. MS/ Extremity: Pulses equal, no cyanosis. Neurovascular intact. Full, normal range of motion. Neuro: Awake and alert, GCS 15, oriented to person, place, time, and situation. Cranial nerves II-XII grossly intact. Motor strength 5/5 in all extremities. Sensory grossly intact. Cerebellar exam normal. Normal gait. Vital Signs: 19:30 BP 165 / 55; Pulse 69; Resp 18; Pulse Ox 99% on R/A; Weight 74.84 kg (R); Pain 0/10; lp1 21:30 BP 169 / 75; Pulse 58; Resp 14; Pulse Ox 100% on R/A; vg1 22:30 BP 143 / 84; Pulse 76; Resp 17; Pulse Ox 99% on R/A; lp1 23:30 BP 160 / 66; Pulse 58; Resp 19; Pulse Ox 99% on R/A; lp1 08/31 00:29 BP 162 / 69; Pulse 58; Resp 20; Temp 98(O); Pulse Ox 99% on R/A; lp1 NIH Stroke Scale Scores: 08/30 19:30 NIHSS Score: 0 lp1 19:35 NIHSS Score: 0 lp1 20:46 NIHSS Score: 0 tw4 [place] Coma Score: 20:46 Eye Response: spontaneous(4). Verbal Response: oriented(5). Motor Response: obeys tw4 commands(6). Total: 15. MDM: 20:01 Patient medically screened. tw4 20:52 Differential diagnosis: CVA, TIA, paralysis. Data reviewed: vital signs, nurses notes. tw4 Data reviewed: radiologic studies, CT scan. Data interpreted: Pulse oximetry: Interpretation:. Test interpretation: by ED physician or midlevel provider: ECG, plain radiologic studies. Other consultation: D/W Dr Hall at [facility] [place]. Pt does not meet criteria for TPA NIH scale 0. 08/30 19:40 Order name: Basic Metabolic Panel; Complete Time: 21:45 lp1 08/30 21:45 Interpretation: Normal except: CL 109; GLUC 127; BUN 37; GFR 44. tw4 08/30 19:40 Order name: CBC with Diff; Complete Time: 21:45 lp1 08/30 21:45 Interpretation: Normal except: RBC 3.53; HGB 11.1; HCT 32.8. tw4 08/30 19:40 Order name: Protime (+inr); Complete Time: 21:45 lp1 08/30 21:45 Interpretation: Normal except: PT 10.6. tw4 08/30 19:40 Order name: Ptt, Activated; Complete Time: 21:45 lp1 08/30 21:45 Interpretation: Within normal limits: PTT 30.1. tw4 08/30 20:55 Order name: Glucose, Ancillary Testing; Complete Time: 21:45 EDMS 08/30 21:13 Order name: CREATININE WHOLE BLOOD; Complete Time: 21:45 EDMS 08/30 19:40 Order name: CT Stroke Brain w/o Contrast; Complete Time: 21:45 lp1 08/30 21:45 Interpretation: No acute disease. tw4 08/30 19:40 Order name: Stroke CXR 1 View; Complete Time: 21:45 lp1 08/30 19:40 Order name: EKG; Complete Time: 19:42 lp1 08/30 20:08 Order name: CT Neck Angio tw4 08/30 20:08 Order name: CT Head Angio tw4 08/31 00:15 Order name: SARS-COV-2 RT PCR; Complete Time: 00:34 EDMS 08/31 00:34 Interpretation: Within normal limits. tw4 08/30 19:40 Order name: Accucheck; Complete Time: 20:43 lp1 08/30 19:40 Order name: Cardiac monitoring; Complete Time: 20:25 lp1 08/30 19:40 Order name: EKG - Nurse/Tech; Complete Time: 20:25 lp1 08/30 19:40 Order name: IV Saline Lock; Complete Time: 20:43 lp1 08/30 19:40 Order name: Labs collected and sent; Complete Time: 20:43 lp1 08/30 19:40 Order name: NPO; Complete Time: 20:25 lp1 08/30 19:40 Order name: O2 Per Protocol; Complete Time: 20:25 lp1 08/30 19:40 Order name: O2 Sat Monitoring; Complete Time: 20:25 lp1 08/30 19:40 Order name: Stroke Swallow Screen; Complete Time: 23:33 lp1 08/30 23:02 Order name: CONS Physician Consult EDMS EC:46 Rate is 61 beats/min. Rhythm is regular. QRS Mason is Normal. TX interval is normal. QRS tw4 interval is normal. QT interval is normal. No Q waves. T waves are Inverted in leads III, aVF, V2, V3, V4, V5. Clinical impression: Abnormal EKG without significant change. Interpreted by me. Reviewed by me. Administered Medications: 20:38 Drug: Aspirin Chewable Tablet 324 mg Route: PO; vg1 22:00 Follow up: Response: No adverse reaction vg1 Disposition: 08/30/20 21:51 Hospitalization ordered by Rico Perera for Inpatient Admission. Preliminary diagnosis are Cerebrovascular disease, unspecified, Dysphasia following other cerebrovascular disease, Weakness, Transient ischemic attack. - Bed requested for Telemetry/MedSurg (Inpatient). - Status is Inpatient Admission. lp1 - Condition is Stable. - Problem is new. - Symptoms are resolved. NIH Stroke Scale - NIH Stroke Score Date: 08/30/2020 Time: 19:30 Total Score = 0 1a. Level of Consciousness (LOC) - 0(Alert) 1b. Level of Consciousness (LOC) (Year \T\ Age) - 0(Both) 1c. LOC Commands (Open \T\ Closes Eyes/Entertainment Director) - 0(Both) 2. Best Gaze (Lateral Gaze Paresis) - 0(Normal) 3. Visual Field Loss - 0(No visual loss) 4. Facial Palsy - 0(Normal) 5a. Left Arm: Motor (10-second hold) - 0(No drift) 5b. Right Arm: Motor (10-second hold) - 0(No drift) 6a. Left Leg: Motor (5-second hold - always test supine) - 0(No drift) 6b. Right Leg: Motor (5-second hold - always test supine) - 0(No drift) 7. Limb Ataxia (finger/nose \T\ heel/asencio - test with eyes open) - 0(Absent) 8. Sensory Loss (pinprick arms/legs/face) - 0(Normal) 9. Best Language: Aphasia (description/naming/reading) - 0(No aphasia) 10. Dysarthria (speech clarity - read or repeat words) - 0(Normal) 11. Extinction and Inattention (visual/tactile/auditory/spatial/personal) - 0(No abnormality) Initials: lp1 NIH Stroke Scale - NIH Stroke Score Date: 08/30/2020 Time: 19:35 Total Score = 0 1a. Level of Consciousness (LOC) - 0(Alert) 1b. Level of Consciousness (LOC) (Year \T\ Age) - 0(Both) 1c. LOC Commands (Open \T\ Closes Eyes/Entertainment Director) - 0(Both) 2. Best Gaze (Lateral Gaze Paresis) - 0(Normal) 3. Visual Field Loss - 0(No visual loss) 4. Facial Palsy - 0(Normal) 5a. Left Arm: Motor (10-second hold) - 0(No drift) 5b. Right Arm: Motor (10-second hold) - 0(No drift) 6a. Left Leg: Motor (5-second hold - always test supine) - 0(No drift) 6b. Right Leg: Motor (5-second hold - always test supine) - 0(No drift) 7. Limb Ataxia (finger/nose \T\ heel/asencio - test with eyes open) - 0(Absent) 8. Sensory Loss (pinprick arms/legs/face) - 0(Normal) 9. Best Language: Aphasia (description/naming/reading) - 0(No aphasia) 10. Dysarthria (speech clarity - read or repeat words) - 0(Normal) 11. Extinction and Inattention (visual/tactile/auditory/spatial/personal) - 0(No abnormality) Initials: lp1 NIH Stroke Scale - NIH Stroke Score Date: 08/30/2020 Time: 20:46 Total Score = 0 1a. Level of Consciousness (LOC) - 0(Alert) 1b. Level of Consciousness (LOC) (Year \T\ Age) - 0(Both) 1c. LOC Commands (Open \T\ Closes Eyes/Entertainment Director) - 0(Both) 2. Best Gaze (Lateral Gaze Paresis) - 0(Normal) 3. Visual Field Loss - 0(No visual loss) 4. Facial Palsy - 0(Normal) 5a. Left Arm: Motor (10-second hold) - 0(No drift) 5b. Right Arm: Motor (10-second hold) - 0(No drift) 6a. Left Leg: Motor (5-second hold - always test supine) - 0(No drift) 6b. Right Leg: Motor (5-second hold - always test supine) - 0(No drift) 7. Limb Ataxia (finger/nose \T\ heel/asencio - test with eyes open) - 0(Absent) 8. Sensory Loss (pinprick arms/legs/face) - 0(Normal) 9. Best Language: Aphasia (description/naming/reading) - 0(No aphasia) 10. Dysarthria (speech clarity - read or repeat words) - 0(Normal) 11. Extinction and Inattention (visual/tactile/auditory/spatial/personal) - 0(No abnormality) Initials: tw4 Signatures: Dispatcher [employer] EDMS Gricel Katz RN RN Zoie Solan RN RN lp1 Chool Stratton MD MD tw4 Jim, Estrella, RN RN vg1 Corrections: (The following items were deleted from the chart) 23:32 22:40 CORONAVIRUS+MR.LAB.BRZ ordered. EDNE EDMS 08/31 00:19 08/30 21:51 Hospitalization Ordered by Rico Perera for Inpatient Admission. mw Preliminary diagnosis is Cerebrovascular disease, unspecified; Dysphasia following other cerebrovascular disease; Weakness; Transient ischemic attack. Bed requested for Telemetry/MedSurg (Inpatient). Status is Inpatient Admission. Condition is Stable. Problem is new. Symptoms are resolved. tw4 08/31 00:47 00:19 08/30/2020 21:51 Hospitalization Ordered by Rico Perera for Inpatient lp1 Admission. Preliminary diagnosis is Cerebrovascular disease, unspecified; Dysphasia following other cerebrovascular disease; Weakness; Transient ischemic attack. Bed requested for Telemetry/MedSurg (Inpatient). Status is Inpatient Admission. Condition is Stable. Problem is new. Symptoms are resolved. tenisha
--- NOTE | 2020-08-30 21:51 | ER ---
Nurse's Notes [facility] Name: Estela Hawley Age: 75 yrs Sex: Female : 1945 Arrival Date: 08/30/2020 Time: 19:22 Bed 15 Private MD: Diagnosis: Cerebrovascular disease, unspecified;Dysphasia following other cerebrovascular disease;Weakness;Transient ischemic attack Presentation: 08/30 19:30 Chief complaint: Patient's son or daughter states: Son reports patient was cleaning lp1 bathroom when she felt like she could not speak, and right leg felt weak, EMS called; symptoms resolved within 20 minutes of EMS present; Symptoms resolved during triage, speaking appropriately. 19:30 Coronavirus screen: Client denies travel out of the [place] in the last 14 days. At this lp1 time, the client does not indicate any symptoms associated with coronavirus-19. Ebola Screen: No symptoms or risks identified at this time. No acute neurological deficit is noted. Initial Sepsis Screen: Does the patient meet any 2 criteria? No. Patient's initial sepsis screen is negative. Does the patient have a suspected source of infection? No. Patient's initial sepsis screen is negative. Risk Assessment: Do you want to hurt yourself or someone else? Patient reports no desire to harm self or others. Onset of symptoms was August 30, 2020 at 18:45. 19:30 Method Of Arrival: Wheelchair lp1 19:39 Acuity: KERRIE 2 lp1 Triage Assessment: 22:00 The onset of the patients symptoms was August 30, 2020 at 18:45. lp1 Historical: - Allergies: 20:04 PENICILLINS; lp1 - Home Meds: 20:04 aspirin 81 mg Oral TbEC 1 tab once daily [Active]; atorvastatin 40 mg Oral tab 1 tab lp1 once daily [Active]; Plavix 75 mg Oral tab 1 tab once daily [Active]; Losartan Potassium 50mg 1 tab daily [Active]; - PMHx: 20:04 CVA; Hyperlipidemia; Hypertension; Myocardial infarction; Vertigo; lp1 - PSHx: 20:04 SARITHA Hip Replacement; Heart stents; lp1 - Immunization history:: Adult Immunizations up to date. - Social history:: Smoking status: Patient/guardian denies using tobacco, the patient reports quitting approximately 2 years ago. Screenin:15 Abuse screen: Denies threats or abuse. Nutritional screening: No deficits noted. vg1 Tuberculosis screening: No symptoms or risk factors identified. Fall Risk No fall in past 12 months (0 pts). No secondary diagnosis (0 pts). IV access (20 points). Ambulatory Aid- None/Bed Rest/Nurse Assist (0 pts). Gait- Normal/Bed Rest/Wheelchair (0 pts) Mental Status- Oriented to own ability (0 pts). Total [place] Fall Scale indicates No Risk (0-24 pts). Assessment: 20:00 Patient has been NPO before screening. The patient is alert, and able to follow lp1 commands. The patient does not exhibit slurred or garbled speech. The patient is not exhibiting difficulty speaking. The patient does not exhibit difficulty understanding words. The patient is able to swallow own secretions with no drooling or need for suction. Patient tolerated one teaspoon of water. No drooling, immediate coughing, gurgling, or clearing of the throat was noted. The patient tolerated 90mL of water. No drooling, immediate coughing, gurgling, or clearing of the throat was noted. The patient passed the bedside swallow screening. Oral medications may be given as ordered. Contact Physician for further diet orders. Provider notified of bedside swallow screening results: Cholo Stratton MD. 20:00 VAN Scoring: Arm Drift: Patients demonstrates NO arm weakness. Patient is VAN Negative. lp1 20:05 Reassessment: Received VO from Dr Stratton to administer 324 mg of Aspirin PO x1. lp1 20:10 General: Appears in no apparent distress. comfortable, Behavior is calm, cooperative. vg1 Pain: Denies pain. Neuro: Level of Consciousness is awake, alert, obeys commands, Oriented to person, place, time, situation, Suppository Molding Machine Operator are equal bilaterally Full function Speech is normal, Facial symmetry appears normal. Cardiovascular: Patient's skin is warm and dry. Respiratory: Airway is patent Respiratory effort is even, unlabored. GI: No signs and/or symptoms were reported involving the gastrointestinal system. : No signs and/or symptoms were reported regarding the genitourinary system. EENT: No signs and/or symptoms were reported regarding the EENT system. Derm: Skin is intact, is healthy with good turgor. Musculoskeletal: Circulation, motion, and sensation intact. 21:57 Reassessment: Patient appears in no apparent distress at this time. Patient and/or vg1 family updated on plan of care and expected duration. Pain level reassessed. Patient is alert, oriented x 3, equal unlabored respirations, skin warm/dry/pink. Patient denies pain at this time. Vital Signs: 19:30 BP 165 / 55; Pulse 69; Resp 18; Pulse Ox 99% on R/A; Weight 74.84 kg (R); Pain 0/10; lp1 21:30 BP 169 / 75; Pulse 58; Resp 14; Pulse Ox 100% on R/A; vg1 22:30 BP 143 / 84; Pulse 76; Resp 17; Pulse Ox 99% on R/A; lp1 23:30 BP 160 / 66; Pulse 58; Resp 19; Pulse Ox 99% on R/A; lp1 05/ 00:29 BP 162 / 69; Pulse 58; Resp 20; Temp 98(O); Pulse Ox 99% on R/A; lp1 [place] Coma Score: 08/30 20:46 Eye Response: spontaneous(4). Verbal Response: oriented(5). Motor Response: obeys tw4 commands(6). Total: 15. NIH Stroke Scale Scores: 19:30 NIHSS Score: 0 lp1 19:35 NIHSS Score: 0 lp1 20:46 NIHSS Score: 0 tw4 ED Course: 19:22 Patient arrived in ED. cf2 19:39 Triage completed. lp1 19:39 Arm band placed on. lp1 19:50 CT Stroke Brain w/o Contrast In Process Unspecified. EDMS 19:54 Cholo Stratton MD is Attending Physician. tw4 20:06 Estrella Fernandez, RN is Primary Nurse. vg1 20:15 Patient has correct armband on for positive identification. Placed in gown. Bed in low vg1 position. Call light in reach. Side rails up X2. Adult w/ patient. 20:15 EKG done, by ED staff, reviewed by Cholo Stratton MD. vg1 20:18 Stroke CXR 1 View In Process Unspecified. EDMS 20:38 Initial lab(s) drawn, by or, sent to lab. Inserted saline lock: 20 gauge in right vg1 antecubital area, using aseptic technique. Blood collected. 21:48 Rico Perera is Hospitalizing Provider. tw4 22:14 Primary Nurse role handed off by Estrella Fernandez, LAZARUS mw2 22:20 CT Neck Angio In Process Unspecified. EDMS 22:20 CT Head Angio In Process Unspecified. EDMS 23:33 Zoie Sloan, LAZARUS is Primary Nurse. lp1 08/31 00:26 No provider procedures requiring assistance completed. Patient admitted, IV remains in lp1 place. Administered Medications: 08/30 20:38 Drug: Aspirin Chewable Tablet 324 mg Route: PO; vg1 22:00 Follow up: Response: No adverse reaction vg1 Outcome: 21:51 Decision to Hospitalize by Provider. tw4 08/31 00:30 Condition: stable lp1 Instructed on the need for admit. 00:47 Patient left the ED. lp1 00:48 Admitted to Med/surg accompanied by tech, via wheelchair, room 214, with chart, Report lp1 called to Helen Harden RN NIH Stroke Scale - NIH Stroke Score Date: 08/30/2020 Time: 19:30 Total Score = 0 1a. Level of Consciousness (LOC) - 0(Alert) 1b. Level of Consciousness (LOC) (Year \T\ Age) - 0(Both) 1c. LOC Commands (Open \T\ Closes Eyes/Optometrist President/Practice Owner) - 0(Both) 2. Best Gaze (Lateral Gaze Paresis) - 0(Normal) 3. Visual Field Loss - 0(No visual loss) 4. Facial Palsy - 0(Normal) 5a. Left Arm: Motor (10-second hold) - 0(No drift) 5b. Right Arm: Motor (10-second hold) - 0(No drift) 6a. Left Leg: Motor (5-second hold - always test supine) - 0(No drift) 6b. Right Leg: Motor (5-second hold - always test supine) - 0(No drift) 7. Limb Ataxia (finger/nose \T\ heel/asencio - test with eyes open) - 0(Absent) 8. Sensory Loss (pinprick arms/legs/face) - 0(Normal) 9. Best Language: Aphasia (description/naming/reading) - 0(No aphasia) 10. Dysarthria (speech clarity - read or repeat words) - 0(Normal) 11. Extinction and Inattention (visual/tactile/auditory/spatial/personal) - 0(No abnormality) Initials: lp1 NIH Stroke Scale - NIH Stroke Score Date: 08/30/2020 Time: 19:35 Total Score = 0 1a. Level of Consciousness (LOC) - 0(Alert) 1b. Level of Consciousness (LOC) (Year \T\ Age) - 0(Both) 1c. LOC Commands (Open \T\ Closes Eyes/Optometrist President/Practice Owner) - 0(Both) 2. Best Gaze (Lateral Gaze Paresis) - 0(Normal) 3. Visual Field Loss - 0(No visual loss) 4. Facial Palsy - 0(Normal) 5a. Left Arm: Motor (10-second hold) - 0(No drift) 5b. Right Arm: Motor (10-second hold) - 0(No drift) 6a. Left Leg: Motor (5-second hold - always test supine) - 0(No drift) 6b. Right Leg: Motor (5-second hold - always test supine) - 0(No drift) 7. Limb Ataxia (finger/nose \T\ heel/asencio - test with eyes open) - 0(Absent) 8. Sensory Loss (pinprick arms/legs/face) - 0(Normal) 9. Best Language: Aphasia (description/naming/reading) - 0(No aphasia) 10. Dysarthria (speech clarity - read or repeat words) - 0(Normal) 11. Extinction and Inattention (visual/tactile/auditory/spatial/personal) - 0(No abnormality) Initials: lp1 NIH Stroke Scale - NIH Stroke Score Date: 08/30/2020 Time: 20:46 Total Score = 0 1a. Level of Consciousness (LOC) - 0(Alert) 1b. Level of Consciousness (LOC) (Year \T\ Age) - 0(Both) 1c. LOC Commands (Open \T\ Closes Eyes/Optometrist President/Practice Owner) - 0(Both) 2. Best Gaze (Lateral Gaze Paresis) - 0(Normal) 3. Visual Field Loss - 0(No visual loss) 4. Facial Palsy - 0(Normal) 5a. Left Arm: Motor (10-second hold) - 0(No drift) 5b. Right Arm: Motor (10-second hold) - 0(No drift) 6a. Left Leg: Motor (5-second hold - always test supine) - 0(No drift) 6b. Right Leg: Motor (5-second hold - always test supine) - 0(No drift) 7. Limb Ataxia (finger/nose \T\ heel/asencio - test with eyes open) - 0(Absent) 8. Sensory Loss (pinprick arms/legs/face) - 0(Normal) 9. Best Language: Aphasia (description/naming/reading) - 0(No aphasia) 10. Dysarthria (speech clarity - read or repeat words) - 0(Normal) 11. Extinction and Inattention (visual/tactile/auditory/spatial/personal) - 0(No abnormality) Initials: tw4 Signatures: Dispatcher [employer] Zoie Alford, RN RN lp1 Cholo Stratton MD MD tw4 Palmer Bolanos 2 Zachary Burch 2 Estrella Fernandez, RN RN vg1 Corrections: (The following items were deleted from the chart) 08/30 20:06 20:06 General: vg1 vg1
--- NOTE | 2020-08-30 23:48 | P.HP ---
Certification for Inpatient Patient admitted to: Inpatient With expected LOS: >2 Midnights Patient will require the following post-hospital care: None Practitioner: I am a practitioner with admitting privileges, knowledge of patient current condition, hospital course, and medical plan of care. Services: Services provided to patient in accordance with Admission requirements found in Title 42 Section 412.3 of the Code of Federal Regulations Patient History Date of Service: 08/30/20 Reason for admission: TIA History of Present Illness: Ms. Hawley is a 75 yo F with HTN, HLD, and h/o CVA in 2019 here today with expressive apphasia and right sided weakness beginning at 6pm, symptoms now resolved. She said she was in the bathroom when she began to feel lightheaded, unbalanced, and unable to talk. Now her NIH Stroke Scale is 0. She denies chest pain, SOB, palpitation, slurred speech, blurry vision, and headache. She is a former smoker, quit a few years ago. BUN 37. GFR 44. Glu 127. CT Head wnl. Allergies Penicillins Allergy (Intermediate, Verified 10/05/18 21:36) Hives/Rash acetaminophen [From Vicodin] Allergy (Verified 11/16/14 14:41) Hives/Rash hydrocodone bitartrate [From Vicodin] Allergy (Verified 11/16/14 14:41) Hives/Rash Home Medications: Atorvastatin Calcium [Lipitor] 80 mg PO BEDTIME #30 tab 10/10/18 Clopidogrel Bisulfate [Plavix*] 75 mg PO DAILY #30 tablet 10/10/18 Losartan Potassium [Cozaar*] 50 mg PO DAILY #30 tablet 10/10/18 - Past Medical/Surgical History Diabetic: No -: Arthritis -: Tobacco abuse -: Hypertension -: CAD with prior LAD stent -: History CVA -: Hyperlipidemia -: Right hip replacement -: Left Hand Surgery -: Heart catheterization with stent to the LAD Psychosocial/ Personal History: Patient is a . She lives near her children - Family History Father Notes: GOUT. Mother Notes: TB - Social History Smoking Status: Former smoker Alcohol use: No CD- Drugs: No Caffeine use: No Place of Residence: Home Review of Systems General: Unremarkable Eyes: Unremarkable ENT: Unremarkable Respiratory: Unremarkable Cardiovascular: Light Headedness Gastrointestinal: Unremarkable Genitourinary: Unremarkable Musculoskeletal: Unremarkable Integumentary: Unremarkable Neurological: Weakness, Incoordination, Change in Speech, As per HPI Lymphatics: Unremarkable Physical Examination - Physical Exam General: Alert, In no apparent distress, Oriented x3, Cooperative HEENT: Atraumatic, Normocephalic, PERRLA, Mucous membr. moist/pink, EOMI, Sclerae nonicteric Neck: Supple, 2+ carotid pulse no bruit, JVD not distended, No Thyromegaly Respiratory: Clear to auscultation bilaterally, Normal air movement Cardiovascular: No edema, Normal pulses, Regular rate/rhythm, Normal S1 S2, No g allops, No rubs, No murmurs Capillary refill: <2 Seconds Gastrointestinal: Normal bowel sounds, Soft and benign, Non-distended, No ascites, No tenderness, No masses, No rebound, No guarding Musculoskeletal: No clubbing, No swelling, No contractures, No erythema, No tenderness, No warmth Integumentary: No rashes, No breakdown, No significant lesion, No tenderness/swelling, No erythema, No warmth, No cyanosis Neurological: Normal speech, Normal strength at 5/5 x4 extr, Normal tone, Sensation intact, Cranial nerves 3-12 intact, Normal affect Lymphatics: No axilla or inguinal lymphadenopathy - Studies Laboratory Data (last 24 hrs) 08/30/20 20:35: PT 10.6, INR 0.92, APTT 30.1 08/30/20 20:35: WBC 6.70, Hgb 11.1 L, Hct 32.8 L, Plt Count 227 08/30/20 20:35: Sodium 141, Potassium 4.3, BUN 37 H, Creatinine 1.18, Glucose 127 H Assessment and Plan - Problems (Diagnosis) (1) History of CVA (cerebrovascular accident) Current Visit: Yes Status: Chronic (2) TIA (transient ischemic attack) Current Visit: Yes Status: Acute (3) Hyperlipemia Current Visit: No Status: Chronic Qualifiers: Hyperlipidemia type: unspecified Qualified Code(s): E78.5 - Hyperlipidemia, unspecified (4) Hypertension Current Visit: No Status: Chronic Qualifiers: Hypertension type: essential hypertension - Plan Neurology consulted MRI on Tuesday morning, CTA Head and Neck pending permissive HTN lipid panel pending folic acid, statin, asa+plavix bedside swallow study neuro checks q 4hr Discharge Plan: Home Plan to discharge in: 48 Hours - Advance Directives Does patient have a Living Will: No Does patient have a Durable POA for Healthcare: No - Code Status/Comfort Care Code Status Assessed: Yes (full code) Critical Care: No Time Spent Managing Pts Care (In Minutes): 70
[2020-08-31] MEDS ORDERED: ONDANSETRON 4 MG/2 ML VIAL IV PRN (00:44)
[2020-08-31] MEDS: HEPARIN 5000 UNIT/ML 1 ML VIAL SQ SCH ×3 (01:00→15:40)
[2020-08-31] MEDS: NA CHLORIDE 0.9% 1,000 ML IV SCH ×2 (01:42→14:04)
[2020-08-31] MEDS ORDERED: HYDRALAZINE HCL 20 MG/ML VIAL IV PRN (01:55)
[2020-08-31 02:16] VITALS: BMI 32.5
[2020-08-31 04:00] LABS: Urine Appearance CLEAR (Clear); Urine Bilirubin NEGATIVE (Negataive); Urine Blood NEGATIVE (Negative); Urine Color YELLOW (Yellow); Urine Glucose NEGATIVE (Negative); Urine Protein NEGATIVE (Negative); Urine Specific Gravity 1.015 (1.005-1.030); Urine Urobilinogen 0.2 mg/dL (0.2-1.0); Urine pH 5.5 (5.0-7.0)
[2020-08-31 04:01] LABS: Urine Microscopic Reflex ORDER UMIC
[2020-08-31 04:21] LABS: Urine Bacteria <20 /HPF (<20); Urine RBC <5 /HPF (NONE SEEN)
[2020-08-31 06:15] LABS: Absolute Lymphocytes (CBC) 1.4 K/uL (0.7-4.9); Basophils % 0.7 % (0-1.3); Hematocrit 29.3 % (36.0-45.0); Lymphocytes % 22.6 % (15.3-44.8); MPV 9.3 fL (7.6-11.3); RBC Red Blood Cell Count 3.18 M/uL (3.86-4.86)
[2020-08-31 06:38] LABS: Albumin 3.4 g/dL (3.4-5.0); Bilirubin Total 0.6 mg/dL (0.2-1.0); Magnesium 2.5 mg/dL (1.8-2.4); Phosphorus 3.3 mg/dL (2.5-4.9); Protein, Total 6.4 g/dL (6.4-8.2); Thyroid Stimulating Hormone 1.39 uIU/mL (0.360-3.740)
[2020-08-31] MEDS: ASPIRIN EC 81 MG TAB PO SCH (08:29)
[2020-08-31] MEDS: FOLIC ACID 1 MG TABLET PO SCH (08:29)
[2020-08-31] MEDS: CLOPIDOGREL 75 MG TABLET PO SCH (08:30)
--- NOTE | 2020-08-31 12:13 | EKG ---
Test Date: 2020-08-30 Test Time: 20:16:16 Combustion Analyst: PAOLA MEASUREMENT RESULTS: Intervals: Rate: 61 WY: 156 QRSD: 86 QT: 404 QTc: 406 [place]: P: 35 WY: 156 QRS: -16 T: -6 INTERPRETIVE STATEMENTS: Normal sinus rhythm Minimal voltage criteria for LVH, may be normal variant T wave abnormality, consider lateral ischemia Abnormal ECG Compared to ECG 11/11/2019 20:05:26 Left ventricular hypertrophy now present T-wave abnormality now present Sinus bradycardia no longer present ST (T wave) deviation no longer present Possible ischemia still present Electronically Signed On 08-31-20 12:11:48 CDT by Marcio Barksdale
--- NOTE | 2020-08-31 13:34 | P.PN ---
Subjective Date of Service: 08/31/20 Chief Complaint: TIA Patient denies any neurologic symptoms at this time. She states she feels fine. She denies any weakness, or visual disturbance or speech problem. Images done in the ED have not identified any acute CVA. Physical Examination - Vital Signs Temperature: 98.3 F Blood Pressure: 149/65 Pulse: 64 Respirations: 16 Pulse Ox (%): 98 - Physical Exam General: Alert, In no apparent distress, Oriented x3 HEENT: PERRLA, Mucous membr. moist/pink, EOMI Neck: Supple, JVD not distended Respiratory: Clear to auscultation bilaterally, Normal air movement Cardiovascular: No edema, Regular rate/rhythm, Normal S1 S2 Gastrointestinal: Normal bowel sounds, Soft and benign, Non-distended, No tenderness Musculoskeletal: No swelling, No tenderness Integumentary: No rashes, No erythema Neurological: Normal speech, Normal strength at 5/5 x4 extr, Cranial nerves 3-12 intact - Studies Laboratory Data (last 24 hrs) 08/30/20 20:35: PT 10.6, INR 0.92, APTT 30.1 08/30/20 20:35: WBC 6.70, Hgb 11.1 L, Hct 32.8 L, Plt Count 227 08/30/20 20:35: Sodium 141, Potassium 4.3, BUN 37 H, Creatinine 1.18, Glucose 127 H Assessment And Plan - Current Problems (Diagnosis) (1) TIA (transient ischemic attack) Current Visit: Yes Status: Acute (2) History of CVA (cerebrovascular accident) Current Visit: Yes Status: Chronic (3) Coronary artery disease Current Visit: Yes Status: Acute (4) Hyperlipemia Current Visit: No Status: Chronic Qualifiers: Hyperlipidemia type: unspecified Qualified Code(s): E78.5 - Hyperlipidemia, unspecified - Plan Continue aspirin and Plavix. Lipid profile within normal limit. Continue Lipitor. Patient counseled to avoid nicotine. She feels her symptoms may be related to COVID vaccine. Obtain MRI and echocardiogram tomorrow. Control blood pressure as needed once acute CVA has been ruled out with MRI of the brain.
[2020-08-31] MEDS ORDERED: SIMETHICONE 80 MG TAB PO PRN (19:14)
[2020-08-31] MEDS ORDERED: ATORVASTATIN 40 MG TAB PO SCH (21:00)
[2020-09-01] MEDS: HEPARIN 5000 UNIT/ML 1 ML VIAL SQ SCH ×2 (00:44→09:00)
--- NOTE | 2020-09-01 08:36 | RAD REPORT ---
EXAM DESCRIPTION: MRI - Brain W/Wo Cont - 09/01/2020 8:09 am CLINICAL HISTORY: TIA COMPARISON: MRA Head Wo Cont dated 09/01/2020; MRA Neck W/Wo Cont dated 09/01/2020; Head angio dated ; Ct Stroke Brain Wo Cont dated 08/30/2020 TECHNIQUE: Sagittal and axial T1-weighted images were obtained. Axial PD/heavily T2-weighted and T2- FLAIR images were obtained along with axial DWI/ADC mapping sequences. Coronal heavily T2 weighted s equence obtained. Axial and coronal post-contrast T1-weighted images were also obtained. A 14 ml Mul tihance contrast following utilized. FINDINGS: No intracranial hemorrhage, mass or acute infarction. There is no edema or shift of midli ne structures. No extra-axial fluid collections. John-matter/white matter junction is preserved. Sig nal voids are seen as a normal finding in the major intracranial vessels. Atrophy and cerebral chroni c ischemic changes are minimal. Ventricles are in proportion to the mild volume loss. Post-contrast images show normal enhancement. No dural thickening. Mastoid air cells are clear. No acute paranasal sinus finding. No globe or orbital content abnormalit y seen. IMPRESSION: Minimal atrophy and chronic ischemic change. No infarction or other acute intracranial finding identified.
--- NOTE | 2020-09-01 08:39 | RAD REPORT ---
EXAM DESCRIPTION: MRI - MRA Neck W/Wo Cont - 09/01/2020 8:08 am CLINICAL HISTORY: TIA COMPARISON: CTA head and neck August 30 TECHNIQUE: Axial and coronal 3D [id number] image acquisition was performed. 3D rotational images were generated with source and reconstruction images reviewed. Horizontal and vertical axis rotation al views generated using MIP protocol. FINDINGS: Aortic arch is bovine configuration with no origins stenosis. Bilateral subclavian arterie s unremarkable. No common carotid or internal carotid significant atherosclerotic change. No luminal narrowing or stenosis. Right vertebral artery is dominant. Left vertebral artery probably terminates at the posteroinferior cerebellar artery. Small size of the left vertebral artery is believed to be v ariant of normal anatomy and not long length dissection. IMPRESSION: MRA neck examination shows no significant or suspicious finding.
[2020-09-01 09:23] VITALS: O2SAT 98
[2020-09-01] MEDS: ASPIRIN EC 81 MG TAB PO SCH (09:43)
[2020-09-01] MEDS: CLOPIDOGREL 75 MG TABLET PO SCH (09:43)
[2020-09-01] MEDS: FOLIC ACID 1 MG TABLET PO SCH (09:43)
--- NOTE | 2020-09-01 10:05 | RAD REPORT ---
EXAM DESCRIPTION: MRI - MRA Head Wo Cont - 09/01/2020 9:15 am CLINICAL HISTORY: TIA, stroke-like symptoms, weakness, history of prior CVA COMPARISON: September 2018 MRA. TECHNIQUE: Axial and coronal 3D [id number] image acquisition was performed. 3D rotational images were generated with source and reconstruction images reviewed. Horizontal and vertical axis rotation al views generated using MIP protocol. FINDINGS: Exam is limited by motion degradation. No gross abnormality of the distal internal carotid arteries from skullbase determination. Anterior and middle cerebral artery distribution assessment i s limited due to the amount of motion. There does appear to be moderate severity disease in the far p eripheral branches of the right MCA with mild left MCA atherosclerotic change. No significant posteri or cerebral artery disease identifiable. Patient has a large posterior communicating arteries providi ng all or most of the SAP MOBILITY ARCHITECT distribution. The basilar artery is small in size, not unexpected given the bilateral posterior communicating arter y variant. Significant narrowing of the vertebrobasilar junction noted on this study. This segment of vasculature was small on the 2019 comparison. There may be progressive atherosclerotic disease narro wing this vessel. The amount of motion limits accuracy. This portion of the vasculature was much bett er visualized on the MRA neck examination and showed no significant abnormality. IMPRESSION: Motion degraded study shows moderate right MCA and mild left MCA atherosclerotic change. No distal internal carotid significant atherosclerotic disease. The basilar artery and vertebral basilar junction is limited on this examination. The separately repo rted MRA neck examination shows no significant basilar or distal vertebral disease.
--- NOTE | 2020-09-01 10:09 | RAD REPORT ---
EXAM DESCRIPTION: CTHead angio08/30/2020 10:20 pm CLINICAL HISTORY: 75-year-old female with headache, drowsiness and CVA symptomatology. History of hy pertension. COMPARISON: Noncontrast CT brain 08/30/2020. TECHNIQUE: CT angiography of the head and neck following dynamic bolus of intravenous contrast. 3D r eformatted reconstructions were performed on an independent workstation. This exam was performed acco rding to our departmental dose optimization program which includes use of automated exposure control, adjustment of the mA and/or kV according to patient size and/or use of iterative reconstruction tech nique. FINDINGS: CTA neck: Patent flow opacification of the aortic arch origin right brachiocephalic, left common carotid, and l eft subclavian arteries. The bilateral vertebral artery origins are normal. Patent flow opacification through the bilateral common carotid arteries, carotid bifurcations, cervic al internal/external carotid, and vertebral arteries. Diminutive LEFT vertebral artery with suspected PICA termination. CTA brain: Patent flow opacification through anterior circulation (bilateral petrous/cavernous/supraclinoid inte rnal carotid arteries, anterior and middle cerebral arteries), posterior circulation (vertebral-basil ar, posterior-inferior cerebellar, anterior-inferior cerebellar, superior cerebellar, and posterior c erebral arteries), and distal intracranial vasculature. Patent flow opacification through a complete [id number]-Wdpuil with a patent anterior communicating ar govind and bilateral posterior communicating arteries. Normal superficial and deep intracranial venous drainage. No evidence of occlusive thrombus, dissection, or vascular malformation. Additional findings: Multilevel moderate to severe degenerative change of the cervical spine. IMPRESSION: 1. Patent enhancement of the intracranial circulation. 2. Patent enhancement of the cervical vasculature without significant stenosis by NASCET criteria. 3. Diminutive LEFT vertebral artery with suspected PICA termination. Electronically signed by: Esther Rodriguez MD 08/30/2020 10:54 PM CDT Due to temporary technical issues with the PACS/Fluency reporting system, reports are being signed by the in house radiologist without review as a courtesy to ensure prompt reporting. The interpreting r adiologist is fully responsible for the content of the report.
--- NOTE | 2020-09-01 10:10 | RAD REPORT ---
EXAM DESCRIPTION: LUIS ALBERTONeck Angio08/30/2020 10:20 pm CLINICAL HISTORY: 75-year-old female with headache, drowsiness and CVA symptomatology. History of hy pertension. COMPARISON: Noncontrast CT brain 08/30/2020. TECHNIQUE: CT angiography of the head and neck following dynamic bolus of intravenous contrast. 3D r eformatted reconstructions were performed on an independent workstation. This exam was performed acco rding to our departmental dose optimization program which includes use of automated exposure control, adjustment of the mA and/or kV according to patient size and/or use of iterative reconstruction tech nique. FINDINGS: CTA neck: Patent flow opacification of the aortic arch origin right brachiocephalic, left common carotid, and l eft subclavian arteries. The bilateral vertebral artery origins are normal. Patent flow opacification through the bilateral common carotid arteries, carotid bifurcations, cervic al internal/external carotid, and vertebral arteries. Diminutive LEFT vertebral artery with suspected PICA termination. CTA brain: Patent flow opacification through anterior circulation (bilateral petrous/cavernous/supraclinoid inte rnal carotid arteries, anterior and middle cerebral arteries), posterior circulation (vertebral-basil ar, posterior-inferior cerebellar, anterior-inferior cerebellar, superior cerebellar, and posterior c erebral arteries), and distal intracranial vasculature. Patent flow opacification through a complete [id number] with a patent anterior communicating ar govind and bilateral posterior communicating arteries. Normal superficial and deep intracranial venous drainage. No evidence of occlusive thrombus, dissection, or vascular malformation. Additional findings: Multilevel moderate to severe degenerative change of the cervical spine. IMPRESSION: 1. Patent enhancement of the intracranial circulation. 2. Patent enhancement of the cervical vasculature without significant stenosis by NASCET criteria. 3. Diminutive LEFT vertebral artery with suspected PICA termination. Electronically signed by: Esther Rodriguez MD 08/30/2020 10:54 PM CDT Due to temporary technical issues with the PACS/Fluency reporting system, reports are being signed by the in house radiologist without review as a courtesy to ensure prompt reporting. The interpreting r adiologist is fully responsible for the content of the report.
--- NOTE | 2020-09-01 13:24 | P.DS ---
Admission Date: 08/30/20 Discharge Date: 09/01/20 Disposition: ROUTINE DISCHARGE Discharge Condition: FAIR Reason for Admission: TIA - Problems (1) TIA (transient ischemic attack) Status: Acute (2) History of CVA (cerebrovascular accident) Status: Chronic (3) Coronary artery disease Status: Acute (4) Hyperlipemia Status: Chronic Qualifiers: Hyperlipidemia type: unspecified Qualified Code(s): E78.5 - Hyperlipidemia, unspecified Brief History of Present Illness: 75 year old woman with a history of HTN, HLD, and prior CVA in 2019 presented to the emergency department with sudden onset expressive aphasia and right sided weakness. Her symptoms resolved prior to coming to the ED. She also reported experiencing lightheadedness, and imbalance. Her NIH Stroke Scale in the ED was 0. She denied any slurred speech, blurry vision, and headache. CT Head done in the ED was wnl. Patient hospitalized for further management. Hospital Course: Patient admitted to the medical floor. Stroke workup with MRI of brain, MRA of head and neck were all negative for acute CVA. Patient was asymptomatic during the hospital stay. Her lipid profile was within normal limits. Patient was in sinus rhythm Patient seen by neurology Dr. Hall. Patient already on aspirin and Plavix. Folic acid added. She had no trouble swallowing and no problem with gait. Patient deemed clinically stable for discharge. She will follow Dr. Hall within a couple of weeks in the office. Vital Signs/Physical Exam: Temp Pulse Resp BP Pulse Ox 99.4 F 74 18 136/62 97 09/01/20 08:00 09/01/20 08:00 09/01/20 08:00 09/01/20 08:00 09/01/20 08:00 General: Alert, In no apparent distress, Oriented x3 Neck: Supple, JVD not distended Respiratory: Clear to auscultation bilaterally, Normal air movement Cardiovascular: No edema, Regular rate/rhythm, Normal S1 S2 Gastrointestinal: Soft and benign, Non-distended, No tenderness Musculoskeletal: No swelling Integumentary: No rashes Neurological: Normal speech, Normal strength at 5/5 x4 extr, Cranial nerves 3-12 intact Laboratory Data at Discharge: WBC 6.20 K/uL (4.3-10.9) 08/31/20 05:27 Hgb 10.0 g/dL (12.0-15.0) L 08/31/20 05:27 Hct 29.3 % (36.0-45.0) L 08/31/20 05:27 Plt Count 196 K/uL (152-406) 08/31/20 05:27 PT 10.6 SECONDS (9.5-12.5) 08/30/20 20:35 INR 0.92 08/30/20 20:35 APTT 30.1 SECONDS (24.3-36.9) 08/30/20 20:35 Sodium 141 mmol/L (136-145) 08/31/20 05:27 Potassium 4.0 mmol/L (3.5-5.1) 08/31/20 05:27 BUN 32 mg/dL (7-18) H 08/31/20 05:27 Creatinine 0.99 mg/dL (0.55-1.3) 08/31/20 05:27 Glucose 106 mg/dL (74-106) 08/31/20 05:27 Phosphorus 3.3 mg/dL (2.5-4.9) 08/31/20 05:27 Magnesium 2.5 mg/dL (1.8-2.4) H 08/31/20 05:27 Total Bilirubin 0.6 mg/dL (0.2-1.0) 08/31/20 05:27 AST 19 U/L (15-37) 08/31/20 05:27 ALT 23 U/L (12-78) 08/31/20 05:27 Alkaline Phosphatase 65 U/L (45-117) 08/31/20 05:27 Triglycerides 77 mg/dL (<150) 08/31/20 05:27 Cholesterol 92 mg/dL (<200) 08/31/20 05:27 HDL Cholesterol 36 mg/dL (40-60) L 08/31/20 05:27 Cholesterol/HDL Ratio 2.56 08/31/20 05:27 Home Medications: Clopidogrel Bisulfate [Plavix*] 75 mg PO DAILY #30 tablet 10/10/18 Losartan Potassium [Cozaar*] 50 mg PO DAILY #30 tablet 10/10/18 Aspirin [Aspirin EC 81 MG] 1 tab PO DAILY 08/31/20 Atorvastatin Calcium [Lipitor] 40 mg PO BEDTIME 08/31/20 Folic Acid 1 mg PO DAILY #30 tablet 09/01/20 New Medications: Folic Acid 1 mg PO DAILY #30 tablet Diet: AHA Activity: Ad nadege Followup: Kell Duke NP [Primary Care Provider] - 1-2 Weeks Josh Hall MD [ASSOCIATE-ACTIVE - CAN ADMIT] - (within 2 weeks.) Time spent managing pt's care (in minutes): 33
[2020-09-01 14:13] VITALS: BP 138/61; TEMP 97.6
--- NOTE | 2020-09-02 00:18 | CON ---
Reason For Consultation: Consultation called because of transient ischemic attack. History Of Present Illness: Ms. Hawley is a 75-year-old patient with hypertension, dyslipidemia, pr ior CVA, who comes into [facility] with symptoms consistent with transient ischemic attack. She was admitted on 08/30/2020. Symptoms consisted of sudden slurred speech and right-sided weaknes s. While she was going to the bathroom, she felt unsteady on the feet with poor balance, lightheaded . By the time she got to the [facility], her symptoms had resolved and her NIH scale was 0. The symptoms lasted at about 30 [address] time. Head CT scan was unremarkable. Brain MRI show ed no acute ischemic or hemorrhagic stroke. Her MRA of the head showed some moderate right MCA and m ild mid left MCA arthrosclerotic disease. She had blood work showing slightly low hemoglobin of 10.0 after hydration, coagulation panel was normal, and there was blood work consistent with dehydration, slightly elevated chloride of 112, BUN 37. Cholesterol showed an LDL of 41, HDL of 36. Liver funct ion studies normal. Urinalysis showed 1+ esterase and 5-10 white blood cells. COVID-19 was negative . At the time of my evaluation, she was having an EEG done. Past Medical History: Arthritis, hypertension, coronary artery disease, stroke, dyslipidemia. Past Surgical History: Right hip replacement, left hand surgery, cardiac catheterization with stent to the left anterior descending artery. Allergies: PENICILLIN, ACETAMINOPHEN, HYDROCODONE. Medications: At home, Atorvastatin 80 mg at bedtime, Plavix 75 mg daily, Cozaar 50 mg daily. Family History: Gout in father and tuberculosis in mother. Social History: The patient is a and lives near her family and her children. No current tob acco use. Smoked in the past. No alcohol or IV drug use. Review of Systems: Aside from mentioned, she has no recent fevers, chills, nausea, vomiting, myalgias, arthralgias, rash , headache, weight change, psychiatric complaints, gastrointestinal, or genitourinary issues. Physical Examination: Vital Signs: Blood pressure 130/61, pulse 71, respiratory rate 18, temperature 97.6, oxygen saturati on 98%. Weight 166 pounds, height 5 feet, BMI 32.6. General: Ms. Hawley is in no acute distress. She is standing in the room. HEENT: She is normocephalic, atraumatic. Sclerae anicteric. Oropharynx is moist and pink. Neck: Supple. Chest: Clear. Heart: Regular. Extremities: No clubbing, cyanosis, or edema. Neurologic: She is alert and oriented to person, place, time, and situation. She follows all comman ds appropriately. She has no cranial nerve findings. No abnormal motor, sensory, coordination, or g ait deficits. Assessment: Ms. Hawley is a 75-year-old patient with 30 minutes transient ischemic attack in the se tting of multiple risk factors as outlined above. Plan: 1.She should be on aspirin 81 mg daily. 2.Clopidogrel 75 mg daily. 3.Folate 1 mg daily. 4.Continue her atorvastatin 80 mg at night. 5.Continue with aggressive management of her hypertension. 6.The patient should be discharged home and follow up in Dr. Hall's clinic in 1 month. Her EEG will be reviewed. STACY/TANIKA Voice ID: [id number] Report ID: [id number]
--- NOTE | 2020-09-02 08:08 | ECHO ---
HEIGHT: 5 ft 0 in WEIGHT: 166 lb 14.4 oz DATE OF STUDY: 09/01/[address]: tacos leach 2-DIMENSIONAL: YES M.MODE: YES DOPPLER: YES COLOR FLOW: YES TDS: NO PORTABLE: NO DEFINITY: NO BUBBLE STUDY: NO DIAGNOSIS: ACUTE CEREBRAL VASCULAR ACCIDENT CARDIAC HISTORY: CATHERIZATION: NO SURGERY: NO PROSTHETIC VALVE: NO PACEMAKER: NO MEASUREMENTS (cm) DIASTOLIC (NORMALS) SYSTOLIC (NORMALS) IVSd 0.9 (0.6-1.2) LA Diam 3.0 (1.9-4.0) LVEF 71% LVIDd 4.6 (3.5-5.7) LVIDs 2.8 (2.0-3.5) %FS 40% LVPWd 1.0 (0.6-1.2) Ao Diam 2.8 (2.0-3.7) 2 DIMENSIONAL ASSESSMENT: RIGHT ATRIUM: NORMAL LEFT ATRIUM: NORMAL RIGHT VENTRICLE: NORMAL LEFT VENTRICLE: NORMAL TRICUSPID VALVE: NORMAL MITRAL VALVE: NORMAL PULMONIC VALVE: NORMAL AORTIC VALVE: PERICARDIAL EFFUSION: NONE AORTIC ROOT: NORMAL LEFT VENTRICULAR WALL MOTION: NORMAL DOPPLER/COLOR FLOW: SEE BELOW. COMMENTS: NORMAL LEFT VENTRICULAR EJECTION FRACTION 60-65%. NORMAL WALL MOTION. MODERATE AORTIC INSUFFICENCY. TECHNOLOGIST: Miriam MULLEN
== END 2020-09-01 14:29 | disposition home or self-care (01) | DRG 69 ==
LOC: ER 19:19 → ERHOLD 23:30 → 2ND 08-31 00:39
PROVIDERS: ADMIT Internal Medicine; ATTEND Internal Medicine
DX: G45.9 Transient cerebral ischemic attack, unspecified (principal); I10 Essential (primary) hypertension; E78.5 Hyperlipidemia, unspecified; M19.90 Unspecified osteoarthritis, unspecified site; I25.10 Atherosclerotic heart disease of native coronary artery without angina pectoris; Z20.828 Contact with and (suspected) exposure to other viral communicable diseases; Z87.891 Personal history of nicotine dependence
CPT/HCPCS: 36415; 70450; 70496; 70498; 70544; 70549; 70553; 71045; 80048; 80053; 80061; 81003; 81015; 82565; 82947; 83735; 83880; 84100; 84439; 84443; 85025; 85610; 85730; 93005; 93306; 94760; 97116; 97161; 97530; 99285; A9577; J0360; J1644; J7030; Q9967; U0003

== ENCOUNTER 2021-07-18 16:18 | Emergency (ER) | payer OTHER ==
--- OUTSIDE RECORDS SUMMARY | 2021-07-18 16:22 | XMS REPORT | Continuity of Care Document ---
:1945 Author Organization [facility] t Address [address] [place] [address] Care Team Providers Name Role Phone Leilani Attending Clinician Unavailable Margarita Attending Clinician Unavailable Denisse MIJARES Attending Clinician QASIM CHIRINOS Attending Clinician Unavailable QASIM CHIRINOS Admitting Clinician Unavailable Payers Payer Name Policy Type Policy Number Effective Date Expiration Date S ource Problems Condition Condition Condition Status Onset Resolution Last Treating Co mments Source Name Details Category Date Date Treatment Clinician Date Closed Closed Disease Active [facility] fracture fracture 01-07 Colleg e of left of left 00:00: of hip hip 00 Medicin (HCCode) (HCCode) e Coronary Coronary Disease Active [facility] artery 01-07 College disease disease 00:00: of involving involving 00 [place] coronary coronary artery of artery of [place] heart heart without without angina angina pectoris pectoris Essential Essential Disease Active [facility] hypertensi hypertensi 01-07 Co llege on on 00:00: of 00 Medicin e History of History of Disease Active [facility] stroke stroke 01-07 College 00:00: of 00 Medicin e Allergies, Adverse Reactions, Alerts Allergy Allergy Status Severity Reaction(s) Onset Inactive Treating Comm ents Source Name Type Date Date Clinician Acetamin Propensi Active Other [facility] ophen ty to 11-16 reaction( College adverse 00:00: s): of reaction 00 Hives/Ambrosio Medic in s to h e drug Hydrocod Propensi Active Other [facility] one ty to 11-16 reaction( [place] adverse 00:00: s): of reaction 00 Hives/Ambrosio Medic in s to h e drug Penicill Propensi Active Other (See "Throat [facility] ins ty to Comments) 05-23 closes, I [facility] ege adverse 00:00: felt like of reaction 00 choking" Medici n s to e drug penicill Adverse Active throat [facility] Reaction [facility] PCN Adverse Active anaphylaxis [facility] Reaction [facility] Social History Social Habit Start Date Stop Date Quantity Comments Source Sex Assigned At [facility] Smoking Status Start Date Stop Date Source Never smoker [facility] Medications Ordered Filled Start Stop Current Ordering Indication Dosage Frequency Signature Comments Components Source Medication Medication Date Date Medication? Clinician (SIG) Name Name Gabapentin Gabapentin Yes Tiffanie [address] [facility] 1-08 [facility] as needed [facility] 00:[facility]: [facility] aspirin EC Yes 81mg Take 81 mg [facility] 81 MG TBEC 9-30 by mouth. Florina ege 18:07: of 29 Medicin e aspirin EC Yes 81mg Take 81 mg [facility] 81 MG TBEC 9-30 by mouth. Florina ege 18:07: of 29 Medicin e ferrous 2019- No 325mg Take 325 [facility] sulfate 325 9-20 10-21 mg by Colleg e (65 Fe) MG 00:00: 04:59 mouth. of tablet 00 :00 Medicin e hydrocodone Yes 1{tbl} Take 1 Tab Rk -acetaminop 9-19 by mouth Florina eggloria hen ([employer]) 00:00: every 8 of 10-325 MG 00 hours as Medici n per tablet needed for e Pain. hydrocodone Yes 1{tbl} Take 1 Tab Rk -acetaminop 9-19 by mouth Lforina ege hen (NORCO) 00:00: every 8 of 10-325 MG 00 hours as Medici n per tablet needed for e Pain. atorvastati 2019-0 Yes 40mg Take 40 mg Rk n (LIPITOR) 8-13 by mouth. Col lege 80 MG 00:00: of tablet 00 Medicin e clopidogrel 2019-0 Yes 75mg Take 75 mg Rk (PLAVIX) 75 8-13 by mouth. Col lege MG Tablet 00:00: of 00 Medicin e losartan 2019-0 Yes 50mg Take 50 mg [place] [facility] (COZAAR) 50 8-13 by mouth. Col lege MG tablet 00:00: of 00 Medicin e atorvastati 2019-0 Yes 40mg Take 40 mg Rk n (LIPITOR) 8-13 by mouth. Col lege 80 MG 00:00: of tablet 00 Medicin e clopidogrel 2019-0 Yes 75mg Take 75 mg [facility] (PLAVIX) 75 8-13 by mouth. Col lege MG Tablet 00:00: of 00 Medicin e losartan 2019-0 Yes 50mg Take 50 mg [place] [facility] (COZAAR) 50 8-13 by mouth. Col lege MG tablet 00:00: of 00 Medicin e Aleve Aleve Yes Tiffanie [address] [facility] with food [facility] - or milk as [facility] needed [facility] aspirin aspirin Yes Tiffanie not [facility] defined [facility] Losartan Losartan Yes Tiffanie TAKE [address] [facility] Potassium Potassium [facility] TABLET BY [facility] EVERY DAY l [facility] Clopidogrel Clopidogrel Yes Tiffanie TAKE [address] [facility] Bisulfate Bisulfate [facility] TABLET BY [facility] EVERY DAY [facility] Atorvastati Atorvastati Yes Tiffanie TAKE [address] [facility] n Calcium n Calcium [facility] TABLET BY [facility] BEDTIME l [facility] Procedures This patient has no known procedures. Plan of Care Planned Activity Planned Date Details Comments Source Future Scheduled COLON CANCER [facility] ege Test SCREENING: of Medicine COLONOSCOPY [code = COLON CANCER SCREENING: COLONOSCOPY] Future Scheduled MAMMOGRAM ANNUAL [facility] Test [code = MAMMOGRAM of Medicin e ANNUAL] Future Scheduled MEDICARE AWV [code = [facility] Test MEDICARE AWV] of Medicine Future Scheduled TETANUS SHOT (ADULT) [facility] Test [code = TETANUS SHOT of Medi cine (ADULT)] Future Scheduled FALL SCREEN [code = [facility] Test FALL SCREEN] of Medicine Future Scheduled OSTEOPOROSIS [facility] ege Test SCREENING [code = of Medicin e OSTEOPOROSIS SCREENING] Future Scheduled PNEUMOVAX >=65 [facility] Co llege Test (PPSV23) [code = of Medicine PNEUMOVAX >=65 (PPSV23)] Future Scheduled PREVNAR >= 65 (PCV13) [employer] Test [code = PREVNAR >= 65 of Med icine (PCV13)] Future Scheduled FLU VACCINE > 6 [facility] C ollege Test MONTHS [code = FLU of Medici ne VACCINE > 6 MONTHS] Future Scheduled ORT - XR HIP LEFT 2V Ordered: [place] [facility] [employer] Test (CHARGE ONLY) [code = 02/26/2019 of Med icine 77360] Future Scheduled ORT - XR PELVIS AP Ordered: [employer] Test (CHARGE ONLY) [code = 02/26/2019 of Med icine 84815] Future Scheduled MEDICARE AWV [code = [place] [facility] [employer] Test MEDICARE AWV] of Medicine Future Scheduled TETANUS SHOT (ADULT) [place] [employer] [employer] Test [code = TETANUS SHOT of Medi cine (ADULT)] Future Scheduled FALL SCREEN [code = [facility] Test FALL SCREEN] of Medicine Future Scheduled OSTEOPOROSIS [facility] Florina ege Test SCREENING [code = of Medicin e OSTEOPOROSIS SCREENING] Future Scheduled PNEUMOVAX >=65 [facility] Co llege Test (PPSV23) [code = of Medicine PNEUMOVAX >=65 (PPSV23)] Future Scheduled PREVNAR >= 65 (PCV13) [employer] Test [code = PREVNAR >= 65 of Med icine (PCV13)] Future Scheduled FLU VACCINE > 6 [facility] C ollege Test MONTHS [code = FLU of Medici ne VACCINE > 6 MONTHS] Encounters Start End Encounter Admission Attending Care Care Encounter Source Date/Time Date/Time Type Type Clinicians Facility Department ID 2021-05-20 Outpatient Leilani [facility] 13:09:57 Kell [id number] [facility] 2021-05-20 Outpatient Leilani [facility] 12:25:38 Kell [id number] [facility] 2021-05-20 Outpatient Margarita [facility] 11:17:13 Tiffanie [id number] [facility] 2021-03-26 2021-03-26 ambulatory [facility] [id number] [facility] 2021-01-13 2021-01-13 Outpatient [facility] [id number] [facility] 2020-12-26 2020-12-26 Outpatient [facility] [id number] [facility] 2020-09-25 2020-09-25 Outpatient [facility] [id number] [facility] 2020-09-24 2020-09-24 Outpatient [facility] [id number] [facility] 2020-08-14 2020-08-14 Outpatient [facility] [id number] [facility] 2020-08-14 2020-08-14 Outpatient [facility] [id number] [facility] 2020-07-11 2020-07-11 Outpatient [facility] [id number] [facility] 2019-11-12 2019-11-12 [facility] [id number] [facility] 14:52:00 14:52:00 [facility] Medicine l Medicine Outpati ent Clinics 2019-05-03 2019-05-03 [facility] [id number] [facility] 00:27:00 00:27:00 [facility] Medicine l Medicine Outpati ent Clinics 2019-05-02 2019-05-02 [facility] [id number] 11:15:00 11:15:00 [facility] Medicine l Medicine Outpati ent Clinics 2019-02-26 2019-02-26 Office NISHA Salcedo [id number] 14:01:39 14:45:11 Visit Izaiah AMBULATOR [id number] Y 0.2.7.2.686 [id number] 600 2019-02-26 2019-02-26 Office NISHA Salcedo [id number] [facility] 14:01:39 14:45:11 Visit Izaiah AMBULATOR [id number] College Y 0.2.7.2.686 of [id number] [facility] 600 e 2019-01-25 2019-01-25 [facility] [id number] [address] 11:40:00 11:40:00 [facility] 2019-01-22 2019-01-22 Office NISHA Salcedo [id number] 12:53:51 13:42:28 Visit Izaiah AMBULATOR [id number] Y 0.2.7.2.686 [id number] 600 2019-01-22 2019-01-22 Office NISHA Salcedo [id number] [facility] 12:53:51 13:42:28 Visit Izaiah AMBULATOR 350.1.13.21 College Y 0.2.7.2.686 of [id number] [facility] 600 e 2018-10-24 2018-10-24 [facility] [id number] 13:20:00 13:20:00 [facility] Outpat[facility] ent Clinics 2018-05-18 2018-05-18 [facility] [id number] 13:40:00 13:40:00 [facility] 2018-05-18 2018-05-18 [facility] [id number] 11:45:00 11:45:00 [facility] ent Clinics Results Test Description Test Time Test Comments Results Result [facility] e Comments TISSUE EXAM 2019-01-20 Surgical Pathology 11:29:00 Report Case: [id number] Authorizing Provider: Izaiah Salcedo Collected: 01/10/2019 Westley8 Leland Corbett MD [facility] Received: 01/11/2019 0810 Perioperative Services Pathologist: Kris Guaman MD Specimen: Femoral Head,Left Hip BONE, LEFT FEMORAL HEAD FOR PRIOR FRACTURE, ARTHROPLASTY:OSTEOARTHRI TIC CHANGES IN BONE AND CARTILAGE.REGENERATIVE FEATURES COMPATIBLE WITH REPORTED HISTORY OF FRACTURE.REACTIVE SYNOVIAL TISSUE. Signing Pathologist Direct Phone Line: [phone] ly signed by Kris Guaman MD on 01/20/2019 at 11:29 [id number], [id number]: Arthroplasty, hip, left total hip arthroplastyPre and postop diagnosis: closed fracture of left hip, initial encounter ([facility])Femoral head, left hipReceived in formalin labeled with [...] cm, and up to 0.2 cm thick. [facility] sections are submitted: A1, margin, following decalcification; A2, eburnation, following decalcification; A3, osteophyte and osteocartilaginous slippage, following decalcification; A4, soft tissue. SS/plPerformed.[facility], Department of Pathology, [address] [place] [address], [facility], [facility], [address] [place] [address], [facility], [facility], [address] [place] [address], PHOSPHORUS 2019-01-13 06:20:00 Test Item Value Reference Range Interpretation Comme nts PHOSPHORUS (BEAKER) (test code = 604) 3.3 mg/dL 2.3-4.7 [id number] 06:20:00 Test Item Value Reference Range Interpretation Comments MAGNESIUM (BEAKER) (test code = 1.9 mg/dL 1.6-2.6 627) BASIC METABOLIC [id number] 06:20:00 Test Item Value Reference Range Interpretation [...] PATIEN TS. CBC W/PLT COUNT & AUTO [id number] 05:39:00 Test Item Value Reference Range Interpretation [...] (BEAKER) (test code = 2801) HEMOGLOBIN AND [id number] 14:51:00 Test Item Value Reference Range Interpretation Comments HEMOGLOBIN (BEAKER) (test code = 7.7 GM/DL 11.2-15.7 L 410) HEMATOCRIT (BEAKER) (test code = 22.8 % 34.1-44.9 L 411) [id number] 06:16:00 Test Item Value Reference Range Interpretation Comments PHOSPHORUS (BEAKER) (test code = 2.7 mg/dL 2.3-4.7 604) BASIC METABOLIC [id number] 06:16:00 Test Item Value Reference Range Interpretation [...] S NOT APPLICABLE FOR DIALYSIS PATIMANAV TS. [id number] 06:16:00 Test Item Value Reference Range Interpretation Comments MAGNESIUM (BEAKER) (test code = 1.7 mg/dL 1.6-2.6 627) CBC W/PLT COUNT & AUTO [id number] 06:07:00 Test Item Value Reference Range Interpretation [...] = 2801) RAD, PELVIS, 1 OR 2 [id number] 08:49:00Reason for exam:->postopShould this be performed at [...] due to technique.Consider repeat. Signed: Nadine Villafuerte MDRort Verified Date/Time: 01/11/2019 08:49:25 Reading Location: [facility] Reading Room [address] [place] [address] RAD, PELVIS, 1 OR 2 [id number] 08:45:00Reason for exam:->LEFT TOTAL HIP ARTHROPLASTYFINAL REPORT [...] is in good alignment. Signed: Nadine Villafuerte MDReport Verified Date/Time: 01/11/2019 08:45:39 Reading Location: [facility] Reading Room [address] [place], [place] [address]Elec tronically signed by: NADINE CHAMPAGNE M.D. on 01/11/2019 08:45 AM BASIC METABOLIC [id number] 06:26:00 Test Item Value Reference Range Interpretation [...] S NOT APPLICABLE FOR DIALYSIS PATIEN TS. [id number] 06:25:00 Test Item Value Reference Range Interpretation Comments PHOSPHORUS (BEAKER) (test code = 3.3 mg/dL 2.3-4.7 604) [id number] 06:25:00 Test Item Value Reference Range Interpretation Comments MAGNESIUM (BEAKER) 1.6 mg/dL 1.6-2.6 Specimen slightly (test code = 627) hemolyzed CBC W/PLT COUNT & AUTO [id number] 06:16:00 Test Item Value Reference Range Interpretation [...] (BEAKER) (test code = 2801) BASIC METABOLIC [id number] 05:45:00 Test Item Value Reference Range Interpretation [...] S NOT APPLICABLE FOR DIALYSIS PATIEN TS. [id number] 05:45:00 Test Item Value Reference Range Interpretation Comments MAGNESIUM (BEAKER) (test code = 1.7 mg/dL 1.6-2.6 627) [id number] 05:45:00 Test Item Value Reference Range Interpretation Comments PHOSPHORUS (BEAKER) (test code = 3.4 mg/dL 2.3-4.7 604) CBC W/PLT COUNT & AUTO [id number] 05:29:00 Test Item Value Reference Range Interpretation [...] 0-1 PERCENT (BEAKER) (test code = 2801) [id number] 07:03:00 Test Item Value Reference Range Interpretation Comments PHOSPHORUS (BEAKER) (test code = 3.7 mg/dL 2.3-4.7 604) [id number] 07:03:00 Test Item Value Reference Range Interpretation Comments MAGNESIUM (BEAKER) (test code = 1.8 mg/dL 1.6-2.6 627) BASIC METABOLIC [id number] 07:03:00 Test Item Value Reference Range Interpretation [...] PATIEN TS. CBC W/PLT COUNT & AUTO [id number] 06:51:00 Test Item Value Reference Range Interpretation [...] (test code = 2801) CT, PELVIS, WO [id number] 14:06:00FINAL REPORT CT OF THE PELVIS HISTORY: [...] MDReport Verified Date/Time: 01/08/2019 14:06:17 Reading Location: [facility] Radiology Reading Room TROPONIN I [...] acidosis, acute neurological disease, and persistent tachyarrhythmia.TROPONIN [id number] 05:40:00 Test Item Value Reference Range Interpretation [...] and persistent tachyarrhythmia.RAD, CHEST, 1 VIEW, NON [id number] 00:37:00Reason for exam:->preopShould this be performed at the bedside?->YesFINAL REPORT Chest, 1 view. History: Preoperative evaluation. Left hip fixation. Comparison: None available. IMPRESSION: Low lung volumes. Prominent pulmonary vasculature likelyrelated to hypoventilatory technique. No pleural effusion or pneumothorax. No lobar consolidation. Cardiac mediastinal silhouette is exaggerated by technique. Osseous structures are grossly unremarkable. Signed: Griselda Solis Verified Date/Time: 01/08/2019 00:37:57 RAD, PELVIS, 1 [...] Date/Time: 01/08/2019 00:30:32 RAD, HIP, 2 VIEWS, [id number] 00:30:00Reason for exam:->L hip intertrochanteric fracture, want [...] Signed: Griselda Solis Verified Date/Time: 01/08/2019 00:30:32 ANAEL [id number] 00:09:00 Test Item Value Reference Range Interpretation [...] acute neurological disease, and persistent tachyarrhythmia.BASIC METABOLIC [id number] 00:02:00 Test Item Value Reference Range Interpretation [...] PATIEN TS. CBC W/PLT COUNT & AUTO [id number] 23:08:00 Test Item Value Reference Range Interpretation [...]
[2021-07-18] MEDS ORDERED: TETRACAINE HCL 0.5% 4ML OPTH ONE (17:08)
[2021-07-18] MEDS ORDERED: FLUORESCEIN SODIUM 1 MG/WRAP ONE (17:09)
--- NOTE | 2021-07-18 17:40 | ER ---
Nurse's Notes [facility] Name: Estela Hawley Age: 76 yrs Sex: Female : 1945 Arrival Date: 07/18/2021 Time: 16:19 Bed 12 Private MD: Kell Duke Diagnosis: Conjunctival hemorrhage, right eye Presentation: 07/18 16:24 Chief complaint: Patient states: "Last night I took a shower and I got out and noticed ab2 my eye was red. I went to bed to see if it got any better and its wore today. It doesn't hurt though." Pt states she had surgery on the same eye a few months ago. Chief complaint:. Coronavirus screen: Vaccine status: Patient reports receiving the 2nd dose of the covid vaccine. Client denies travel out of the [place] in the last 14 days. At this time, the client does not indicate any symptoms associated with coronavirus-19. Ebola Screen: Patient negative for fever greater than or equal to 101.5 degrees Fahrenheit, and additional compatible Ebola Virus Disease symptoms Patient denies exposure to infectious person. Patient denies travel to an Ebola-affected area in the 21 days before illness onset. No symptoms or risks identified at this time. Initial Sepsis Screen: Does the patient meet any 2 criteria? No. Patient's initial sepsis screen is negative. Does the patient have a suspected source of infection? No. Patient's initial sepsis screen is negative. Risk Assessment: Do you want to hurt yourself or someone else? Patient reports no desire to harm self or others. Onset of symptoms is unknown. 16:24 Method Of Arrival: Ambulatory ab2 16:24 Acuity: KERRIE 4 ab2 Triage Assessment: 16:27 General: Appears in no apparent distress. comfortable, Behavior is calm, cooperative, ab2 appropriate for age. Pain: Denies pain. EENT: Reports Red eye . Historical: - Allergies: 16:27 PENICILLINS; ab2 - PMHx: 16:27 CVA; Hyperlipidemia; Myocardial infarction; Vertigo; Hypertension; ab2 - Immunization history:: Adult Immunizations up to date, Client reports receiving the 2nd dose of the Covid vaccine. - Social history:: Smoking status: Patient denies any tobacco usage or history of. Screenin:54 Abuse screen: Denies threats or abuse. Denies injuries from another. Nutritional iw screening: No deficits noted. Tuberculosis screening: No symptoms or risk factors identified. Fall Risk None identified. Assessment: 17:15 General: Appears in no apparent distress. Behavior is calm, cooperative. Pain: Denies iw pain. Neuro: Level of Consciousness is awake, alert, obeys commands, Oriented to person, place, time, situation, Full function. EENT: Sclera/Cornea. Musculoskeletal: Range of motion: intact in all extremities. Vital Signs: 16:24 BP 140 / 54; Pulse 66; Resp 17; Temp 98.5(TE); Pulse Ox 98% on R/A; Weight 72.57 kg; ab2 Height 5 ft. 0 in. (152.40 cm); Pain 0/10; 16:24 Body Mass Index 31.25 (72.57 kg, 152.40 cm) ab2 ED Course: 16:19 Patient arrived in ED. am2 16:20 Kell Duke FNP-C is Private Physician. am2 16:26 Triage completed. ab2 16:27 Arm band placed on right wrist. ab2 16:41 [facility] pm1 16:41 Angelo Conner MD is Attending Physician. pm1 17:00 Amanda Choi RN is Primary Nurse. iw 17:15 Patient has correct armband on for positive identification. iw 17:53 No provider procedures requiring assistance completed. Patient did not have IV access iw during this emergency room visit. Administered Medications: No medications were administered Outcome: 17:39 Discharge ordered by . pm1 17:53 Discharged to home ambulatory. iw 17:53 Condition: good 17:53 Discharge instructions given to patient, Instructed on discharge instructions, follow up and referral plans. Demonstrated understanding of instructions, follow-up care. 17:54 Patient left the ED. iw Signatures: Amanda Choi RN RN iw Roberto Mcgraw NP RADIATION OFFICER pm1 Brittany Phillips am2 Troy Ugalde ab2
--- NOTE | 2021-07-18 17:40 | EDPHYS ---
Physician Documentation [facility] Name: Estela Hawley Age: 76 yrs Sex: Female : 1945 Arrival Date: 07/18/2021 Time: 16:19 Bed 12 Private MD: Kell Duke ED Physician Angelo Conner HPI: 07/18 16:58 This 76 yrs old Female presents to ER via Ambulatory with complaints of Redness of Eye pm1 - right. 16:58 The patient is experiencing redness, to the right eye. Onset: The symptoms/episode pm1 began/occurred last night. Duration: the symptoms are continuous. Aggravated by nothing. Alleviated by nothing. Associated signs and symptoms: Pertinent negatives: eye pain, discharge. Patient does not utilize any form of vision correction. Severity of symptoms: in the emergency department the symptoms are unchanged. The patient has not experienced similar symptoms in the past. The patient has not recently seen a physician. Historical: - Allergies: 16:27 PENICILLINS; ab2 - PMHx: 16:27 CVA; Hyperlipidemia; Myocardial infarction; Vertigo; Hypertension; ab2 - Immunization history:: Adult Immunizations up to date, Client reports receiving the 2nd dose of the Covid vaccine. - Social history:: Smoking status: Patient denies any tobacco usage or history of. ROS: 16:58 Constitutional: Negative for fever, chills, and weight loss, Cardiovascular: Negative pm1 for chest pain, palpitations, and edema, Respiratory: Negative for shortness of breath, cough, wheezing, and pleuritic chest pain. 16:58 Skin: Negative for injury, rash, and discoloration, Neuro: Negative for headache, weakness, numbness, tingling, and seizure. 16:58 Eyes: Positive for redness, of the right eye, Negative for discharge, injury or acute deformity, itching, matting, pain, visual disturbance. 16:58 All other systems are negative. Exam: 16:58 Constitutional: This is a well developed, well nourished patient who is awake, alert, pm1 and in no acute distress. Head/Face: Normocephalic, atraumatic. 16:58 Skin: Warm, dry with normal turgor. Normal color with no rashes, no lesions, and no evidence of cellulitis. MS/ Extremity: Pulses equal, no cyanosis. Neurovascular intact. Full, normal range of motion. 16:58 Eyes: Conjunctiva: subconjunctival hemorrhage(s), seen in the right eye, at 9 o'clock. 16:58 ENT: Mouth: Lips: normal, moist, Oral mucosa: normal, pink and intact, moist. 16:58 Cardiovascular: Exam negative for acute changes, Rate: normal, Rhythm: regular, Pulses: no pulse deficits are appreciated. 16:58 Respiratory: Exam negative for acute changes, respiratory distress, shortness of breath. 16:58 Neuro: Exam negative for acute changes, Orientation: is normal, Mentation: is normal, Motor: moves all fours. Vital Signs: 16:24 BP 140 / 54; Pulse 66; Resp 17; Temp 98.5(TE); Pulse Ox 98% on R/A; Weight 72.57 kg; ab2 Height 5 ft. 0 in. (152.40 cm); Pain 0/10; 16:24 Body Mass Index 31.25 (72.57 kg, 152.40 cm) ab2 MDM: 16:41 Patient medically screened. pm1 17:38 Data reviewed: vital signs. Data interpreted: Pulse oximetry: on room air is 98 %. pm1 Interpretation: normal. Counseling: I had a detailed discussion with the patient and/or guardian regarding: the historical points, exam findings, and any diagnostic results supporting the discharge/admit diagnosis, the need for outpatient follow up, an opthalmologist, to return to the emergency department if symptoms worsen or persist or if there are any questions or concerns that arise at home. 03 16:58 Order name: Eye Tray; Complete Time: 17:10 pm1 07/18 16:58 Order name: Fluoresene Opth strip; Complete Time: 17:10 pm1 Administered Medications: No medications were administered Disposition Summary: 07/18/21 17:39 Discharge Ordered Location: Home pm1 Problem: new pm1 Symptoms: have improved pm1 Condition: Stable pm1 Diagnosis - Conjunctival hemorrhage, right eye pm1 Followup: pm1 - With: Emergency Department - When: As needed - Reason: Worsening of condition Followup: pm1 - With: Private Physician - When: 2 - 3 days - Reason: Recheck today's complaints, Continuance of care, Re-evaluation by your physician Discharge Instructions: - Discharge Summary Sheet pm1 - Subconjunctival Hemorrhage pm1 Forms: - Medication Reconciliation Form pm1 - Thank You Letter pm1 - Antibiotic Education pm1 - Prescription Opioid Use pm1 Addendum: 07/22/2021 07:08 Co-signature as Attending Physician, Angelo Conner MD I agree with the assessment and c patterson plan of care. Signatures: Angelo Conner, Roberto Sousa MD, cha, SHIPFITTER HELPER SHIPFITTER HELPER pm1 Troy Ugalde
[2021-07-18 18:26] VITALS: BP 140/54; TEMP 98.5; O2SAT 98
== END 2021-07-18 17:54 | disposition home or self-care (01) ==
LOC: ER 16:18
DX: H11.31 Conjunctival hemorrhage, right eye (principal); E78.5 Hyperlipidemia, unspecified; I10 Essential (primary) hypertension; I25.2 Old myocardial infarction; Z86.73 Personal history of transient ischemic attack (TIA), and cerebral infarction without residual deficits; Z88.0 Allergy status to penicillin
CPT/HCPCS: 99281

== ENCOUNTER 2023-08-31 07:47 | Day surgery (SDC) | payer OTHER ==
[2023-08-31 08:51] LABS: Platelets 247 thou/uL (152-406)
[2023-08-31 08:55] LABS: PT Prothrombin Time 11.1 SECONDS (9.5-12.5); PTT, Activated Partial Thromb 36.1 SECONDS (24.3-36.9); Protime INR 1.01
[2023-08-31] MEDS ORDERED: FLUMAZENIL 0.1 MG/ML (5 mL VIAL) IV ONE (09:00)
[2023-08-31] MEDS ORDERED: MIDAZOLAM HCL 2 MG/2 ML INJ ONE (09:00)
[2023-08-31] MEDS ORDERED: NALOXONE HCL 2 MG/2 ML VIAL ONE (09:01)
[2023-08-31] MEDS ORDERED: FENTANYL CITR 100 MCG/2 ML ONE (09:01)
[2023-08-31] MEDS ORDERED: NA CHLORIDE 0.9% 500 ML ONE (09:01)
[2023-08-31] MEDS: HYDROMORPHONE HCL 1 MG/ML INJ ONE (11:01)
--- NOTE | 2023-08-31 11:07 | RAD REPORT ---
EXAM DESCRIPTION: CT - Lung Biopsy Perc w/CT - 08/31/2023 10:15 am CLINICAL HISTORY: right lung mass, R91.8 COMPARISON: Ct Skull/Thigh dated 07/21/2023; Chest Abdomen W Con dated 06/26/2023 FINDINGS: Preoperative diagnosis: Right lung mass Post operative diagnosis: Same Conscious Sedation: 2 mg Versed, 50 mcg Fentanyl Patient was continuously monitored by nursing staff. Contrast used: NONE Estimated blood loss: less than 5 mL Specimens: 4 core samples of the right upper lobe mass. Procedure: CT guided RUL lung biopsy Postprocedure imaging demonstrated no complications. Samples were given to pathology for analysis. Th e patient tolerated the procedure without immediate complication and transferred to the recovery room in stable condition. IMPRESSION: Technically successful CT-guided right upper lobe lung biopsy with conscious sedation. N o immediate complication. All CT scans are performed using dose optimization technique as appropriate and may include automated exposure control or mA/KV adjustment according to patient size.
--- NOTE | 2023-08-31 11:38 | RAD REPORT ---
EXAM DESCRIPTION: RAD - Chest Single View - 08/31/2023 11:31 am CLINICAL HISTORY: POST LUNG BX COMPARISON: Chest Single View dated 06/26/2023; Chest Single View dated 08/30/2020; Chest Single View da margaret 11/11/2019; Chest Single View dated 01/07/2019 FINDINGS: No pneumothorax identified following right-sided lung biopsy. IMPRESSION: No pneumothorax following right-sided lung biopsy.
[2023-08-31 11:48] VITALS: BMI 35.2
--- NOTE | 2023-08-31 12:21 | RAD REPORT ---
EXAM DESCRIPTION: RAD - Chest Single View - 08/31/2023 12:07 pm CLINICAL HISTORY: POST LUNG BX COMPARISON: Chest Single View dated 08/31/2023; Chest Single View dated 06/26/2023; Chest Single View da margaret 08/30/2020; Chest Single View dated 11/11/2019 FINDINGS: No appreciable pneumothorax identified. IMPRESSION: No appreciable right-sided pneumothorax following right-sided lung biopsy.
[2023-08-31 15:02] VITALS: BP 121/62; TEMP 97.3; O2SAT 99
== END 2023-08-31 12:33 | disposition home or self-care (01) ==
LOC: DS 07:47
PROVIDERS: ATTEND Internal Medicine Sleep Medicine
PROC: 0BBC3ZX Excision of Right Upper Lung Lobe, Percutaneous Approach, Diagnostic (ICD-10-PCS; principal; 2023-08-31)
DX: C34.11 Malignant neoplasm of upper lobe, right bronchus or lung (principal)
CPT/HCPCS: 36415; 85049; 85610; 88305; 85730; 77012; 71045 ×2; 32408; J2250; J3010; J1170; J7040; J2310

== ENCOUNTER 2023-10-05 20:54 | Emergency (ER) | payer OTHER ==
[2023-10-05 22:36] LABS: Absolute Eosinophils 0.4 K/uL (0-0.5); Basophils % 0.3 % (0-1.3); Eosinophils % 4.4 % (0-4.4); Hematocrit 30.8 % (36.0-45.0); Hemoglobin 10.5 g/dL (12.0-15.0); Lymphocytes % 12.1 % (15.3-44.8); MCH 31.5 pg (27.0-35.0); MCHC 34.1 g/dL (32.0-36.0); MCV 92.6 fL (80-100); MPV 9.8 fL (7.6-11.3); Monocytes % 11.6 % (3.3-12.3); Neutrophils % 71.6 % (41.7-73.7); Platelets 201 thou/uL (152-406); RBC Red Blood Cell Count 3.32 M/uL (3.86-4.86); Red Cell Distribution Width 12.9 % (12.1-15.2)
[2023-10-05 22:42] LABS: Albumin 2.8 g/dL (3.4-5.0); Albumin/Globulin Ratio 0.8 (1.1-1.8); Anion Gap 7.7 mEq/L (5.0-15.0); Bilirubin Total 0.7 mg/dL (0.2-1.0); Globulin 3.7 g/dL (2.3-3.5); Potassium 3.7 mEq/L (3.5-5.1); Protein, Total 6.5 g/dL (6.4-8.2)
--- NOTE | 2023-10-05 23:10 | RAD REPORT ---
EXAM DESCRIPTION: RADChest Single View10/05/2023 10:18 pm CLINICAL HISTORY: ABDOMINAL DISTENTION COMPARISON: Chest Single View dated 08/31/2023; Chest Single View dated 08/31/2023; Chest Single View da margaret 06/26/2023; Chest Single View dated 08/30/2020 TECHNIQUE: Portable AP view of the chest. FINDINGS: Elevation of the right hemidiaphragm, with suture line along the right upper hemithorax, c ompatible with postsurgical changes. Patchy perihilar and right basilar airspace opacification sugges ting atelectasis. Thickening or trace effusion along the right minor fissure. Left lung is clear. Sof t tissue gas along the right lateral lower chest wall likely related to recent operative changes. No pneumothorax or effusion. The cardiomediastinal contours are unremarkable. IMPRESSION: Postsurgical changes of the right hemithorax as above. No other acute findings.
[2023-10-06] MEDS ORDERED: LACTULOSE 20 GM/30 ML UCUP ONE (00:07)
[2023-10-06 00:47] LABS: Specific Gravity 1.006 (1.005-1.030); Sqamous Epithelial <5 /HPF (None Seen); Urine Bacteria None Seen /HPF (<20); Urine Bilirubin NEGATIVE (Negative); Urine Blood Negative (Negative); Urine Clarity Clear (Clear); Urine Color Colorless (Yellow); Urine Culture Reflex Order NOT NEEDED; Urine Glucose NEGATIVE (Negative); Urine Ketones NEGATIVE (Negative); Urine Microscopic Reflex YN ORDER UMIC; Urine Mucus Slight /HPF (None Seen); Urine Nitrite NEGATIVE (Negative); Urine Protein NEGATIVE (Negative); Urine RBC <5 /HPF (None Seen); Urine Urobilinogen Normal (Normal); Urine WBC <5 /HPF (<5)
--- NOTE | 2023-10-06 01:32 | ER ---
Nurse's Notes 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 Coronavirus screen: At this time, the client does not indicate any symptoms associated with coronavirus-19. Ebola Screen: No symptoms or risks identified at this time. Initial Sepsis Screen: Does the patient meet any 2 criteria? No. Patient's initial sepsis screen is negative. Does the patient have a suspected source of infection? No. Patient's initial sepsis screen is negative. Risk Assessment: Do you want to hurt yourself or someone else? Patient reports no desire to harm self or others. Onset of symptoms was October 05, 2023. 21:01 Acuity: KERRIE 3 as6 21:01 Method Of Arrival: Wheelchair as6 Historical: - Allergies: 21:03 PENICILLINS; as6 - Home Meds: 22:50 aspirin 81 mg Oral TbEC 1 tab once daily [Active]; atorvastatin 40 mg Oral tab 1 tab vc1 once daily [Active]; Losartan Potassium 100mg 1 tab daily [Active]; multivitamin Oral tab daily [Active]; amlodipine 5 mg oral tablet daily [Active]; lidocaine patch 2 patches daily [Active]; acetaminophen 500 mg Oral capsule 2 tab every 8 hours [Active]; celecoxib 100 mg Oral capsule 2 times per day [Active]; gabapentin 100 mg oral capsule 3 times per day [Active]; - PMHx: 21:03 CVA; Hyperlipidemia; Hypertension; Myocardial infarction; Vertigo; as6 - PSHx: 21:03 heart stent (o); as6 - Immunization history:: Adult Immunizations up to date. - Infectious Disease History:: Denies. - Social history:: Smoking status: Patient denies any tobacco usage or history of. Screenin:21 [facility] ED Fall Risk Assessment (Adult) History of falling in the last 3 months, kd3 including since admission No falls in past 3 months (0 pts) Confusion or Disorientation No (0 pts) Intoxicated or Sedated No (0 pts) Impaired Gait No (0 pts) Mobility Assist Device Used No (0 pt) Altered Elimination No (0 pt) Score/Fall Risk Level 0 - 2 = Low Risk Oriented to surroundings. Abuse screen: Denies threats or abuse. Denies injuries from another. Nutritional screening: No deficits noted. Tuberculosis screening: No symptoms or risk factors identified. Assessment: 23:21 General: Appears in no apparent distress. Behavior is calm, cooperative. Pain: kd3 Complains of pain in abdomen. Neuro: Level of Consciousness is awake, alert, obeys commands, Oriented to person, place, time, situation. Cardiovascular: Patient's skin is warm and dry. Respiratory: Airway is patent Trachea midline Respiratory effort is even, unlabored, Respiratory pattern is regular, symmetrical. 10/05 00:33 General: Pt given lactulose and escorted to the restroom. Pt is choosing to sit in the kd3 rest room and wait for the medication to take effect. Pt and Pt's son has been educated on the medication process and was told that it may take some time before the medication kicks in. Pt and pt's son verbalize understanding and still choose to wait in and near the restroom. . 00:44 General: Pt returned to the room but requests to stay in the wheelchair so that she's kd3 "ready when she needs to go". Pt's son remains at the chairside for safety. Wheels are locked. Pt remains on monitoring. . Vital Signs: 10/04 21:01 BP 140 / 97; Pulse 66; Resp 18 S; Temp 97.5(TE); Pulse Ox 97% on R/A; Weight 81.65 kg; as6 Height 5 ft. 0 in. ; Pain 3/10; 23:21 BP 139 / 65; Pulse 58; Resp 19; Pulse Ox 99% on R/A; kd3 10/05 00:32 BP 149 / 84; Pulse 66; Resp 17; Pulse Ox 98% on R/A; kd3 01:53 BP 114 / 58; Pulse 88; Resp 17; Pulse Ox 98% on R/A; kd3 10/04 21:01 Body Mass Index 35.15 (81.65 kg, 152.4 cm) as6 10/04 21:01 Pain Scale: Adult as6 ED Course: 10/04 20:55 Patient arrived in ED. ra3 21:03 Triage completed. as6 21:03 Arm band placed on. as6 21:09 Angelo Campos PA is PHCP. cp 21:09 Hugh Fleming MD is Attending Physician. cp 22:[address] that pt finished contrast. kmf 22:20 XRAY Chest (1 view) In Process Unspecified. EDMS 23:20 Merced Phelps, RN is Primary Nurse. kd3 23:22 Patient has correct armband on for positive identification. kd3 10/05 00:01 CT Abd/Pelvis - PO and IV Contrast In Process Unspecified. EDMS 00:16 Urinalysis w/ reflexes Sent. kd3 01:53 Provided Education on: Mag Citrate . kd3 01:53 No provider procedures requiring assistance completed. IV discontinued, intact, kd3 bleeding controlled, No redness/swelling at site. Pressure dressing applied. Administered Medications: 00:16 Drug: Lactulose PO 30 grams 45 ml PO once Volume: 45 ml; Route: PO; kd3 01:54 Follow up: Response: No adverse reaction kd3 01:49 Drug: Magnesium Citrate PO Liquid 300 ml PO once Route: PO; kd3 01:54 Follow up: Response: No adverse reaction kd3 Medication: 10/04 23:22 VIS not applicable for this client. kd3 Outcome: 10/05 01:32 Discharge ordered by . cp 01:53 Discharged to home via wheelchair, with family, kd3 01:53 Condition: stable 01:53 Discharge instructions given to patient, family, Instructed on discharge instructions, follow up and referral plans. Demonstrated understanding of instructions, follow-up care, 01:55 Patient left the ED. kd3 Signatures: Dispatcher [employer] EDMS Angelo Campos PA PA cp Slawson, Ashby, RN RN as6 Merced Phelps RN RN kd3 Carlie Khalil RN RN vc1 Kelsy Hutchison [facility] Susanne Gomez ra3
--- NOTE | 2023-10-06 01:32 | EDPHYS ---
Physician Documentation [facility] Name: Estela Hawley Age: 78 yrs Sex: Female : 1945 Arrival Date: 10/05/2023 Time: 20:54 Bed 5 Private MD: ED Physician Hugh Fleming HPI: 10/04 22:00 This 78 yrs old Female presents to ER via Wheelchair with complaints of Hurts All Over cp - bloating post Sx. 22:00 The patient presents with abdominal distention that is diffuse. constipation. cp 22:00 Onset: The symptoms/episode began/occurred last bowel movement was this past Tuesday. cp Patient reports having right side partial lung removal due to tumor this past Tuesday. Associated signs and symptoms: Pertinent negatives: nausea and vomiting, anorexia, diarrhea, fever. Historical: - Allergies: 21:03 PENICILLINS; as6 - Home Meds: 22:50 aspirin 81 mg Oral TbEC 1 tab once daily [Active]; atorvastatin 40 mg Oral tab 1 tab vc1 once daily [Active]; Losartan Potassium 100mg 1 tab daily [Active]; multivitamin Oral tab daily [Active]; amlodipine 5 mg oral tablet daily [Active]; lidocaine patch 2 patches daily [Active]; acetaminophen 500 mg Oral capsule 2 tab every 8 hours [Active]; celecoxib 100 mg Oral capsule 2 times per day [Active]; gabapentin 100 mg oral capsule 3 times per day [Active]; - PMHx: 21:03 CVA; Hyperlipidemia; Hypertension; Myocardial infarction; Vertigo; as6 - PSHx: 21:03 heart stent (o); as6 - Immunization history:: Adult Immunizations up to date. - Infectious Disease History:: Denies. - Social history:: Smoking status: Patient denies any tobacco usage or history of. ROS: 22:05 Constitutional: Negative for chills, fever, poor PO intake, cp 22:05 Eyes: Negative for injury, pain, redness, and discharge, cp 22:05 ENT: Negative for drainage from ear(s), ear pain, sore throat, difficulty swallowing, difficulty handling secretions, 22:05 Cardiovascular: Negative for chest pain, palpitations, 22:05 Respiratory: Negative for cough, shortness of breath, wheezing, 22:05 Abdomen/GI: Positive for constipation, abdominal distension, Negative for vomiting, diarrhea, 22:05 Back: Negative for pain at rest, pain with movement, 22:05 : Negative for urinary symptoms, 22:05 Neuro: Negative for altered mental status, dizziness, headache, weakness, 22:05 All other systems are negative, Exam: 22:10 Constitutional: The patient appears in no acute distress, alert, awake, cp non-diaphoretic, non-toxic, well developed, well nourished, uncomfortable, 22:10 Head/Face: Normocephalic, atraumatic. cp 22:10 Eyes: Periorbital structures: appear normal, Conjunctiva: normal, no exudate, no injection, Sclera: no appreciated abnormality, Lids and lashes: appear normal, bilaterally, 22:10 ENT: External ear(s): are unremarkable, Nose: is normal, Mouth: Lips: moist, Oral mucosa: pink and intact, moist, Posterior pharynx: Airway: no evidence of obstruction, patent, 22:10 Chest/axilla: Inspection: right lateral thoracic surgical incision appears without erythema, no drainage from incision, mild swelling, Palpation: crepitus, is not appreciated, tenderness, that is mild, of the right lateral posterior chest and right lateral anterior chest, 22:10 Cardiovascular: Rate: normal, Rhythm: regular, Edema: is not appreciated, JVD: is not appreciated, 22:10 Respiratory: the patient does not display signs of respiratory distress, Respirations: normal, no use of accessory muscles, no retractions, labored breathing, is not present, Breath sounds: decreased breath sounds, that are moderate, are heard in the right posterior middle lobe and right posterior lower lobe, 22:10 Abdomen/GI: Inspection: distension, that is mild, Bowel sounds: active, all quadrants, Palpation: soft, in all quadrants, mild abdominal tenderness, in all quadrants, rebound tenderness, is not appreciated, involuntary guarding, is not appreciated, 22:10 Back: vertebral tenderness, is not appreciated, 22:10 Neuro: Orientation: to person, place \T\ time. Mentation: is normal, Motor: moves all fours, strength is normal, Vital Signs: 21:01 BP 140 / 97; Pulse 66; Resp 18 S; Temp 97.5(TE); Pulse Ox 97% on R/A; Weight 81.65 kg; as6 Height 5 ft. 0 in. ; Pain 3/10; 23:21 BP 139 / 65; Pulse 58; Resp 19; Pulse Ox 99% on R/A; kd3 10/05 00:32 BP 149 / 84; Pulse 66; Resp 17; Pulse Ox 98% on R/A; kd3 01:53 BP 114 / 58; Pulse 88; Resp 17; Pulse Ox 98% on R/A; kd3 10/04 21:01 Body Mass Index 35.15 (81.65 kg, 152.4 cm) as6 10/04 21:01 Pain Scale: Adult as6 MDM: 10/04 21:09 Patient medically screened. cp 22:00 Differential diagnosis: Ureterolithiasis, urinary tract infection, sepsis, bowel cp obstruction, constipation. 10/05 01:31 Data reviewed: vital signs, nurses notes, lab test result(s), radiologic studies, CT cp scan, plain films, I have discussed the patient's presentation/case with the attending Emergency Department Physician; and as a result, I will discharge patient. 01:31 I considered the following discharge prescriptions or medication management in the emergency department Medications were administered in the Emergency Department. See MAR. Counseling: I had a detailed discussion with the patient and/or guardian regarding the historical points, exam findings, and any diagnostic results supporting the discharge/admit diagnosis, lab results, radiology results, to return to the emergency department if symptoms worsen or persist or if there are any questions or concerns that arise at home. Response to treatment: the patient's symptoms have mildly improved after treatment, and as a result, I will discharge patient. 10/04 21:48 Order name: CBC with Diff; Complete Time: 23:03 10/05 01:31 Interpretation: Normal except: RBC 3.32; HGB 10.5; HCT 30.8; LYM% 12.1. 10/04 21:48 Order name: CMP; Complete Time: 23:03 cp 10/04 21:48 Order name: Lipase; Complete Time: 23:03 cp 10/04 21:48 Order name: Urinalysis w/ reflexes; Complete Time: 01:31 cp 10/04 21:50 Order name: XRAY Chest (1 view); Complete Time: 23:43 cp 10/04 21:51 Order name: CT Abd/Pelvis - PO and IV Contrast cp 10/04 21:48 Order name: IV Saline Lock; Complete Time: 22:30 cp 10/04 21:48 Order name: Labs collected and sent; Complete Time: 22:30 cp Administered Medications: 00:16 Drug: Lactulose PO 30 grams 45 ml PO once Volume: 45 ml; Route: PO; kd3 01:54 Follow up: Response: No adverse reaction kd3 01:49 Drug: Magnesium Citrate PO Liquid 300 ml PO once Route: PO; kd3 01:54 Follow up: Response: No adverse reaction kd3 Disposition Summary: 10/06/23 01:32 Discharge Ordered Notes: Location: Home cp Problem: new cp Symptoms: have improved cp Condition: Stable cp Diagnosis - Constipation, unspecified cp Followup: cp - With: Private Physician - When: 1 - 2 days - Reason: Recheck today's complaints Discharge Instructions: - Discharge Summary Sheet cp - Constipation, Adult cp Forms: - Medication Reconciliation Form cp - Antibiotic Education cp - Prescription Opioid Use cp - Patient Portal Instructions cp - Leadership Thank You Letter cp Addendum: 10/07/2023 03:48 Co-signature as Attending Physician, Hugh Fleming MD I agree with the assessment s p4 and plan of care. I reviewed the patient's care provided by the Advanced Practice Provider and agree with the diagnosis and treatment plan. Signatures: Dispatcher [employer] EDMS Angelo Campos PA PA cp Slawson, Ashby, RN RN as6 Merced Phelps RN RN kd3 Carlie Khalil RN RN vc1 Hugh Fleming MD MD sp4 Corrections: (The following items were deleted from the chart) 10/04 21:49 21:49 CBC+H.LAB.BRZ ordered. EDMS EDMS 21:49 21:49 COMPREHENSIVE METABOLIC PANEL+C.LAB.BRZ ordered. EDMS EDMS 21:49 21:49 LIPASE+C.LAB.BRZ ordered. EDMS EDMS 21:49 21:49 Urinalysis+U.LAB.BRZ ordered. EDMS EDMS
[2023-10-06] MEDS ORDERED: MAGNESIUM CITRATE 300 ML BOT ONE (01:47)
[2023-10-06 03:27] VITALS: BP 114/58; TEMP 97.5; O2SAT 98
--- NOTE | 2023-10-07 06:40 | RAD REPORT ---
EXAM DESCRIPTION: CT - Abdomen Pelvis W Contrast - 10/06/2023 7:09 am ADDENDUM #1 Urgent finding reported to Dr. Hugh Fleming at 10/06/2023 1:05 AM CDT Electronically signed by: Jeramie Soto DO 10/06/2023 01:05 AM CDT RP [id number] End of Addendum EXAM DESCRIPTION: Abdomen Pelvis W Contrast CLINICAL HISTORY: ABDOMINAL DISTENTION COMPARISON: 06/26/2023 TECHNIQUE: CT of the abdomen and pelvis performed following IV administration of iodinated contras t. Motion artifact. This exam was performed according to our departmental dose-optimization program, which includes automated exposure control, adjustment of the mA and/or kV according to patient size a nd/or use of iterative reconstruction technique. FINDINGS: Lung Bases: Right pneumothorax partially visualized. Coronary artery atherosclerosis. Smal l pleural effusions. Bones: Acute nondisplaced fracture of the posterior right seventh rib. Multilevel degenerative endpla te spondylosis, disc height narrowing, and facet arthropathy. Bilateral total hip arthroplasties. Abdomen: Liver: The liver has normal size and density. Gallbladder: No calcified gallstones. Spleen, Pancreas, and Adrenal Glands: The spleen, pancreas, and adrenal glands are unremarkable. Kidneys: No hydronephrosis or obstructing calculus. Vasculature: There aortoiliac atherosclerosis. IVC is unremarkable. The portal vein is patent. The proximal visceral and renal arteries are patent. Stomach: The stomach and duodenum have normal course. Other: No free intraperitoneal air. No free fluid or lymphadenopathy. Air in the right lateral ch est and abdominal wall. Pelvis: Bladder: Urinary bladder is unremarkable. Bowel: No dilated loops of large or small bowel. Moderate amount of stool. Scattered diverticula of the colon. Appendix: Normal appendix. Pelvis: Streak artifact affecting the pelvis. Uterus is not definitely enlarged. Gluteal injection gr anulomas. IMPRESSION: 1. Right pneumothorax partially visualized. Air in the right chest and abdominal wall subcutaneous soft tissues. Findings may be postoperative. 2. Small bilateral pleural effusions. 3. Acute nondisplaced fracture of the posterior right seventh rib. 4. Coronary artery atherosclerosis. 5. Diverticulosis without evidence of acute diverticulitis. Electronically signed by: Jeramie Soto DO 10/06/2023 12:53 AM CDT RP [id number] Due to temporary technical issues with the PACS/Fluency reporting system, reports are being signed by the in house radiologists without review as a courtesy to insure prompt reporting. The interpreting radiologist is fully responsible for the content of the report.
== END 2023-10-06 01:55 | disposition home or self-care (01) ==
LOC: ER 20:54
DX: K59.00 Constipation, unspecified (principal)
CPT/HCPCS: 85025; 81001; 36415; 83690; 80053; 74177; 71045; 99284; Q9967